=== PATIENT | female | born 1960 | race Caucasian/White ===

== ENCOUNTER 2017-01-24 19:07 | Emergency (ER) | payer OTHER ==
[~2017-01-24] VITALS: Ht 162.6 cm; Wt 95.2 kg
[~2017-01-24 19:07] MED LIST: AZIT250T74 PO; CYCL20CR PO; DIAZ5 PO; FLUO-1 PO; FLUT1SPR9 NASAL; FURO1TAB93 PO; GABA800T PO; LEVO75TA3 PO; LORA5SOL3 PO; PRED5TAB PO; PROP40TA3 PO; TOPA15CA PO; VENTAER INH; ZOLP5TAB3 PO
[2017-01-24 19:39] VITALS: BP 110/82; PULSE 96; RESP 18; TEMP 98.3; O2SAT 94
[2017-01-24 20:46] VITALS: BP 134/79; PULSE 82; RESP 22; O2SAT 95
--- NOTE | 2017-01-24 20:48 | PD ---
HPI Chief Complaint: Fall Time Seen by Provider: 20:41 Travel History International Travel<30 days: No Contact w/Intl Traveler<30days: No Traveled to known affect area: No History of Present Illness HPI 56-year-old female presents to the emergency department by private transportation for complaint of injury sustained after falling off of a 12 foot ladder that she was climbing down yesterday at 4 PM. Patient states that she was looking at a boat and was on a ladder that was up against the boat as she was climbing down she estimates that when she was approximately 8 feet from the ground her foot slipped and while she was hanging on the ladder she's ago and landed on her back hitting her head and back. Patient states she did not experience loss of consciousness. Patient states she landed on a driveway. Patient states there were bystanders. Patient states she chose not to be evaluated at an emergency department at that time. Patient states due to persistent headache and back pain she decided to come to the emergency department. Patient also reports that she has visual is disturbance causing blurring of both eyes since the fall. Patient states she has residual right- sided weakness due to recurrent CVA recurrent frequent TIAs and multiple sclerosis. Patient states she is not followed by a neurologist for her history of multiple sclerosis. Patient states she has not seen her primary care physician Dr. Shaffer recently. Patient denies any new upper or lower extremity numbness tingling or weakness. Patient denies any chest pain rib pain shortness of breath or abdominal pain. Patient states she's had normal urine output. Patient denies any bladder or bowel dysfunction or incontinence. Patient has noted however for some time she has daily diarrhea that is not new. Patient does not report any melena or hematochezia. Patient's had no recent febrile illness. Patient does not take antibiotic. Patient has not noticed any hematuria or noted flank pain. Patient does complain of low back pain. An patient does report chronic low back pain. Patient states she is supposed to use a walker at all times to assist with ambulation but has been utilizing assistance of her friend who drove her to the hospital or family members to help with her ambulation. Patient does not report change in her laboratory status. Patient has experienced some nausea and dizziness reportedly since her fall. Patient has extensive past medical history that includes multiple sclerosis TIA CVA with residual right-sided weakness rheumatoid arthritis asthma bipolar disorder dyslipidemia mitral valve prolapse diabetes fibromyalgia GERD headache/migraines degenerative disc disease hypothyroidism diverticulosis with episodes of diverticulitis and she has undergone previous eye surgery and urethral surgery. Patient denies tobacco use. No report of alcohol use. The patient rates her overall pain 10 over 10 in intensity. Patient states that she took some medication for her headache pain but cannot remember the name of it as it is the new medication. Patient denies noting any soft tissue swelling of the scalp and did not sustain any abrasions or lacerations. PFSH Past Medical History Narrative Medical multiple sclerosis TIA CVA with residual right-sided weakness rheumatoid arthritis asthma bipolar disorder dyslipidemia mitral valve prolapse diabetes fibromyalgia GERD headache/migraines degenerative disc disease hypothyroidism diverticulosis diverticulitis eye surgery urethral surgery;denies tobacco use; nursing notes reviewed Anemia: Yes Arthritis: Yes (RA) Asthma: Yes Bipolar Disorder: Yes Anxiety: Yes Depression: Yes Cardiovascular Problems: Yes High Cholesterol: Yes Cerebrovascular Accident: Yes Coronary Artery Disease: Yes (MITRAL VALVE PROLAPSE) Diabetes: Yes Diminished Hearing: Yes Diverticulitis: Yes Fibromyalgia: Yes GERD: Yes Headaches: Yes Hepatitis: Yes (migraines) Herniated Disk: Yes Respiratory: Yes Immunizations Current: Yes Migraines: Yes Thyroid Disease: Yes (HYPO) Menopausal: Yes Past Surgical History Eye Surgery: Yes (BILATERAL "LAZY EYE" CORRECTION, CHILD) Genitourinary Surgery: Yes (urethral surgery) Pacemaker: No Social History Alcohol Use: No Tobacco Use: No Substance Use: No Allergies-Medications (Allergen,Severity, Reaction): Coded Allergies: Stadol (Verified Allergy, Severe, "I GO CRAZY", 01/24/17) HALLUCINATIONS Reported Meds & Prescriptions Reported Meds & Active Scripts Active Reported Aspir-81 (Aspirin) 81 Mg Tabdr Meloxicam 15 Mg Tab 15 Mg PO DAILY Cymbalta DR (Duloxetine HCl) 20 Mg Capdr 20 Mg PO DAILY Zolpidem (Zolpidem Tartrate) 5 Mg Tab 5 Mg PO HS PRN Topamax (Topiramate) 50 Mg Tab 50 Mg PO BID Propranolol (Propranolol HCl) 40 Mg Tab 40 Mg PO Q12HR Levothyroxine (Levothyroxine Sodium) 75 Mcg Tab 75 Mcg PO DAILY Gabapentin 800 Mg Tab 800 Mg PO QID Lasix (Furosemide) 40 Mg Tab 40 Mg PO BID Prozac (Fluoxetine HCl) 10 Mg Cap 10 Mg PO DAILY Diazepam 10 Mg Tab 10 Mg PO BID PRN Ventolin Hfa 18 GM Inh (Albuterol Sulfate) 90 Mcg/Act Aer 2 Puff INH Q4-6H PRN Review of Systems Except as stated in HPI: all other systems reviewed are Neg General / Constitutional: No: Fever, Chills Eyes: Positive: Blurred Vision, No: Diploplia HENT: Positive: Headaches, Lightheadedness, No: Vertigo, Neck Stiffness, Neck Pain Cardiovascular: No: Chest Pain or Discomfort, Palpitations Respiratory: No: Shortness of Breath Gastrointestinal: Positive: Nausea, Abdominal Pain (chronic), No: Vomiting, Diarrhea, Hematemesis, Hematochezia Genitourinary: No: Urgency, Frequency, Dysuria, Incontinence Musculoskeletal: No: Myalgias, Arthralgias Neurologic: Positive: Weakness, Dizziness, Focal Abnormalities (chronic right sided weakness), Headache, No: Ataxia, Change in Mentation, Slurred Speech, Paresthesia, Seizures Psychiatric: Positive: Anxiety Endocrine: No: Heat Intolerance Hematologic/Lymphatic: No: Easy Bruising Physical Exam Narrative GENERAL: Well-developed well-nourished female in no acute distress no respiratory distress; gcs 15. SKIN: Warm and dry. HEAD: Atraumatic. Normocephalic. EYES: Pupils equal and round. No scleral icterus. No injection or drainage. ENT: No nasal bleeding or discharge. Mucous membranes pink and moist. NECK: Trachea midline. No JVD. CARDIOVASCULAR: Regular rate and rhythm. RESPIRATORY: No accessory muscle use. Clear to auscultation. Breath sounds equal bilaterally. GASTROINTESTINAL: Abdomen soft, non-tender, nondistended. Hepatic and splenic margins not palpable. MUSCULOSKELETAL: Extremities without clubbing, cyanosis, or edema. No obvious deformities. NEUROLOGICAL: Awake and alert. No obvious cranial nerve deficits. Motor grossly within normal limits. Five out of 5 muscle strength in the arms and legs. Normal speech. PSYCHIATRIC: Appropriate mood and affect; insight and judgment normal. Data Data Last Documented VS Vital Signs Date Time Temp Pulse Resp B/P Pulse Ox O2 Delivery O2 Flow Rate FiO2 01/24/17 23:31 71 18 108/73 98 Room Air 01/24/17 19:39 98.3 Orders Basic Metabolic Panel (Bmp) (01/24/17 20:48) Complete Blood Count With Diff (01/24/17 20:48) Prothrombin Time / Inr (Pt) (01/24/17 20:48) Act Partial Throm Time (Ptt) (01/24/17 20:48) Type And Screen (01/24/17 20:48) Urinalysis - C+S If Indicated (01/24/17 20:48) Pelvis, Ap Only (Routine) (01/24/17 20:48) Spine, Lumbar - Ltd (Ap & Lat) (01/24/17 20:48) Spine, Thoracic-Ap/Lat/Sw(3vw) (01/24/17 20:48) Ct Brain W/O Iv Contrast(Rout) (01/24/17 20:48) Ct Cerv Spine W/O Contrast (01/24/17 20:48) Iv Access Insert/Monitor (01/24/17 20:48) Oximetry (01/24/17 20:48) Sodium Chloride 0.9% Flush (Ns Flush) (01/24/17 21:00) Sodium Chlorid 0.9% 500 Ml Inj (Ns 500 M (01/24/17 23:00) Labs Laboratory Tests Test 01/24/17 01/24/17 21:05 22:00 White Blood Count 6.9 TH/MM3 Red Blood Count 4.39 MIL/MM3 Hemoglobin 13.4 GM/DL Hematocrit 39.8 % Mean Corpuscular Volume 90.8 FL Mean Corpuscular Hemoglobin 30.5 PG Mean Corpuscular Hemoglobin 33.6 % Concent Red Cell Distribution Width 14.1 % Platelet Count 257 TH/MM3 Mean Platelet Volume 7.8 FL Neutrophils (%) (Auto) 47.4 % Lymphocytes (%) (Auto) 42.3 % Monocytes (%) (Auto) 5.1 % Eosinophils (%) (Auto) 4.5 % Basophils (%) (Auto) 0.7 % Neutrophils # (Auto) 3.3 TH/MM3 Lymphocytes # (Auto) 2.9 TH/MM3 Monocytes # (Auto) 0.4 TH/MM3 Eosinophils # (Auto) 0.3 TH/MM3 Basophils # (Auto) 0.0 TH/MM3 CBC Comment DIFF FINAL Differential Comment Prothrombin Time 10.2 SEC Prothromb Time International 0.9 RATIO Ratio Activated Partial 24.7 SEC Thromboplast Time Sodium Level 143 MEQ/L Potassium Level 3.7 MEQ/L Chloride Level 108 MEQ/L Carbon Dioxide Level 25.9 MEQ/L Anion Gap 9 MEQ/L Blood Urea Nitrogen 14 MG/DL Creatinine 1.10 MG/DL Estimat Glomerular Filtration 52 ML/MIN Rate Random Glucose 110 MG/DL Calcium Level 8.7 MG/DL Blood Type O POSITIVE Antibody Screen NEGATIVE Urine Color YELLOW Urine Turbidity CLEAR Urine pH 6.0 Urine Specific [place] 1.023 Urine Protein NEG mg/dL Urine Glucose (UA) NEG mg/dL Urine Ketones NEG mg/dL Urine Occult Blood NEG Urine Nitrite NEG Urine Bilirubin NEG Urine Leukocyte Esterase TRACE Urine WBC 0-2 /hpf Urine Squamous Epithelial 0-5 /hpf Cells Urine Calcium Oxalate Crystals FEW /hpf Microscopic Urinalysis Comment CULT NOT INDICATED MDM Medical Decision Making Medical Screen Exam Complete: Yes Emergency Medical Condition: Yes Medical Record Reviewed: Yes Interpretation(s) CBC & BMP Diagram 01/24/17 21:05 Vital Signs Date Time Temp Pulse Resp B/P Pulse Ox O2 Delivery O2 Flow Rate FiO2 01/24/17 23:31 71 18 108/73 98 Room Air 01/24/17 23:30 18 98 Room Air 01/24/17 20:46 82 22 134/79 95 Room Air 01/24/17 20:38 18 97 Room Air 01/24/17 19:39 98.3 96 18 110/82 94 Last Impressions Thoracic Spine X-Ray 01/24/172047 Signed Impressions: Service Date/Time: Tuesday, January 24, 2017 21:14 - CONCLUSION: Negative trauma study. Schuyler Tao MD Pelvis X-Ray 01/24/172047 Signed Impressions: Service Date/Time: Tuesday, January 24, 2017 21:06 - CONCLUSION: Unremarkable examination of the pelvis. Schuyler Tao MD Lumbar Spine X-Ray 01/24/172047 Signed Impressions: Service Date/Time: Tuesday, January 24, 2017 21:13 - CONCLUSION: Negative trauma study. Schuyler Tao MD Head CT 01/24/172047 Signed Impressions: Service Date/Time: Tuesday, January 24, 2017 21:24 - CONCLUSION: Negative trauma study. Schuyler Tao MD Cervical Spine CT 01/24/172047 Signed Impressions: Service Date/Time: Tuesday, January 24, 2017 21:24 - CONCLUSION: Negative trauma CT. Schuyler Tao MD Differential Diagnosis ICH, CHI, cervical/thoracic/ spine sprain strain fracture HNP, uti Narrative Course IV access obtained specimens collected and sent for resulting imaging studies ordered Patient resting comfortably waiting for imaging study voicing no complaints CT brain and cervical spine reveal no acute abnormality or findings associated with trauma Plain films reveal no acute bony abnormality; left thigh's grossly within normal limits except for mild elevation of creatinine consistent with volume contracture/dehydration Patient given fluid bolus and stable for outpatient management Visual acuities: (R) 2030 (L) 20 (B) Diagnosis Primary Impression: Minor closed head injury Additional Impressions: Thoracolumbar back pain History of multiple sclerosis Referrals: Fernando Shaffer MD 2 days Patient Instructions: General Instructions Additional Instructions: Follow-up with your primary care provider Continue your prescription medications as chronically prescribed Use as tolerated acetaminophen/Tylenol every 4 hours or ibuprofen/Advil/Motrin every 6-8 hours for minor pain or pain associated with inflammation per package directions Increase fluid hydration Apply ice intermittently to areas affected by discomfort for the first 12-24 hours then moist heat Return to the emergency department for any concerns or change in condition Use your walker at all times to assist with your walking Med/Other Pt SpecificInfo: No Change to Meds Disposition: 01 DISCHARGE HOME Condition: Stable Soledad Tapia MD Jan 24, 2017 20:48
[2017-01-24] MEDS ORDERED: SODIUM CHLORIDE 0.9% FLUSH 5 ML FLUSH IVF PRN (21:00)
[2017-01-24] MEDS ORDERED: MELO-1 PO (21:07)
[2017-01-24] MEDS ORDERED: FURO1TAB60 PO (21:07)
[2017-01-24] MEDS ORDERED: VENTAER INH (21:07)
[2017-01-24] MEDS ORDERED: PROP40TA3 PO (21:07)
[2017-01-24] MEDS ORDERED: DIAZ10TA PO (21:07)
[2017-01-24] MEDS ORDERED: FLUO-1 PO (21:07)
[2017-01-24] MEDS ORDERED: DULO20 PO (21:07)
[2017-01-24] MEDS ORDERED: ASPI81TA81 (21:07)
[2017-01-24] MEDS ORDERED: TOPA50TA7 PO (21:07)
[2017-01-24] MEDS ORDERED: GABA800T PO (21:07)
[2017-01-24] MEDS ORDERED: LEVO75TA3 PO (21:07)
[2017-01-24] MEDS ORDERED: ZOLP5TAB3 PO (21:07)
[2017-01-24 21:22] LABS: AUTOMATED NEUTROPHIL # 3.3 TH/MM3 (1.8-7.7); BASOPHIL % 0.7 % (0.0-2.0); EOSINOPHIL # 0.3 TH/MM3 (0-0.4); EOSINOPHIL % 4.5 % (0.0-4.0); HEMATOCRIT 39.8 % (35.0-46.0); HEMO FLAGS DIFF FINAL; LYMPH % 42.3 % (9.0-44.0); LYMPHOCYTE # 2.9 TH/MM3 (1.0-4.8); MEAN CELL VOLUME 90.8 FL (80.0-100.0); MEAN CORPUSCULAR HEMOGLOBIN 30.5 PG (27.0-34.0); MEAN CORPUSCULAR HGB CONC 33.6 % (32.0-36.0); MONO % 5.1 % (0.0-8.0); NEUT % 47.4 % (16.0-70.0); PLATELET COUNT 257 TH/MM3 (150-450); RED BLOOD COUNT 4.39 MIL/MM3 (4.00-5.30); RED CELL DISTRIBUTION WIDTH 14.1 % (11.6-17.2); WHITE BLOOD COUNT 6.9 TH/MM3 (4.0-11.0)
[2017-01-24 21:29] LABS: POTASSIUM 3.7 MEQ/L (3.5-5.1)
--- NOTE | 2017-01-24 21:30 | RADHPO ---
EXAM DATE/TIME: 01/24/2017 21:06 [facility] COMPARISON: PELVIS AP ONLY, January 08, 2015, 17:22. INDICATIONS : Pelvic pain post fall from ladder. MEDICAL HISTORY : None. SURGICAL HISTORY : None. ENCOUNTER: Initial ACUITY: 2 days PAIN SCORE: 9/10 LOCATION: Bilateral pelvis FINDINGS: A single frontal view of the pelvis demonstrates no evidence of fracture. The bony pelvic ring is in tact. Bony mineralization is normal. The soft tissues are intact. CONCLUSION: Unremarkable examination of the pelvis. Schuyler Tao MD on January 24, 2017 at 21:28 Board Certified Radiologist. This report was verified electronically.
[2017-01-24 21:31] LABS: BICARBONATE 25.9 MEQ/L (21.0-32.0)
--- NOTE | 2017-01-24 21:31 | RADHPO ---
EXAM DATE/TIME: 01/24/2017 21:13 [facility] COMPARISON: SPINE LUMBAR LTD (AP & LAT), January 08, 2015, 17:25. INDICATIONS : Lumbar spine pain post fall from ladder. MEDICAL HISTORY : None. SURGICAL HISTORY : None. ENCOUNTER: Initial ACUITY: 2 days PAIN SCORE: 9/10 LOCATION: Bilateral lumbar spine FINDINGS: Two view examination was performed. There are five non-rib bearing vertebral bodies. The vertebral bodies are in normal alignment without evidence of laceration. There is a mild scoliosis. The disc sp aces are maintained. The pedicles are intact. Bony mineralization is normal. No fracture is identi fied. CONCLUSION: Negative trauma study. Schuyler Tao MD on January 24, 2017 at 21:29 Board Certified Radiologist. This report was verified electronically.
--- NOTE | 2017-01-24 21:32 | RADHPO ---
EXAM DATE/TIME: 01/24/2017 21:14 [facility] COMPARISON: No previous studies available for comparison. INDICATIONS : Thoracic spine pain post fall from ladder. MEDICAL HISTORY : None. SURGICAL HISTORY : None. ENCOUNTER: Initial ACUITY: 2 days PAIN SCORE: 9/10 LOCATION: Bilateral thoracic spine FINDINGS: There is normal alignment of the thoracic vertebral bodies. Vertebral body height is maintained. No evidence of fracture or subluxation. Pedicles are intact at all levels. The paravertebral reflecti ons are not thickened. CONCLUSION: Negative trauma study. Schuyler Tao MD on January 24, 2017 at 21:30 Board Certified Radiologist. This report was verified electronically.
[2017-01-24 21:35] LABS: APTT (PATIENT) 24.7 SEC (24.3-30.1); INTERNATIONAL NORMALIZED RATIO 0.9 RATIO; PROTHROMBIN TIME - PATIENT 10.2 SEC (9.8-11.6)
[2017-01-24 22:09] LABS: BLOOD, URINE NEG (NEG); GLUCOSE,URINE NEG (NEG); KETONE, URINE NEG (NEG); NITRITE,URINE NEG (NEG)
--- NOTE | 2017-01-24 22:17 | RADHPO ---
EXAM DATE/TIME: 01/24/2017 21:24 [facility] COMPARISON: CT BRAIN W/O CONTRAST, November 10, 2014, 20:03. INDICATIONS : Fall. Posterior head trauma. RADIATION DOSE: 58.53 CTDIvol (mGy) MEDICAL HISTORY : None SURGICAL HISTORY : None. ENCOUNTER: Initial ACUITY: 1 day PAIN SCALE: 8/10 LOCATION: occipital TECHNIQUE: Multiple contiguous axial images were obtained of the head. Using automated exposure control and adj ustment of the mA and/or kV according to patient size, radiation dose was kept as low as reasonably a chievable to obtain optimal diagnostic quality images. FINDINGS: CEREBRUM: The ventricles are normal for age. No evidence of midline shift, mass lesion, hemorrhage or acute in farction. No extra-axial fluid collections are seen. POSTERIOR FOSSA: The cerebellum and brainstem are intact. The 4th ventricle is midline. The cerebellopontine angle i s unremarkable. EXTRACRANIAL: The visualized portion of the orbits is intact. SKULL: The calvaria is intact. No evidence of skull fracture. CONCLUSION: Negative trauma study. Schuyler Tao MD on January 24, 2017 at 22:14 Board Certified Radiologist. This report was verified electronically.
[2017-01-24 22:25] LABS: URINE COLOR YELLOW (YELLW/STRAW)
--- NOTE | 2017-01-24 22:27 | RADHPO ---
EXAM DATE/TIME: 01/24/2017 21:24 [facility] COMPARISON: CT CERVICAL SPINE W/O CONTRAST, November 21, 2013, 22:41. INDICATIONS : Fall. Posterior neck trauma. RADIATION DOSE: 26.26 CTDIvol (mGy) MEDICAL HISTORY : None SURGICAL HISTORY : None. ENCOUNTER: Initial ACUITY: 1 day PAIN SCALE: 7/10 LOCATION: neck TECHNIQUE: Volumetric scanning of the cervical spine was performed. Multiplanar reconstructions i n the sagittal, coronal and oblique axial planes were performed. Using automated exposure control a nd adjustment of the mA and/or kV according to patient size, radiation dose was kept as low as reason ably achievable to obtain optimal diagnostic quality images. FINDINGS: The sagittal reconstructions demonstrate normal alignment and normal prevertebral soft tissues. The d ens is intact and there is a normal atlantoaxial relationship. The axial images demonstrate that the vertebral bodies and posterior elements are intact. The soft ti ssues are within normal limits. There is no evidence of acute fracture or malalignment. CONCLUSION: Negative trauma CT. Schuyler Tao MD on January 24, 2017 at 22:24 Board Certified Radiologist. This report was verified electronically.
[2017-01-24 22:28] LABS: SQUAMOUS EPITHELIAL CELL URINE 0-5 /hpf (0-5); WBC, URINE 0-2 /hpf (0-5)
[2017-01-24 22:30] LABS: CALCIUM OXALATE CRYSTALS,URINE FEW /hpf
[2017-01-24 22:32] LABS: COMMENT (UR) CULT NOT INDICATED; CULTURE IF INDICATED CULT NOT INDICATED
[2017-01-24] MEDS ORDERED: SODIUM CHLORID 0.9% 500 ML INJ 500 ML IV ONE (23:00)
[2017-01-24 23:30] VITALS: RESP 18; O2SAT 98
[2017-01-24 23:31] VITALS: BP 108/73; PULSE 71; RESP 18; O2SAT 98
== END 2017-01-25 00:26 | disposition home or self-care (01) ==
LOC: PHED 19:07
DX: S09.90XA Unspecified injury of head, initial encounter (principal); M54.6 Pain in thoracic spine; G35 Multiple sclerosis; E11.9 Type 2 diabetes mellitus without complications; I25.10 Atherosclerotic heart disease of native coronary artery without angina pectoris; Z86.73 Personal history of transient ischemic attack (TIA), and cerebral infarction without residual deficits; W11.XXXA Fall on and from ladder, initial encounter; Y93.89 Activity, other specified; Y92.89 Other specified places as the place of occurrence of the external cause
CPT/HCPCS: 70450; 72072; 72100; 72125; 72170; 80048; 81001; 85025; 85610; 85730; 86850; 86900; 86901; 99284; J7040

== ENCOUNTER 2017-03-04 21:51 | Observation (INO) | payer OTHER ==
[~2017-03-04] VITALS: Ht 162.6 cm; Wt 97.1 kg
[~2017-03-04 21:51] MED LIST changes: +ASPI81TA81; -AZIT250T74 PO; -CYCL20CR PO; +DIAZ10TA PO; -DIAZ5 PO; +DULO20 PO; -FLUT1SPR9 NASAL; +FURO1TAB60 PO; -FURO1TAB93 PO; -LORA5SOL3 PO; +MELO-1 PO; -PRED5TAB PO; -TOPA15CA PO; +TOPA50TA7 PO
[2017-03-04 21:57] VITALS: BP 112/82; PULSE 80; RESP 18; TEMP 98.4; O2SAT 95
[2017-03-04 22:15] VITALS: BP 112/82; PULSE 80; RESP 18; O2SAT 95
[2017-03-04] MEDS ORDERED: SODIUM CHLOR 0.9% 1000 ML INJ 1,000 ML IV SCH (22:41)
[2017-03-04] MEDS ORDERED: ONDANSETRON HCL 4 MG/2 ML VIAL IVP ONE (22:45)
[2017-03-04] MEDS ORDERED: SODIUM CHLORIDE 0.9% FLUSH 10 ML FLUSH IVF PRN (22:45)
--- NOTE | 2017-03-04 22:53 | PD ---
HPI Chief Complaint: Abdominal Pain Time Seen by Provider: 22:40 Travel History International Travel<30 days: No Contact w/Intl Traveler<30days: No Traveled to known affect area: No History of Present Illness HPI 56-year-old female presents to the emergency department by private transportation the care of friends for evaluation of one week of urinary symptoms with dysuria and decreased urine output along with 1 day of dark blood per rectum. The patient states just prior to coming to the emergency room had a bowel movement and noticed a large amount of blood in the toilet water. Patient states the blood appeared dark. Patient has history of previous diverticulitis and previous colonic polyps with polypectomy at time of colonoscopy approximately 5 years ago and did not follow-up. Patient was previously followed by rn liaison Dr. Paige in [place]. Patient has history of rheumatoid arthritis, fibromyalgia, diverticulosis, diverticulitis, multiple sclerosis, TIA, CVA, asthma, bipolar disorder, dyslipidemia, mitral valve prolapse, diabetes, GERD, anemia, headache, degenerative disc disease, hypothyroidism, eye surgery and urethral surgery. Patient has noted some dizziness since noting blood in her stool. Patient denies any chest pain or shortness of breath. Patient has history of recurrent anemia. Patient rates pain 8/10 in discomfort. Patient unable to identify exacerbating or alleviating factors. PFSH Past Medical History Narrative Medical rheumatoid arthritis, fibromyalgia, diverticulosis, diverticulitis, multiple sclerosis, TIA, CVA, asthma, bipolar disorder, dyslipidemia, mitral valve prolapse, diabetes, GERD, anemia, headache, degenerative disc disease, hypothyroidism, eye surgery urethral surgery; no tobacco use no alcohol use; nursing notes reviewed Anemia: Yes Arthritis: Yes (RA) Asthma: Yes Bipolar Disorder: Yes Anxiety: Yes Depression: Yes Cardiovascular Problems: Yes High Cholesterol: Yes Cerebrovascular Accident: Yes Coronary Artery Disease: Yes (MITRAL VALVE PROLAPSE) Diabetes: Yes (PRE PER PATIENT) Patient Takes Glucophage: No Diminished Hearing: Yes Diverticulitis: Yes Fibromyalgia: Yes GERD: Yes Headaches: Yes Hepatitis: Yes (MIGRAINES) Herniated Disk: Yes Musculoskeletal: Yes (BACK PAIN) Respiratory: Yes Immunizations Current: Yes Migraines: Yes Thyroid Disease: Yes (HYPO) ?: Not LMP: Menopause 5 years Menopausal: Yes Past Surgical History Eye Surgery: Yes (BILATERAL "LAZY EYE" CORRECTION, CHILD) Genitourinary Surgery: Yes (URETHRAL SURGERY) Pacemaker: No Social History Alcohol Use: No Tobacco Use: No Substance Use: No Allergies-Medications (Allergen,Severity, Reaction): Coded Allergies: Stadol (Verified Allergy, Severe, "I GO CRAZY", 03/04/17) HALLUCINATIONS Reported Meds & Prescriptions Reported Meds & Active Scripts Active Reported Aspir-81 (Aspirin) 81 Mg Tabdr Meloxicam 15 Mg Tab 15 Mg PO DAILY Cymbalta DR (Duloxetine HCl) 20 Mg Capdr 20 Mg PO DAILY Zolpidem (Zolpidem Tartrate) 5 Mg Tab 5 Mg PO HS PRN Topamax (Topiramate) 50 Mg Tab 50 Mg PO BID Propranolol (Propranolol HCl) 40 Mg Tab 40 Mg PO Q12HR Levothyroxine (Levothyroxine Sodium) 75 Mcg Tab 75 Mcg PO DAILY Gabapentin 800 Mg Tab 800 Mg PO QID Lasix (Furosemide) 40 Mg Tab 40 Mg PO BID Prozac (Fluoxetine HCl) 10 Mg Cap 10 Mg PO DAILY Diazepam 10 Mg Tab 10 Mg PO BID PRN Ventolin Hfa 18 GM Inh (Albuterol Sulfate) 90 Mcg/Act Aer 2 Puff INH Q4-6H PRN Review of Systems Except as stated in HPI: all other systems reviewed are Neg General / Constitutional: No: Fever, Chills HENT: No: Congestion Cardiovascular: No: Chest Pain or Discomfort Respiratory: No: Shortness of Breath Gastrointestinal: Positive: Nausea, Abdominal Pain, Hematochezia, No: Vomiting , Diarrhea, Hematemesis, Changes in Bowel Habits, Loss of Appetite Genitourinary: Positive: Urgency, Frequency, Dysuria, Decreased Urinary Output , Flank Pain Musculoskeletal: No: Myalgias, Arthralgias Skin: No Rash Neurologic: Positive: Weakness, Dizziness, No: Syncope, Focal Abnormalities, Coordination Problem Psychiatric: No: Anxiety Endocrine: No: Heat Intolerance Hematologic/Lymphatic: No: Easy Bruising Physical Exam Narrative GENERAL: Well-developed well-nourished female in no acute distress no respiratory distress SKIN: Warm and dry. HEAD: Atraumatic. Normocephalic. EYES: Pupils equal and round. No scleral icterus. No injection or drainage. ENT: No nasal bleeding or discharge. Mucous membranes pink and moist. NECK: Trachea midline. No JVD. CARDIOVASCULAR: Regular rate and rhythm. RESPIRATORY: No accessory muscle use. Clear to auscultation. Breath sounds equal bilaterally. GASTROINTESTINAL: Abdomen soft, diffusely tender without guarding or rebound, nondistended. Hepatic and splenic margins not palpable. Rectal exam: No fissure no thrombosed or prolapsed hemorrhoids; normal sphincter tone; maroon mucus in stool on exam glove. MUSCULOSKELETAL: Extremities without clubbing, cyanosis, or edema. No obvious deformities. NEUROLOGICAL: Awake and alert. No obvious cranial nerve deficits. Motor grossly within normal limits. Five out of 5 muscle strength in the arms and legs. Normal speech. PSYCHIATRIC: Appropriate mood and affect; insight and judgment normal. Data Data Last Documented VS Vital Signs Date Time Temp Pulse Resp B/P Pulse Ox O2 Delivery O2 Flow Rate FiO2 03/05/17 00:24 69 16 111/75 97 Room Air 03/04/17 21:57 98.4 Orders Complete Blood Count With Diff (03/04/17 22:41) Comprehensive Metabolic Panel (03/04/17 22:41) Lipase (03/04/17 22:41) Prothrombin Time / Inr (Pt) (03/04/17 22:41) Act Partial Throm Time (Ptt) (03/04/17 22:41) Urinalysis - C+S If Indicated (03/04/17 22:41) Type And Screen (03/04/17 22:41) Ecg Monitoring (03/04/17 22:41) Iv Access Insert/Monitor (03/04/17 22:41) Orthostatic Vital Signs (03/04/17 22:41) Oximetry (03/04/17 22:41) Ondansetron Inj (Zofran Inj) (03/04/17 22:45) Sodium Chlor 0.9% 1000 Ml Inj (Ns 1000 M (03/04/17 22:41) Sodium Chloride 0.9% Flush (Ns Flush) (03/04/17 22:45) Magnesium (Mg) (03/04/17 22:41) Ct Abd/Pel W Iv Contrast(Rout) (03/04/17 ) Iohexol 350 Inj (Omnipaque 350 Inj) (03/04/17 23:55) Place In Observation (03/05/17 ) Vital Signs (Adult) Q4H (03/05/17 00:44) Activity Oob With Assistance (03/05/17 00:44) Sports Medicine Coordinator / Telemetry .CONTINUOUS (03/05/17 00:44) Diet Npo (03/05/17 Breakfast) Sodium Chlor 0.9% 1000 Ml Inj (Ns 1000 M (03/05/17 00:44) Sodium Chloride 0.9% Flush (Ns Flush) (03/05/17 00:45) Sodium Chloride 0.9% Flush (Ns Flush) (03/05/17 09:00) Ondansetron Inj (Zofran Inj) (03/05/17 00:45) Basic Metabolic Panel (Bmp) (03/06/17 06:00) Complete Blood Count With Diff (03/06/17 06:00) Naloxone Inj (Narcan Inj) (03/05/17 00:45) Labs Laboratory Tests Test 03/04/17 23:00 White Blood Count 7.0 TH/MM3 Red Blood Count 4.54 MIL/MM3 Hemoglobin 13.4 GM/DL Hematocrit 41.1 % Mean Corpuscular Volume 90.5 FL Mean Corpuscular Hemoglobin 29.6 PG Mean Corpuscular Hemoglobin 32.7 % Concent Red Cell Distribution Width 13.5 % Platelet Count 246 TH/MM3 Mean Platelet Volume 8.1 FL Neutrophils (%) (Auto) 48.3 % Lymphocytes (%) (Auto) 40.8 % Monocytes (%) (Auto) 6.4 % Eosinophils (%) (Auto) 4.0 % Basophils (%) (Auto) 0.5 % Neutrophils # (Auto) 3.5 TH/MM3 Lymphocytes # (Auto) 2.8 TH/MM3 Monocytes # (Auto) 0.4 TH/MM3 Eosinophils # (Auto) 0.3 TH/MM3 Basophils # (Auto) 0.0 TH/MM3 CBC Comment DIFF FINAL Differential Comment Prothrombin Time 10.0 SEC Prothromb Time International 0.9 RATIO Ratio Activated Partial 25.0 SEC Thromboplast Time Urine Color YELLOW Urine Turbidity CLEAR Urine pH 5.5 Urine Specific [place] 1.017 Urine Protein NEG mg/dL Urine Glucose (UA) NEG mg/dL Urine Ketones NEG mg/dL Urine Occult Blood MOD Urine Nitrite NEG Urine Bilirubin NEG Urine Leukocyte Esterase NEG Urine RBC 0-3 /hpf Urine Squamous Epithelial 0-5 /hpf Cells Urine Amorphous Sediment SMALL Urine Bacteria RARE /hpf Urine Mucus OCC /lpf Microscopic Urinalysis Comment CULT NOT INDICATED Sodium Level 144 MEQ/L Potassium Level 3.9 MEQ/L Chloride Level 110 MEQ/L Carbon Dioxide Level 25.1 MEQ/L Anion Gap 9 MEQ/L Blood Urea Nitrogen 17 MG/DL Creatinine 1.20 MG/DL Estimat Glomerular Filtration 47 ML/MIN Rate Random Glucose 99 MG/DL Calcium Level 8.6 MG/DL Magnesium Level 2.0 MG/DL Total Bilirubin 0.3 MG/DL Aspartate Amino Transf 17 U/L (AST/SGOT) Alanine Aminotransferase 27 U/L (ALT/SGPT) Alkaline Phosphatase 122 U/L Total Protein 7.3 GM/DL Albumin 2.8 GM/DL Lipase 120 U/L [facility] Medical Decision Making Medical Screen Exam Complete: Yes Emergency Medical Condition: Yes Medical Record Reviewed: Yes Interpretation(s) ct abd/pel: CONCLUSION: 1. There is a tiny 2 mm stone along the base of urinary bladder on the right side. I suspect patient recently passed a right urinary stone. There is mild dilatation of the right ureter. However this is stable compared to the prior study from 2012. No definite hydronephrosis of the right or left kidney are seen. 2. 1 cm benign appearing left renal cyst with a few stable small left parapelvic cyst. No significant change compared to 2012. Rashid Hernández MD on March 05, 2017 at 0:31 Board Certified Radiologist. This report was verified electronically. 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 & Neg. Controls: Passed Fecal Specimen Occult Blood: Positive Diagnosis Primary Impression: Rectal bleeding Additional Impression: Nephrolithiasis Soledad Tapia MD Mar 04, 2017 22:53
[2017-03-04 23:05] VITALS: RESP 18; O2SAT 98
[2017-03-04 23:11] VITALS: BP_SYST 104; BP_SYST 105; BP_SYST 111; BP_DIAS 73; BP_DIAS 74; BP_DIAS 75; RESP 16; RESP 18
[2017-03-04 23:25] LABS: AUTOMATED NEUTROPHIL # 3.5 TH/MM3 (1.8-7.7); BASOPHIL % 0.5 % (0.0-2.0); EOSINOPHIL # 0.3 TH/MM3 (0-0.4); HEMATOCRIT 41.1 % (35.0-46.0); HEMO FLAGS DIFF FINAL; LYMPH % 40.8 % (9.0-44.0); LYMPHOCYTE # 2.8 TH/MM3 (1.0-4.8); MEAN CELL VOLUME 90.5 FL (80.0-100.0); MEAN CORPUSCULAR HEMOGLOBIN 29.6 PG (27.0-34.0); MEAN CORPUSCULAR HGB CONC 32.7 % (32.0-36.0); MONO % 6.4 % (0.0-8.0); NEUT % 48.3 % (16.0-70.0); PLATELET COUNT 246 TH/MM3 (150-450); RED BLOOD COUNT 4.54 MIL/MM3 (4.00-5.30); RED CELL DISTRIBUTION WIDTH 13.5 % (11.6-17.2)
[2017-03-04 23:27] LABS: GLUCOSE,URINE NEG (NEG); KETONE, URINE NEG (NEG); NITRITE,URINE NEG (NEG); PH, URINE 5.5 (5.0-8.5)
[2017-03-04 23:34] LABS: BLOOD, URINE MOD (NEG)
[2017-03-04 23:35] LABS: URINE COLOR YELLOW (YELLW/STRAW)
[2017-03-04 23:36] LABS: CHLORIDE 110 MEQ/L (98-107); POTASSIUM 3.9 MEQ/L (3.5-5.1); SODIUM (NA) 144 MEQ/L (136-145); SQUAMOUS EPITHELIAL CELL URINE 0-5 /hpf (0-5)
[2017-03-04 23:37] LABS: COMMENT (UR) CULT NOT INDICATED; CULTURE IF INDICATED CULT NOT INDICATED; MUCUS URINE OCC /lpf (OCC); RBC, URINE 0-3 /hpf (0-3)
[2017-03-04 23:39] LABS: BACTERIA, URINE RARE /hpf
[2017-03-04 23:41] LABS: ANION GAP 9 MEQ/L (5-15); BICARBONATE 25.1 MEQ/L (21.0-32.0)
[2017-03-04 23:42] LABS: BLOOD UREA NITROGEN 17 MG/DL (7-18)
[2017-03-04 23:44] LABS: ALT (GPT) 27 U/L (10-53); AST (GOT) 17 U/L (15-37); GLOMERULAR FILTRATION RATE 47 ML/MIN (>89)
[2017-03-04 23:46] LABS: TOTAL BILIRUBIN ADULT 0.3 MG/DL (0.2-1.0)
[2017-03-04 23:47] LABS: ALKALINE PHOSPHATASE 122 U/L (45-117)
[2017-03-04 23:52] LABS: INTERNATIONAL NORMALIZED RATIO 0.9 RATIO
[2017-03-04] MEDS ORDERED: IOHEXOL 350 MG/ML 10 ML VIAL (for RAD DIAG) IV ONE (23:55)
[2017-03-05] VITALS (13 sets, daily range): BP systolic 77–120; BP diastolic 71–80; PULSE 67–90; RESP 16–18; TEMP 95.9–98.2; O2SAT 96–99
--- NOTE | 2017-03-05 00:40 | RADHPO ---
EXAM DATE/TIME: 03/04/2017 23:52 [facility] COMPARISON: CT ABDOMEN & PELVIS W CONTRAST, November 08, 2012, 15:54. INDICATIONS : Anterior abdominal pain. Dysuria. Decreased urine output. Dark red blood from rectum. IV CONTRAST: 100 cc Omnipaque 350 (iohexol) IV ORAL CONTRAST: No oral contrast ingested. RADIATION DOSE: 22.10 CTDIvol (mGy) MEDICAL HISTORY : Gastroesophageal reflux disease. Cardiovascular disease SURGICAL HISTORY : Uretheral. ENCOUNTER: Initial ACUITY: 1 week PAIN SCALE: 8/10 LOCATION: Bilateral anterior abdomen. TECHNIQUE: Volumetric scanning of the abdomen and pelvis was performed. Using automated exposure control and ad justment of the mA and/or kV according to patient size, radiation dose was kept as low as reasonably achievable to obtain optimal diagnostic quality images. FINDINGS: LOWER LUNGS: The visualized lower lungs are clear. LIVER: Homogeneous density without lesion. There is no dilation of the biliary tree. No calcified gallston es. SPLEEN: Normal size without lesion. PANCREAS: Within normal limits. KIDNEYS: Normal in size and shape. There is no mass, stone or hydronephrosis. Small benign 1 cm left renal cy st. There are some stable left parapelvic cyst. There some mild prominence of the right ureter but th is is stable compared to 2012. However, there does appear to be a tiny 2 mm stone in the base of the urinary bladder on the right side. ADRENAL GLANDS: Within normal limits. VASCULAR: There is no aortic aneurysm. BOWEL/MESENTERY: The stomach, small bowel, and colon demonstrate no acute abnormality. There is no free intraperitone al air or fluid. No inflammatory changes. ABDOMINAL WALL: Within normal limits. RETROPERITONEUM: There is no lymphadenopathy. BLADDER: There is a tiny 2 mm stone along the base of urinary bladder on the right side. REPRODUCTIVE: Within normal limits. INGUINAL: There is no lymphadenopathy or hernia. MUSCULOSKELETAL: Within normal limits for patient age. CONCLUSION: 1. There is a tiny 2 mm stone along the base of urinary bladder on the right side. I suspect patient recently passed a right urinary stone. There is mild dilatation of the right ureter. However this is stable compared to the prior study from 2012. No definite hydronephrosis of the right or left kidney are seen. 2. 1 cm benign appearing left renal cyst with a few stable small left parapelvic cyst. No significant change compared to 2012. Rashid Hernández MD on March 05, 2017 at 0:31 Board Certified Radiologist. This report was verified electronically.
[2017-03-05] MEDS ORDERED: NALOXONE HCL 0.4 MG/ML AMP IV PRN (00:45)
[2017-03-05] MEDS ORDERED: SODIUM CHLORIDE 0.9% FLUSH 10 ML FLUSH IV FLUSH PRN (00:45)
[2017-03-05] MEDS ORDERED: SODIUM CHLORIDE 0.9% FLUSH 10 ML FLUSH IVF PRN (01:00)
[2017-03-05] MEDS: SODIUM CHLOR 0.9% 1000 ML INJ 1,000 ML IV SCH ×3 (01:19→22:06)
[2017-03-05] MEDS ORDERED: ZOLPIDEM TARTRATE 5 MG TAB PO ONE (02:45)
[2017-03-05 03:28] LABS: HEMATOCRIT 35.3 % (35.0-46.0); REVIEW FLAG FINAL
[2017-03-05] MEDS: MORPHINE SULFATE 4 MG/ML INJ IV PUSH PRN ×3 (08:47→22:03)
[2017-03-05] MEDS ORDERED: SODIUM CHLORIDE 0.9% FLUSH 10 ML FLUSH IV FLUSH SCH (09:00)
[2017-03-05] MEDS: ONDANSETRON HCL 4 MG/2 ML VIAL IVP PRN ×2 (09:13→16:58)
[2017-03-05] MEDS: SODIUM CHLORIDE 0.9% FLUSH 10 ML FLUSH IV FLUSH SCH ×2 (09:14→22:02)
--- NOTE | 2017-03-05 09:41 | HHI.HP ---
HPI Service [facility] Primary Care Physician Fernando Shaffer MD Admission Diagnosis rectal bleeding Diagnoses: Chief Complaint: Abdominal pain, rectal bleeding. Travel History International Travel<30 Days: No Contact w/Intl Traveler <30 Da: No Traveled to Known Affected Are: No History of Present Illness Ms. Rey is a pleasant 56 year old female with a history of diverticulitis, colonic polyps who presented to the ED on 03/04/2017 due to lower abdominal pain, rectal bleeding that occurred last night around 7pm. She reports pressure sensation when she urinates and noted dark blood in the toilet bowl twice after she had bowel movement. Her abdominal pain did not subside after bowel movements. She denies any dysuria, hematuria, fever or chills although she felt hot and cold. She reports nausea but no vomiting. Patient has history of rheumatoid arthritis, fibromyalgia, diverticulosis, diverticulitis, multiple sclerosis, TIA, CVA, asthma, bipolar disorder, dyslipidemia, mitral valve prolapse, diabetes, GERD, anemia, headache, degenerative disc disease, hypothyroidism, eye surgery and urethral surgery. Patient underwent Colonoscopy with polyp removal about 5 years ago by DANICA King in [place]. She was supposed to follow up with Dr. Paige two years after the procedure. Review of Systems Except as stated in HPI: all other systems reviewed are Neg Past Family Social History Past Medical History Diverticulitis Asthma Fibromyalgia Rheumatoid arthritis Vertigo Colon polyps MVP Hypothyroidism TIA Past Surgical History Eye surgery Urethral surgery to dilate when she was 10. Reported Medications Aspir-81 (Aspirin) 81 Mg Tabdr Meloxicam 15 Mg Tab 15 Mg PO DAILY Cymbalta DR (Duloxetine HCl) 20 Mg Capdr 20 Mg PO DAILY Zolpidem (Zolpidem Tartrate) 5 Mg Tab 5 Mg PO HS PRN Topamax (Topiramate) 50 Mg Tab 50 Mg PO BID Propranolol (Propranolol HCl) 40 Mg Tab 40 Mg PO Q12HR Levothyroxine (Levothyroxine Sodium) 75 Mcg Tab 75 Mcg PO DAILY Gabapentin 800 Mg Tab 800 Mg PO QID Lasix (Furosemide) 40 Mg Tab 40 Mg PO BID Prozac (Fluoxetine HCl) 10 Mg Cap 10 Mg PO DAILY Diazepam 10 Mg Tab 10 Mg PO BID PRN Ventolin Hfa 18 GM Inh (Albuterol Sulfate) 90 Mcg/Act Aer 2 Puff INH Q4-6H PRN Allergies: Coded Allergies: Stadol (Verified Allergy, Severe, "I GO CRAZY", 03/04/17) HALLUCINATIONS Family History Mother - Heart disease, DM, neuropathy Father - Heart disease, DM Social History Never smoked or drank alcohol. Physical Exam Vital Signs Vital Signs Date Time Temp Pulse Resp B/P Pulse Ox O2 Delivery O2 Flow Rate FiO2 03/05/17 08:13 97.2 68 18 110/80 98 03/05/17 06:18 96.9 69 18 107/76 98 03/05/17 03:00 100/72 03/05/17 02:45 98.2 69 18 100/71 97 03/05/17 01:59 69 03/05/17 01:21 70 18 110/74 99 Room Air 03/05/17 01:18 97 21 03/05/17 00:30 18 03/05/17 00:24 69 16 111/75 97 Room Air 03/04/17 23:11 71 18 111/75 72 18 104/74 85 16 105/73 03/04/17 23:05 18 98 Room Air 03/04/17 22:27 18 03/04/17 22:15 80 18 112/82 95 03/04/17 21:57 98.4 80 18 112/82 95 Physical Exam GENERAL: This is a well-nourished, well-developed patient, in no apparent distress. SKIN: No rashes, ecchymoses or lesions. Warm and dry. HEAD: Atraumatic. Normocephalic. No temporal or scalp tenderness. EYES: Pupils equal round and reactive. No injection or drainage. ENT: Nose without bleeding, purulent drainage or septal hematoma. Airway patent. NECK: Trachea midline. No lymphadenopathy. Supple, nontender, no meningeal signs. CARDIOVASCULAR: Regular rate and rhythm without murmurs, gallops, or rubs. No JVD. RESPIRATORY: Clear to auscultation. Breath sounds equal bilaterally. No wheezes , rales, or rhonchi. GASTROINTESTINAL: Abdomen soft, tender to palpation over lower abdomen, nondistended. No guarding. MUSCULOSKELETAL: Extremities without clubbing, cyanosis, or edema. NEUROLOGICAL: Awake and alert. Cranial nerves II through XII intact. No focal neurological deficits. Normal speech. Laboratory Laboratory Tests Test 03/04/17 03/05/17 23:00 03:00 White Blood Count 7.0 Red Blood Count 4.54 Hemoglobin 13.4 11.9 Hematocrit 41.1 35.3 Mean Corpuscular Volume 90.5 Mean Corpuscular Hemoglobin 29.6 Mean Corpuscular Hemoglobin 32.7 Concent Red Cell Distribution Width 13.5 Platelet Count 246 Mean Platelet Volume 8.1 Neutrophils (%) (Auto) 48.3 Lymphocytes (%) (Auto) 40.8 Monocytes (%) (Auto) 6.4 Eosinophils (%) (Auto) 4.0 Basophils (%) (Auto) 0.5 Neutrophils # (Auto) 3.5 Lymphocytes # (Auto) 2.8 Monocytes # (Auto) 0.4 Eosinophils # (Auto) 0.3 Basophils # (Auto) 0.0 CBC Comment DIFF FINAL Differential Comment Prothrombin Time 10.0 Prothromb Time International 0.9 Ratio Activated Partial 25.0 Thromboplast Time Urine Color YELLOW Urine Turbidity CLEAR Urine pH 5.5 Urine Specific [place] 1.017 Urine Protein NEG Urine Glucose (UA) NEG Urine Ketones NEG Urine Occult Blood MOD Urine Nitrite NEG Urine Bilirubin NEG Urine Leukocyte Esterase NEG Urine RBC 0-3 Urine Squamous Epithelial 0-5 Cells Urine Amorphous Sediment SMALL Urine Bacteria RARE Urine Mucus OCC Microscopic Urinalysis Comment CULT NOT INDICATED Sodium Level 144 Potassium Level 3.9 Chloride Level 110 Carbon Dioxide Level 25.1 Anion Gap 9 Blood Urea Nitrogen 17 Creatinine 1.20 Estimat Glomerular Filtration 47 Rate Random Glucose 99 Calcium Level 8.6 Magnesium Level 2.0 Total Bilirubin 0.3 Aspartate Amino Transf 17 (AST/SGOT) Alanine Aminotransferase 27 (ALT/SGPT) Alkaline Phosphatase 122 Total Protein 7.3 Albumin 2.8 Lipase 120 Blood Type O POSITIVE Antibody Screen NEGATIVE Result Diagram: 03/05/17 0300 03/04/17 2300 Imaging Last Impressions Abdomen/Pelvis CT 03/04/17 0000 Signed Impressions: Service Date/Time: Saturday, March 04, 2017 23:52 - CONCLUSION: 1. There is a tiny 2 mm stone along the base of urinary bladder on the right side. I suspect patient recently passed a right urinary stone. There is mild dilatation of the right ureter. However this is stable compared to the prior study from 2012. No definite hydronephrosis of the right or left kidney are seen. 2. 1 cm benign appearing left renal cyst with a few stable small left parapelvic cyst. No significant change compared to 2012. Rashid Hernández MD Assessment and Plan Problem List: (1) Rectal bleeding ICD Code: K62.5 Status: Acute (2) Nephrolithiasis ICD Code: N20.0 Status: Acute (3) Hypothyroidism ICD Code: E03.9 Status: Acute (4) Depression ICD Code: F32.9 Status: Acute Assessment and Plan Ms. Rey, 56, with a history of colonic polyps presented to the ED on 2016 due to dark blood after bowel movement X 2 as well as lower abdominal pressure sensation. - Rectal bleeding - Hgb 13.4 --> 11.9 - possibly due to IV Fluid. - Will consult GI for further input since patient has a history of Colonic polyps and diverticulitis. - May need an outpatient GI work up including Colonoscopy - Nephrolithiasis - 2 mm stone at the base of urinary bladder on the right side. - Continue IV fluid. - Continue pain meds - Urinary retention - we can use Tamsulosin 0.4mg Qday. - Bladder scan after voiding shows only 42mL of Urine. No need for Lopez cath. - Acute kidney injury - Creatinine 1.20. - Follow BMP in the AM. - Hypothyroidism - Continue Levothyroxine 75mcg Qday. - Anxiety/Depression - Continue Diazepam 10mg BID PRN, Cymbalta 20mg Qday, Prozac 10mg Qday. Full code. SCDs. Milo Jules DO Mar 05, 2017 09:41 Milo Jules DO Mar 05, 2017 9:41 am
[2017-03-05] MEDS ORDERED: TAMSULOSIN HCL 0.4 MG CAP PO ONE (10:00)
[2017-03-05] MEDS ORDERED: ALBUTEROL SULFATE 90 MCG/ACT HFA 8 GM INHALER INH PRN (10:15)
[2017-03-05] MEDS ORDERED: ZOLPIDEM TARTRATE 5 MG TAB PO PRN (10:15)
[2017-03-05] MEDS ORDERED: DIAZEPAM 10 MG TAB PO PRN (10:15)
[2017-03-05] MEDS: TOPIRAMATE 25 MG TAB PO SCH (22:02)
[2017-03-05] MEDS: PROPRANOLOL HCL 40 MG TAB PO SCH (22:02)
[2017-03-06] VITALS (8 sets, daily range): BP systolic 96–122; BP diastolic 68–92; PULSE 60–73; RESP 18–20; TEMP 96–97; O2SAT 95–97
[2017-03-06] MEDS: MORPHINE SULFATE 4 MG/ML INJ IV PUSH PRN ×3 (05:57→21:31)
[2017-03-06] MEDS: SODIUM CHLOR 0.9% 1000 ML INJ 1,000 ML IV SCH (06:00)
[2017-03-06 06:05] LABS: AUTOMATED NEUTROPHIL # 2.1 TH/MM3 (1.8-7.7); BASOPHIL % 0.6 % (0.0-2.0); EOSINOPHIL # 0.3 TH/MM3 (0-0.4); EOSINOPHIL % 5.6 % (0.0-4.0); HEMATOCRIT 34.3 % (35.0-46.0); HEMO FLAGS DIFF FINAL; LYMPHOCYTE # 2.2 TH/MM3 (1.0-4.8); MEAN CELL VOLUME 91.5 FL (80.0-100.0); MEAN CORPUSCULAR HEMOGLOBIN 30.1 PG (27.0-34.0); MEAN CORPUSCULAR HGB CONC 32.9 % (32.0-36.0); MONO % 5.7 % (0.0-8.0); NEUT % 42.1 % (16.0-70.0); PLATELET COUNT 182 TH/MM3 (150-450); RED BLOOD COUNT 3.75 MIL/MM3 (4.00-5.30); RED CELL DISTRIBUTION WIDTH 13.4 % (11.6-17.2); WHITE BLOOD COUNT 4.9 TH/MM3 (4.0-11.0)
[2017-03-06 06:09] LABS: POTASSIUM 3.6 MEQ/L (3.5-5.1)
[2017-03-06 06:23] LABS: BICARBONATE 26.3 MEQ/L (21.0-32.0)
[2017-03-06] MEDS: SODIUM CHLORIDE 0.9% FLUSH 10 ML FLUSH IV FLUSH SCH ×2 (09:00→21:31)
[2017-03-06] MEDS: FLUoxetine HCL 10 MG CAP PO SCH (09:32)
[2017-03-06] MEDS: TOPIRAMATE 25 MG TAB PO SCH ×2 (09:32→21:31)
[2017-03-06] MEDS: PROPRANOLOL HCL 40 MG TAB PO SCH ×2 (09:32→21:30)
[2017-03-06] MEDS: DULoxetine HCl DR 20 MG CAP PO SCH (09:32)
[2017-03-06] MEDS: TAMSULOSIN HCL 0.4 MG CAP PO SCH (09:33)
[2017-03-06] MEDS: LEVOTHYROXINE SODIUM 75 MCG TAB PO SCH (09:35)
[2017-03-06] MEDS ORDERED: INFLUENZA VIRUS VACCINE (QUADRIVALENT) 0.5 ML SYR IM ONE (10:00)
[2017-03-06] MEDS ORDERED: PNEUMOCOCCAL POLYVALENT INJ 25 MCG/0.5 ML SYR IM ONE (10:00)
--- NOTE | 2017-03-06 10:58 | HHI.PR ---
Subjective Remarks The patient feels like her stomach is still a little distended. She says she has not had a bowel movement yet because she has not been eating. She said she was going to try to have some lunch. No other acute complaints. Objective Vitals Vital Signs Date Time Temp Pulse Resp B/P Pulse Ox O2 Delivery O2 Flow Rate FiO2 03/06/17 09:29 73 122/92 03/06/17 08:00 97.0 64 20 96/69 97 03/06/17 00:00 96.3 68 18 103/72 96 03/05/17 20:00 96.6 67 18 99/74 96 03/05/17 19:45 97 21 03/05/17 17:05 18 03/05/17 16:30 95.9 90 18 112/78 97 03/05/17 12:57 96.8 67 18 120/77 96 I/O 03/05/17 03/05/17 03/05/17 03/06/17 03/06/17 03/06/17 07:00 15:00 23:00 07:00 15:00 23:00 Intake Total 568 ml 960 ml Output Total 400 ml 2000 ml Balance 568 ml -400 ml 960 ml -2000 ml Intake Oral 80 ml 60 ml IV Total 488 ml 900 ml Output Urine Total 400 ml 2000 ml Bladder Scan Volume Amount 42 ml # Voids 2 1 # Bowel Movements 0 Result Diagram: 03/06/17 0500 03/06/17 0500 Imaging Last Impressions Abdomen/Pelvis CT 03/04/17 0000 Signed Impressions: Service Date/Time: Saturday, March 04, 2017 23:52 - CONCLUSION: 1. There is a tiny 2 mm stone along the base of urinary bladder on the right side. I suspect patient recently passed a right urinary stone. There is mild dilatation of the right ureter. However this is stable compared to the prior study from 2011. No definite hydronephrosis of the right or left kidney are seen. 2. 1 cm benign appearing left renal cyst with a few stable small left parapelvic cyst. No significant change compared to 2012. Rashid Hernández MD Objective Remarks GENERAL: This is a well-nourished, well-developed patient, in no apparent distress. SKIN: No rashes, ecchymoses or lesions. Warm and dry. HEAD: Atraumatic. Normocephalic. No temporal or scalp tenderness. EYES: Pupils equal round and reactive. No injection or drainage. ENT: Nose without bleeding, purulent drainage or septal hematoma. Airway patent. NECK: Trachea midline. No lymphadenopathy. Supple, nontender, no meningeal signs. CARDIOVASCULAR: Regular rate and rhythm without murmurs, gallops, or rubs. No JVD. RESPIRATORY: Clear to auscultation. Breath sounds equal bilaterally. No wheezes , rales, or rhonchi. GASTROINTESTINAL: Abdomen soft, nontender, mildly distended. No guarding. MUSCULOSKELETAL: Extremities without clubbing, cyanosis, or edema. NEUROLOGICAL: Awake and alert. Cranial nerves II through XII intact. No focal neurological deficits. Normal speech. Medications and IVs Current Medications Medications (Trade) Dose Ordered Sig/Eleuterio Route Start Time Stop Time Status Last Admin (NS 1000 ml Inj) 1,000 ml @ 100 mls/hr Q10H IV 03/05/17 00:44 03/06/17 06:00 (NS Flush) 2 ml UNSCH PRN IV FLUSH 03/05/17 00:45 (NS Flush) 2 ml BID IV FLUSH 03/05/17 09:00 03/05/17 22:02 (Zofran Inj) 4 mg Q6H PRN IVP 03/05/17 00:45 03/05/17 16:58 (Narcan Inj) 0.4 mg UNSCH PRN IV 03/05/17 00:45 (Morphine Inj) 2 mg Q4HR PRN IV PUSH 03/05/17 02:45 03/06/17 05:57 (Flomax) 0.4 mg DAILY PO 03/06/17 09:00 03/06/17 09:33 (Proair Hfa Inh) 2 puff Q6HR PRN INH 03/05/17 10:15 (Valium) 10 mg BID PRN PO 03/05/17 10:15 (Cymbalta Dr) 20 mg DAILY PO 03/06/17 09:00 03/06/17 09:32 (PROzac) 10 mg DAILY PO 03/06/17 09:00 03/06/17 09:32 (Synthroid) 75 mcg DAILY@06 PO 03/06/17 09:00 03/06/17 09:35 (Inderal) 40 mg Q12HR PO 03/05/17 21:00 03/06/17 09:32 (Topamax) 50 mg BID PO 03/05/17 21:00 03/06/17 09:32 (Ambien) 5 mg HS PRN PO 03/05/17 10:15 03/05/17 22:42 A/P Problem List: (1) Rectal bleeding ICD Code: K62.5 Status: Acute (2) Nephrolithiasis ICD Code: N20.0 Status: Acute (3) Hypothyroidism ICD Code: E03.9 Status: Acute (4) Depression ICD Code: F32.9 Status: Acute Assessment and Plan GIB Presented to the ED due to dark blood after bowel movement X 2 as well as lower abdominal pressure sensation. Hgb has been stable. - Will consult GI for further input since patient has a history of Colonic polyps and diverticulitis. - follow CBC and transfuse as needed. - PPI. - ADAT. Nephrolithiasis 2 mm stone at the base of urinary bladder on the right side. - s/p IVFs. - ADAT. Encourage PO fluids. Urinary retention Resolved. - Continue tamsulosin 0.4mg Qday. Acute kidney injury Creatinine 1.20. Improved with fluids. - monitor as needed. PPx: SCDs. Discharge Planning Awaiting clinical improvement. Schuyler Lindsay DO Mar 06, 2017 10:58
--- NOTE | 2017-03-06 11:23 | MB ---
cc: PASHA JEWELL M.D. DATE OF CONSULTATION: 03/06/2017 DATE OF 1960 REASON FOR REFERRAL Possible GI bleed, abdominal pain. HISTORY OF PRESENT ILLNESS Thank you for the consultation. A 56-year-old lady who is known to have a history of colon polyps and diverticulosis. The patient came to the emergency room with abdominal pain in the lower abdomen with questionable rectal bleeding. The patient stated that it could be from the urine. Apparently the patient passed two kidney stones and that is what was causing her abdominal pain. She had history of colonoscopy 5 years ago which had colon polyps. She was told to come back but she never came back to her GI doctor. The patient stated that she has a pressure sensation when she urinates and dark blood in the toilet twice. She thinks it is from the urine but it could be from the bowel. She did not have any bowel movement since she came. She dropped her hemoglobin slightly. The patient denied any nausea or vomiting. She usually has loose bowels, every time she eats she goes to the bathroom, according to her. Currently she feels okay, she complains of discomfort but she has known history of diverticulosis and fibromyalgia. PAST MEDICAL HISTORY Significant for: 1. Asthma. 2. Fibromyalgia. 3. Rheumatoid arthritis. 4. Vertigo. 5. Colon polyp. 6. Mitral valve prolapse. 7. TIA. 8. Diverticulitis. 9. Hypothyroidism. PAST SURGICAL HISTORY 1. Urethral surgery. 2. Eye surgery. 3. She said she had history of cervical cancer with ablation. MEDICATIONS Reviewed in the chart. ALLERGIES STADOL. FAMILY HISTORY Significant for diabetes, neuropathy, heart disease. SOCIAL HISTORY Denied tobacco or alcohol. REVIEW OF SYSTEMS All 12-point negative except HPI. PHYSICAL EXAMINATION GENERAL: Alert, oriented, no acute distress. Morbidly obese. VITAL SIGNS: Stable. HEENT: Pupils round and reactive to light. NECK: Supple. CHEST: Clear. CARDIAC: Regular rate and rhythm. ABDOMEN: Soft, mild tenderness in the lower abdomen, mostly pubical. No hepatosplenomegaly or masses. EXTREMITIES: No edema, clubbing or cyanosis. NEUROLOGIC: Neurologically intact. PSYCHE: Psychologically appropriate. LABORATORY DATA White count 7.1 on admission, hemoglobin was 13.4, went down to 11.9, most likely dilutional. Platelet 246. INR 0.9. Liver function tests are normal. IMAGING STUDIES CT scan did not show any diverticulitis just diverticulosis. ASSESSMENT/PLAN 1. 56-year-old lady who had questionable rectal bleeding, does not seem that it is active now. The patient is going to have a colonoscopy as an outpatient. We will feed her, see if she passes stool without blood and we will give her clinic appointment in 1 week to followup for colonoscopy. If she started having rectal bleeding, then we will do it on an urgent basis. 2. Kidney stones. The patient is being managed by primary team. 3. Further plan to follow. MD BLAS Tompkins/TIFFANY /8:28 AM /11:04 AM
[2017-03-07] VITALS: BP 136/85; PULSE 68; RESP 18; TEMP 98.2; O2SAT 96
[2017-03-07] MEDS: LEVOTHYROXINE SODIUM 75 MCG TAB PO SCH (05:22)
[2017-03-07 06:46] LABS: HEMATOCRIT 36.8 % (35.0-46.0); MEAN CELL VOLUME 91.4 FL (80.0-100.0); MEAN CORPUSCULAR HEMOGLOBIN 30.1 PG (27.0-34.0); MEAN CORPUSCULAR HGB CONC 32.9 % (32.0-36.0); PLATELET COUNT 188 TH/MM3 (150-450); RED BLOOD COUNT 4.03 MIL/MM3 (4.00-5.30); RED CELL DISTRIBUTION WIDTH 13.1 % (11.6-17.2); REVIEW FLAG FINAL; WHITE BLOOD COUNT 4.9 TH/MM3 (4.0-11.0)
[2017-03-07 06:48] LABS: POTASSIUM 3.7 MEQ/L (3.5-5.1)
[2017-03-07 07:13] LABS: BICARBONATE 27.3 MEQ/L (21.0-32.0)
[2017-03-07 08:00] VITALS: BP 94/63; PULSE 60; RESP 19; TEMP 97.5; O2SAT 94
[2017-03-07] MEDS: PROPRANOLOL HCL 40 MG TAB PO SCH (09:00)
[2017-03-07] MEDS: DULoxetine HCl DR 20 MG CAP PO SCH (09:43)
[2017-03-07] MEDS: TAMSULOSIN HCL 0.4 MG CAP PO SCH (09:43)
[2017-03-07] MEDS: FLUoxetine HCL 10 MG CAP PO SCH (09:43)
[2017-03-07] MEDS: TOPIRAMATE 25 MG TAB PO SCH (09:43)
[2017-03-07] MEDS: SODIUM CHLORIDE 0.9% FLUSH 10 ML FLUSH IV FLUSH SCH (09:43)
[2017-03-07] MEDS: MORPHINE SULFATE 4 MG/ML INJ IV PUSH PRN (09:44)
[2017-03-07] MEDS ORDERED: ACETAMIN 325 MG/BUTALBITAL 50 MG/CAFFEINE 40 MG TAB PO ONE (10:30)
[2017-03-07] MEDS ORDERED: PANT40TA3 PO (10:37)
[2017-03-07] MEDS ORDERED: OXYC1CAP PO (10:38)
--- NOTE | 2017-03-07 10:45 | HHI.DCPOC ---
Discharge Care Plan Diagnosis: (1) Rectal bleeding (2) Nephrolithiasis Goals to Promote Your Health * To prevent worsening of your condition and complications * To maintain your health at the optimal level Directions to Meet Your Goals Follow up with gastroenterology in one week to have a colonoscopy performed. Avoid taking meloxicam as it can contribute to further bleeding. Take your medications as prescribed Follow your dietary instruction Follow activity as directed Keep your appointments as scheduled Take your immunizations and boosters as scheduled If your symptoms worsen call your PCP, if no PCP go to Urgent Care Center or Emergency Room Smoking is Dangerous to Your Health. Avoid second hand smoke Call the 24-hour hour crisis hotline for domestic abuse at Schuyler Lindsay DO Mar 07, 2017 10:45
[2017-03-07] MEDS ORDERED: FURO1TAB60 PO (10:46)
--- NOTE | 2017-03-07 11:12 | HHI.DS ---
Discharge Summary Admission Date Mar 05, 2017 at 00:47 Discharge Date: Mar 07, 2017 Admitting Diagnosis rectal bleeding (1) Rectal bleeding ICD Code: K62.5 Diagnosis: Principal (2) Nephrolithiasis ICD Code: N20.0 Diagnosis: Principal (3) Hypothyroidism ICD Code: E03.9 (4) Depression ICD Code: F32.9 Procedures None. Brief History - From Admission Ms. Rey is a pleasant 56 year old female with a history of diverticulitis, colonic polyps who presented to the ED on 03/04/2017 due to lower abdominal pain, rectal bleeding that occurred last night around 7pm. She reports pressure sensation when she urinates and noted dark blood in the toilet bowl twice after she had bowel movement. Her abdominal pain did not subside after bowel movements. She denies any dysuria, hematuria, fever or chills although she felt hot and cold. She reports nausea but no vomiting. Patient has history of rheumatoid arthritis, fibromyalgia, diverticulosis, diverticulitis, multiple sclerosis, TIA, CVA, asthma, bipolar disorder, dyslipidemia, mitral valve prolapse, diabetes, GERD, anemia, headache, degenerative disc disease, hypothyroidism, eye surgery and urethral surgery. Patient underwent Colonoscopy with polyp removal about [address] Paige, in [place]. She was supposed to follow up with Dr. Paige two years after the procedure. CBC/BMP: 03/07/17 0535 03/07/17 0535 Significant Findings Laboratory Tests Test 03/04/17 03/06/17 03/07/17 23:00 05:00 05:35 Urine Occult Blood MOD (NEG) Urine Bacteria RARE /hpf (NONE) Chloride Level 110 MEQ/L 112 MEQ/L 111 MEQ/L (98-107) (98-107) (98-107) Creatinine 1.20 MG/DL (0.50-1.00) Estimat Glomerular Filtration 47 ML/MIN (>89) 59 ML/MIN (>89) 62 ML/MIN (>89) Rate Alkaline Phosphatase 122 U/L (45-117) Albumin 2.8 GM/DL (3.4-5.0) Red Blood Count 3.75 MIL/MM3 (4.00-5.30) Hemoglobin 11.3 GM/DL (11.6-15.3) Hematocrit 34.3 % (35.0-46.0) Lymphocytes (%) (Auto) 46.0 % (9.0-44.0) Eosinophils (%) (Auto) 5.6 % (0.0-4.0) Sodium Level 146 MEQ/L 146 MEQ/L (136-145) (136-145) Calcium Level 7.5 MG/DL (8.5-10.1) Imaging Last Impressions Abdomen/Pelvis CT 03/04/17 0000 Signed Impressions: Service Date/Time: Saturday, March 04, 2017 23:52 - CONCLUSION: 1. There is a tiny 2 mm stone along the base of urinary bladder on the right side. I suspect patient recently passed a right urinary stone. There is mild dilatation of the right ureter. However this is stable compared to the prior study from 2012. No definite hydronephrosis of the right or left kidney are seen. 2. 1 cm benign appearing left renal cyst with a few stable small left parapelvic cyst. No significant change compared to 2012. Rashid Hernández MD PE at Discharge GENERAL: This is a well-nourished, well-developed patient, in no apparent distress. SKIN: No rashes, ecchymoses or lesions. Warm and dry. HEAD: Atraumatic. Normocephalic. No temporal or scalp tenderness. EYES: Pupils equal round and reactive. No injection or drainage. ENT: Nose without bleeding, purulent drainage or septal hematoma. Airway patent. NECK: Trachea midline. No lymphadenopathy. Supple, nontender, no meningeal signs. CARDIOVASCULAR: Regular rate and rhythm without murmurs, gallops, or rubs. No JVD. RESPIRATORY: Clear to auscultation. Breath sounds equal bilaterally. No wheezes , rales, or rhonchi. GASTROINTESTINAL: Abdomen soft, nontender, mildly distended. No guarding. MUSCULOSKELETAL: Extremities without clubbing, cyanosis, or edema. NEUROLOGICAL: Awake and alert. Cranial nerves II through XII intact. No focal neurological deficits. Normal speech. PSYCH: Mood and affect appropriate. Pt update on day of discharge The patient was complaining of migraine pain. She says she is prone to migraines. She says her abdominal pain has resolved. She has not had any further bowel movements. She has not noticed any further bleeding. Hospital Course GIB Presented to the ED due to dark blood after bowel movement X 2 as well as a lower abdominal pressure sensation. Hgb has been stable. GI was consulted and recommended outpt follow-up in one week for further evaluation with colonoscopy. She will continue a PPI. Meloxicam was recommended to be discontinued. Her diet was advanced. She will have a repeat CBC in 3-5 days and will follow up with GI. Nephrolithiasis 2 mm stone noted at the base of urinary bladder on the right side. S/p IVFs. She feels well at this time. She follows with urology and will follow-up as scheduled. Acute kidney injury Creatinine 1.2 on admission, improved with fluids. Will change Lasix from twice daily to once daily dosing. Pt Condition on Discharge: Stable Discharge Disposition: Discharge Home Discharge Time: > 30 minutes Discharge Instructions DIET: Follow Instructions for: Heart Healthy Diet Activities you can perform: Weight Bearing as Benny Follow up Referrals: Gastroenterology - 1 Week with Camron Rand MD PCP Follow-up - 1 Week New Orders: CBC NO DIFF - 3-5 Days New Medications: Furosemide (Lasix) 40 Mg Tab 40 MG PO DAILY Fluid retention #30 Ref 0 TAB Oxycodone (Oxycodone) 5 Mg Cap 5 MG PO Q6H PRN PAIN #14 Ref 0 CAP Pantoprazole (Pantoprazole) 40 Mg Tab 40 MG PO DAILY Reflux #30 Ref 0 TAB Continued Medications: Albuterol 18 GM Inh (Ventolin Hfa 18 GM Inh) 90 Mcg/Act Aer 2 PUFF INH Q4-6H PRN SHORTNESS OF BREATH #1 Ref 0 INHALER Aspirin (Aspir-81) 81 Mg Tabdr Diazepam (Diazepam) 10 Mg Tab 10 MG PO BID PRN ANXIETY Ref 0 TAB Duloxetine (Cymbalta ) 20 Mg Capdr 20 MG PO DAILY #30 Ref 0 CAP Fluoxetine (Prozac) 10 Mg Cap 10 MG PO DAILY #30 Ref 0 CAP Gabapentin (Gabapentin) 800 Mg Tab 800 MG PO QID #90 Ref 0 TAB Levothyroxine (Levothyroxine) 75 Mcg Tab 75 MCG PO DAILY Thyroid #30 Ref 0 TAB Propranolol (Propranolol) 40 Mg Tab 40 MG PO Q12HR #60 Ref 0 TAB Topiramate (Topamax) 50 Mg Tab 50 MG PO BID MIGRAINES #60 Ref 0 TAB Zolpidem (Zolpidem) 5 Mg Tab 5 MG PO HS PRN INSOMNIA Ref 0 TAB Discontinued Medications: Furosemide (Lasix) 40 Mg Tab 40 MG PO BID #60 Ref 0 TAB Meloxicam (Meloxicam) 15 Mg Tab 15 MG PO DAILY Arthritis Pain #30 Ref 0 TAB Additional Information Discharge time greater than 30 minutes. Schuyler Lindsay DO Mar 07, 2017 11:12
== END 2017-03-07 13:50 | disposition home or self-care (01) ==
LOC: PHED 21:51 → PHEDA 03-05 00:47 → PH3A 03-05 01:44
PROVIDERS: ADMIT Hospitalist; ATTEND Hospitalist
DX: K62.5 Hemorrhage of anus and rectum (principal); N21.0 Calculus in bladder; R33.9 Retention of urine, unspecified; N17.9 Acute kidney failure, unspecified; E03.9 Hypothyroidism, unspecified; G43.909 Migraine, unspecified, not intractable, without status migrainosus; M06.9 Rheumatoid arthritis, unspecified; G35 Multiple sclerosis; J45.909 Unspecified asthma, uncomplicated; F31.9 Bipolar disorder, unspecified; E78.5 Hyperlipidemia, unspecified; E11.9 Type 2 diabetes mellitus without complications; K21.9 Gastro-esophageal reflux disease without esophagitis; I34.1 Nonrheumatic mitral (valve) prolapse; F41.9 Anxiety disorder, unspecified; I25.10 Atherosclerotic heart disease of native coronary artery without angina pectoris; H91.90 Unspecified hearing loss, unspecified ear; K75.9 Inflammatory liver disease, unspecified; Z86.73 Personal history of transient ischemic attack (TIA), and cerebral infarction without residual deficits; Z79.82 Long term (current) use of aspirin; Z88.8 Allergy status to other drugs, medicaments and biological substances; Z85.41 Personal history of malignant neoplasm of cervix uteri; Z86.010 Personal history of colon polyps
CPT/HCPCS: 74177; 80048; 80053; 81001; 83690; 83735; 85014; 85018; 85025; 85027; 85610; 85730; 86850; 86900; 86901; 90471; 90686; 90732; 96361; 96374; 99284; G0378; J2270; J2405; J7030; Q9967; G0008; G0009; Q2038

== ENCOUNTER 2017-05-27 15:23 | Emergency (ER) | payer OTHER ==
[~2017-05-27] VITALS: Ht 162.6 cm; Wt 96.0 kg
[~2017-05-27 15:23] MED LIST changes: -MELO-1 PO; +OXYC1CAP PO; +PANT40TA3 PO
[2017-05-27 15:51] VITALS: BP 118/81; PULSE 80; RESP 16; TEMP 97.6; O2SAT 98
[2017-05-27] MEDS ORDERED: SODIUM CHLOR 0.9% 1000 ML INJ 1,000 ML IV ONE (16:24)
[2017-05-27] MEDS ORDERED: SODIUM CHLORIDE 0.9% FLUSH 10 ML FLUSH IVF PRN (16:30)
[2017-05-27] MEDS ORDERED: ACETAMINOPHEN 325 MG TAB PO ONE (16:30)
[2017-05-27] MEDS ORDERED: diphenhydrAMINE HCL 50 MG/ML VIAL IVP ONE (16:30)
[2017-05-27] MEDS ORDERED: PROCHLORPERAZINE INJ 10 MG/2 ML VIAL IVP ONE (16:30)
[2017-05-27 16:40] VITALS: RESP 18; O2SAT 98
[2017-05-27 16:45] LABS: AUTOMATED NEUTROPHIL # 2.4 TH/MM3 (1.8-7.7); BASOPHIL % 0.2 % (0.0-2.0); EOSINOPHIL # 0.6 TH/MM3 (0-0.4); HEMATOCRIT 38.5 % (35.0-46.0); HEMO FLAGS DIFF FINAL; LYMPH % 41.8 % (9.0-44.0); LYMPHOCYTE # 2.4 TH/MM3 (1.0-4.8); MEAN CELL VOLUME 87.7 FL (80.0-100.0); MEAN CORPUSCULAR HEMOGLOBIN 28.7 PG (27.0-34.0); MEAN CORPUSCULAR HGB CONC 32.7 % (32.0-36.0); MONO % 5.5 % (0.0-8.0); NEUT % 42.5 % (16.0-70.0); PLATELET COUNT 263 TH/MM3 (150-450); RED CELL DISTRIBUTION WIDTH 13.4 % (11.6-17.2); WHITE BLOOD COUNT 5.7 TH/MM3 (4.0-11.0)
--- NOTE | 2017-05-27 16:52 | RADRPT ---
EXAM DATE/TIME: 05/27/2017 16:34 [facility] COMPARISON: CT BRAIN W/O CONTRAST, January 24, 2017, 21:24. INDICATIONS : Headache and frequent falls. RADIATION DOSE: 61.30 CTDIvol (mGy) MEDICAL HISTORY : Cerebrovascular disease. Cervical cancer. SURGICAL HISTORY : None. ENCOUNTER: Initial ACUITY: 1 week PAIN SCALE: 5/10 LOCATION: cranial TECHNIQUE: Multiple contiguous axial images were obtained of the head. Using automated exposure control and adj ustment of the mA and/or kV according to patient size, radiation dose was kept as low as reasonably a chievable to obtain optimal diagnostic quality images. DICOM format image data is available electro nically for review and comparison. FINDINGS: CEREBRUM: The ventricles are normal for age. No evidence of midline shift, mass lesion, hemorrhage or acute in farction. No extra-axial fluid collections are seen. POSTERIOR FOSSA: The cerebellum and brainstem are intact. The 4th ventricle is midline. The cerebellopontine angle i s unremarkable. EXTRACRANIAL: The visualized portion of the orbits is intact. SKULL: The calvaria is intact. No evidence of skull fracture. CONCLUSION: Normal examination. Ghassan Peña MD on May 27, 2017 at 16:50 Board Certified Radiologist. This report was verified electronically.
[2017-05-27 16:59] LABS: POTASSIUM 3.5 MEQ/L (3.5-5.1)
[2017-05-27 17:01] LABS: BICARBONATE 25.5 MEQ/L (21.0-32.0)
[2017-05-27] MEDS ORDERED: PROM25TA10 PO (17:14)
--- NOTE | 2017-05-27 17:18 | PD ---
HPI Chief Complaint: Headache Time Seen by Provider: 16:08 Travel History International Travel<30 days: No Contact w/Intl Traveler<30days: No Traveled to known affect area: No History of Present Illness HPI The patient's 57 years old. She suffers with headaches "all the time." She states the last week or so she's had a constant headache. She notes last night she went to urinate and while sitting on the toilet last consciousness and fell to the ground. She struck her right parietal occipital scalp against the tile floor. She believes she may have laid there for an hour or so. She also notes possibly having had a baby in her bed which she understands to be a very unusual concern at her age of 57 and with no children in the house. She reports moderate to severe confusion and forgetfulness over the past few days. Reportedly she watches the same movie 3 nights in a row each night having forgot that she washed the same movie day prior. The patient has discussed her forgetfulness with her primary doctor who raises concern for polypharmacy as an etiology. Patient currently takes Ambien, 10 mg of Valium twice daily and oxycodone 4 times a day. The patient is worried she might suffer from dementia and notes her mother had dementia starting at a young age. PFSH Past Medical History Anemia: Yes Arthritis: Yes (RA, FIBROMYALGIA) Asthma: Yes Bipolar Disorder: Yes Anxiety: Yes Depression: Yes Heart Rhythm Problems: Yes (MITRAL VALVE PROLAPSE) Cancer: Yes (CERVICAL, RESOLVED WITH ) Cardiovascular Problems: Yes High Cholesterol: Yes Cerebrovascular Accident: Yes (TIA'S) Coronary Artery Disease: Yes (MITRAL VALVE PROLAPSE) Diabetes: Yes (PRE PER PATIENT) Diminished Hearing: Yes Diverticulitis: Yes Fibromyalgia: Yes Gastrointestinal Disorders: Yes (DIVERTICULITIS, POLYPS) GERD: Yes Genitourinary: Yes Headaches: Yes Hepatitis: Yes (MIGRAINES) Herniated Disk: Yes Kidney Stones: Yes Musculoskeletal: Yes (BACK PAIN) Neurologic: Yes Psychiatric: Yes Reproductive: Yes (CERVICAL CA) Respiratory: Yes Immunizations Current: Yes Migraines: Yes Thyroid Disease: Yes (HYPO) Tetanus Vaccination: < 5 Years Influenza Vaccination: Yes Menopausal: Yes Past Surgical History Eye Surgery: Yes (BILATERAL "LAZY EYE" CORRECTION, CHILD) Genitourinary Surgery: Yes (URETHRAL SURGERY) Pacemaker: No Other Surgery: Yes Social History Alcohol Use: No Tobacco Use: No Substance Use: No Allergies-Medications (Allergen,Severity, Reaction): Coded Allergies: Stadol (Verified Allergy, Severe, "I GO CRAZY", 05/27/17) HALLUCINATIONS Reported Meds & Prescriptions Reported Meds & Active Scripts Active Phenergan (Promethazine HCl) 25 Mg Tablet 25 Mg PO Q6H PRN Lasix (Furosemide) 40 Mg Tab 40 Mg PO DAILY Oxycodone (Oxycodone HCl) 5 Mg Cap 5 Mg PO Q6H PRN Pantoprazole (Pantoprazole Sodium) 40 Mg Tab 40 Mg PO DAILY Reported Aspir-81 (Aspirin) [address] (Duloxetine HCl) 20 Mg Capdr 20 Mg PO DAILY Zolpidem (Zolpidem Tartrate) 5 Mg Tab 5 Mg PO HS PRN Topamax (Topiramate) 50 Mg Tab 50 Mg PO BID Propranolol (Propranolol HCl) 40 Mg Tab 40 Mg PO Q12HR Levothyroxine (Levothyroxine Sodium) 75 Mcg Tab 75 Mcg PO DAILY Gabapentin 800 Mg Tab 800 Mg PO QID Prozac (Fluoxetine HCl) 10 Mg Cap 10 Mg PO DAILY Diazepam 10 Mg Tab 10 Mg PO BID PRN Ventolin Hfa 18 GM Inh (Albuterol Sulfate) 90 Mcg/Act Aer 2 Puff INH Q4-6H PRN Review of Systems Except as stated in HPI: all other systems reviewed are Neg General / Constitutional: No: Fever Physical Exam Narrative GENERAL: 57-year-old female pleasant well-nourished well-developed SKIN: Focused skin assessment warm/dry. HEAD: Atraumatic. Normocephalic. EYES: Pupils equal and round. No scleral icterus. No injection or drainage. ENT: No nasal bleeding or discharge. Mucous membranes pink and moist. NECK: Trachea midline. No JVD. CARDIOVASCULAR: Regular rate and rhythm. No murmur appreciated. RESPIRATORY: No accessory muscle use. Clear to auscultation. Breath sounds equal bilaterally. GASTROINTESTINAL: Abdomen soft, non-tender, nondistended. Hepatic and splenic margins not palpable. MUSCULOSKELETAL: No obvious deformities. No clubbing. No cyanosis. No edema. NEUROLOGICAL: Patient is not sure what day of the week it is. She believes it is April instead of May. There is no focal cranial nerve deficit. Speech memory articulation are sufficiently intact enough to give a fairly detailed history of the past week. PSYCHIATRIC: Appropriate mood and affect; insight and judgment normal. Data Data Last Documented VS Vital Signs Date Time Temp Pulse Resp B/P Pulse Ox O2 Delivery O2 Flow Rate FiO2 05/27/17 15:51 97.6 80 16 118/81 98 VS reviewed Orders Complete Blood Count With Diff (05/27/17 16:24) Basic Metabolic Panel (Bmp) (05/27/17 16:24) Ecg Monitoring (05/27/17 16:24) Iv Access Insert/Monitor (05/27/17 16:24) Oximetry (05/27/17 16:24) Sodium Chloride 0.9% Flush (Ns Flush) (05/27/17 16:30) Acetaminophen (Tylenol) (05/27/17 16:30) Prochlorperazine Inj (Compazine Inj) (05/27/17 16:30) Diphenhydramine Inj (Benadryl Inj) (05/27/17 16:30) Sodium Chlor 0.9% 1000 Ml Inj (Ns 1000 M (05/27/17 16:24) Ct Brain W/O Iv Contrast(Rout) (05/27/17 16:24) Labs Laboratory Tests Test 05/27/17 16:40 White Blood Count 5.7 TH/MM3 Red Blood Count 4.40 MIL/MM3 Hemoglobin 12.6 GM/DL Hematocrit 38.5 % Mean Corpuscular Volume 87.7 FL Mean Corpuscular Hemoglobin 28.7 PG Mean Corpuscular Hemoglobin 32.7 % Concent Red Cell Distribution Width 13.4 % Platelet Count 263 TH/MM3 Mean Platelet Volume 6.8 FL Neutrophils (%) (Auto) 42.5 % Lymphocytes (%) (Auto) 41.8 % Monocytes (%) (Auto) 5.5 % Eosinophils (%) (Auto) 10.0 % Basophils (%) (Auto) 0.2 % Neutrophils # (Auto) 2.4 TH/MM3 Lymphocytes # (Auto) 2.4 TH/MM3 Monocytes # (Auto) 0.3 TH/MM3 Eosinophils # (Auto) 0.6 TH/MM3 Basophils # (Auto) 0.0 TH/MM3 CBC Comment DIFF FINAL Differential Comment Sodium Level 142 MEQ/L Potassium Level 3.5 MEQ/L Chloride Level 110 MEQ/L Carbon Dioxide Level 25.5 MEQ/L Anion Gap 7 MEQ/L Blood Urea Nitrogen 13 MG/DL Creatinine 1.00 MG/DL Estimat Glomerular Filtration 57 ML/MIN Rate Random Glucose 120 MG/DL Calcium Level 8.5 MG/DL MDM Medical Decision Making Medical Screen Exam Complete: Yes Emergency Medical Condition: Yes Medical Record Reviewed: Yes Differential Diagnosis Migraine, intracranial mass, polypharmacy, electrolyte imbalance, intracranial hemorrhage Narrative Course CBC & BMP Diagram 05/27/17 16:40 Last [address] 05/27/17 1624 Signed Impressions: Service Date/Time: Saturday, May 27, 2017 16:34 - CONCLUSION: Normal examination. Ghassan Peña MD The patient's headache pain has resolved at time of reassessment at around 5:16 PM. Her forgetfulness is somewhat concerning as is the reported complaint of her having a baby in the bed. Neoplastic and infectious disease is considered reasonably safely excluded. Certainly dementia is of concern especially with standing regimen of Percocet and Valium, the latter unknown causative agent of dementia. This was discussed with the patient who was receptive and affirmed intention to adjust her medications in the future. Diagnosis Primary Impression: Minor closed head injury Additional Impressions: Cephalgia Qualified Code: R51 - Nonintractable headache, unspecified chronicity pattern , unspecified headache type Forgetfulness Referrals: Dr Shaffer call for appointment Additional Instructions: You have a choice when it comes to health care, and we are glad that you chose [facility]. Hopefully, we have met your expectations on today's visit. You are welcome to return to [facility] at any time, as we are committed to meeting the health care needs of our community. Med/Other Pt SpecificInfo: Prescription(s) given Scripts Promethazine (Phenergan)25 Mg Twfwps05 Mg PO Q6H PRN (HEADACHE) #10 TAB Ref 0 Prov:Torsten Bell MD 05/27/17 Disposition: 01 DISCHARGE HOME Condition: Stable Torsten Bell MD May 27, 2017 17:18
[2017-05-27 18:19] VITALS: RESP 16
[2017-05-27 18:29] VITALS: BP 101/60
--- NOTE | 2017-05-28 09:45 | EKG ---
Date Performed: 05/27/2017 Time Performed: 15:50:03 PTAGE: 57 years EKG: Sinus rhythm LOW QRS VOLTAGE IN PRECORDIAL LEADS NONSPECIFIC T-WAVE ABNORMALITY BORDERLINE ECG INTERPRETATION [facility] ED ON A DEFAULT AGE OF 41 YEARS NO PREVIOUS TRACING DOCTOR: Ghassan Velez Interpretating Date/Time 05/28/2017 09:44:15
== END 2017-05-27 18:41 | disposition home or self-care (01) ==
LOC: PHED 15:23
DX: S09.8XXA Other specified injuries of head, initial encounter (principal); R51 Headache; R41.3 Other amnesia; R41.0 Disorientation, unspecified; R94.31 Abnormal electrocardiogram [ECG] [EKG]; E07.9 Disorder of thyroid, unspecified; R73.03 Prediabetes; E78.00 Pure hypercholesterolemia, unspecified; W18.11XA Fall from or off toilet without subsequent striking against object, initial encounter; Z86.2 Personal history of diseases of the blood and blood-forming organs and certain disorders involving the immune mechanism; Z87.39 Personal history of other diseases of the musculoskeletal system and connective tissue; Z87.09 Personal history of other diseases of the respiratory system; Z86.59 Personal history of other mental and behavioral disorders; Z86.79 Personal history of other diseases of the circulatory system; Z87.19 Personal history of other diseases of the digestive system; Z87.448 Personal history of other diseases of urinary system; Z86.69 Personal history of other diseases of the nervous system and sense organs
CPT/HCPCS: 70450; 80048; 85025; 93005; 96361; 96374; 96375; 99285; J0780; J1200; J7030

== ENCOUNTER 2017-09-20 11:57 | Inpatient (IN) | payer OTHER ==
[2017-09-20] VITALS (16 sets, daily range): BP systolic 91–162; BP diastolic 55–94; PULSE 40–87; RESP 14–34; TEMP 98–99.1; O2SAT 96–99
[~2017-09-20] VITALS: Ht 165.1 cm; Wt 101.0 kg
[~2017-09-20 11:57] MED LIST changes: +PROM25TA10 PO
[2017-09-20] MEDS ORDERED: SODIUM CHLOR 0.9% 1000 ML INJ 1,000 ML IV ONE ×2 (12:15→13:00)
--- NOTE | 2017-09-20 12:49 | RADRPT ---
EXAM DATE/TIME: 09/20/2017 12:20 [facility] COMPARISON: CT BRAIN W/O CONTRAST, May 27, 2017, 16:34. INDICATIONS : Altered mental status. RADIATION DOSE: 56.35 CTDIvol (mGy) MEDICAL HISTORY : Stroke. Hepatitis. SURGICAL HISTORY : None. ENCOUNTER: Initial ACUITY: 1 day PAIN SCALE: 0/10 LOCATION: cranial TECHNIQUE: Multiple contiguous axial images were obtained of the head. Using automated exposure control and adj ustment of the mA and/or kV according to patient size, radiation dose was kept as low as reasonably a chievable to obtain optimal diagnostic quality images. DICOM format image data is available electro nically for review and comparison. FINDINGS: CEREBRUM: The ventricles are normal for age. No evidence of midline shift, mass lesion, hemorrhage or acute in farction. No extra-axial fluid collections are seen. POSTERIOR FOSSA: The cerebellum and brainstem are intact. The 4th ventricle is midline. The cerebellopontine angle i s unremarkable. EXTRACRANIAL: The visualized portion of the orbits is intact. SKULL: The calvaria is intact. No evidence of skull fracture. CONCLUSION: No acute disease. Stable exam without evidence of acute infarct, hemorrhage, mass or edema. Mango Aguila MD on September 20, 2017 at 12:46 Board Certified Radiologist. This report was verified electronically.
[2017-09-20 12:51] LABS: AUTOMATED NEUTROPHIL # 3.5 TH/MM3 (1.8-7.7); BASOPHIL # 0.1 TH/MM3 (0-0.2); BASOPHIL % 0.8 % (0.0-2.0); EOSINOPHIL # 0.3 TH/MM3 (0-0.4); EOSINOPHIL % 4.7 % (0.0-4.0); HEMATOCRIT 38.9 % (35.0-46.0); HEMO FLAGS DIFF FINAL; LYMPH % 39.8 % (9.0-44.0); LYMPHOCYTE # 2.9 TH/MM3 (1.0-4.8); MEAN CELL VOLUME 89.9 FL (80.0-100.0); MEAN CORPUSCULAR HEMOGLOBIN 29.3 PG (27.0-34.0); MEAN CORPUSCULAR HGB CONC 32.6 % (32.0-36.0); MONO % 6.4 % (0.0-8.0); NEUT % 48.3 % (16.0-70.0); PLATELET COUNT 245 TH/MM3 (150-450); RED BLOOD COUNT 4.32 MIL/MM3 (4.00-5.30); RED CELL DISTRIBUTION WIDTH 14.8 % (11.6-17.2); WHITE BLOOD COUNT 7.3 TH/MM3 (4.0-11.0)
[2017-09-20 12:59] LABS: APTT (PATIENT) 24.1 SEC (24.3-30.1); INTERNATIONAL NORMALIZED RATIO 0.9 RATIO; PROTHROMBIN TIME - PATIENT 10.3 SEC (9.8-11.6)
[2017-09-20] MEDS ORDERED: NALOXONE HCL 0.4 MG/ML AMP IV PUSH ONE (13:00)
[2017-09-20] MEDS ORDERED: GLUCAGON 1 MG/ML VIAL ONE (13:08)
[2017-09-20 13:13] LABS: ALKALINE PHOSPHATASE 109 U/L (45-117); ALT (GPT) 26 U/L (10-53); ANION GAP 9 MEQ/L (5-15); AST (GOT) 15 U/L (15-37); BICARBONATE 24.2 MEQ/L (21.0-32.0); BLOOD UREA NITROGEN 12 MG/DL (7-18); CALCIUM-PROTEIN CORRECTED 7.5 MG/DL (8.5-10.1); CHLORIDE 111 MEQ/L (98-107); GLOMERULAR FILTRATION RATE 52 ML/MIN (>89); POTASSIUM 3.9 MEQ/L (3.5-5.1); SODIUM (NA) 144 MEQ/L (136-145); TOTAL BILIRUBIN ADULT 0.3 MG/DL (0.2-1.0)
[2017-09-20 13:14] LABS: ACETAMINOPHEN LESS THAN 2.0 MCG/ML (10.0-30.0); ALCOHOL LESS THAN 3 MG/DL (0-5)
[2017-09-20] MEDS ORDERED: GLUCAGON 1 MG/ML VIAL IV PUSH ONE ×3 (13:15→14:00)
[2017-09-20] MEDS ORDERED: ATROPINE SULFATE 1 MG/ML VIAL IV PUSH ONE (13:15)
[2017-09-20] MEDS ORDERED: ONDANSETRON HCL 4 MG/2 ML VIAL ONE (13:27)
[2017-09-20] MEDS ORDERED: CALCIUM GLUCONATE INJ 1 GM in DEXTROSE 5% IN WATER 100ML INJ 100 ML IV ONE ×2 (13:30)
--- NOTE | 2017-09-20 13:54 | PD ---
HPI Chief Complaint: OD/ Ingestion Time Seen by Provider: 12:07 Travel History International Travel<30 days: No Contact w/Intl Traveler<30days: No Traveled to known affect area: No History of Present Illness HPI 57yo F with PMH of depression, bipolar disorder brought in as [place] for intentional overdose. Pt took 29 40mg of propranolol about 45min to an hour prior to arrival. Pt was sleepy but arousable and answers questions. She has a slurred speech and EVAC said that is new. Also said she cant see but she has cataracts. Denies any other complaints. Pt said she wants to kill herself because she cant take care of her son anymore. PFSH Past Medical History Medical History: Unable to Obtain Anemia: Yes Arthritis: Yes (RA, FIBROMYALGIA) Asthma: Yes Bipolar Disorder: Yes Anxiety: Yes Depression: Yes Heart Rhythm Problems: Yes (MITRAL VALVE PROLAPSE) Cancer: Yes (CERVICAL, RESOLVED WITH ) Cardiovascular Problems: Yes High Cholesterol: Yes Cerebrovascular Accident: Yes (TIA'S) Coronary Artery Disease: Yes (MITRAL VALVE PROLAPSE) Diabetes: Yes Patient Takes Glucophage: Yes Diminished Hearing: Yes Diverticulitis: Yes Fibromyalgia: Yes Gastrointestinal Disorders: Yes (DIVERTICULITIS, POLYPS) GERD: Yes Genitourinary: Yes Headaches: Yes Hepatitis: Yes (MIGRAINES) Herniated Disk: Yes Hypertension: No Kidney Stones: Yes Musculoskeletal: Yes (BACK PAIN) Neurologic: Yes Psychiatric: Yes Reproductive: Yes (CERVICAL CA) Respiratory: Yes Immunizations Current: Yes Migraines: Yes Thyroid Disease: Yes (HYPO) Tetanus Vaccination: Unknown Menopausal: Yes Past Surgical History Surgical History: Unable to Obtain Eye Surgery: Yes (BILATERAL "LAZY EYE" CORRECTION, CHILD) Genitourinary Surgery: Yes (URETHRAL SURGERY) Pacemaker: No Other Surgery: Yes Social History Alcohol Use: No Tobacco Use: No Substance Use: No Allergies-Medications (Allergen,Severity, Reaction): Coded Allergies: butorphanol (Unverified Allergy, Severe, "I GO CRAZY", 06/24/17) HALLUCINATIONS Reported Meds & Prescriptions Reported Meds & Active Scripts Active Phenergan (Promethazine HCl) 25 Mg Tablet 25 Mg PO Q6H PRN Lasix (Furosemide) 40 Mg Tab 40 Mg PO DAILY Pantoprazole (Pantoprazole Sodium) 40 Mg Tab 40 Mg PO DAILY Reported Aspir-81 (Aspirin) [address] (Duloxetine HCl) 20 Mg Capdr 20 Mg PO DAILY Zolpidem (Zolpidem Tartrate) 5 Mg Tab 5 Mg PO HS PRN Topamax (Topiramate) 50 Mg Tab 50 Mg PO BID Propranolol (Propranolol HCl) 40 Mg Tab 40 Mg PO Q12HR Levothyroxine (Levothyroxine Sodium) 75 Mcg Tab 75 Mcg PO DAILY Gabapentin 800 Mg Tab 800 Mg PO QID Diazepam 10 Mg Tab 10 Mg PO BID PRN Ventolin Hfa 18 GM Inh (Albuterol Sulfate) 90 Mcg/Act Aer 2 Puff INH Q4-6H PRN Review of Systems ROS Limitations: Altered Mental Status Physical Exam Narrative GENERAL: 57yo F in moderated distress. SKIN: Focused skin assessment warm/dry. HEAD: Atraumatic. Normocephalic. EYES: Pupils equal and round. No scleral icterus. No injection or drainage. ENT: No nasal bleeding or discharge. Mucous membranes pink and moist. NECK: Trachea midline. No JVD. CARDIOVASCULAR: Regular rate and rhythm. No murmur appreciated. RESPIRATORY: No accessory muscle use. Clear to auscultation. Breath sounds equal bilaterally. GASTROINTESTINAL: Abdomen soft, non-tender, nondistended. MUSCULOSKELETAL: No obvious deformities. No clubbing. No cyanosis. No edema. NEUROLOGICAL: Sleepy but arousable. No obvious cranial nerve deficits. Motor grossly within normal limits. Slurred speech. PSYCHIATRIC: Inappropriate mood and affect; poor insight and judgment. Data Data Last Documented VS Vital Signs Date Time Temp Pulse Resp B/P (MAP) Pulse Ox O2 Delivery O2 Flow Rate FiO2 09/20/17 14:00 74 21 117/72 (87) 98 Nasal Cannula 3.00 09/20/17 12:[address] Brain W/O Iv Contrast(Rout) (09/20/17 ) Complete Blood Count With Diff (09/20/17 12:15) Comprehensive Metabolic Panel (09/20/17 12:15) Prothrombin Time / Inr (Pt) (09/20/17 12:15) Act Partial Throm Time (Ptt) (09/20/17 12:15) Osmolality,Serum (09/20/17 12:15) Urinalysis - C+S If Indicated (09/20/17 12:15) Drug Screen, Random Urine (09/20/17 12:15) Alcohol (Ethanol) (09/20/17 12:15) Salicylates (Aspirin) (09/20/17 12:15) Tylenol (Acetaminophen) (09/20/17 12:15) Sodium Chlor 0.9% 1000 Ml Inj (Ns 1000 M (09/20/17 12:15) Naloxone Inj (Narcan Inj) (09/20/17 13:00) Sodium Chlor 0.9% 1000 Ml Inj (Ns 1000 M (09/20/17 13:00) Glucagon Inj (Glucagon Inj) (09/20/17 13:08) Glucagon Inj (Glucagon Inj) (09/20/17 13:15) Glucagon Inj (Glucagon Inj) (09/20/17 13:15) Atropine Inj (Atropine Inj) (09/20/17 13:15) Calcium Gluconate Inj (Calcium Gluconate (09/20/17 13:30) Ondansetron Inj (Zofran Inj) (09/20/17 13:27) Lactic Acid (09/20/17 14:00) Magnesium (Mg) (09/20/17 14:00) Phosphorus (Po4) (09/20/17 14:00) Troponin I (09/20/17 14:00) Creatine Kinase (Cpk) (09/20/17 14:00) Calcium Chloride Inj (Calcium Chloride I (09/20/17 16:00) Glucagon Inj (Glucagon Inj) (09/20/17 14:00) Glucagon Inj (Glucagon Inj) (09/20/17 16:00) Ondansetron Inj (Zofran Inj) (09/20/17 14:00) Prochlorperazine Inj (Compazine Inj) (09/20/17 14:15) Duloxetine (Sharonalta ) (09/21/17 09:00) Fluoxetine (Prozac) (09/21/17 09:00) Gabapentin (Neurontin) (09/20/17 18:00) Levothyroxine (Synthroid) (09/21/17 06:00) Pantoprazole (Protonix) (09/21/17 09:00) Promethazine (Phenergan) (09/20/17 14:15) Topiramate (Topamax) (09/20/17 21:00) Melatonin (Melatonin) (09/20/17 14:15) Electrocardiogram (09/20/17 12:06) Thyroid Stimulating Hormone (09/21/17 06:00) Admit To Inpatient (09/20/17 ) Code Status (09/20/17 14:07) Vital Signs (Adult) MYLA.Q1H (09/20/17 14:07) Activity Bed Rest (09/20/17 14:07) Elevate Head Of Bed (09/20/17 14:07) Neuro Checks . ORDERED (09/20/17 14:07) Intake + Output Q1H (09/20/17 14:07) Sodium Chlor 0.9% 1000 Ml Inj (Ns 1000 M (09/20/17 14:00) Sodium Chloride 0.9% Flush (Ns Flush) (09/20/17 14:15) Sodium Chloride 0.9% Flush (Ns Flush) (09/20/17 21:00) Acetaminophen (Tylenol) (09/20/17 14:15) Albuterol-Ipratropium Neb (Duoneb Neb) (09/20/17 16:00) Albuterol Neb (Albuterol Neb) (09/20/17 14:15) Complete Blood Count With Diff (09/21/17 04:00) Comprehensive Metabolic Panel (09/21/17 04:00) Act Partial Throm Time (Ptt) (09/21/17 04:00) Prothrombin Time / Inr (Pt) (09/21/17 04:00) Magnesium (Mg) (09/21/17 04:00) Phosphorus (Po4) (09/21/17 04:00) Lactic Acid (09/21/17 04:00) Chest, Single Ap (09/20/17 ) Electrocardiogram (09/21/17 06:00) Resp Incentive Spirometry (09/20/17 ) Resp Oxygen Nikunj C Titrat 1-4 L (09/20/17 ) Pt Request For Service (09/20/17 14:07) Front End Ui Developer / Telemetry MYLA.Q8H (09/20/17 14:07) Enoxaparin Inj (Lovenox Inj) (09/20/17 15:00) Scd Bilateral/Knee High MYLA.BID (09/20/17 14:07) ^ Initiate Protocol (09/20/17 14:07) Instruction (09/20/17 14:07) [facility] Nursing Information (09/20/17 14:15) Chlorhexidine 2% Cloth (Chlorhexidine 2% (09/21/17 04:00) Chlorhexidine 2% Cloth (Chlorhexidine 2% (09/20/17 14:15) Mrsa Pcr Surveillance (09/20/17 14:07) Docusate Sodium-Senna (Anne Marie-Colace) (09/20/17 21:00) Magnesium Hydroxide Liq (Milk Of Magnesi (09/20/17 14:15) Sennosides (Senokot) (09/20/17 14:15) Bisacodyl Supp (Dulcolax Supp) (09/20/17 14:15) Lactulose Liq (Lactulose Liq) (09/20/17 14:15) Inpatient Certification (09/20/17 ) Admit Order (Ed Use Only) (09/20/17 14:10) Labs Laboratory Tests Test 09/20/17 12:00 09/20/17 14:00 White Blood Count 7.3 TH/MM3 Red Blood Count 4.32 MIL/MM3 Hemoglobin 12.7 GM/DL Hematocrit 38.9 % Mean Corpuscular Volume 89.9 FL Mean Corpuscular Hemoglobin 29.3 PG Mean Corpuscular Hemoglobin Concent 32.6 % Red Cell Distribution Width 14.8 % Platelet Count 245 TH/MM3 Mean Platelet Volume 8.2 FL Neutrophils (%) (Auto) 48.3 % Lymphocytes (%) (Auto) 39.8 % Monocytes (%) (Auto) 6.4 % Eosinophils (%) (Auto) 4.7 % Basophils (%) (Auto) 0.8 % Neutrophils # (Auto) 3.5 TH/MM3 Lymphocytes # (Auto) 2.9 TH/MM3 Monocytes # (Auto) 0.5 TH/MM3 Eosinophils # (Auto) 0.3 TH/MM3 Basophils # (Auto) 0.1 TH/MM3 CBC Comment DIFF FINAL Differential Comment Prothrombin Time 10.3 SEC Prothromb Time International Ratio 0.9 RATIO Activated Partial Thromboplast Time 24.1 SEC Blood Urea Nitrogen 12 MG/DL Creatinine 1.08 MG/DL Random Glucose 104 MG/DL Total Protein 6.5 GM/DL Albumin 2.6 GM/DL Calcium Level 7.2 MG/DL Alkaline Phosphatase 109 U/L Aspartate Amino Transf (AST/SGOT) 15 U/L Alanine Aminotransferase (ALT/SGPT) 26 U/L Total Bilirubin 0.3 MG/DL Sodium Level 144 MEQ/L Potassium Level 3.9 MEQ/L Chloride Level 111 MEQ/L Carbon Dioxide Level 24.2 MEQ/L Anion Gap 9 MEQ/L Estimat Glomerular Filtration Rate 52 ML/MIN Serum Osmolality 301 MOSM/KG Protein Corrected Calcium 7.5 MG/DL Phosphorus Level 2.1 MG/DL Magnesium Level 1.8 MG/DL Total Creatine Kinase 57 U/L Troponin I LESS THAN 0.02 NG/ML Salicylates Level LESS THAN 1.7 MG/DL Acetaminophen Level LESS THAN 2.0 MCG/ML Ethyl Alcohol Level LESS THAN 3 MG/DL Urine Color LIGHT-YELLOW Urine Turbidity CLEAR Urine pH 6.0 Urine Specific Mckenney 1.007 Urine Protein NEG mg/dL Urine Glucose (UA) NEG mg/dL Urine Ketones NEG mg/dL Urine Occult Blood NEG Urine Nitrite NEG Urine Bilirubin NEG Urine Urobilinogen LESS THAN 2.0 MG/DL Urine Leukocyte Esterase MOD Urine RBC 1 /hpf Urine WBC 6 /hpf Urine WBC Clumps RARE Urine Squamous Epithelial Cells 1 /hpf Urine Transitional Epithelial Cells 1 /hpf Urine Bacteria RARE /hpf Urine Hyaline Casts 1 /lpf Microscopic Urinalysis Comment CULTURE INDICATED Urine Opiates Screen NEG Urine Barbiturates Screen NEG Urine Amphetamines Screen NEG Urine Benzodiazepines Screen NEG Urine Cocaine Screen NEG Urine Cannabinoids Screen NEG MDM Medical Decision Making Medical Screen Exam Complete: Yes Emergency Medical Condition: Yes Interpretation(s) EKG: NSR 74bpm. +PAC. Differential Diagnosis Propranolol overdose vs. mixed substance overdose vs. CVA Narrative Course 57yo F with intentional overdose of propranolol. Pt is protecting her airway and answering questions but too lethargic to take activated charcoal safely. CT brain showed no acute disease. Discussed with Dr. Lucero human resources admin from poison control and he recommends glucagon 5mg IV bolus if HR and BP drops up to 10mg. Then start glucagon drip at 2mg to 5mg/hr. Can give atropine if glucagon not immediately available. Also can try narcan. Pt given narcan 0.4mg IV. She is more awake now and said her vision is normal. Speech is also more normal. Said she did take her gabapentin. Neuro symptoms likely secondary to medication use. Discussed with Dr. Douglas and accepted to his service. Critical Care Narrative Aggregate critical care time was 50 minutes. Time to perform other separately billable procedures was not included in the critical care time. My time did not include minutes spent treating any other patients simultaneously or on activities that did not directly contribute to the patient's treatment. The services I provided to this patient were to treat and/or prevent clinically significant deterioration that could result in: cardiovascular collapse or . I provided critical care services requiring my management, as noted below: Chart data review, documentation time, medication orders and management, vital sign assessments/reviewing monitor data, ordering and reviewing lab tests, ordering and interpreting/reviewing x-rays and diagnostic studies, care of the patient and discussion of the patient with the admitting physicians. Diagnosis Primary Impression: Suicide attempt by beta oneil overdose Qualified Codes: T44.7X2A - Poisoning by beta-adrenoreceptor antagonists, intentional self-harm, initial encounter Admitting Information Admitting Physician Requests: Cheryl Hernadez DO Sep 20, 2017 13:54
[2017-09-20] MEDS ORDERED: ONDANSETRON HCL 4 MG/2 ML VIAL IV PUSH PRN (14:00)
--- NOTE | 2017-09-20 14:10 | HHI.HP ---
[facility] Service Critical Care Medicine Primary Care Physician Unknown Admission Diagnosis Propranolol overdose/intentional Diagnosis: (1) Arthritis Diagnosis: Secondary (2) Diabetes mellitus Diagnosis: Secondary (3) Bipolar 1 disorder Diagnosis: Principal (4) Gastroesophageal reflux disease Diagnosis: Principal (5) Migraine headache Diagnosis: Secondary (6) Dyslipidemia Diagnosis: Secondary (7) Mitral valve prolapse Diagnosis: Secondary (8) Fibromyalgia Diagnosis: Secondary (9) Hypoalbuminemia Diagnosis: Secondary (10) Hypocalcemia Diagnosis: Principal (11) Acute kidney injury Diagnosis: Principal (12) Suicide attempt by beta oneil overdose Diagnosis: Principal (13) Thoracolumbar back pain Diagnosis: Secondary (14) History of multiple sclerosis Diagnosis: Secondary (15) Depression Diagnosis: Principal (16) Hypothyroidism Diagnosis: Principal (17) Nephrolithiasis Diagnosis: Secondary (18) Forgetfulness Diagnosis: Secondary Chief Complaint: I took 29 tablets of 40 mg propranolol in attempt to hurt myself Travel History International Travel<30 Days: No Contact w/Intl Traveler <30 Da: No Traveled to Known Affected Are: No History of Present Illness This is a 57-year-old female. Date of admission 09/20/2017. Past medical history includes TIA, migraine headache, depression/anxiety, bipolar disorder, fibromyalgia, MS?, Hypertension, dyslipidemia, anemia, nephrolithiasis, hypothyroidism, gastroesophageal reflux disease, diverticulosis , colonic polyps and cervical cancer. Patient presents to [facility] after taking #29 of 40 mg propranolol at approximately 1045 today. She is currently extracted. She stated she did this because she could not take care of herself anymore. On presentation, his head CT revealed no acute intracranial findings. EKG revealed normal sinus in the 74 QTc interval of 390 initially, heart rate within normal limits however patient became acutely bradycardic heart rates in the 40s and systolic blood pressures in 90s and received 0.5 mg atropine 1 along with 10 mg total of glucagon IV. He starts currently in the 80s and she is hemodynamically stable. She is currently in a glucagon drip and received calcium chloride at the present time. She became somewhat nauseous after receiving the glucagon and has had 1 emesis. She is currently incontinent of urine. Review of Systems Constitutional: COMPLAINS OF: Weight gain, Dizziness, DENIES: Weight loss, Chills Endocrine: DENIES: Polydipsia, Polyuria Eyes: COMPLAINS OF: Blurred vision, Double Vision, DENIES: Eye pain, Vision loss Ears, nose, mouth, throat: DENIES: Tinnitus, Sinus Pain Respiratory: COMPLAINS OF: Wheezing, DENIES: Apneas, Sputum production, Shortness of breath Cardiovascular: DENIES: Chest pain, Palpitations, Lower Extremity Edema Gastrointestinal: COMPLAINS OF: Nausea, Vomiting, DENIES: Abdominal pain, Diarrhea Genitourinary: DENIES: Urinary incontinence, Urgency Musculoskeletal: DENIES: Joint pain Integumentary: DENIES: Abnormal pigmentation Hematologic/lymphatic: DENIES: Bruising Immunologic/allergic: DENIES: Eczema Neurologic: DENIES: Abnormal gait, Headache Psychiatric: COMPLAINS OF: Anxiety, Confusion, Depression Past Family Social History Allergies: Coded Allergies: butorphanol (Unverified Allergy, Severe, "I GO CRAZY", 06/24/17) HALLUCINATIONS Past Medical History TIA Migraine headache Bipolar disorder Diabetes mellitus Depression NOS Fibromyalgia Hypertension Dyslipidemia Anemia Nephrolithiasis Chronic low back pain Hypothyroidism Gastroesophageal reflux disease History diverticulosis History of cervical cancer Mitral valve prolapse Rheumatoid arthritis? Past Surgical History Urethral surgery unknown type Bilateral eye surgery as unknown type Reported Medications Active Phenergan (Promethazine HCl) 25 Mg Tablet 25 Mg PO Q6H PRN Lasix (Furosemide) 40 Mg Tab 40 Mg PO DAILY Oxycodone (Oxycodone HCl) 5 Mg Cap 5 Mg PO Q6H PRN Reported Aspir-81 (Aspirin) [address] (Duloxetine HCl) 20 Mg Capdr 20 Mg PO DAILY Zolpidem (Zolpidem Tartrate) 5 Mg Tab 5 Mg PO HS PRN Topamax (Topiramate) 50 Mg Tab 50 Mg PO BID Propranolol (Propranolol HCl) 40 Mg Tab 40 Mg PO Q12HR Levothyroxine (Levothyroxine Sodium) 75 Mcg Tab 75 Mcg PO DAILY Gabapentin 800 Mg Tab 800 Mg PO QID Prozac (Fluoxetine HCl) 10 Mg Cap 10 Mg PO DAILY Diazepam 10 Mg Tab 10 Mg PO BID PRN Ventolin Hfa 18 GM Inh (Albuterol Sulfate) 90 Mcg/Act Aer 2 Puff INH Q4-6H PRN Active Ordered Medications Reviewed in EMR Family History Mother diagnosed age 50 cervical cancer. Has diabetes. Father 75 from myocardial infarction/diabetes patient Social History Denies any tobacco, alcohol or illicit drug use Physical Exam Vital Signs Vital Signs Date Time Temp Pulse Resp B/P (MAP) Pulse Ox O2 Delivery O2 Flow Rate FiO2 09/20/17 13:30 75 22 125/71 (89) 98 Nasal Cannula 3.00 09/20/17 13:00 60 21 91/55 (67) 98 Nasal Cannula 3.00 09/20/17 12:36 98.0 64 29 136/71 (92) 96 09/20/17 12:35 24 99 Nasal Cannula 2.00 09/20/17 12:34 67 24 119/76 (90) 98 Nasal Cannula 3.00 09/20/17 12:20 87 20 131/76 (94) 98 Nasal Cannula 3.00 Physical Exam GENERAL: 57 year female, resting in bed in no acute distress SKIN: Warm and dry. Well perfused. Wearing lots of makeup HEAD: Atraumatic. Normocephalic. EYES: Pupils equal and round about 2 mm bilaterally nonreactive. No scleral icterus. No injection or drainage. ENT: No nasal bleeding or discharge. Mucous membranes pink and moist. NECK: Trachea midline. No JVD. CARDIOVASCULAR: Regular rate and rhythm. S1, S2 no S4. 2/6 murmur apex RESPIRATORY: Few end expiratory wheezes appreciated. No rhonchi. No rales. Breath sounds equal bilaterally. GASTROINTESTINAL: Abdomen soft, non-tender, nondistended. Hypoactive bowel sounds appreciated MUSCULOSKELETAL: Extremities with trace lower extremity edema. No obvious deformities. NEUROLOGICAL: Awake and alert. No obvious cranial nerve deficits. Motor grossly within normal limits. Five out of 5 muscle strength in the arms and legs. Slurred speech. PSYCHIATRIC: Depressed. Anxious. Laboratory Laboratory Tests Test 09/20/17 12:00 White Blood Count 7.3 Red Blood Count 4.32 Hemoglobin 12.7 Hematocrit 38.9 Mean Corpuscular Volume 89.9 Mean Corpuscular Hemoglobin 29.3 Mean Corpuscular Hemoglobin Concent 32.6 Red Cell Distribution Width 14.8 Platelet Count 245 Mean Platelet Volume 8.2 Neutrophils (%) (Auto) 48.3 Lymphocytes (%) (Auto) 39.8 Monocytes (%) (Auto) 6.4 Eosinophils (%) (Auto) 4.7 Basophils (%) (Auto) 0.8 Neutrophils # (Auto) 3.5 Lymphocytes # (Auto) 2.9 Monocytes # (Auto) 0.5 Eosinophils # (Auto) 0.3 Basophils # (Auto) 0.1 CBC Comment DIFF FINAL Differential Comment Prothrombin Time 10.3 Prothromb Time International Ratio 0.9 Activated Partial Thromboplast Time 24.1 Blood Urea Nitrogen 12 Creatinine 1.08 Random Glucose 104 Total Protein 6.5 Albumin 2.6 Calcium Level 7.2 Alkaline Phosphatase 109 Aspartate Amino Transf (AST/SGOT) 15 Alanine Aminotransferase (ALT/SGPT) 26 Total Bilirubin 0.3 Sodium Level 144 Potassium Level 3.9 Chloride Level 111 Carbon Dioxide Level 24.2 Anion Gap 9 Estimat Glomerular Filtration Rate 52 Serum Osmolality 301 Protein Corrected Calcium 7.5 Salicylates Level LESS THAN 1.7 Acetaminophen Level LESS THAN 2.0 Ethyl Alcohol Level LESS THAN 3 Result Diagram: 09/20/17 1200 09/20/17 1200 Imaging Last Impressions Head CT 09/20/17 0000 Signed Impressions: Service Date/Time: Friday, September 20, 2017 12:20 - CONCLUSION: No acute disease. Stable exam without evidence of acute infarct, hemorrhage, mass or edema. MD Kimberli Gregory VTE Risk Assessment Caprini VTE Risk Assessment: Mod/High Risk (score >= 2) Caprini Risk Assessment Model Point Value = 1 Point Value = 2 Point Value = 3 Point Value = 5 Age 41-60 Minor surgery BMI > 25 kg/m2 Swollen legs Varicose veins or History of unexplained or recurrent spontaneous Oral contraceptives or hormone replacement Sepsis (< 1 month) Serious lung disease, including pneumonia (< 1 month) Abnormal pulmonary function Acute myocardial infarction Congestive heart failure (< 1 month) History of inflammatory bowel disease Medical patient at bed rest Age 61-74 Arthroscopic surgery Major open surgery (> 45 min) Laparoscopic surgery (> 45 min) Malignancy Confined to bed (> 72 hours) Immobilizing plaster cast Central venous access Age >= 75 History of VTE Family history of VTE Factor V Leiden Prothrombin [id number] Lupus anticoagulant Anticardiolipin antibodies Elevated serum homocysteine Heparin-induced thrombocytopenia Other congenital or acquired thrombophilia Stroke (< 1 month) Elective arthroplasty Hip, pelvis, or leg fracture Acute spinal cord injury (< 1 month) Prophylaxis Regimen Total Risk Factor Score Risk Level Prophylaxis Regimen 0-1 Low Early ambulation 2 Moderate Order ONE of the following: *Sequential Compression Device (SCD) *Heparin 5000 units SQ BID 3-4 Higher Order ONE of the following medications: *Heparin 5000 units SQ TID *Enoxaparin/Lovenox 40 mg SQ daily (WT < 150 kg, CrCl > 30 mL/min) *Enoxaparin/Lovenox 30 mg SQ daily (WT < 150 kg, CrCl > 10-29 mL/min) *Enoxaparin/Lovenox 30 mg SQ BID (WT < 150 kg, CrCl > 30 mL/min) AND/OR *Sequential Compression Device (SCD) 5 or more Highest Order ONE of the following medications: *Heparin 5000 units SQ TID (Preferred with Epidurals) *Enoxaparin/Lovenox 40 mg SQ daily (WT < 150 kg, CrCl > 30 mL/min) *Enoxaparin/Lovenox 30 mg SQ daily (WT < 150 kg, CrCl > 10-29 mL/min) *Enoxaparin/Lovenox 30 mg SQ BID (WT < 150 kg, CrCl > 30 mL/min) AND *Sequential Compression Device (SCD) Assessment and Plan Assessment and Plan Neuro/Psych: Intentional propranolol overdose History of TIA Migraine headache Depression/anxiety Bipolar disorder Fibromyalgia History of MS Chronic low back pain Continue topiramate 50 mg by mouth twice a day, gabapentin 800 mg by mouth 4 times a day, duloxetine 20 mg daily for depression/bipolar disorder Holding diazepam 10 mg twice a day when necessary Holding zolpidem 10 g by mouth when necessary and insomnia Acetaminophen for fever/pain 1-10 Patient is Hooks acted. Consult psychiatry when appropriate CV: Hypertension Dyslipidemia Mitral valve prolapse Holding home medications propranolol 40 mg by mouth twice a day Patient is currently on a glucagon drip at 0.1 mcg/kg/h titrated to effect Received 1 g calcium chloride times one Serial EKGs. Troponin pending Holding furosemide 40 mg and aspirin 81 mg daily. Resume when clinically indicated Resp: Asthma Nasal cannula to maintain saturations greater than equal to 90% Incentive spirometry while awake Albuterol/ipratropium aerosols every 6 hours with albuterol aerosols every 2 hours. Dyspnea Patient is an albuterol every 4 hours when necessary home Follow-up on chest x-ray GI: Gastroesophageal reflux disease Hypoalbuminemia Diverticulosis History of colonic polyps Patient is currently nothing by mouth Pantoprazole for GI prophylaxis Docusate sodium/senna 1 tablet twice a day for bowel regimen Liver function tests within normal limits essentially : History of nephrolithiasis Endo: Diabetes mellitus Hypothyroidism Sliding-scale insulin if indicated with Novulin R to maintain euglycemia/every 6 hours low regimen Resume levothyroxine 75 mg by mouth daily. Check TSH Renal: Acute kidney injury Currently at 84 cc an hour normal saline Monitor urine output Accurate I's and O's Heme: History of anemia History of cervical cancer CBC and coags currently within normal limits. Recheck CBC and coags in AM. ID: Monitor for infection FEN: Hypocalcemia Received 1 g calcium right now. Recheck electrolytes in a.m. Replace as clinically indicated MSK: Osteoarthritis/rheumatoid? PT evaluate and treat Access - Utilize peripheral IV. Central line if indicated Prophylaxis -GI - pantoprazole - DVT - SCD/enoxaparin Critical Care: The total critical care time was 35 minutes. Time to perform other separately billable procedures was not included in the critical care time. Code Status Full code Discussed Condition With Patient. No family available. Dr. Jane/ED physician. Care plan discussed and all questions answered. Problem Qualifiers (1) Diabetes mellitus: Qualified Codes: E11.8 - Type 2 diabetes mellitus with unspecified complications (2) Gastroesophageal reflux disease: Qualified Codes: K21.9 - Gastro-esophageal reflux disease without esophagitis (3) Migraine headache: Qualified Codes: G43.909 - Migraine, unspecified, not intractable, without status migrainosus (4) Suicide attempt by beta oneil overdose: Qualified Codes: T44.7X2A - Poisoning by beta-adrenoreceptor antagonists, intentional self-harm, initial encounter (5) Depression: Qualified Codes: F33.2 - Major depressive disorder, recurrent severe without psychotic features (6) Hypothyroidism: Qualified Codes: E03.9 - Hypothyroidism, unspecified Rao Douglas MD Sep 20, 2017 14:10
[2017-09-20] MEDS ORDERED: MAGNESIUM HYDROXIDE SUSP 30 ML CUP PO PRN (14:15)
[2017-09-20] MEDS ORDERED: MISCELLANEOUS NURSING INFORMATION XX SCH (14:15)
[2017-09-20] MEDS ORDERED: BISACODYL 10 MG SUPP RECTAL PRN (14:15)
[2017-09-20] MEDS ORDERED: RESP: ALBUTEROL 2.5 MG/3 ML NEB (PRN) INH (14:15)
[2017-09-20] MEDS ORDERED: PROMETHAZINE HCL 25 MG TAB PO PRN (14:15)
[2017-09-20] MEDS ORDERED: SODIUM CHLORIDE 0.9% FLUSH 10 ML FLUSH IV FLUSH PRN (14:15)
[2017-09-20] MEDS ORDERED: LACTULOSE SYRUP 20 GM/30 ML CUP PO PRN (14:15)
[2017-09-20] MEDS ORDERED: CHLORHEXIDINE GLUCONATE 2 % 1 PACK (2 CLOTHS) TOP PRN (14:15)
[2017-09-20] MEDS ORDERED: PROCHLORPERAZINE INJ 10 MG/2 ML VIAL IV PUSH PRN (14:15)
[2017-09-20] MEDS ORDERED: MELATONIN 5 MG TAB PO PRN (14:15)
[2017-09-20] MEDS ORDERED: SENNOSIDES 8.6 MG TAB PO PRN (14:15)
[2017-09-20] MEDS: SODIUM CHLOR 0.9% 1000 ML INJ 1,000 ML IV SCH (14:19)
[2017-09-20 14:26] LABS: BACTERIA, URINE RARE /hpf; BLOOD, URINE NEG (NEG); GLUCOSE,URINE NEG (NEG); HYALINE CAST, URINE 1 /lpf (RARE); KETONE, URINE NEG (NEG); NITRITE,URINE NEG (NEG); SQUAMOUS EPITHELIAL CELL URINE 1 /hpf (0-5); TRANSITIONAL EPI CELLS, URINE 1 /hpf; URINE COLOR LIGHT-YELLOW (YELLW/STRAW)
[2017-09-20 14:27] LABS: COMMENT (UR) CULTURE INDICATED; CULTURE IF INDICATED CULTURE INDICATED
--- NOTE | 2017-09-20 14:43 | RADRPT ---
EXAM DATE/TIME: 09/20/2017 14:11 [facility] COMPARISON: CHEST SINGLE AP, February 11, 2016, 17:53. INDICATIONS : Syncopal episode today MEDICAL HISTORY : Stroke. Hepatitis SURGICAL HISTORY : None. ENCOUNTER: Initial ACUITY: 1 day PAIN SCORE: Non-responsive. LOCATION: Bilateral chest FINDINGS: A single view of the chest demonstrates the lungs to be symmetrically aerated without evidence of mas s, infiltrate or effusion. The cardiomediastinal contours are unremarkable. Osseous structures are intact. CONCLUSION: No acute cardiopulmonary process. Michoacano Murray MD on September 20, 2017 at 14:41 Board Certified Radiologist. This report was verified electronically.
[2017-09-20] MEDS ORDERED: FLUMAZENIL 0.5 MG/5 ML VIAL IV ONE (15:00)
[2017-09-20] MEDS ORDERED: DEXTROSE 50% IN WATER 50 ML VIAL(D50) IV PUSH PRN (15:00)
[2017-09-20] MEDS ORDERED: GLUCAGON 1 MG/ML VIAL IV PUSH PRN (15:00)
[2017-09-20] MEDS ORDERED: GLUCAGON 1 MG/ML VIAL OTHER PRN (15:00)
[2017-09-20] MEDS: RESP: ALBUTEROL 2.5 MG/IPRATROPIUM 0.5 MG NEB (SCH) INH ×2 (16:00→21:17)
[2017-09-20] MEDS ORDERED: GLUCAGON INJ 20 MG in DEXTROSE 5% IN WATER 100ML INJ 80 ML IV PRN ×2 (16:00)
[2017-09-20] MEDS ORDERED: CALCIUM CHLORIDE INJ 1 GM in SODIUM CHLORIDE 0.9% INJ 100 ML IV ONE (16:00)
[2017-09-20] MEDS: ENOXAPARIN SODIUM 40 MG/0.4 ML SYRINGE SQ SCH (16:16)
[2017-09-20] MEDS ORDERED: hydrALAZINE HCL 20 MG/ML VIAL IV PUSH PRN (17:00)
[2017-09-20] MEDS ORDERED: NITROGLYCERIN 2% OINT 1 GM PACKET TOPICAL PRN (17:00)
[2017-09-20] MEDS: INSULIN NovoLIN REGULAR SUPPLEMENTAL SCALE SQ SCH ×2 (17:00→20:40)
[2017-09-20] MEDS: GABAPENTIN 400 MG CAP PO SCH ×2 (17:17→20:40)
[2017-09-20] MEDS: GLUCAGON INJ 20 MG in DEXTROSE 5% IN WATER 100ML INJ 80 ML IV PRN ×2 (17:24)
[2017-09-20] MEDS ORDERED: CHLORHEXIDINE GLUCONATE 2 % 1 PACK (2 CLOTHS)(extra cloths) TOPICAL PRN (18:00)
[2017-09-20] MEDS: SODIUM CHLORIDE 0.9% FLUSH 10 ML FLUSH IV FLUSH SCH (20:39)
[2017-09-20] MEDS: DOCUSATE SODIUM 50 MG/SENNA 8.6 MG TAB PO SCH (20:40)
[2017-09-20] MEDS: TOPIRAMATE 25 MG TAB PO SCH (20:40)
[2017-09-20 23:34] LABS: MAGNESIUM 1.8 MG/DL (1.5-2.5)
[2017-09-20 23:49] LABS: CREATINE KINASE 57 U/L (26-192)
[2017-09-21] VITALS (18 sets, daily range): BP systolic 91–111; BP diastolic 55–68; PULSE 51–72; RESP 13–30; TEMP 97.8–99.1; O2SAT 94–98
[2017-09-21] MEDS: SODIUM CHLOR 0.9% 1000 ML INJ 1,000 ML IV SCH (01:55)
[2017-09-21] MEDS ORDERED: GLUCAGON IV PRN ×2 (02:30)
[2017-09-21] MEDS ORDERED: WATER IV PRN ×2 (02:30)
[2017-09-21] MEDS ORDERED: DEXTROSE 5% IV PRN ×2 (02:30)
[2017-09-21] MEDS: CHLORHEXIDINE GLUCONATE 2 % 1 PACK (2 CLOTHS)(taper/protocol) TOPICAL SCH (04:00)
[2017-09-21] MEDS: CHLORHEXIDINE GLUCONATE 2 % 1 PACK (2 CLOTHS) TOP SCH (04:00)
[2017-09-21] MEDS: RESP: ALBUTEROL 2.5 MG/IPRATROPIUM 0.5 MG NEB (SCH) INH ×4 (04:22→21:42)
[2017-09-21 04:24] LABS: AUTOMATED NEUTROPHIL # 5.8 TH/MM3 (1.8-7.7); BASOPHIL % 0.4 % (0.0-2.0); EOSINOPHIL # 0.3 TH/MM3 (0-0.4); EOSINOPHIL % 2.9 % (0.0-4.0); HEMATOCRIT 33.7 % (35.0-46.0); HEMO FLAGS DIFF FINAL; LYMPH % 27.2 % (9.0-44.0); LYMPHOCYTE # 2.5 TH/MM3 (1.0-4.8); MEAN CELL VOLUME 91.2 FL (80.0-100.0); MEAN CORPUSCULAR HEMOGLOBIN 30.1 PG (27.0-34.0); MONO % 5.7 % (0.0-8.0); NEUT % 63.8 % (16.0-70.0); PLATELET COUNT 170 TH/MM3 (150-450); RED BLOOD COUNT 3.69 MIL/MM3 (4.00-5.30); RED CELL DISTRIBUTION WIDTH 14.9 % (11.6-17.2); WHITE BLOOD COUNT 9.1 TH/MM3 (4.0-11.0)
[2017-09-21] MEDS: GLUCAGON INJ 20 MG in DEXTROSE 5% IN WATER 100ML INJ 80 ML IV PRN ×6 (05:02→15:24)
[2017-09-21 05:06] LABS: ALKALINE PHOSPHATASE 105 U/L (45-117); ALT (GPT) 33 U/L (10-53); ANION GAP 6 MEQ/L (5-15); AST (GOT) 31 U/L (15-37); BICARBONATE 21.1 MEQ/L (21.0-32.0); BLOOD UREA NITROGEN 14 MG/DL (7-18); CHLORIDE 115 MEQ/L (98-107); GLOMERULAR FILTRATION RATE 71 ML/MIN (>89); MAGNESIUM 1.8 MG/DL (1.5-2.5); POTASSIUM 3.8 MEQ/L (3.5-5.1); SODIUM (NA) 142 MEQ/L (136-145); TOTAL BILIRUBIN ADULT 0.4 MG/DL (0.2-1.0)
[2017-09-21] MEDS: LEVOTHYROXINE SODIUM 75 MCG TAB PO SCH (05:16)
[2017-09-21] MEDS ORDERED: GLUCAGON INJ 20 MG in DEXTROSE 5% IN WATER 100ML INJ 80 ML IV PRN ×4 (06:01→17:00)
[2017-09-21] MEDS: INSULIN NovoLIN REGULAR SUPPLEMENTAL SCALE SQ SCH ×4 (07:54→20:55)
[2017-09-21] MEDS: SODIUM CHLORIDE 0.9% FLUSH 10 ML FLUSH IV FLUSH SCH ×2 (07:54→20:55)
[2017-09-21] MEDS: PANTOPRAZOLE SOD 40 MG DELAYED RELEASE TAB PO SCH (07:55)
[2017-09-21] MEDS: GABAPENTIN 400 MG CAP PO SCH ×4 (07:55→20:55)
[2017-09-21] MEDS: DULoxetine HCl DR 20 MG CAP PO SCH (07:55)
[2017-09-21] MEDS: TOPIRAMATE 25 MG TAB PO SCH ×2 (07:55→20:55)
[2017-09-21] MEDS: DOCUSATE SODIUM 50 MG/SENNA 8.6 MG TAB PO SCH ×2 (07:56→20:55)
[2017-09-21 07:58] LABS: APTT (PATIENT) 24.5 SEC (24.3-30.1); PROTHROMBIN TIME - PATIENT 10.7 SEC (9.8-11.6)
[2017-09-21] MEDS ORDERED: FLUoxetine HCL 10 MG CAP PO SCH (09:00)
--- NOTE | 2017-09-21 09:55 | HHI.CCPN ---
Subjective Remarks/Hospital Course This is a 57-year-old female. Date of admission 09/20/2017. Past medical history includes TIA, migraine headache, depression/anxiety, bipolar disorder, fibromyalgia, MS?, Hypertension, dyslipidemia, anemia, nephrolithiasis, hypothyroidism, gastroesophageal reflux disease, diverticulosis , colonic polyps and cervical cancer. Patient presents to [facility] after taking #29 of 40 mg propranolol at approximately 1045 today. She is currently extracted. She stated she did this because she could not take care of herself anymore. On presentation, his head CT revealed no acute intracranial findings. EKG revealed normal sinus in the 74 QTc interval of 390 initially, heart rate within normal limits however patient became acutely bradycardic heart rates in the 40s and systolic blood pressures in 90s and received 0.5 mg atropine 1 along with 10 mg total of glucagon IV. He starts currently in the 80s and she is hemodynamically stable. She is currently in a glucagon drip and received calcium chloride at the present time. She became somewhat nauseous after receiving the glucagon and has had 1 emesis. She is currently incontinent of urine. Subjective 09/21: Afebrile. Currently resting in bed in no acute distress. Remains on glucagon drip at 4 mg an hour. Tolerating 55 and 70. Complaining of headache and abdominal pain which he says is her "diverticulitis". Requesting hydrocodone. Objective Vital Signs Date Time Temp Pulse Resp B/P (MAP) Pulse Ox O2 Delivery O2 Flow Rate FiO2 09/21/17 06:00 56 09/21/17 04:00 98.4 27 108/58 (75) 97 09/20/17 16:00 Nasal Cannula 3.00 Intake and Output 09/21/17 09/21/17 09/22/17 08:00 16:00 00:00 Intake Total 1580 ml 90 ml Output Total 600 ml Balance 980 ml 90 ml Result Diagram: 09/21/17 0356 09/21/17 0356 Other Results Microbiology Date/Time Source Procedure Growth Status 09/20/17 14:00 Urine Clean Catch Urine Culture Pending Received Imaging Last Impressions Head CT 09/20/17 0000 Signed Impressions: Service Date/Time: Wednesday, September 20, 2017 12:20 - CONCLUSION: No acute disease. Stable exam without evidence of acute infarct, hemorrhage, mass or edema. Mango Aguila MD Chest X-Ray 09/20/17 0000 Signed Impressions: Service Date/Time: Wednesday, September 20, 2017 14:11 - CONCLUSION: No acute cardiopulmonary process. Michoacano Murray MD Objective Remarks GENERAL: 57 year female, resting in bed in no acute distress SKIN: Warm and dry. Well perfused. Wearing lots of makeup HEAD: Atraumatic. Normocephalic. EYES: Pupils equal and round about 2 mm bilaterally nonreactive. No scleral icterus. No injection or drainage. ENT: No nasal bleeding or discharge. Mucous membranes pink and moist. NECK: Trachea midline. No JVD. CARDIOVASCULAR: Bradycardic, RR. S1, S2 no S4. 2/6 murmur apex RESPIRATORY: Few end expiratory wheezes appreciated. No rhonchi. No rales. Breath sounds equal bilaterally. GASTROINTESTINAL: Abdomen soft, non-tender, nondistended. Hypoactive bowel sounds appreciated. Specifically did not elicit tenderness on deep palpation. MUSCULOSKELETAL: Extremities with trace lower extremity edema. No obvious deformities. NEUROLOGICAL: Awake and alert. No obvious cranial nerve deficits. Motor grossly within normal limits. Five out of 5 muscle strength in the arms and legs. Slurred speech. PSYCHIATRIC: Depressed. Anxious. A/P Assessment and Plan Neuro/Psych: Intentional propranolol overdose History of TIA Migraine headache Depression/anxiety Bipolar disorder Fibromyalgia History of MS Chronic low back pain Continue topiramate 50 mg by mouth twice a day, gabapentin 800 mg by mouth 4 times a day, duloxetine 20 mg daily for depression/bipolar disorder Holding diazepam 10 mg twice a day when necessary Holding zolpidem 10 g by mouth when necessary and insomnia Acetaminophen for fever Rule out hydrocodone/acetaminophen 5/325 one tablet every 6 hours as needed. Pain 1-10 Patient is Hooks acted. Consult psychiatry when appropriate CV: Hypertension Dyslipidemia Mitral valve prolapse Holding home medications propranolol 40 mg by mouth twice a day in light of bradycardia Patient is currently on a glucagon drip at 4 mg/h titrated to effect keep heart rate greater than 55 Received 1 g calcium chloride times one yesterday Serial EKGs. Troponin negative Holding furosemide 40 mg and aspirin 81 mg daily. Resume when clinically indicated Resp: Asthma Nasal cannula to maintain saturations greater than equal to 90% Incentive spirometry while awake Albuterol/ipratropium aerosols every 6 hours with albuterol aerosols every 2 hours. Dyspnea Patient is an albuterol every 4 hours when necessary home GI: Gastroesophageal reflux disease Hypoalbuminemia Diverticulosis History of colonic polyps Patient is currently nothing by mouth. Will advance to ADA diet. Pantoprazole for GI prophylaxis. Patient is on Lansoprazole as needed at home. Docusate sodium/senna 1 tablet twice a day for bowel regimen Liver function tests within normal limits essentially : History of nephrolithiasis No indication for Lopez catheter Endo: Diabetes mellitus Hypothyroidism Sliding-scale insulin if indicated with Novulin R to maintain euglycemia/every 6 hours low regimen Resume levothyroxine 75 mg by mouth daily. TSH - within normal limits Renal: Acute kidney injury Currently at 84 cc an hour normal saline can discontinue Monitor urine output Accurate I's and O's Heme: History of anemia History of cervical cancer CBC and coags currently within normal limits. Recheck CBC and coags in AM. ID: Monitor for infection. UA pending FEN: Hypo-magnesium Hypophosphatemia 30 mmol K-Phos, 2 g mag sulfate IV fluids. Recheck electrolytes in a.m. Replace as clinically indicated MSK: Osteoarthritis/rheumatoid? PT evaluate and treat Access - Utilize peripheral IV. Central line if indicated Prophylaxis -GI - pantoprazole - DVT - SCD/enoxaparin Level II follow-up Rao Douglas MD Sep 21, 2017 09:55
[2017-09-21] MEDS: MAGNESIUM SULFATE 1 GM PREMIX 100 ML IV SCH ×2 (10:13→11:25)
[2017-09-21] MEDS: ACETAMINOPHEN/HYDROcodone 325 MG/5 MG TAB PO PRN ×2 (10:14→20:55)
[2017-09-21] MEDS ORDERED: POTASSIUM PHOSPHATE INJ 30 MMOL in SODIUM CHLOR 0.9% 250 ML INJ 250 ML IV ONE (11:00)
--- NOTE | 2017-09-21 13:12 | EKG ---
Date Performed: 09/20/2017 Time Performed: 12:06:42 PTAGE: 57 years EKG: Sinus rhythm WITH FREQUENT SUPRAVENTRICULAR PREMATURE COMPLEXES ABNORMAL RHYTHM ECG PREVIOUS TRACING 05/27/2017 15.50 Compared to previous tracing, the PACs are new. T-wave sanders es have improved. There is no longer voltage criteria for LVH. DOCTOR: Rodo Bosch Interpretating Date/Time 09/21/2017 13:11:36
--- NOTE | 2017-09-21 13:12 | EKG ---
Date Performed: 09/21/2017 Time Performed: 06:42:06 PTAGE: 57 years EKG: Sinus rhythm . Low QRS voltages in precordial leads Borderline ECG Compared to PREVIOUS TRACING , PACs no longer present. QRS voltage is slightly low in the precordial leads. PREVIOUS TRACIN09/20/2017 12.06 DOCTOR: Rodo Bosch Interpretating Date/Time 09/21/2017 13:12:36
[2017-09-21] MEDS: ENOXAPARIN SODIUM 40 MG/0.4 ML SYRINGE SQ SCH (16:24)
[2017-09-22] VITALS (14 sets, daily range): BP systolic 98–115; BP diastolic 58–65; PULSE 58–75; RESP 12–24; TEMP 97.6–101.4; O2SAT 94–98
[2017-09-22] MEDS: CHLORHEXIDINE GLUCONATE 2 % 1 PACK (2 CLOTHS) TOP SCH (03:11)
[2017-09-22] MEDS: CHLORHEXIDINE GLUCONATE 2 % 1 PACK (2 CLOTHS)(taper/protocol) TOPICAL SCH ×2 (03:11→23:55)
[2017-09-22] MEDS: RESP: ALBUTEROL 2.5 MG/IPRATROPIUM 0.5 MG NEB (SCH) INH ×4 (04:00→19:47)
[2017-09-22] MEDS: LEVOTHYROXINE SODIUM 75 MCG TAB PO SCH (05:57)
[2017-09-22 07:23] LABS: AUTOMATED NEUTROPHIL # 2.2 TH/MM3 (1.8-7.7); BASOPHIL % 0.8 % (0.0-2.0); EOSINOPHIL # 0.3 TH/MM3 (0-0.4); EOSINOPHIL % 6.3 % (0.0-4.0); HEMATOCRIT 34.8 % (35.0-46.0); HEMO FLAGS DIFF FINAL; LYMPH % 41.5 % (9.0-44.0); MEAN CELL VOLUME 91.1 FL (80.0-100.0); MEAN CORPUSCULAR HEMOGLOBIN 29.7 PG (27.0-34.0); MEAN CORPUSCULAR HGB CONC 32.6 % (32.0-36.0); MONO % 4.5 % (0.0-8.0); NEUT % 46.9 % (16.0-70.0); PLATELET COUNT 172 TH/MM3 (150-450); RED BLOOD COUNT 3.82 MIL/MM3 (4.00-5.30); RED CELL DISTRIBUTION WIDTH 15.4 % (11.6-17.2); WHITE BLOOD COUNT 4.8 TH/MM3 (4.0-11.0)
--- NOTE | 2017-09-22 07:31 | HHI.CCPN ---
Subjective Remarks/Hospital Course This is a 57-year-old female. Date of admission 09/20/2017. Past medical history includes TIA, migraine headache, depression/anxiety, bipolar disorder, fibromyalgia, MS?, Hypertension, dyslipidemia, anemia, nephrolithiasis, hypothyroidism, gastroesophageal reflux disease, diverticulosis , colonic polyps and cervical cancer. Patient presents to [facility] after taking #29 of 40 mg propranolol at approximately 1045 today. She is currently extracted. She stated she did this because she could not take care of herself anymore. On presentation, his head CT revealed no acute intracranial findings. EKG revealed normal sinus in the 74 QTc interval of 390 initially, heart rate within normal limits however patient became acutely bradycardic heart rates in the 40s and systolic blood pressures in 90s and received 0.5 mg atropine 1 along with 10 mg total of glucagon IV. He starts currently in the 80s and she is hemodynamically stable. She is currently in a glucagon drip and received calcium chloride at the present time. She became somewhat nauseous after receiving the glucagon and has had 1 emesis. She is currently incontinent of urine. Subjective 09/21: Afebrile. Currently resting in bed in no acute distress. Remains on glucagon drip at 4 mg an hour. Tolerating 55 and 70. Complaining of headache and abdominal pain which he says is her "diverticulitis". Requesting hydrocodone. 09/22 No events overnight. Off Glucagon, on room air oxygen. c/o chronic abd pain. Objective Vital Signs Date Time Temp Pulse Resp B/P (MAP) Pulse Ox O2 Delivery O2 Flow Rate FiO2 09/22/17 06:00 62 09/22/17 04:00 97.7 12 102/65 (77) 95 09/21/17 21:40 21 09/20/17 16:00 Nasal Cannula 3.00 Intake and Output 09/22/17 09/22/17 09/23/17 08:00 16:00 00:00 Intake Total 240 ml Output Total 600 ml Balance -360 ml Result Diagram: 09/21/17 0356 09/21/17 0356 Other Results Laboratory Tests Test 09/22/17 06:58 Imaging Last Impressions Head CT 09/20/17 0000 Signed Impressions: Service Date/Time: Friday, September 20, 2017 12:20 - CONCLUSION: No acute disease. Stable exam without evidence of acute infarct, hemorrhage, mass or edema. Mango Aguila MD Chest X-Ray 09/20/17 0000 Signed Impressions: Service Date/Time: Friday, September 20, 2017 14:11 - CONCLUSION: No acute cardiopulmonary process. Michoacano Murray MD Objective Remarks GENERAL: 57 year female, resting in bed in no acute distress SKIN: Warm and dry. Well perfused. Wearing lots of makeup HEAD: Atraumatic. Normocephalic. EYES: Pupils equal and round about 2 mm bilaterally nonreactive. No scleral icterus. No injection or drainage. ENT: No nasal bleeding or discharge. Mucous membranes pink and moist. NECK: Trachea midline. No JVD. CARDIOVASCULAR: Bradycardic, RR. S1, S2 no S4. 2/6 murmur apex RESPIRATORY: Few end expiratory wheezes appreciated. No rhonchi. No rales. Breath sounds equal bilaterally. GASTROINTESTINAL: Abdomen soft, non-tender, nondistended. Hypoactive bowel sounds appreciated. Specifically did not elicit tenderness on deep palpation. MUSCULOSKELETAL: Extremities with trace lower extremity edema. No obvious deformities. NEUROLOGICAL: Awake and alert. No obvious cranial nerve deficits. Motor grossly within normal limits. Five out of 5 muscle strength in the arms and legs. Slurred speech. PSYCHIATRIC: Depressed. Anxious. A/P Assessment and Plan Neuro/Psych: Intentional propranolol overdose History of TIA Migraine headache Depression/anxiety Bipolar disorder Fibromyalgia History of MS Chronic low back pain Awake and alert Psych eval Continue topiramate 50 mg by mouth twice a day, gabapentin 800 mg by mouth 4 times a day, duloxetine 20 mg daily for depression/bipolar disorder Holding diazepam 10 mg twice a day when necessary Holding zolpidem 10 g by mouth when necessary and insomnia Acetaminophen for fever Rule out hydrocodone/acetaminophen 5/325 one tablet every 6 hours as needed. Pain 1-10 Patient is Hooks acted. Consult psychiatry when appropriate CV: Hypertension Dyslipidemia Mitral valve prolapse Monitor HR and BP keep MAP>65mmHg Off Glucagon drip Received 1 g calcium chloride times one yesterday Serial EKGs. Troponin negative Resp: Asthma Oxygen PRN keep sat > 92% Incentive spirometry while awake Albuterol/ipratropium aerosols every 6 hours with albuterol aerosols every 2 hours. Patient is an albuterol every 4 hours when necessary home GI: Gastroesophageal reflux disease Hypoalbuminemia Diverticulosis History of colonic polyps On PO diet Pantoprazole for GI prophylaxis. Patient is on Lansoprazole as needed at home. Docusate sodium/senna 1 tablet twice a day for bowel regimen Liver function tests within normal limits essentially : History of nephrolithiasis No indication for Lopez catheter Endo: Diabetes mellitus Hypothyroidism Sliding-scale insulin if indicated with Novulin R to maintain euglycemia/every 6 hours low regimen On levothyroxine 75 mg by mouth daily. TSH - within normal limits Renal: Acute kidney injury- resolved Monitor renal function, I/O's, electrolytes replacement per protocol. Heme: History of anemia History of cervical cancer Monitor CBC ID: Monitor for infection. Panculture if spikes fever MSK: Osteoarthritis/rheumatoid? PT evaluate and treat Access - Utilize peripheral IV. Prophylaxis -GI - pantoprazole - DVT - SCD/enoxaparin Will sign off and transfer care to [facility] Level II follow-up Rob Burnett MD Sep 22, 2017 07:31
[2017-09-22 07:47] LABS: ALT (GPT) 40 U/L (10-53); ANION GAP 9 MEQ/L (5-15); AST (GOT) 31 U/L (15-37); BICARBONATE 19.6 MEQ/L (21.0-32.0); BLOOD UREA NITROGEN 15 MG/DL (7-18); CHLORIDE 110 MEQ/L (98-107); GLOMERULAR FILTRATION RATE 69 ML/MIN (>89); MAGNESIUM 2.1 MG/DL (1.5-2.5); POTASSIUM 3.7 MEQ/L (3.5-5.1); SODIUM (NA) 139 MEQ/L (136-145)
[2017-09-22 07:49] LABS: ALKALINE PHOSPHATASE 115 U/L (45-117); TOTAL BILIRUBIN ADULT 0.4 MG/DL (0.2-1.0)
[2017-09-22] MEDS: INSULIN NovoLIN REGULAR SUPPLEMENTAL SCALE SQ SCH ×4 (08:00→20:28)
[2017-09-22] MEDS: DULoxetine HCl DR 20 MG CAP PO SCH (08:36)
[2017-09-22] MEDS: GABAPENTIN 400 MG CAP PO SCH ×4 (08:36→20:24)
[2017-09-22] MEDS: PANTOPRAZOLE SOD 40 MG DELAYED RELEASE TAB PO SCH (08:36)
[2017-09-22] MEDS: TOPIRAMATE 25 MG TAB PO SCH ×2 (08:36→20:22)
[2017-09-22] MEDS: DOCUSATE SODIUM 50 MG/SENNA 8.6 MG TAB PO SCH ×2 (08:37→20:24)
[2017-09-22] MEDS: ACETAMINOPHEN/HYDROcodone 325 MG/5 MG TAB PO PRN ×3 (08:37→20:24)
[2017-09-22] MEDS ORDERED: diphenhydrAMINE HCL 25 MG CAP PO ONE (12:00)
[2017-09-22] MEDS: ENOXAPARIN SODIUM 40 MG/0.4 ML SYRINGE SQ SCH (14:16)
[2017-09-22] MEDS: SODIUM CHLORIDE 0.9% FLUSH 10 ML FLUSH IV FLUSH SCH ×2 (14:16→20:24)
[2017-09-22] MEDS: ACETAMINOPHEN 325 MG TAB PO PRN (22:53)
[2017-09-23] VITALS (14 sets, daily range): BP systolic 87–116; BP diastolic 50–65; PULSE 63–78; RESP 14–23; TEMP 99–101.2; O2SAT 92–98
[2017-09-23] MEDS: CHLORHEXIDINE GLUCONATE 2 % 1 PACK (2 CLOTHS) TOP SCH (03:07)
[2017-09-23] MEDS: RESP: ALBUTEROL 2.5 MG/IPRATROPIUM 0.5 MG NEB (SCH) INH ×4 (04:00→21:25)
[2017-09-23] MEDS: LEVOTHYROXINE SODIUM 75 MCG TAB PO SCH (06:42)
[2017-09-23 06:56] LABS: AUTOMATED NEUTROPHIL # 1.9 TH/MM3 (1.8-7.7); BASOPHIL % 0.6 % (0.0-2.0); EOSINOPHIL # 0.3 TH/MM3 (0-0.4); EOSINOPHIL % 5.5 % (0.0-4.0); HEMATOCRIT 35.1 % (35.0-46.0); HEMO FLAGS DIFF FINAL; LYMPH % 47.7 % (9.0-44.0); LYMPHOCYTE # 2.3 TH/MM3 (1.0-4.8); MEAN CELL VOLUME 90.1 FL (80.0-100.0); MEAN CORPUSCULAR HEMOGLOBIN 30.1 PG (27.0-34.0); MEAN CORPUSCULAR HGB CONC 33.4 % (32.0-36.0); MONO % 7.6 % (0.0-8.0); NEUT % 38.6 % (16.0-70.0); PLATELET COUNT 190 TH/MM3 (150-450); RED BLOOD COUNT 3.89 MIL/MM3 (4.00-5.30); RED CELL DISTRIBUTION WIDTH 15.3 % (11.6-17.2); WHITE BLOOD COUNT 4.8 TH/MM3 (4.0-11.0)
[2017-09-23 07:26] LABS: BICARBONATE 21.8 MEQ/L (21.0-32.0); POTASSIUM 3.8 MEQ/L (3.5-5.1)
[2017-09-23] MEDS: INSULIN NovoLIN REGULAR SUPPLEMENTAL SCALE SQ SCH ×4 (08:00→21:00)
[2017-09-23] MEDS: SODIUM CHLORIDE 0.9% FLUSH 10 ML FLUSH IV FLUSH SCH ×2 (09:04→20:50)
[2017-09-23] MEDS: PANTOPRAZOLE SOD 40 MG DELAYED RELEASE TAB PO SCH (09:05)
[2017-09-23] MEDS: GABAPENTIN 400 MG CAP PO SCH ×4 (09:05→20:51)
[2017-09-23] MEDS: DULoxetine HCl DR 20 MG CAP PO SCH (09:05)
[2017-09-23] MEDS: DOCUSATE SODIUM 50 MG/SENNA 8.6 MG TAB PO SCH ×2 (09:05→21:00)
[2017-09-23] MEDS: TOPIRAMATE 25 MG TAB PO SCH ×2 (09:05→20:51)
--- NOTE | 2017-09-23 09:30 | PD.PSY.CON ---
Provisional Diagnosis Admission Date Sep 20, 2017 at 14:11 History of Present Illness Service Psychiatry Consult Requested By Critical care doctor Reason for Consult Suicidal attempt Primary Care Physician Fernando Shaffer MD HPI The patient is a 57-year-old man, domiciled with her son in [place], unemployed, supported by [facility], History of depression, bipolar disorder, no previous psychiatric hospitalizations, no previous suicidal attempts, she has an established outpatient care with Dr. Peraza, she is on Cymbalta 20 mg, Prozac 20 mg, gabapentin 800 mg 3 times a day, past medical history includes TIA, migraine headache, fibromyalgia, MS, Hypertension, dyslipidemia, anemia, nephrolithiasis, hypothyroidism, gastroesophageal reflux disease, diverticulosis , colonic polyps and cervical cancer, Patient presents to [facility] after taking #29 of 40 mg propranolol at approximately 10:45 yesterday with the intention to , She stated she did this because she could not take care of herself anymore. On presentation, his head CT revealed no acute intracranial findings. EKG revealed normal sinus in the 74 QTc interval of 390 initially, heart rate within normal limits however patient became acutely bradycardic heart rates in the 40s and systolic blood pressures in 90s and received 0.5 mg atropine 1 along with 10 mg total of glucagon IV. He starts currently in the 80s and she is hemodynamically stable. She is currently in a glucagon drip and received calcium chloride at the present time. She became somewhat nauseous after receiving the glucagon and has had 1 emesis. She is currently incontinent of urine. On psychiatric evaluation today the patient is calm, cooperative and pleasant. Patient is alert, oriented 3, logical, and relevant. The patient states that in the last months she has been extremely overwhelmed. She says that her son had a surgery couple weeks ago, he had a compartment syndrome he had surgery performed by Dr. Hsu here at [place]. She described her experience is very difficult especially "Dr. Hsu was very mean with me and my son". Patient says that Dr. Hsu visited her last night and was talking with the nurses against her, and he was taken to the nurse to take her out of the hospital. As per nursing report, Dr. Hsu has not been in the ICU. Patient reports symptoms of depression, consisting in hopelessness, no enjoying her usually enjoyable activities, generalized pessimism, sense of loneliness, poor appetite, decreased sleep at night, and frequent suicidal thoughts. Yesterday she says that she lost the control, she "had a nervous breakdown", denies any specific acute stressor, and decided to overdose with the intention to . During the evaluation the patient is tearful, she seems to be very fragile and vulnerable and also emotionally incontinent. She denies the use of illicit drugs and alcohol. The patient reports that her multiple chronic and acute conditions had led to decreased functionality in her life and a lot of stress. Patient has been in Prozac 20 mg and Cymbalta [address] Peraza, with poor response and significant side effects. Review of Systems Constitutional: DENIES: Diaphoretic episodes, Fatigue, Fever, Weight gain, Weight loss, Chills, Dizziness, Change in appetite, Night Sweats Endocrine: DENIES: Abnorml menstrual pattern, Heat/cold intolerance, Polydipsia , Polyuria, Polyphagia Eyes: DENIES: Blurred vision, Diplopia, Eye inflammation, Eye pain, Vision loss , Photosensitivity, Double Vision Ears, nose, mouth, throat: DENIES: Tinnitus, Hearing loss, Vertigo, Nasal discharge, Oral lesions, Throat pain, Hoarseness, Ear Pain, Running Nose, Epistaxis, Sinus Pain, Toothache, Odynophagia Respiratory: DENIES: Apneas, Cough, Snoring, Wheezing, Hemoptysis, Sputum production, Shortness of breath Cardiovascular: DENIES: Chest pain, Palpitations, Syncope, Dyspnea on Exertion , PND, Lower Extremity Edema, Orthopnea, Claudication Gastrointestinal: DENIES: Abdominal pain, Black stools, Bloody stools, Constipation, Diarrhea, Nausea, Vomiting, Difficulty Swallowing, Anorexia Genitourinary: DENIES: Abnormal vaginal bleeding, Dysmenorrhea, Dyspareunia, Sexual dysfunction, Urinary frequency, Urinary incontinence, Urgency, Hematuria , Dysuria, Nocturia, Vaginal discharge Musculoskeletal: DENIES: Joint pain, Muscle aches, Stiffness, Joint Swelling, Back pain, Neck pain Integumentary: DENIES: Abnormal pigmentation, Pruritus, Rash, Nail changes, Breast masses, Breast skin changes, Nipple discharge Hematologic/lymphatic: DENIES: Bruising, Lymphadenopathy Neurologic: DENIES: Abnormal gait, Headache, Localized weakness, Paresthesias, Seizures, Speech Problems, Tremor, Poor Balance Psychiatric: DENIES: Anxiety, Confusion, Mood changes, Depression, Hallucinations, Agitation, Suicidal Ideation, Homicidal Ideation, Delusions Past Family Social History Coded Allergies: butorphanol (Unverified Allergy, Severe, "I GO CRAZY", 06/24/17) HALLUCINATIONS Active Scripts Promethazine (Phenergan) 25 Mg Tablet, 25 MG PO Q6H Y for HEADACHE, #10 TAB 0 Refills Prov:Torsten Bell MD 05/27/17 Furosemide (Lasix) 40 Mg Tab, 40 MG PO DAILY for Fluid retention, #30 TAB 0 Refills Prov:Schuyler Lindsay DO 03/07/17 Pantoprazole (Pantoprazole) 40 Mg Tab, 40 MG PO DAILY for Reflux, #30 TAB 0 Refills Prov:Schuyler Lindsay DO 03/07/17 Reported Medications Aspirin (Aspir-81) 81 Mg Tabdr 01/24/17 Duloxetine (Cymbalta ) 20 Mg Capdr, 20 MG PO DAILY, #30 CAP 0 Refills 01/24/17 Zolpidem (Zolpidem) 5 Mg Tab, 5 MG PO HS Y for INSOMNIA, TAB 0 Refills 01/24/17 Topiramate (Topamax) 50 Mg Tab, 50 MG PO BID for MIGRAINES, #60 TAB 0 Refills 01/24/17 Propranolol (Propranolol) 40 Mg Tab, 40 MG PO Q12HR, #60 TAB 0 Refills 01/24/17 Levothyroxine (Levothyroxine) 75 Mcg Tab, 75 MCG PO DAILY for Thyroid, #30 TAB 0 Refills 01/24/17 Gabapentin (Gabapentin) 800 Mg Tab, 800 MG PO QID, #90 TAB 0 Refills 01/24/17 Diazepam (Diazepam) 10 Mg Tab, 10 MG PO BID Y for ANXIETY, TAB 0 Refills 01/24/17 Albuterol 18 GM Inh (Ventolin Hfa 18 GM Inh) 90 Mcg/Act Aer, 2 PUFF INH Q4-6H Y for SHORTNESS OF BREATH, #1 INHALER 0 Refills 01/24/17 Discontinued Scripts Oxycodone (Oxycodone) 5 Mg Cap, 5 MG PO Q6H Y for PAIN, #14 CAP 0 Refills Prov:Schuyler Lindsay DO 03/07/17 Current Medications Medications (Trade) Dose Ordered Sig/Eleuterio Route Start Time Stop Time Status Last Admin (Zofran Inj) 4 mg Q4H PRN IV PUSH 09/20/17 14:00 09/21/17 07:57 (Compazine Inj) 5 mg Q4H PRN IV PUSH 09/20/17 14:15 (Cymbalta Dr) 20 mg DAILY PO 09/21/17 09:00 09/22/17 08:36 (Neurontin) 800 mg QID PO 09/20/17 18:00 09/22/17 20:24 (Synthroid) 75 mcg DAILY@0600 PO 09/21/17 06:00 09/23/17 06:42 (Protonix) 40 mg DAILY PO 09/21/17 09:00 09/22/17 08:36 (Phenergan) 25 mg Q6H PRN PO 09/20/17 14:15 (Topamax) 50 mg BID PO 09/20/17 21:00 09/22/17 20:22 (Melatonin) 5 mg HS PRN PO 09/20/17 14:15 (NS Flush) 2 ml UNSCH PRN IV FLUSH 09/20/17 14:15 (NS Flush) 2 ml BID IV FLUSH 09/20/17 21:00 09/22/17 20:24 (Tylenol) 650 mg Q6H PRN PO 09/20/17 14:15 09/22/17 22:53 (Duoneb Neb) 1 ampule Q6HR NEB INH 09/20/17 16:00 09/23/17 07:47 (Albuterol Neb) 2.5 mg Q2HR NEB PRN INH 09/20/17 14:15 (Lovenox Inj) 40 mg Q24H SQ 09/20/17 15:00 09/22/17 14:16 Miscellaneous Information 1 Q361D XX 09/20/17 14:15 (Chlorhexidine 2% Cloth) 3 pack Taper DAILY@04 TOP 09/21/17 04:00 09/17/18 03:59 09/23/17 03:07 (Chlorhexidine 2% Cloth) 3 pack UNSCH PRN TOP 09/20/17 14:15 (Anne Marie-Colace) 1 tab BID PO 09/20/17 21:00 09/21/17 20:55 (Milk Of Magnesia Liq) 30 ml Q12H PRN PO 09/20/17 14:15 (Senokot) 17.2 mg Q12H PRN PO 09/20/17 14:15 (Dulcolax Supp) 10 mg DAILY PRN RECTAL 09/20/17 14:15 (Lactulose Liq) 30 ml DAILY PRN PO 09/20/17 14:15 (D50w (Vial) Inj) 50 ml UNSCH PRN IV PUSH 09/20/17 15:00 (NovoLIN R SUPPLEMENTAL SCALE) 1 ACHS SLIDING SCALE SQ 09/20/17 17:00 09/21/17 20:55 (Glucagon Inj) 5 mg Q5M PRN IV PUSH 09/20/17 15:00 (Apresoline Inj) 10 mg Q1HR PRN IV PUSH 09/20/17 17:00 (Nitroglycerin 2% Oint) 2 inch Q6HR PRN TOPICAL 09/20/17 17:00 Miscellaneous Information Patient in critical care unit? Ass... Q361D .XX 09/20/17 18:00 (Chlorhexidine 2% Cloth) 3 pack DAILY@04 TOPICAL 09/21/17 04:00 09/25/17 04:01 (Chlorhexidine 2% Cloth) 3 pack UNSCH PRN TOPICAL 09/20/17 18:00 09/25/17 17:51 (Auburn 5-325 Mg) 1 tab Q6H PRN PO 09/21/17 10:00 09/22/17 20:24 Glucagon 20 mg/ Dextrose 100 ml @ 15 mls/hr TITRATE PRN IV 09/21/17 17:00 09/21/17 16:17 Family Psych History Her mother has dementia, diagnosed at the age of 60 Social History Patient was born and raised in [place], she lives in [place] with her boyfriend and one of her kids, she has 4 kids, she is unemployed, she is on SSI , her highest level of education is high school Physical Exam No tremors, no EPS, no withdrawal Vital Signs Vital Signs Date Time Temp Pulse Resp B/P (MAP) Pulse Ox O2 Delivery O2 Flow Rate FiO2 09/23/17 07:48 95 09/23/17 06:00 70 09/23/17 04:00 99.5 14 87/50 (62) 09/22/17 09:26 21 09/20/17 16:00 Nasal Cannula 3.00 I/O 09/23/17 09/23/17 09/24/17 08:00 16:00 00:00 Intake Total 240 ml Balance 240 ml Lab Results Test 09/23/17 06:06 White Blood Count 4.8 TH/MM3 Red Blood Count 3.89 MIL/MM3 Hemoglobin 11.7 GM/DL Hematocrit 35.1 % Mean Corpuscular Volume 90.1 FL Mean Corpuscular Hemoglobin 30.1 PG Mean Corpuscular Hemoglobin Concent 33.4 % Red Cell Distribution Width 15.3 % Platelet Count 190 TH/MM3 Mean Platelet Volume 8.5 FL Neutrophils (%) (Auto) 38.6 % Lymphocytes (%) (Auto) 47.7 % Monocytes (%) (Auto) 7.6 % Eosinophils (%) (Auto) 5.5 % Basophils (%) (Auto) 0.6 % Neutrophils # (Auto) 1.9 TH/MM3 Lymphocytes # (Auto) 2.3 TH/MM3 Monocytes # (Auto) 0.4 TH/MM3 Eosinophils # (Auto) 0.3 TH/MM3 Basophils # (Auto) 0.0 TH/MM3 CBC Comment DIFF FINAL Differential Comment Blood Urea Nitrogen 14 MG/DL Creatinine 1.14 MG/DL Random Glucose 99 MG/DL Calcium Level 8.4 MG/DL Sodium Level 139 MEQ/L Potassium Level 3.8 MEQ/L Chloride Level 109 MEQ/L Carbon Dioxide Level 21.8 MEQ/L Anion Gap 8 MEQ/L Estimat Glomerular Filtration Rate 49 ML/MIN Date/Time Source Procedure Growth Status 09/20/17 14:00 Urine Clean Catch Urine Culture - Final 10-50,000 CFU/ML MIXED HARRIET... Complete Mental Status Examination Appearance: Appropriate, Well dressed/well groomed, Other (obese, in [facility], age appearing) Consciousness: Alert Orientation: x4 Motor Activity: Normal gait Speech: Unremarkable Language: Adequate Fund of Knowledge: Adequate Attention and Concentration: Adequate Memory: Unremarkable, Recent (intact) Mood: Angry Affect: Sad Thought Process & Associations: Intact Thought Content: Appropriate Hallucination Type: Visual Delusion Type: Paranoid Suicidal Ideation: Yes Suicidal Plan: Yes Suicidal Intention: No Homicidal Ideation: No Homicidal Plan: No Homicidal Intention: No Insight: Poor Judgment: Poor Assessment & Plan Problem List: (1) Bipolar depression ICD Codes: F31.30 - Bipolar disorder, current episode depressed, mild or moderate severity, unspecified Assessment & Plan: On psychiatric evaluation today the patient reports symptomatology of severe depression and also paranoia. The patient reports that in the last weeks she has been feeling overwhelmed, with generalized pessimism, frequent suicidal thoughts, feeling useless, very lonely, with decreased sensitivity of frustration and rejection. Patient has tried to overdose with propanolol with the intention to that yesterday. Patient reports multiple chronic and acute stressors, such as multiple medical conditions, decreased functionality, having a son medically ill and having a mother with dementia. During this evaluation the patient also shows symptoms consistent with paranoia, she things that the nurses and doctors are talking about her at night. Patient represents and acute threats to herself at this point, she needs to be admitted in psychiatry for stabilization and safety. Continue current psychotropic regimen. I will add Abilify 2 mg at bedtime to help with psychotic misperception. Supportive psychotherapy provided. Transfer to [facility] psych once medically stable. Assessment & Plan Estimated LOS: Regulo Ortiz MD Sep 23, 2017 09:30
[2017-09-23] MEDS: ACETAMINOPHEN/HYDROcodone 325 MG/5 MG TAB PO PRN ×2 (10:13→21:00)
--- NOTE | 2017-09-23 13:41 | HHI.PR ---
Subjective Remarks Patient seen in follow up for intentional propranolol OD. Fever 101.2 today with complaints of bowel and bladder pain discussed with senior internal auditor Objective Vitals Vital Signs Date Time Temp Pulse Resp B/P (MAP) Pulse Ox O2 Delivery O2 Flow Rate FiO2 09/23/17 08:00 101.2 71 22 116/65 (82) 98 09/23/17 07:48 95 09/23/17 06:00 70 09/23/17 04:00 63 09/23/17 04:00 99.5 63 14 87/50 (62) 94 09/23/17 02:00 68 09/23/17 00:00 100.6 78 23 96/54 (68) 92 09/23/17 00:00 78 09/22/17 22:00 74 09/22/17 20:00 70 09/22/17 20:00 101.4 70 22 115/63 (80) 97 09/22/17 19:49 96 09/22/17 18:00 75 09/22/17 17:01 25 09/22/17 16:00 65 09/22/17 16:00 99.8 65 19 102/58 (73) 98 09/22/17 14:00 70 I/O 09/22/17 09/22/17 09/22/17 09/23/17 09/23/17 09/23/17 07:00 15:00 23:00 07:00 15:00 23:00 Intake Total 240 ml 240 ml Output Total 600 ml Balance -360 ml 240 ml Intake Oral 240 ml 240 ml Output Urine Total 600 ml # Voids 3 # Bowel Movements 0 Result Diagram: 09/23/17 0606 09/23/17 0606 Imaging Last Impressions Head CT 09/20/17 0000 Signed Impressions: Service Date/Time: Wednesday, September 20, 2017 12:20 - CONCLUSION: No acute disease. Stable exam without evidence of acute infarct, hemorrhage, mass or edema. Mango Aguila MD Chest X-Ray 09/20/17 0000 Signed Impressions: Service Date/Time: Wednesday, September 20, 2017 14:11 - CONCLUSION: No acute cardiopulmonary process. Michoacano Murray MD Objective Remarks GENERAL: This is a well-nourished, well-developed patient, in no apparent distress. CARDIOVASCULAR: Regular rate and rhythm without murmurs, gallops, or rubs. RESPIRATORY: Clear to auscultation. Breath sounds equal bilaterally. No wheezes , rales, or rhonchi. GASTROINTESTINAL: Abdomen soft, minimally tender, nondistended.hypoactive bowel sounds MUSCULOSKELETAL: Extremities without clubbing, cyanosis, or edema. NEURO: Alert & Oriented x4 to person, place, time, situation. Moves all ext x4 A/P Problem List: (1) Diabetes mellitus ICD Code: E11.9 - Type 2 diabetes mellitus without complications Plan: SSI with ADA diet (2) Bipolar 1 disorder ICD Code: F31.9 - Bipolar disorder, unspecified Plan: with current suicidal intent by propranolol OD Hooks acted, for psych facility [place] continue topamax, gabapentin and duloxetine (3) Migraine headache ICD Code: G43.909 - Migraine, unspecified, not intractable, without status migrainosus Plan: continue topamax and gabapentin hydrocodone prn toradol iv x1 (4) Mitral valve prolapse ICD Code: I34.1 - Nonrheumatic mitral (valve) prolapse Plan: on propranolol, but held due to Overdose (5) Suicide attempt by beta oneil overdose ICD Code: T44.7X2A - Poisoning by beta-adrenoreceptor antagonists, intentional self-harm, initial encounter Status: Acute Plan: for psych transfer when medically clear (6) Hypothyroidism ICD Code: E03.9 - Hypothyroidism, unspecified Status: Acute Plan: continue synthroid (7) Fever ICD Code: R50.9 - Fever, unspecified Plan: with new abd pain and hx of diverticulitis CT abd/pelvis Check UA Discharge Planning med surg bed Problem Qualifiers (1) Diabetes mellitus: Qualified Codes: E11.8 - Type 2 diabetes mellitus with unspecified complications (2) Migraine headache: Qualified Codes: G43.909 - Migraine, unspecified, not intractable, without status migrainosus (3) Suicide attempt by beta oneil overdose: Qualified Codes: T44.7X2A - Poisoning by beta-adrenoreceptor antagonists, intentional self-harm, initial encounter (4) Hypothyroidism: Qualified Codes: E03.9 - Hypothyroidism, unspecified Hannah Jha MD Sep 23, 2017 13:41
[2017-09-23] MEDS ORDERED: KETOROLAC TROMETHAMINE 30 MG/ML (IVP) VIAL IV PUSH PRN (14:00)
[2017-09-23] MEDS: ENOXAPARIN SODIUM 40 MG/0.4 ML SYRINGE SQ SCH (16:32)
[2017-09-23 17:46] LABS: BLOOD, URINE SMALL (NEG); COMMENT (UR) CULT NOT INDICATED; CULTURE IF INDICATED CULT NOT INDICATED; GLUCOSE,URINE NEG (NEG); KETONE, URINE NEG (NEG); NITRITE,URINE NEG (NEG); PH, URINE 6.5 (5.0-8.5); URINE COLOR YELLOW (YELLW/STRAW)
[2017-09-23] MEDS ORDERED: ARIPiprazole 2 MG TAB PO SCH (21:00)
[2017-09-23] MEDS: diphenhydrAMINE HCL 25 MG CAP PO PRN (23:06)
[2017-09-23] MEDS: diphenhydrAMINE HCL 2%/ZINC ACETATE 0.1% CREAM 30 APPLIC/30 GM TUBE TOPICAL PRN (23:06)
[2017-09-24] VITALS (9 sets, daily range): BP systolic 105–131; BP diastolic 64–91; PULSE 63–75; RESP 16–21; TEMP 97.8–98.8; O2SAT 92–97
[2017-09-24] MEDS ORDERED: DIATRIZOATE MEGLUM/DIATRIZOATE SOD 9 ML CUP PO ONE (01:45)
[2017-09-24] MEDS: RESP: ALBUTEROL 2.5 MG/IPRATROPIUM 0.5 MG NEB (SCH) INH ×2 (03:36→10:20)
[2017-09-24] MEDS: CHLORHEXIDINE GLUCONATE 2 % 1 PACK (2 CLOTHS)(taper/protocol) TOPICAL SCH (04:00)
[2017-09-24] MEDS ORDERED: IOHEXOL 350 MG/ML 10 ML VIAL (for RAD DIAG) IVCONTRAST ONE (04:19)
[2017-09-24] MEDS: ACETAMINOPHEN 325 MG TAB PO PRN (04:47)
--- NOTE | 2017-09-24 05:32 | RADRPT ---
EXAM DATE/TIME: 09/24/2017 04:15 [place] COMPARISON: CT ABDOMEN & PELVIS W CONTRAST, March 04, 2017, 23:52. INDICATIONS : Abdominal pain with fever. IV CONTRAST: 90 cc Omnipaque 350 (iohexol) IV ORAL CONTRAST: Prescribed oral contrast ingested. RADIATION DOSE: 29.19 CTDIvol (mGy) ; Patient body habitus MEDICAL HISTORY : Cardiovascular disease. Gastroesophageal reflux disease. Rheumatoid arthritis.TIA. Diverticulitis. Fi bromyalgia. CAD. Renal calculi. Cervical cancer. SURGICAL HISTORY : Urethral surgery. ENCOUNTER: Initial ACUITY: 1 day PAIN SCALE: 8/10 LOCATION: Bilateral abdomen TECHNIQUE: Volumetric scanning of the abdomen and pelvis was performed. Using automated exposure control and ad justment of the mA and/or kV according to patient size, radiation dose was kept as low as reasonably achievable to obtain optimal diagnostic quality images. DICOM format image data is available electro nically for review and comparison. FINDINGS: LOWER LUNGS: Minimal atelectasis both lung bases. LIVER: Homogeneous density without lesion. There is no dilation of the biliary tree. No calcified gallston es. SPLEEN: Normal size without lesion. PANCREAS: Within normal limits. KIDNEYS: Normal in size and shape. There is no mass, stone or hydronephrosis except for small cortical cyst l eft kidney. ADRENAL GLANDS: Within normal limits. VASCULAR: There is no aortic aneurysm. BOWEL/MESENTERY: The stomach, small bowel, and colon demonstrate no acute abnormality. There is no free intraperitone al air or fluid. ABDOMINAL WALL: Within normal limits. RETROPERITONEUM: There is no lymphadenopathy. BLADDER: No wall thickening or mass. REPRODUCTIVE: Within normal limits. INGUINAL: There is no lymphadenopathy or hernia. MUSCULOSKELETAL: Within normal limits for patient age. CONCLUSION: Unremarkable CT scan abdomen and pelvis. Solid organs are unremarkable. No solid mass or adenopathy i s noted. No bowel wall thickening or evidence of obstruction. Ghassan Peña MD on September 24, 2017 at 5:28 Board Certified Radiologist. This report was verified electronically.
[2017-09-24] MEDS: LEVOTHYROXINE SODIUM 75 MCG TAB PO SCH (06:02)
[2017-09-24 07:24] LABS: AUTOMATED NEUTROPHIL # 1.3 TH/MM3 (1.8-7.7); BASOPHIL # 0.1 TH/MM3 (0-0.2); BASOPHIL % 1.5 % (0.0-2.0); EOSINOPHIL # 0.2 TH/MM3 (0-0.4); EOSINOPHIL % 5.5 % (0.0-4.0); HEMATOCRIT 34.4 % (35.0-46.0); HEMO FLAGS DIFF FINAL; LYMPH % 48.9 % (9.0-44.0); LYMPHOCYTE # 1.8 TH/MM3 (1.0-4.8); MEAN CELL VOLUME 90.6 FL (80.0-100.0); MEAN CORPUSCULAR HEMOGLOBIN 29.6 PG (27.0-34.0); MEAN CORPUSCULAR HGB CONC 32.7 % (32.0-36.0); MONO % 6.5 % (0.0-8.0); NEUT % 37.6 % (16.0-70.0); PLATELET COUNT 183 TH/MM3 (150-450); RED CELL DISTRIBUTION WIDTH 15.5 % (11.6-17.2); WHITE BLOOD COUNT 3.6 TH/MM3 (4.0-11.0)
[2017-09-24 07:27] LABS: BICARBONATE 24.7 MEQ/L (21.0-32.0); POTASSIUM 3.5 MEQ/L (3.5-5.1)
[2017-09-24] MEDS: INSULIN NovoLIN REGULAR SUPPLEMENTAL SCALE SQ SCH ×2 (08:00→11:29)
[2017-09-24] MEDS: diphenhydrAMINE HCL 25 MG CAP PO PRN (08:44)
[2017-09-24] MEDS: SODIUM CHLORIDE 0.9% FLUSH 10 ML FLUSH IV FLUSH SCH (08:44)
[2017-09-24] MEDS: DULoxetine HCl DR 20 MG CAP PO SCH (08:45)
[2017-09-24] MEDS: PANTOPRAZOLE SOD 40 MG DELAYED RELEASE TAB PO SCH (08:45)
[2017-09-24] MEDS: TOPIRAMATE 25 MG TAB PO SCH (08:45)
[2017-09-24] MEDS: ACETAMINOPHEN/HYDROcodone 325 MG/5 MG TAB PO PRN (08:45)
[2017-09-24] MEDS: GABAPENTIN 400 MG CAP PO SCH ×2 (08:45→12:44)
[2017-09-24] MEDS: diphenhydrAMINE HCL 2%/ZINC ACETATE 0.1% CREAM 30 APPLIC/30 GM TUBE TOPICAL PRN (08:46)
[2017-09-24] MEDS: DOCUSATE SODIUM 50 MG/SENNA 8.6 MG TAB PO SCH (08:46)
--- NOTE | 2017-09-24 10:22 | HHI.DCPOC ---
Discharge Care Plan Diagnosis: (1) Suicide attempt by beta oneil overdose Goals to Promote Your Health * To prevent worsening of your condition and complications * To maintain your health at the optimal level Directions to Meet Your Goals Take your medications as prescribed Follow your dietary instruction Follow activity as directed Keep your appointments as scheduled Take your immunizations and boosters as scheduled If your symptoms worsen call your PCP, if no PCP go to Urgent Care Center or Emergency Room Smoking is Dangerous to Your Health. Avoid second hand smoke Call the 24-hour hour crisis hotline for domestic abuse at Hannah Jha MD Sep 24, 2017 10:22
--- NOTE | 2017-09-24 10:26 | HHI.DS ---
Discharge Summary Admission Date Sep 20, 2017 at 14:11 Discharge Date: Sep 24, 2017 Admitting Diagnosis Propranolol overdose/intentional (1) Diabetes mellitus ICD Code: E11.9 - Type 2 diabetes mellitus without complications (2) Bipolar 1 disorder ICD Code: F31.9 - Bipolar disorder, unspecified (3) Migraine headache ICD Code: G43.909 - Migraine, unspecified, not intractable, without status migrainosus (4) Mitral valve prolapse ICD Code: I34.1 - Nonrheumatic mitral (valve) prolapse (5) Suicide attempt by beta oneil overdose ICD Code: T44.7X2A - Poisoning by beta-adrenoreceptor antagonists, intentional self-harm, initial encounter Status: Acute (6) Hypothyroidism ICD Code: E03.9 - Hypothyroidism, unspecified Status: Acute (7) Fever ICD Code: R50.9 - Fever, unspecified Procedures none Brief History - From Admission This is a 57-year-old female. Date of admission 09/20/2017. Past medical history includes TIA, migraine headache, depression/anxiety, bipolar disorder, fibromyalgia, MS?, Hypertension, dyslipidemia, anemia, nephrolithiasis, hypothyroidism, gastroesophageal reflux disease, diverticulosis , colonic polyps and cervical cancer. Patient presents to [facility] after taking #29 of 40 mg propranolol at approximately 1045 today. She is currently extracted. She stated she did this because she could not take care of herself anymore. On presentation, his head CT revealed no acute intracranial findings. EKG revealed normal sinus in the 74 QTc interval of 390 initially, heart rate within normal limits however patient became acutely bradycardic heart rates in the 40s and systolic blood pressures in 90s and received 0.5 mg atropine 1 along with 10 mg total of glucagon IV. He starts currently in the 80s and she is hemodynamically stable. She is currently in a glucagon drip and received calcium chloride at the present time. She became somewhat nauseous after receiving the glucagon and has had 1 emesis. She is currently incontinent of urine. CBC/BMP: 09/24/17 0447 09/24/17 0447 Significant Findings Laboratory Tests Test 09/22/17 06:58 09/23/17 06:06 09/23/17 16:55 09/24/17 04:47 Red Blood Count 3.82 MIL/MM3 (4.00-5.30) 3.89 MIL/MM3 (4.00-5.30) 3.80 MIL/MM3 (4.00-5.30) Hemoglobin 11.3 GM/DL (11.6-15.3) 11.3 GM/DL (11.6-15.3) Hematocrit 34.8 % (35.0-46.0) 34.4 % (35.0-46.0) Eosinophils (%) (Auto) 6.3 % (0.0-4.0) 5.5 % (0.0-4.0) 5.5 % (0.0-4.0) Albumin 2.6 GM/DL (3.4-5.0) Calcium Level 8.3 MG/DL (8.5-10.1) 8.4 MG/DL (8.5-10.1) 8.3 MG/DL (8.5-10.1) Phosphorus Level 2.2 MG/DL (2.5-4.9) Chloride Level 110 MEQ/L (98-107) 109 MEQ/L (98-107) Carbon Dioxide Level 19.6 MEQ/L (21.0-32.0) Estimat Glomerular Filtration Rate 69 ML/MIN (>89) 49 ML/MIN (>89) 57 ML/MIN (>89) Lymphocytes (%) (Auto) 47.7 % (9.0-44.0) 48.9 % (9.0-44.0) Creatinine 1.14 MG/DL (0.50-1.00) 1.01 MG/DL (0.50-1.00) Urine Occult Blood SMALL (NEG) White Blood Count 3.6 TH/MM3 (4.0-11.0) Neutrophils # (Auto) 1.3 TH/MM3 (1.8-7.7) Imaging Last Impressions Abdomen/Pelvis CT 09/23/17 0000 Signed Impressions: Service Date/Time: Sunday, September 24, 2017 04:15 - CONCLUSION: Unremarkable CT scan abdomen and pelvis. Solid organs are unremarkable. No solid mass or adenopathy is noted. No bowel wall thickening or evidence of obstruction. Ghassan Peña MD Head CT 09/20/17 0000 Signed Impressions: Service Date/Time: Wednesday, September 20, 2017 12:20 - CONCLUSION: No acute disease. Stable exam without evidence of acute infarct, hemorrhage, mass or edema. Mango Aguila MD Chest X-Ray 09/20/17 0000 Signed Impressions: Service Date/Time: Wednesday, September 20, 2017 14:11 - CONCLUSION: No acute cardiopulmonary process. Michoacano Murray MD PE at Discharge GENERAL: This is a well-nourished, well-developed patient, in no apparent distress. CARDIOVASCULAR: Regular rate and rhythm without murmurs, gallops, or rubs. RESPIRATORY: Clear to auscultation. Breath sounds equal bilaterally. No wheezes , rales, or rhonchi. GASTROINTESTINAL: Abdomen soft, minimally tender, nondistended.hypoactive bowel sounds MUSCULOSKELETAL: Extremities without clubbing, cyanosis, or edema. NEURO: Alert & Oriented x4 to person, place, time, situation. Moves all ext x4 Pt update on day of discharge patient seen and evaluated in follow up for suicidal OD on Propanol. Patient also seen for fever which is resolved No new complaints, Abd discomfort better, no further fever d/w LUGGAGE REPA[employer]ER Hospital Course Patient did well with close observation in the ICU she did develop a fever and there was no source patient was seen by Psychiatry and recommended for psych facility at d/c Pt Condition on Discharge: Good Discharge Disposition: Disc to Psych Care Fac Discharge Time: > 30 minutes Discharge Instructions DIET: Follow Instructions for: As Tolerated, No Restrictions Speech Therapy-Diet Recommends: Regular Activities you can perform: Regular-No Restrictions Continued Medications: Albuterol 18 GM Inh (Ventolin Hfa 18 GM Inh) 90 Mcg/Act Aer 2 PUFF INH Q4-6H PRN for SHORTNESS OF BREATH, #1 INHALER [address] (Aspir-81) 81 Mg Tabdr Diazepam (Diazepam) 10 Mg Tab 10 MG PO BID PRN for ANXIETY, TAB [address] (Cymbalta DR) 20 Mg Capdr 20 MG PO DAILY, #30 CAP 0 Refills Furosemide (Lasix) 40 Mg Tab 40 MG PO DAILY for Fluid retention, #30 TAB 0 Refills Gabapentin (Gabapentin) 800 Mg Tab 800 MG PO QID, #90 TAB 0 Refills Levothyroxine (Levothyroxine) 75 Mcg Tab 75 MCG PO DAILY for Thyroid, #30 TAB 0 Refills Pantoprazole (Pantoprazole) 40 Mg Tab 40 MG PO DAILY for Reflux, #30 TAB 0 Refills Promethazine (Phenergan) 25 Mg Tablet 25 MG PO Q6H PRN for HEADACHE, #10 TAB 0 Refills Topiramate (Topamax) 50 Mg Tab 50 MG PO BID for MIGRAINES, #60 TAB 0 Refills Zolpidem (Zolpidem) 5 Mg Tab 5 MG PO HS PRN for INSOMNIA, TAB 0 Refills Discontinued Medications: Propranolol (Propranolol) 40 Mg Tab 40 MG PO Q12HR, #60 TAB 0 Refills Hannah Jha MD Sep 24, 2017 10:26
== END 2017-09-24 14:17 | DRG 918 ==
LOC: NEPC 11:57 → NEDA 14:11 → HIMW 16:30
PROVIDERS: ADMIT Hospitalist; ATTEND Hospitalist
DX: T44.7X2A Poisoning by beta-adrenoreceptor antagonists, intentional self-harm, initial encounter (principal); N17.9 Acute kidney failure, unspecified; E83.42 Hypomagnesemia; E83.39 Other disorders of phosphorus metabolism; E83.51 Hypocalcemia; E11.9 Type 2 diabetes mellitus without complications; I10 Essential (primary) hypertension; D64.9 Anemia, unspecified; F31.30 Bipolar disorder, current episode depressed, mild or moderate severity, unspecified; G35 Multiple sclerosis; K21.9 Gastro-esophageal reflux disease without esophagitis; E78.5 Hyperlipidemia, unspecified; G43.909 Migraine, unspecified, not intractable, without status migrainosus; M19.90 Unspecified osteoarthritis, unspecified site; I34.1 Nonrheumatic mitral (valve) prolapse; M79.7 Fibromyalgia; M54.6 Pain in thoracic spine; E03.9 Hypothyroidism, unspecified; F41.9 Anxiety disorder, unspecified; N20.0 Calculus of kidney; R32 Unspecified urinary incontinence; G89.29 Other chronic pain; G47.00 Insomnia, unspecified; J45.909 Unspecified asthma, uncomplicated; H26.9 Unspecified cataract; K57.90 Diverticulosis of intestine, part unspecified, without perforation or abscess without bleeding; H91.90 Unspecified hearing loss, unspecified ear; R50.9 Fever, unspecified; Z79.899 Other long term (current) drug therapy; Z85.41 Personal history of malignant neoplasm of cervix uteri; Z86.010 Personal history of colon polyps; Z86.73 Personal history of transient ischemic attack (TIA), and cerebral infarction without residual deficits; Z87.442 Personal history of urinary calculi
CPT/HCPCS: 70450; 71010; 74177; 76937; 80048; 80053; 80307; 81001; 82550; 82948; 83605; 83735; 83930; 84100; 84443; 84484; 85025; 85610; 85730; 87086; 93005; 94150; 94640; 94664; 96361; 96374; 96375; J0461; J0610; J1610; J1650; J2310; J2405; J3475; J7030; J7050; Q9963; Q9967

== ENCOUNTER 2017-09-24 13:12 | Inpatient (IN) | payer OTHER ==
[~2017-09-24] VITALS: Ht 162.6 cm; Wt 100.6 kg
[2017-09-24 14:41] VITALS: BP 119/67; PULSE 68; RESP 17; TEMP 97.7; O2SAT 96
[2017-09-24] MEDS: PANTOPRAZOLE SOD 40 MG DELAYED RELEASE TAB PO SCH (15:15)
[2017-09-24] MEDS: LEVOTHYROXINE SODIUM 75 MCG TAB PO SCH (15:15)
[2017-09-24] MEDS: FUROSEMIDE 40 MG TAB PO SCH (15:15)
[2017-09-24] MEDS: DULoxetine HCl DR 20 MG CAP PO SCH (15:15)
[2017-09-24] MEDS: NICOTINE 21 MG/24 HR PATCH T-DERMAL SCH (15:26)
[2017-09-24] MEDS ORDERED: LORazepam 0.5 MG TAB PO PRN (15:30)
[2017-09-24] MEDS ORDERED: MAGNESIUM HYDROXIDE SUSP 30 ML CUP PO PRN (15:30)
[2017-09-24] MEDS ORDERED: LORazepam 1 MG TAB PO PRN (15:30)
[2017-09-24] MEDS ORDERED: ALUMINUM/MAGNESIUM/SIMETH 30 ML CUP PO PRN (15:30)
[2017-09-24] MEDS ORDERED: LORazepam 2 MG/ML VIAL IM PRN ×2 (15:30)
[2017-09-24] MEDS ORDERED: REMOVE OLD NICODERM (NICOTINE) PATCH T-DERMAL SCH (21:00)
[2017-09-24] MEDS: TOPIRAMATE 25 MG TAB PO SCH (22:01)
[2017-09-24] MEDS: ACETAMINOPHEN 325 MG TAB PO PRN (22:45)
[2017-09-25] MEDS: LEVOTHYROXINE SODIUM 75 MCG TAB PO SCH (06:02)
[2017-09-25 06:18] VITALS: BP 92/62; PULSE 69; RESP 16; TEMP 97.8; O2SAT 96
[2017-09-25] MEDS: DULoxetine HCl DR 20 MG CAP PO SCH (10:09)
[2017-09-25] MEDS: FUROSEMIDE 40 MG TAB PO SCH (10:10)
[2017-09-25] MEDS: PANTOPRAZOLE SOD 40 MG DELAYED RELEASE TAB PO SCH (10:11)
[2017-09-25] MEDS: NICOTINE 21 MG/24 HR PATCH T-DERMAL SCH (10:11)
[2017-09-25] MEDS: TOPIRAMATE 25 MG TAB PO SCH (10:11)
[2017-09-25] MEDS: ACETAMINOPHEN 325 MG TAB PO PRN (10:12)
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
== END 2017-09-25 19:10 | disposition home or self-care (01) | DRG 885 ==
LOC: H260 14:26
PROVIDERS: ADMIT Psychiatry & Neurology Psychiatry; ATTEND Psychiatry & Neurology Psychiatry
DX: F33.2 Major depressive disorder, recurrent severe without psychotic features (principal); E66.9 Obesity, unspecified

== ENCOUNTER 2017-09-30 18:37 | Observation (INO) | payer OTHER ==
[~2017-09-30] VITALS: Ht 162.6 cm; Wt 99.7 kg
[~2017-09-30 18:37] MED LIST changes: -FLUO-1 PO; -OXYC1CAP PO; -PROP40TA3 PO
[2017-09-30] MEDS ORDERED: SODIUM CHLORIDE 0.9% FLUSH 10 ML FLUSH IVF PRN (19:00)
[2017-09-30] MEDS ORDERED: ASPIRIN 81 MG CHEW TAB PO ONE (19:00)
[2017-09-30 19:01] VITALS: BP 148/94; PULSE 89; RESP 16; TEMP 97.8; O2SAT 97
--- NOTE | 2017-09-30 19:02 | PD ---
HPI Chief Complaint: Chest Pain Time Seen by Provider: 18:50 Travel History International Travel<30 days: No Contact w/Intl Traveler<30days: No Traveled to known affect area: No History of Present Illness HPI 57-year-old female here for evaluation of chest pain. The patient reports that she has had left-sided chest pain that radiates to her back for the last 3 days. Pain is currently a 6 out of 10 and described as a pressure. There are no modifying factors. She reports history of heart disease, however she does not have any history of coronary stents or bypass. She reports family history of heart disease as well. She was admitted to the hospital a month ago after an intentional beta oneil overdose. She states that her son is an IV drug user and was recently diagnosed with compartment syndrome in his arm requiring surgery last month. She states that this upsets her becomes very tearful when talking about this. She denies fevers or chills. No cough. No paresthesias or motor deficits. She denies illicit drug use. She states that she is no longer suicidal and regrets the beta oneil overdose last month. PFSH Past Medical History Anemia: Yes Arthritis: Yes (RA, FIBROMYALGIA) Asthma: Yes Bipolar Disorder: Yes Anxiety: Yes Depression: Yes Heart Rhythm Problems: Yes (MITRAL VALVE PROLAPSE) Cancer: Yes (cervical cancer per pt) Cardiovascular Problems: Yes (hypertension per pt) High Cholesterol: Yes Cerebrovascular Accident: Yes (TIA'S) Coronary Artery Disease: Yes (MITRAL VALVE PROLAPSE) Diabetes: Yes (per pt) Diminished Hearing: Yes Diverticulitis: Yes Fibromyalgia: Yes Gastrointestinal Disorders: Yes (DIVERTICULITIS, POLYPS) GERD: Yes Genitourinary: Yes Headaches: Yes (Per pt has she has had a migraine for the past 5 days) Hepatitis: Yes (MIGRAINES) Herniated Disk: Yes Hypertension: No Kidney Stones: Yes Musculoskeletal: Yes (BACK PAIN) Neurologic: Yes Psychiatric: Yes (per pt hx of Bipolar and depression) Reproductive: Yes (CERVICAL CA) Respiratory: Yes Immunizations Current: Yes Migraines: Yes Thyroid Disease: Yes (HYPO) Menopausal: Yes Past Surgical History Eye Surgery: Yes (BILATERAL "LAZY EYE" CORRECTION, CHILD) Genitourinary Surgery: Yes (URETHRAL SURGERY) Pacemaker: No Other Surgery: Yes Social History Alcohol Use: No Tobacco Use: No Substance Use: No Allergies-Medications (Allergen,Severity, Reaction): Coded Allergies: butorphanol (Unverified Allergy, Severe, "I GO CRAZY", 09/30/17) HALLUCINATIONS Reported Meds & Prescriptions Reported Meds & Active Scripts Active Phenergan (Promethazine HCl) 25 Mg Tablet 25 Mg PO Q6H PRN Lasix (Furosemide) 40 Mg Tab 40 Mg PO DAILY Pantoprazole (Pantoprazole Sodium) 40 Mg Tab 40 Mg PO DAILY Reported Benadryl Itch Stopping Topical (Diphenhydramine Topical) 2 % Gel 1 Applic TOPICAL Q4-6H PRN Cetirizine (Cetirizine HCl) 10 Mg Chew 10 Mg CHEW DAILY Aspir-81 (Aspirin) [address] (Duloxetine HCl) 20 Mg Capdr 20 Mg PO DAILY Zolpidem (Zolpidem Tartrate) 5 Mg Tab 5 Mg PO HS PRN Topamax (Topiramate) 50 Mg Tab 50 Mg PO BID Levothyroxine (Levothyroxine Sodium) 75 Mcg Tab 75 Mcg PO DAILY Gabapentin 800 Mg Tab 800 Mg PO QID Diazepam 10 Mg Tab 10 Mg PO BID PRN Ventolin Hfa 18 GM Inh (Albuterol Sulfate) 90 Mcg/Act Aer 2 Puff INH Q4-6H PRN Review of Systems Except as stated in HPI: all other systems reviewed are Neg Physical Exam Narrative GENERAL: Well-developed, well-nourished, overweight, tearful, no apparent distress. SKIN: Focused skin assessment warm/dry. HEAD: Atraumatic. Normocephalic. EYES: Pupils equal and round. No scleral icterus. No injection or drainage. ENT: Mucous membranes pink and moist. NECK: Trachea midline. No JVD. CARDIOVASCULAR: Regular rate and rhythm. No murmur appreciated. Distal pulses brisk and equal bilaterally. RESPIRATORY: No accessory muscle use. Clear to auscultation. Breath sounds equal bilaterally. GASTROINTESTINAL: Abdomen soft, non-tender, nondistended. MUSCULOSKELETAL: No obvious deformities. No clubbing. No cyanosis. No edema. NEUROLOGICAL: Awake and alert. No obvious cranial nerve deficits. Motor grossly within normal limits. Normal speech. PSYCHIATRIC: Appropriate mood and affect; insight and judgment normal. Data Data Last Documented VS Vital Signs Date Time Temp Pulse Resp B/P (MAP) Pulse Ox O2 Delivery O2 Flow Rate FiO2 09/30/17 19:32 82 20 96 Nasal Cannula 2.00 09/30/17 19:27 129/77 (94) 130/78 (95) 09/30/17 19:01 97.8 Orders Orders Basic Metabolic Panel (Bmp) (09/30/17 18:59) Ckmb (Isoenzyme) Profile (09/30/17 18:59) Complete Blood Count With Diff (09/30/17 18:59) Magnesium (Mg) (09/30/17 18:59) Prothrombin Time / Inr (Pt) (09/30/17 18:59) Act Partial Throm Time (Ptt) (09/30/17 18:59) Troponin I (09/30/17 18:59) Chest, Single Ap (09/30/17 18:59) Ecg Monitoring (09/30/17 18:59) Bilateral Bp Monitoring (09/30/17 18:59) Iv Access Insert/Monitor (09/30/17 18:59) Oximetry (09/30/17 18:59) Oxygen Administration (09/30/17 18:59) Aspirin Chew (Aspirin Chew) (09/30/17 19:00) Sodium Chloride 0.9% Flush (Ns Flush) (09/30/17 19:00) Nitroglycerin Sl (Nitrostat Sl) (09/30/17 19:00) Electrocardiogram (09/30/17 18:52) Place In Observation (09/30/17 20:54) Activity Bed Rest With Brp (09/30/17 20:54) Vital Signs (Adult) Q4H (09/30/17 20:54) Cardiac Rhythm .As Directed (09/30/17 20:54) Notify Dr: Other .PRN (09/30/17 20:54) Notify Dr. Parameters (09/30/17 20:54) Resp Oxygen Nasal Cannula (09/30/17 ) Diet Npo (10/01/17 Breakfast) Ckmb (Isoenzyme) Profile (09/30/17 22:00) Ckmb (Isoenzyme) Profile (10/01/17 01:00) Troponin I (09/30/17 22:00) Troponin I (10/01/17 01:00) Electrocardiogram (09/30/17 22:00) Electrocardiogram (10/01/17 01:00) ^ Obtain (09/30/17 20:54) Sodium Chlor 0.9% 1000 Ml Inj (Ns 1000 M (09/30/17 20:54) Sodium Chloride 0.9% Flush (Ns Flush) (09/30/17 21:00) Sodium Chloride 0.9% Flush (Ns Flush) (09/30/17 21:00) Acetaminophen (Tylenol) (09/30/17 21:00) Ondansetron Inj (Zofran Inj) (09/30/17 21:00) Nitroglycerin 2% Oint (Nitroglycerin 2% (10/01/17 00:00) Web Applications Architect / Telemetry MYLA.Q8H (09/30/17 20:54) Heparin Inj (Heparin Inj) (09/30/17 22:00) Labs Laboratory Tests Test 09/30/17 19:15 White Blood Count 6.3 TH/MM3 Red Blood Count 4.24 MIL/MM3 Hemoglobin 12.0 GM/DL Hematocrit 37.5 % Mean Corpuscular Volume 88.5 FL Mean Corpuscular Hemoglobin 28.3 PG Mean Corpuscular Hemoglobin Concent 31.9 % Red Cell Distribution Width 14.4 % Platelet Count 248 TH/MM3 Mean Platelet Volume 7.7 FL Neutrophils (%) (Auto) 51.8 % Lymphocytes (%) (Auto) 37.5 % Monocytes (%) (Auto) 5.2 % Eosinophils (%) (Auto) 5.2 % Basophils (%) (Auto) 0.3 % Neutrophils # (Auto) 3.3 TH/MM3 Lymphocytes # (Auto) 2.4 TH/MM3 Monocytes # (Auto) 0.3 TH/MM3 Eosinophils # (Auto) 0.3 TH/MM3 Basophils # (Auto) 0.0 TH/MM3 CBC Comment DIFF FINAL Differential Comment Prothrombin Time 10.2 SEC Prothromb Time International Ratio 0.9 RATIO Activated Partial Thromboplast Time 23.9 SEC Blood Urea Nitrogen 12 MG/DL Creatinine 1.10 MG/DL Random Glucose 112 MG/DL Calcium Level 8.4 MG/DL Magnesium Level 2.0 MG/DL Sodium Level 142 MEQ/L Potassium Level 3.5 MEQ/L Chloride Level 110 MEQ/L Carbon Dioxide Level 24.1 MEQ/L Anion Gap 8 MEQ/L Estimat Glomerular Filtration Rate 51 ML/MIN Total Creatine Kinase 64 U/L Troponin I LESS THAN 0.02 NG/ML MDM Medical Decision Making Medical Screen Exam Complete: Yes Emergency Medical Condition: Yes Medical Record Reviewed: Yes Interpretation(s) EKG: Sinus, rate 89, normal axis, normal intervals, T-wave inversions in V1 through V6 which are new Differential Diagnosis ACS, pneumothorax, pericarditis, PE, pneumonia Narrative Course Vital signs show heart rate 89, blood pressure 148/94, pulse ox 97% on room air , oral temp of 97.8F. CBC is unremarkable. BMP is essentially unremarkable. Cardiac enzymes are negative. Chest x-ray: No acute disease. Patient has new T-wave inversions in her precordial leads. She was given aspirin. Her pain subsided after 3 sublingual nitroglycerin. She will be admitted to the chest pain center for further cardiac evaluation. She is amenable to this plan. Case discussed with hospitalist Dr. Cannon who will admit the patient to her service. Diagnosis Primary Impression: Chest pain Qualified Codes: R07.9 - Chest pain, unspecified Champ Du MD Sep 30, 2017 19:02
[2017-09-30] MEDS: NITROGLYCERIN 0.4 MG SL 25 TABS/BTL SL SCH ×3 (19:07→19:47)
[2017-09-30 19:12] VITALS: RESP 16; O2SAT 98
[2017-09-30 19:27] VITALS: BP_SYST 129; BP_SYST 130; BP_DIAS 77; BP_DIAS 78; PULSE 94; RESP 20; O2SAT 95
[2017-09-30 19:31] LABS: AUTOMATED NEUTROPHIL # 3.3 TH/MM3 (1.8-7.7); BASOPHIL % 0.3 % (0.0-2.0); EOSINOPHIL # 0.3 TH/MM3 (0-0.4); EOSINOPHIL % 5.2 % (0.0-4.0); HEMATOCRIT 37.5 % (35.0-46.0); HEMO FLAGS DIFF FINAL; LYMPH % 37.5 % (9.0-44.0); LYMPHOCYTE # 2.4 TH/MM3 (1.0-4.8); MEAN CELL VOLUME 88.5 FL (80.0-100.0); MEAN CORPUSCULAR HEMOGLOBIN 28.3 PG (27.0-34.0); MEAN CORPUSCULAR HGB CONC 31.9 % (32.0-36.0); MONO % 5.2 % (0.0-8.0); NEUT % 51.8 % (16.0-70.0); PLATELET COUNT 248 TH/MM3 (150-450); RED BLOOD COUNT 4.24 MIL/MM3 (4.00-5.30); RED CELL DISTRIBUTION WIDTH 14.4 % (11.6-17.2); WHITE BLOOD COUNT 6.3 TH/MM3 (4.0-11.0)
[2017-09-30 19:39] LABS: CHLORIDE 110 MEQ/L (98-107); POTASSIUM 3.5 MEQ/L (3.5-5.1); SODIUM (NA) 142 MEQ/L (136-145)
[2017-09-30 19:42] LABS: ANION GAP 8 MEQ/L (5-15); BICARBONATE 24.1 MEQ/L (21.0-32.0); BLOOD UREA NITROGEN 12 MG/DL (7-18)
[2017-09-30 19:43] LABS: APTT (PATIENT) 23.9 SEC (24.3-30.1); INTERNATIONAL NORMALIZED RATIO 0.9 RATIO; PROTHROMBIN TIME - PATIENT 10.2 SEC (9.8-11.6)
[2017-09-30] MEDS ORDERED: DIPH1GEL TOPICAL (19:44)
[2017-09-30] MEDS ORDERED: CETI10CH CHEW (19:44)
[2017-09-30 19:45] LABS: GLOMERULAR FILTRATION RATE 51 ML/MIN (>89)
--- NOTE | 2017-09-30 19:54 | RADRPT ---
EXAM DATE/TIME: 09/30/2017 19:44 [facility] COMPARISON: CHEST SINGLE AP, September 20, 2017, 14:11. INDICATIONS : Chest pain for several days. MEDICAL HISTORY : Cardiovascular disease. Gastroesophageal reflux disease. Rheumatoid arthritis.TIA. Diverticulitis. Fi bromyalgia. CAD. Renal calculi. Cervical cancer. SURGICAL HISTORY : None. ENCOUNTER: Initial ACUITY: 4 - 6 days PAIN SCORE: 7/10 LOCATION: Bilateral chest FINDINGS: A single view of the chest demonstrates the lungs to be symmetrically aerated without evidence of mas s, infiltrate or effusion. The cardiomediastinal contours are unremarkable. Osseous structures are intact. CONCLUSION: No acute disease. Campbell Warren Jr., MD on September 30, 2017 at 19:51 Board Certified Radiologist. This report was verified electronically.
[2017-09-30 20:00] LABS: CREATINE KINASE 64 U/L (26-192)
[2017-09-30] MEDS ORDERED: SODIUM CHLORIDE 0.9% FLUSH 10 ML FLUSH IV FLUSH PRN (21:00)
[2017-09-30] MEDS ORDERED: ONDANSETRON HCL 4 MG/2 ML VIAL IV PUSH PRN (21:00)
[2017-09-30 21:14] VITALS: BP 155/86; PULSE 74; RESP 20; O2SAT 98
[2017-09-30 22:00] VITALS: BP 138/72; PULSE 74; RESP 20; O2SAT 98
[2017-09-30 22:52] LABS: CREATINE KINASE 56 U/L (26-192)
[2017-09-30] MEDS: HEPARIN SODIUM - SQ 10,000 UNITS/ML VIAL SQ SCH (23:00)
[2017-09-30] MEDS: SODIUM CHLORIDE 0.9% FLUSH 10 ML FLUSH IV FLUSH SCH (23:01)
[2017-09-30] MEDS: ACETAMINOPHEN 500 MG CPLT PO PRN (23:01)
[2017-09-30] MEDS: SODIUM CHLOR 0.9% 1000 ML INJ 1,000 ML IV SCH (23:01)
[2017-10-01] VITALS: BP 117/70; PULSE 66; RESP 20; TEMP 96.8; O2SAT 99
[2017-10-01] MEDS: NITROGLYCERIN 2% OINT 1 GM PACKET TOP SCH ×2 (00:01→06:25)
[2017-10-01 00:07] VITALS: BP 132/71
[2017-10-01 01:00] VITALS: O2SAT 94
[2017-10-01 01:47] LABS: CREATINE KINASE 55 U/L (26-192)
[2017-10-01 04:00] VITALS: BP 108/61; PULSE 61; RESP 20; TEMP 97.8; O2SAT 97
[2017-10-01] MEDS: HEPARIN SODIUM - SQ 10,000 UNITS/ML VIAL SQ SCH (06:26)
[2017-10-01] MEDS: ACETAMINOPHEN 500 MG CPLT PO PRN (06:31)
[2017-10-01] MEDS: SODIUM CHLORIDE 0.9% FLUSH 10 ML FLUSH IV FLUSH SCH (07:52)
[2017-10-01 08:00] VITALS: BP 126/80; PULSE 62; RESP 16; TEMP 96.5; O2SAT 96
--- NOTE | 2017-10-01 08:28 | HHI.HP ---
HPI Service [facility] Primary Care Physician Unknown Admission Diagnosis Chest Pain Diagnoses: (1) Chest pain Diagnosis: Principal Chief Complaint: Chest pain Travel History International Travel<30 Days: No Contact w/Intl Traveler <30 Da: No Traveled to Known Affected Are: No History of Present Illness Written by Marvin Hernandez, acting as scribe for Dr. Hilton on 10/01/17 at 08 :28. 57-year-old female with rather complex medical history of hypertension , hyperlipidemia, recent admission for intentional suicidal attempt with beta oneil overdose, bipolar, anxiety, depression, fibromyalgia, chronic back pain , chronic neck pain, gastroesophageal reflux who presented to hospital because of chest discomfort. Patient just recently discharged from the hospital approximately 1 week ago for intentional overdose and admission to ICU as well as psychiatry. Patient states that over the last 3 days she has had a constant pain located in the left sternal border radiating into her back and down her left arm. She states it is 7/10 on a pain scale. She had associated nausea, vomiting, shortness of breath, dyspnea, diaphoresis, lightheadedness, dizziness. Patient came to the emergency department for evaluation. Patient was given nitroglycerin without any relief of her symptoms. Because the patient 's increased risk factors, persistent pain it was recommended by ER physician that patient be observed in the chest pain center. Review of Systems Constitutional: COMPLAINS OF: Diaphoretic episodes Respiratory: COMPLAINS OF: Shortness of breath Cardiovascular: COMPLAINS OF: Chest pain, Dyspnea on Exertion Gastrointestinal: COMPLAINS OF: Nausea, Vomiting Psychiatric: COMPLAINS OF: Anxiety, Depression Except as stated in HPI: all other systems reviewed are Neg Past Family Social History Past Medical History Diabetes, recent diagnosis Hyperlipidemia untreated Fibromyalgia History diverticulitis Hypothyroidism Migraine cephalgia Bipolar disorder History of suicidal attempt Anemia Nephrolithiasis Chronic low back pain Chronic neck pain Gastroesophageal reflux History of cervical cancer History TIA Asthma Past Surgical History Urethral surgery Bilateral eye surgery Reported Medications Reported Meds & Active Scripts Active Phenergan (Promethazine HCl) 25 Mg Tablet 25 Mg PO Q6H PRN Lasix (Furosemide) 40 Mg Tab 40 Mg PO DAILY Pantoprazole (Pantoprazole Sodium) 40 Mg Tab 40 Mg PO DAILY Reported Benadryl Itch Stopping Topical (Diphenhydramine Topical) 2 % Gel 1 Applic TOPICAL Q4-6H PRN Cetirizine (Cetirizine HCl) 10 Mg Chew 10 Mg CHEW DAILY Aspir-81 (Aspirin) [address] (Duloxetine HCl) 20 Mg Capdr 20 Mg PO DAILY Zolpidem (Zolpidem Tartrate) 5 Mg Tab 5 Mg PO HS PRN Topamax (Topiramate) 50 Mg Tab 50 Mg PO BID Levothyroxine (Levothyroxine Sodium) 75 Mcg Tab 75 Mcg PO DAILY Gabapentin 800 Mg Tab 800 Mg PO QID Diazepam 10 Mg Tab 10 Mg PO BID PRN Ventolin Hfa 18 GM Inh (Albuterol Sulfate) 90 Mcg/Act Aer 2 Puff INH Q4-6H PRN Allergies: Coded Allergies: butorphanol (Unverified Allergy, Severe, "I GO CRAZY", 09/30/17) HALLUCINATIONS Family History Reviewed is significant for father in his 60s from myocardial infarction. Mother with myocardial infarction with stenting. Social History Patient denies any tobacco, alcohol or illicit drugs Physical Exam Vital Signs Vital Signs Date Time Temp Pulse Resp B/P (MAP) Pulse Ox O2 Delivery O2 Flow Rate FiO2 10/01/17 04:00 97.8 61 20 108/61 (77) 97 10/01/17 01:00 94 21 10/01/17 00:07 76 20 132/71 (91) 96 10/01/17 00:00 96.8 66 20 117/70 (86) 99 10/01/17 00:00 66 09/30/17 22:00 74 20 138/72 (94) 98 09/30/17 21:14 74 20 155/86 (109) 98 09/30/17 19:32 82 20 96 Nasal Cannula 2.00 09/30/17 19:31 20 09/30/17 19:27 94 20 129/77 (94) 95 Nasal Cannula 2.00 130/78 (95) 09/30/17 19:12 16 98 Nasal Cannula 2.00 09/30/17 19:12 98 Nasal Cannula 2.00 09/30/17 19:01 97.8 89 16 148/94 (112) 97 Physical Exam GENERAL: Well-developed, well-nourished, in no acute distress. alert and orientated HEENT: Head is normocephalic without any lesions or masses noted. Facial features are symmetric. Eyes: Pupils equal round reactive to light. Extraocular muscles are intact. Conjunctivae were clear. Oropharyngeal: Pharynx without any erythema edema. Tongue is midline without deviation. Buccal mucosa is moist without any masses or lesions NECK: Supple without any masses. Trachea midline no deviation. No JVD, no bruits are appreciated CARDIAC: Regular rhythm, regular rate. S1/S2 are heard. No murmurs gallops or rubs. Patient with reproducible left sternal border chest wall tenderness LUNGS: Clear to auscultation bilaterally. No wheeze, rhonchi or rales. No use of accessory muscles on inspiration or expiration. ABDOMEN: Soft, nontender. Nondistended. Bowel sounds heard in all 4 quadrants. No organomegaly or masses. Negative rebound, negative guarding EXTREMITIES: No edema, pulses are equal bilaterally. No cyanosis or clubbing NEUROLOGY: Mood and affect appear appropriate. Cranial nerves II through XII grossly intact. Muscle strength 5/5 in upper and lower extremities bilaterally. Deep tendon reflexes are 2+ in upper and lower extremities bilaterally. Laboratory Laboratory Tests Test 09/30/17 19:15 09/30/17 22:20 10/01/17 00:55 White Blood Count 6.3 Red Blood Count 4.24 Hemoglobin 12.0 Hematocrit 37.5 Mean Corpuscular Volume 88.5 Mean Corpuscular Hemoglobin 28.3 Mean Corpuscular Hemoglobin Concent 31.9 Red Cell Distribution Width 14.4 Platelet Count 248 Mean Platelet Volume 7.7 Neutrophils (%) (Auto) 51.8 Lymphocytes (%) (Auto) 37.5 Monocytes (%) (Auto) 5.2 Eosinophils (%) (Auto) 5.2 Basophils (%) (Auto) 0.3 Neutrophils # (Auto) 3.3 Lymphocytes # (Auto) 2.4 Monocytes # (Auto) 0.3 Eosinophils # (Auto) 0.3 Basophils # (Auto) 0.0 CBC Comment DIFF FINAL Differential Comment Prothrombin Time 10.2 Prothromb Time International Ratio 0.9 Activated Partial Thromboplast Time 23.9 Blood Urea Nitrogen 12 Creatinine 1.10 Random Glucose 112 Calcium Level 8.4 Magnesium Level 2.0 Sodium Level 142 Potassium Level 3.5 Chloride Level 110 Carbon Dioxide Level 24.1 Anion Gap 8 Estimat Glomerular Filtration Rate 51 Total Creatine Kinase 64 56 55 Troponin I LESS THAN 0.02 LESS THAN 0.02 LESS THAN 0.02 Result Diagram: 09/30/17191409/30/171914 Imaging Last Impressions Chest X-Ray 09/30/171858 Signed Impressions: Service Date/Time: Saturday, September 30, 2017 19:44 - CONCLUSION: No acute disease. Campbell Warren Jr., MD [place]ato VTE Risk Assessment Caprini VTE Risk Assessment: No/Low Risk (score <= 1) Caprini Risk Assessment Model Point Value = 1 Point Value = 2 Point Value = 3 Point Value = 5 Age 41-60 Minor surgery BMI > 25 kg/m2 Swollen legs Varicose veins or History of unexplained or recurrent spontaneous Oral contraceptives or hormone replacement Sepsis (< 1 month) Serious lung disease, including pneumonia (< 1 month) Abnormal pulmonary function Acute myocardial infarction Congestive heart failure (< 1 month) History of inflammatory bowel disease Medical patient at bed rest Age 61-74 Arthroscopic surgery Major open surgery (> 45 min) Laparoscopic surgery (> 45 min) Malignancy Confined to bed (> 72 hours) Immobilizing plaster cast Central venous access Age >= 75 History of VTE Family history of VTE Factor V Leiden Prothrombin [id number] Lupus anticoagulant Anticardiolipin antibodies Elevated serum homocysteine Heparin-induced thrombocytopenia Other congenital or acquired thrombophilia Stroke (< 1 month) Elective arthroplasty Hip, pelvis, or leg fracture Acute spinal cord injury (< 1 month) Prophylaxis Regimen Total Risk Factor Score Risk Level Prophylaxis Regimen 0-1 Low Early ambulation 2 Moderate Order ONE of the following: *Sequential Compression Device (SCD) *Heparin 5000 units SQ BID 3-4 Higher Order ONE of the following medications: *Heparin 5000 units SQ TID *Enoxaparin/Lovenox 40 mg SQ daily (WT < 150 kg, CrCl > 30 mL/min) *Enoxaparin/Lovenox 30 mg SQ daily (WT < 150 kg, CrCl > 10-29 mL/min) *Enoxaparin/Lovenox 30 mg SQ BID (WT < 150 kg, CrCl > 30 mL/min) AND/OR *Sequential Compression Device (SCD) 5 or more Highest Order ONE of the following medications: *Heparin 5000 units SQ TID (Preferred with Epidurals) *Enoxaparin/Lovenox 40 mg SQ daily (WT < 150 kg, CrCl > 30 mL/min) *Enoxaparin/Lovenox 30 mg SQ daily (WT < 150 kg, CrCl > 10-29 mL/min) *Enoxaparin/Lovenox 30 mg SQ BID (WT < 150 kg, CrCl > 30 mL/min) AND *Sequential Compression Device (SCD) Assessment and Plan Problem List: (1) Chest pain ICD Code: R07.9 - Chest pain, unspecified Status: Acute Assessment and Plan Chest pain Patient with increased risk factors include age, hypertension, hyperlipidemia , family history heart disease, diabetes patient been ruled out for acute coronary event with serial cardiac enzymes that are negative, serial EKG shows sinus rhythm without any changes Nuclear stress test was performed rule out any underlying ischemia. Continue aspirin, Nitropaste, History of hypertension, hyperlipidemia Patient blood pressure stable, patient is not on any outpatient medications Hypothyroidism Resume replacement therapy Bipolar, anxiety, depression Resume home medications DVT prevention subcutaneous heparin Discharge disposition Discharge home in stable condition Activity: Ad desean. Diet: Healthy heart/diabetic diet Medications per medication reconciliation Follow-up primary medical doctor in one week This note was transcribed by clive Hernandez. I, Dr. Bryan Hilton personally performed the history, physical exam, and medical decision making; and confirmed the accuracy of the information in the transcribed note. Authenticated by Dr. Bryan Hilton on 10/01/17 at 08:28. Code Status Full code Discussed Condition With Patient Problem Qualifiers (1) Chest pain: Qualified Codes: R07.9 - Chest pain, unspecified Marvin Hernandez Oct 01, 2017 08:28 Bryan Hilton MD Oct 01, 2017 08:29
[2017-10-01] MEDS: SODIUM CHLOR 0.9% 1000 ML INJ 1,000 ML IV SCH (08:40)
[2017-10-01 08:51] VITALS: O2SAT 97
--- NOTE | 2017-10-01 09:04 | EKG ---
Date Performed: 10/01/2017 Time Performed: 01:04:00 PTAGE: 57 years EKG: Sinus rhythm NONSPECIFIC T-WAVE ABNORMALITY BORDERLINE ECG PREVIOUS TRACING : 09/30/2017 22.09 DOCTOR: Ghassan Velez Interpretating Date/Time 10/01/2017 09:03:05
--- NOTE | 2017-10-01 09:07 | EKG ---
Date Performed: 09/30/2017 Time Performed: 22:09:12 PTAGE: 57 years EKG: Sinus rhythm LOW QRS VOLTAGE IN PRECORDIAL LEADS BORDERLINE ECG PREVIOUS TRACING : 09/30/2017 18.52 DOCTOR: Ghassan Velez Interpretating Date/Time 10/01/2017 09:05:23
--- NOTE | 2017-10-01 09:44 | EKG ---
Date Performed: 09/30/2017 Time Performed: 18:52:44 PTAGE: 57 years EKG: Sinus rhythm NORMAL ECG INTERPRETATION BASED ON A DEFAULT AGE OF 40 YEARS NO PREVIOUS TRACING DOCTOR: Ghassan Velez Interpretating Date/Time 10/01/2017 09:42:52
[2017-10-01] MEDS ORDERED: REGADENOSON INJ 0.4 MG/5 ML SYR IV ONE (10:50)
--- NOTE | 2017-10-01 11:55 | RADRPT ---
EXAM DATE/TIME: 10/01/2017 10:37 [facility] COMPARISON: No previous studies available for comparison. INDICATIONS : Left sided chest pain for three days. Angina. DOSE: 25.5 mCi Tc99m Myoview at stress. 8.8 mCi Tc99m Myoview at rest. 0.4 mg Lexiscan STRESS SYMPTOMS: Shortness of breath and a headache. EJECTION FRACTION: 68% MEDICAL HISTORY : Hypertension. Stroke Cervical cancer. Mitral valve prolapse. SURGICAL HISTORY : Urethral. ENCOUNTER: Initial ACUITY: 3 days PAIN SCALE: 6/10 LOCATION: Left chest TECHNIQUE: The patient underwent pharmacologic stress with infusion of prescribed dose. Continuous ECG tracing was monitored during stress. Gated SPECT imaging was performed after stress and conventional SPECT i maging was performed at rest. The examination was performed on a SPECT/CT scanner, both attenuation and non-corrected datasets were reviewed. FINDINGS: DISTRIBUTION: The maximum perfused segment at stress is in the anterior lateral wall. PERFUSION STUDY: The pattern of perfusion at stress is within normal limits except for some decreased perfusion to the anterior wall. GATED STUDY: There is intact wall motion and thickening without hypokinetic or dyskinetic segments. CONCLUSION: Some decreased perfusion to the anterior wall , fixed at stress and rest. No wall motion abnormalitie s. No evidence of ischemia. RISK CATEGORY: Low (<1% Annual Mortality Rate) Ghassan Peña MD on October 01, 2017 at 11:51 Board Certified Radiologist. This report was verified electronically.
--- NOTE | 2017-10-01 11:58 | HHI.DCPOC ---
Discharge Care Plan Diagnosis: (1) Chest pain Your Health Problems Are: Chest Pain Goals to Promote Your Health * To prevent worsening of your condition and complications * To maintain your health at the optimal level Directions to Meet Your Goals Take your medications as prescribed Follow your dietary instruction Follow activity as directed Keep your appointments as scheduled Take your immunizations and boosters as scheduled If your symptoms worsen call your PCP, if no PCP go to Urgent Care Center or Emergency Room Smoking is Dangerous to Your Health. Avoid second hand smoke Call the 24-hour hour crisis hotline for domestic abuse at Marvin Hernandez Oct 01, 2017 11:57
--- NOTE | 2017-10-01 13:05 | TR ---
Date Performed: 10/01/2017 Time Performed: 11:05:31 DOCTOR: Bobby Rodgers DRUG LIST: CLINICAL HISTORY: ANGINA REASON FOR TEST: Angina REASON FOR ENDING: OBSERVATION: CONCLUSION: Lexiscan stress test was performed under standard four minute protocol. Radionuclid e was injected one minute prior to ending the test. No electrocardiographic abormalities were present to suggest ischemia. Nuclear imaging and interpretation are pending. COMMENTS:
== END 2017-10-01 13:41 | disposition home or self-care (01) ==
LOC: PHED 18:37 → PHEDA 21:13 → PH3A 23:37
PROVIDERS: ADMIT Hospitalist; ATTEND Hospitalist
DX: R07.89 Other chest pain (principal); R11.2 Nausea with vomiting, unspecified; R06.02 Shortness of breath; R61 Generalized hyperhidrosis; R42 Dizziness and giddiness; I25.119 Atherosclerotic heart disease of native coronary artery with unspecified angina pectoris; I34.1 Nonrheumatic mitral (valve) prolapse; E11.9 Type 2 diabetes mellitus without complications; E78.00 Pure hypercholesterolemia, unspecified; I10 Essential (primary) hypertension; E03.9 Hypothyroidism, unspecified; M79.7 Fibromyalgia; J45.909 Unspecified asthma, uncomplicated; K21.9 Gastro-esophageal reflux disease without esophagitis; M54.5 Low back pain; M54.2 Cervicalgia; G89.29 Other chronic pain; F31.9 Bipolar disorder, unspecified; F41.9 Anxiety disorder, unspecified; H91.90 Unspecified hearing loss, unspecified ear; Z86.73 Personal history of transient ischemic attack (TIA), and cerebral infarction without residual deficits; Z85.41 Personal history of malignant neoplasm of cervix uteri; Z79.899 Other long term (current) drug therapy; Z79.82 Long term (current) use of aspirin; Z82.49 Family history of ischemic heart disease and other diseases of the circulatory system
CPT/HCPCS: 71010; 78452; 80048; 82550; 83735; 84484; 85025; 85610; 85730; 93005; 93017; 96360; 96361; 96372; 99285; A9502; G0378; J1644; J2785; J7030

== ENCOUNTER 2017-12-15 20:53 | Inpatient (IN) | payer OTHER ==
[~2017-12-15] VITALS: Ht 167.6 cm; Wt 107.3 kg
[~2017-12-15 20:53] MED LIST changes: +CETI10CH CHEW; +DIPH1GEL TOPICAL
[2017-12-15 21:13] VITALS: BP 133/92; PULSE 78; RESP 20; TEMP 98.6; O2SAT 96
[2017-12-15] MEDS ORDERED: SODIUM CHLOR 0.9% 1000 ML INJ 1,000 ML IV SCH (23:03)
--- NOTE | 2017-12-15 23:08 | PD ---
HPI Chief Complaint: GI Complaint Time Seen by Provider: 22:57 Travel History International Travel<30 days: No Contact w/Intl Traveler<30days: No Traveled to known affect area: No History of Present Illness HPI 57 years old female complains of abdominal pain with nausea vomiting. Patient states that the symptoms started around 12 noon today. Patient states the pain severe pain sharp pain cramping pain started epigastric area with radiation to the lower abdomen and back. Patient states that she has intermittent nausea vomiting since then. Patient denies any diarrhea. Patient denies any dysuria or frequency. Patient denies any vaginal discharge or bleeding. Patient has history of diverticulitis in the past. Patient denies any fever chills. On a scale of 1-10 the pain is a 10. Patient has history hypertension, diabetes, hypothyroidism. Patient states that she drinks alcohol about once a year. Patient had some alcohol yesterday. PFSH Past Medical History Anemia: Yes Arthritis: Yes (RA, FIBROMYALGIA) Asthma: Yes Bipolar Disorder: Yes Anxiety: Yes Depression: Yes Heart Rhythm Problems: Yes (MITRAL VALVE PROLAPSE) Cancer: Yes (cervical cancer per pt) Cardiac Catheterization: No Cardiovascular Problems: Yes (htn on meds, MVP/CHEST PAIN.) High Cholesterol: Yes Congestive Heart Failure: No Cerebrovascular Accident: Yes (hx of tia) Coronary Artery Disease: Yes (MITRAL VALVE PROLAPSE) Diabetes: Yes Diminished Hearing: Yes Diverticulitis: Yes Fibromyalgia: Yes Gastrointestinal Disorders: Yes (DIVERTICULITIS, POLYPS) GERD: Yes Genitourinary: Yes Headaches: Yes Hepatitis: Yes (MIGRAINES) Herniated Disk: Yes Hypertension: No (states hx of) Kidney Stones: Yes Musculoskeletal: Yes (BACK PAIN) Neurologic: Yes Psychiatric: Yes (per pt hx of Bipolar and depression) Reproductive: Yes (CERVICAL CA) Respiratory: Yes Immunizations Current: Yes Migraines: Yes Thyroid Disease: Yes (HYPO) Menopausal: Yes Past Surgical History Coronary Artery Bypass Graft: No Eye Surgery: Yes (BILATERAL "LAZY EYE" CORRECTION, CHILD) Genitourinary Surgery: Yes (URETHRAL SURGERY) Pacemaker: No Other Surgery: Yes Social History Alcohol Use: No (denies) Tobacco Use: No (denies) Substance Use: No Allergies-Medications (Allergen,Severity, Reaction): Coded Allergies: butorphanol (Unverified Allergy, Severe, "I GO CRAZY", 09/30/17) HALLUCINATIONS Reported Meds & Prescriptions Reported Meds & Active Scripts Active Gabapentin 800 Mg Tab 800 Mg PO QID Phenergan (Promethazine HCl) 25 Mg Tablet 25 Mg PO Q6H PRN Lasix (Furosemide) 40 Mg Tab 40 Mg PO DAILY Pantoprazole (Pantoprazole Sodium) 40 Mg Tab 40 Mg PO DAILY Reported Benadryl Itch Stopping Topical (Diphenhydramine Topical) 2 % Gel 1 Applic TOPICAL Q4-6H PRN Cetirizine (Cetirizine HCl) 10 Mg Chew 10 Mg CHEW DAILY Aspir-81 (Aspirin) [address] (Duloxetine HCl) 20 Mg Capdr 20 Mg PO DAILY Managed by Psychiatry Zolpidem (Zolpidem Tartrate) 5 Mg Tab 5 Mg PO HS PRN Managed by Psychiatry Topamax (Topiramate) 50 Mg Tab 50 Mg PO BID Managed by Psychiatry Levothyroxine (Levothyroxine Sodium) 75 Mcg Tab 75 Mcg PO DAILY Diazepam 10 Mg Tab 10 Mg PO BID PRN Managed by Psychiatry Ventolin Hfa 18 GM Inh (Albuterol Sulfate) 90 Mcg/Act Aer 2 Puff INH Q4-6H PRN Review of Systems General / Constitutional: No: Fever Eyes: No: Visual changes HENT: No: Headaches Cardiovascular: No: Chest Pain or Discomfort Respiratory: No: Shortness of Breath Gastrointestinal: Positive: Nausea, Vomiting, Abdominal Pain Genitourinary: No: Dysuria Musculoskeletal: No: Pain Skin: No Rash Neurologic: No: Weakness Psychiatric: No: Depression Endocrine: No: Polydipsia Hematologic/Lymphatic: No: Easy Bruising Physical Exam Narrative GENERAL: Well-nourished, well-developed patient. SKIN: Focused skin assessment warm/dry. HEAD: Normocephalic. EYES: No scleral icterus. No injection or drainage. NECK: Supple, trachea midline. No JVD or lymphadenopathy. CARDIOVASCULAR: Regular rate and rhythm without murmurs, gallops, or rubs. RESPIRATORY: Breath sounds equal bilaterally. No accessory muscle use. GASTROINTESTINAL: Abdomen soft, nondistended. Patient has moderate tenderness on palpation epigastric area. Mild tenderness diffuse over the abdomen. No rebound tenderness. No mass. MUSCULOSKELETAL: No cyanosis, or edema. BACK: Nontender without obvious deformity. No CVA tenderness. Neurologic exam normal. Data Data Last Documented VS Vital Signs Date Time Temp Pulse Resp B/P (MAP) Pulse Ox O2 Delivery O2 Flow Rate FiO2 12/16/17 00:06 14 12/15/17 21:13 98.6 78 133/92 (106) 96 Orders Orders Complete Blood Count With Diff (12/15/17 23:03) Comprehensive Metabolic Panel (12/15/17 23:03) Lipase (12/15/17 23:03) Prothrombin Time / Inr (Pt) (12/15/17 23:03) Act Partial Throm Time (Ptt) (12/15/17 23:03) Urinalysis - C+S If Indicated (12/15/17 23:03) Ct Abd/Pel W Iv Contrast(Rout) (12/15/17 23:03) Iv Access Insert/Monitor (12/15/17 23:03) Ecg Monitoring (12/15/17 23:03) Oximetry (12/15/17 23:03) Ondansetron Inj (Zofran Inj) (12/15/17 23:15) Sodium Chlor 0.9% 1000 Ml Inj (Ns 1000 M (12/15/17 23:03) Sodium Chloride 0.9% Flush (Ns Flush) (12/15/17 23:15) Famotidine Inj (Pepcid Inj) (12/15/17 23:15) Morphine Inj (Morphine Inj) (12/15/17 23:15) Al-Mag Hy-Si 40-40-4 Mg/Ml Liq (Mag-Al P (12/15/17 23:15) Iwwxy-Jsyrzh-Vktajb-Pb Liq ( Liq (12/15/17 23:15) Iohexol 350 Inj (Omnipaque 350 Inj) (12/15/17 23:58) Labs Laboratory Tests Test 12/15/17 23:15 White Blood Count 8.3 TH/MM3 Red Blood Count 4.74 MIL/MM3 Hemoglobin 14.4 GM/DL Hematocrit 41.5 % Mean Corpuscular Volume 87.5 FL Mean Corpuscular Hemoglobin 30.2 PG Mean Corpuscular Hemoglobin Concent 34.6 % Red Cell Distribution Width 14.4 % Platelet Count 285 TH/MM3 Mean Platelet Volume 7.4 FL Neutrophils (%) (Auto) 89.1 % Lymphocytes (%) (Auto) 8.6 % Monocytes (%) (Auto) 2.1 % Eosinophils (%) (Auto) 0.1 % Basophils (%) (Auto) 0.1 % Neutrophils # (Auto) 7.4 TH/MM3 Lymphocytes # (Auto) 0.7 TH/MM3 Monocytes # (Auto) 0.2 TH/MM3 Eosinophils # (Auto) 0.0 TH/MM3 Basophils # (Auto) 0.0 TH/MM3 CBC Comment DIFF FINAL Differential Comment Prothrombin Time 10.3 SEC Prothromb Time International Ratio 1.0 RATIO Activated Partial Thromboplast Time 22.9 SEC Blood Urea Nitrogen 15 MG/DL Creatinine 1.10 MG/DL Random Glucose 171 MG/DL Total Protein 8.3 GM/DL Albumin 3.2 GM/DL Calcium Level 8.7 MG/DL Alkaline Phosphatase 173 U/L Aspartate Amino Transf (AST/SGOT) 321 U/L Alanine Aminotransferase (ALT/SGPT) 299 U/L Total Bilirubin 0.6 MG/DL Sodium Level 137 MEQ/L Potassium Level 3.8 MEQ/L Chloride Level 106 MEQ/L Carbon Dioxide Level 23.7 MEQ/L Anion Gap 7 MEQ/L Estimat Glomerular Filtration Rate 51 ML/MIN Lipase 25332 U/L [facility] Medical Decision Making Medical Screen Exam Complete: Yes Emergency Medical Condition: Yes Interpretation(s) 12:44 AM. Last Impressions Abdomen/Pelvis CT 12/15/17 6329 Signed Impressions: Service Date/Time: Friday, December 15, 2017 23:58 - CONCLUSION: Fluid and inflammatory change in the upper abdomen that is most closely associated with the pancreas and there are features suggesting pancreatic edema. Findings are highly suspicious for acute pancreatitis. Suggest correlating with amylase and lipase bodies. There are no findings to indicate pancreatic necrosis. Fernando Stephen MD 12:44 AM. CBC within normal limit. Creatinine 1.10. GFR 51. Glucose 171. AST 321. ALT 299. Alkaline phosphatase 173. Lipase 11,789. Differential Diagnosis Differential diagnosis including gastritis, PUD, pancreatitis, cholecystitis, colitis, UTI, pyelonephritis, nephrolithiasis. Narrative Course 57 years old female with abdominal pain and nausea vomiting. Normal saline solution 1 25 cc an hour. Morphine 2 mg IV. Zofran 4 mg IV. Pepcid 20 mg IV. Maalox 30 cc by mouth. 10 cc by mouth. Diagnosis Primary Impression: Acute pancreatitis Qualified Codes: K85.90 - Acute pancreatitis without necrosis or infection, unspecified Admitting Information Admitting Physician Requests: Admit Peter Rand MD Dec 15, 2017 23:08
[2017-12-15] MEDS ORDERED: FAMOTIDINE 20 MG/2 ML VIAL IV PUSH ONE (23:15)
[2017-12-15] MEDS ORDERED: SODIUM CHLORIDE 0.9% FLUSH 10 ML FLUSH IV FLUSH PRN (23:15)
[2017-12-15] MEDS ORDERED: MORPHINE SULFATE 2 MG/ML INJ IV PUSH ONE (23:15)
[2017-12-15] MEDS ORDERED: ALUMINUM/MAGNESIUM/SIMETH 30 ML CUP PO ONE (23:15)
[2017-12-15] MEDS ORDERED: ATROPINE/SCOPOLAM/HYOSCYAM/PB ELIXIR 10 ML CUP PO ONE (23:15)
[2017-12-15] MEDS ORDERED: ONDANSETRON HCL 4 MG/2 ML VIAL IVP ONE (23:15)
[2017-12-15 23:26] LABS: AUTOMATED NEUTROPHIL # 7.4 TH/MM3 (1.8-7.7); BASOPHIL % 0.1 % (0.0-2.0); EOSINOPHIL % 0.1 % (0.0-4.0); HEMATOCRIT 41.5 % (35.0-46.0); HEMOGLOBIN 14.4 GM/DL (11.6-15.3); LYMPH % 8.6 % (9.0-44.0); LYMPHOCYTE # 0.7 TH/MM3 (1.0-4.8); MEAN CELL VOLUME 87.5 FL (80.0-100.0); MEAN CORPUSCULAR HEMOGLOBIN 30.2 PG (27.0-34.0); MEAN CORPUSCULAR HGB CONC 34.6 % (32.0-36.0); MEAN PLATELET VOLUME 7.4 FL (7.0-11.0); MONO % 2.1 % (0.0-8.0); MONOCYTE # 0.2 TH/MM3 (0-0.9); NEUT % 89.1 % (16.0-70.0); PLATELET COUNT 285 TH/MM3 (150-450); RED BLOOD COUNT 4.74 MIL/MM3 (4.00-5.30); RED CELL DISTRIBUTION WIDTH 14.4 % (11.6-17.2); WHITE BLOOD COUNT 8.3 TH/MM3 (4.0-11.0)
[2017-12-15 23:35] LABS: CHLORIDE 106 MEQ/L (98-107); SODIUM (NA) 137 MEQ/L (136-145)
[2017-12-15 23:38] LABS: ALBUMIN 3.2 GM/DL (3.4-5.0); CALCIUM 8.7 MG/DL (8.5-10.1)
[2017-12-15 23:39] LABS: BICARBONATE 23.7 MEQ/L (21.0-32.0); BLOOD UREA NITROGEN 15 MG/DL (7-18); GLUCOSE,RANDOM 171 MG/DL (74-106); PROTHROMBIN TIME - PATIENT 10.3 SEC (9.8-11.6)
[2017-12-15 23:41] LABS: ALT (GPT) 299 U/L (10-53); AST (GOT) 321 U/L (15-37); GLOMERULAR FILTRATION RATE 51 ML/MIN (>89)
[2017-12-15 23:43] LABS: TOTAL BILIRUBIN ADULT 0.6 MG/DL (0.2-1.0); TOTAL PROTEIN 8.3 GM/DL (6.4-8.2)
[2017-12-15 23:44] LABS: ALKALINE PHOSPHATASE 173 U/L (45-117)
[2017-12-15] MEDS ORDERED: IOHEXOL 350 MG/ML 10 ML VIAL (for RAD DIAG) IVCONTRAST ONE (23:58)
--- NOTE | 2017-12-16 00:28 | RADRPT ---
EXAM DATE/TIME: 12/15/2017 23:58 [facility] COMPARISON: CT ABDOMEN & PELVIS W CONTRAST, September 24, 2017, 4:15. INDICATIONS : Abdominal pain. IV CONTRAST: 100 cc Omnipaque 350 (iohexol) IV ORAL CONTRAST: No oral contrast ingested. RADIATION DOSE: 22.23 CTDIvol (mGy) MEDICAL HISTORY : Diverticulitis. Gastroesophageal reflux disease. Cardiovascular disease Diabetes. Cervical cancer. SURGICAL HISTORY : None. ENCOUNTER: Initial ACUITY: 1 day PAIN SCALE: 7/10 LOCATION: Bilateral lower quadrant upper quadrant TECHNIQUE: Volumetric scanning of the abdomen and pelvis was performed. Using automated exposure control and ad justment of the mA and/or kV according to patient size, radiation dose was kept as low as reasonably achievable to obtain optimal diagnostic quality images. DICOM format image data is available electro nically for review and comparison. FINDINGS: LOWER LUNGS: The visualized lower lungs are clear. LIVER: Homogeneous density without lesion. There is no dilation of the biliary tree. No calcified gallston es. SPLEEN: Normal size without lesion. PANCREAS: There is fluid and inflammatory change surrounding the pancreatic body and tail. No pancreatic duct d ilatation is present and there is no calcification. There is no pancreatic necrosis. KIDNEYS: Normal in size and shape. There is no mass, stone or hydronephrosis. There is a 12 mm simple cyst in the left mid kidney. An incidental 7 mm low density lesion at the lower pole left kidney is too smal l to characterize. ADRENAL GLANDS: Within normal limits. VASCULAR: There is no aortic aneurysm. There is mild atherosclerotic disease. BOWEL/MESENTERY: The stomach, small bowel, and colon demonstrate no acute abnormality. There is no free intraperitone al air. There is a small volume of free fluid in the upper abdomen in the small bowel mesentery adjac ent to the fourth portion of the duodenum. ABDOMINAL WALL: Within normal limits. RETROPERITONEUM: There is no lymphadenopathy. BLADDER: No wall thickening or mass. REPRODUCTIVE: Within normal limits. INGUINAL: There is no lymphadenopathy or hernia. MUSCULOSKELETAL: There are bilateral pars defects of L5. CONCLUSION: Fluid and inflammatory change in the upper abdomen that is most closely associated with the pancreas and there are features suggesting pancreatic edema. Findings are highly suspicious for acute pancreat itis. Suggest correlating with amylase and lipase bodies. There are no findings to indicate pancreati c necrosis. Fernando Stephen MD on December 16, 2017 at 0:21 Board Certified Radiologist. This report was verified electronically.
[2017-12-16] MEDS ORDERED: LACTULOSE SYRUP 20 GM/30 ML CUP PO PRN (01:00)
[2017-12-16] MEDS ORDERED: MAGNESIUM HYDROXIDE SUSP 30 ML CUP PO PRN (01:00)
[2017-12-16] MEDS ORDERED: NALOXONE HCL 0.4 MG/ML AMP IV PUSH PRN (01:00)
[2017-12-16] MEDS ORDERED: MORPHINE SULFATE 2 MG/ML INJ IV PUSH ONE (01:00)
[2017-12-16] MEDS ORDERED: BISACODYL 10 MG SUPP RECTAL PRN (01:00)
[2017-12-16] MEDS ORDERED: SENNOSIDES 8.6 MG TAB PO PRN (01:00)
[2017-12-16 01:08] VITALS: BP 124/82; PULSE 74; RESP 15; O2SAT 99
[2017-12-16 01:34] LABS: BILIRUBIN, URINE NEG (NEG); BLOOD, URINE NEG (NEG); GLUCOSE,URINE NEG (NEG); KETONE, URINE NEG (NEG); NITRITE,URINE NEG (NEG); PH, URINE 6.5 (5.0-8.5); URINE LEUKOCYTE ESTERASE NEG (NEG)
[2017-12-16 01:52] LABS: URINE COLOR YELLOW (YELLW/STRAW)
[2017-12-16 01:54] LABS: BACTERIA, URINE OCC /hpf; MUCUS URINE OCC /lpf (OCC); SQUAMOUS EPITHELIAL CELL URINE 0-5 /hpf (0-5)
[2017-12-16] MEDS: SODIUM CHLOR 0.9% 1000 ML INJ 1,000 ML IV SCH ×5 (03:10→22:54)
[2017-12-16] MEDS: MORPHINE SULFATE 2 MG/ML INJ IV PUSH PRN ×2 (04:40→08:14)
[2017-12-16] MEDS: ONDANSETRON HCL 4 MG/2 ML VIAL IVP PRN (04:40)
[2017-12-16 06:47] VITALS: BP 117/67; PULSE 68; RESP 18; TEMP 98.1; O2SAT 94
[2017-12-16 08:00] VITALS: BP 124/72; PULSE 74; RESP 20; TEMP 97.5; O2SAT 94
[2017-12-16] MEDS: DOCUSATE SODIUM 50 MG/SENNA 8.6 MG TAB PO SCH ×2 (08:13→22:54)
[2017-12-16] MEDS: SODIUM CHLORIDE 0.9% FLUSH 10 ML FLUSH IV FLUSH SCH ×2 (08:18→22:54)
[2017-12-16 12:00] VITALS: BP 110/71; PULSE 78; RESP 20; TEMP 98.3; O2SAT 95
--- NOTE | 2017-12-16 13:42 | HHI.HP ---
[facility] Unknown Admission Diagnosis acute pancreatitis. Transaminitis. Diagnoses: Travel History International Travel<30 Days: No Contact w/Intl Traveler <30 Da: No Traveled to Known Affected Are: No History of Present Illness Mrs. Rey is a 57-year-old female. She came in secondary to severe abdominal pain which is epigastric and pierces to her back. Testing shows a severe pancreatitis with lipase of 11,789. CT imaging also shows evidence of pancreatitis. The patient has no previous episode of pancreatitis. She says she drinks alcohol about once a year. She had some alcohol on the night preceding this episode, she consumed 2 drinks. She also reported an episode of nausea and vomiting last night. She does have a past history of biliary sludge and was recommended to have a cholecystectomy in the past. This may also be contributory and a HIDA scan has been ordered and is pending. No other complaints. No fevers. Review of Systems Constitutional: COMPLAINS OF: Fatigue, Change in appetite, DENIES: Fever, Night Sweats Eyes: DENIES: Blurred vision, Diplopia, Eye inflammation, Eye pain Ears, nose, mouth, throat: DENIES: Tinnitus, Hearing loss, Vertigo, Nasal discharge Respiratory: DENIES: Cough, Wheezing, Shortness of breath Cardiovascular: DENIES: Chest pain, Palpitations, Syncope Gastrointestinal: COMPLAINS OF: Abdominal pain, Nausea, Vomiting, DENIES: Black stools, Bloody stools, Constipation Musculoskeletal: DENIES: Joint pain, Muscle aches, Stiffness, Joint Swelling Integumentary: DENIES: Abnormal pigmentation, Pruritus, Rash, Nail changes Hematologic/lymphatic: DENIES: Bruising, Lymphadenopathy Immunologic/allergic: DENIES: Eczema, Urticaria Neurologic: DENIES: Abnormal gait, Headache, Paresthesias Psychiatric: DENIES: Anxiety, Confusion, Hallucinations Past Family Social History Past Medical History Asthma Anemia Rheumatoid arthritis Fibromyalgia Bipolar disorder Gen. anxiety disorder Depression Mitral valve prolapse Cervical cancer history Angina Hypertension TIA Hyperlipidemia Presbycusis History of diverticulitis History of gastroesophageal reflux disease Migraine headaches Chronic back pain Hypothyroidism History of nephrolithiasis Past Surgical History Urethral surgery Bilateral eye surgery Reported Medications Reported Meds & Active Scripts Active Gabapentin 800 Mg Tab 800 Mg PO QID Lasix (Furosemide) 40 Mg Tab 40 Mg PO DAILY Reported Cetirizine (Cetirizine HCl) 10 Mg Chew 10 Mg CHEW DAILY Aspir-81 (Aspirin) [address] (Duloxetine HCl) 20 Mg Capdr 20 Mg PO DAILY Managed by Psychiatry Zolpidem (Zolpidem Tartrate) 5 Mg Tab 5 Mg PO HS PRN Managed by Psychiatry Topamax (Topiramate) 50 Mg Tab 50 Mg PO TID Managed by Psychiatry Levothyroxine (Levothyroxine Sodium) 75 Mcg Tab 75 Mcg PO DAILY Diazepam 10 Mg Tab 10 Mg PO BID PRN Managed by Psychiatry Ventolin Hfa 18 GM Inh (Albuterol Sulfate) 90 Mcg/Act Aer 2 Puff INH Q4-6H PRN Allergies: Coded Allergies: butorphanol (Verified Allergy, Severe, "I GO CRAZY", 12/16/17) HALLUCINATIONS acetaminophen (Verified Allergy, Intermediate, Rash, 12/16/17) oxycodone (Verified Allergy, Intermediate, Rash, 12/16/17) Active Ordered Medications Administered Medications Medications (Trade) Dose Ordered Sig/Eleuterio Route PRN Reason Start Time Stop Time Status Last Admin Dose Admin Sodium Chloride 1,000 ml @ 200 mls/hr Q5H IV 12/16/17 00:56 12/16/17 10:42 Ondansetron HCl (Zofran Inj) 4 mg Q6H PRN IVP NAUSEA OR VOMITING 12/16/17 01:00 12/16/17 04:40 Senna/Docusate Sodium (Anne Marie-Colace) 1 tab BID PO 12/16/17 09:00 12/16/17 08:13 Morphine Sulfate (Morphine Inj) 4 mg Q3H PRN IV PUSH Breakthrough Pain 12/16/17 01:00 12/16/17 08:14 Family History Diabetes mellitus type 2, peripheral vascular disease, and Parkinson's dementia in mother Diabetes mellitus type 2 in father Diabetes mellitus type 2 in sister Social History Patient denies any smoking, illicit drug abuse, or alcohol abuse. Alcohol use and low-volume approximately once per year Physical Exam Vital Signs Vital Signs Date Time Temp Pulse Resp B/P (MAP) Pulse Ox O2 Delivery O2 Flow Rate FiO2 12/16/17 12:00 98.3 78 20 110/71 (84) 95 12/16/17 08:00 97.5 74 20 124/72 (89) 94 12/16/17 06:47 98.1 68 18 117/67 (84) 94 12/16/17 02:16 12/16/17 02:09 14 12/16/17 01:08 74 15 124/82 (96) 99 12/16/17 00:06 14 12/15/17 21:13 98.6 78 20 133/92 (106) 96 Physical Exam GENERAL: This is a well-nourished, well-developed patient, in no apparent distress. SKIN: No rashes, ecchymoses or lesions. Cool and dry. HEAD: Atraumatic. Normocephalic. No temporal or scalp tenderness. EYES: Pupils equal round and reactive. Extraocular motions intact. No scleral icterus. No injection or drainage. ENT: Nose without bleeding, purulent drainage or septal hematoma. Throat without erythema, tonsillar hypertrophy or exudate. Uvula midline. Airway patent. NECK: Trachea midline. No JVD or lymphadenopathy. Supple, nontender, no meningeal signs. CARDIOVASCULAR: Regular rate and rhythm without murmurs, gallops, or rubs. RESPIRATORY: Clear to auscultation. Breath sounds equal bilaterally. No wheezes , rales, or rhonchi. GASTROINTESTINAL: Abdomen soft, non-tender, nondistended. No hepato-splenomegaly , or palpable masses. No guarding. MUSCULOSKELETAL: Extremities without clubbing, cyanosis, or edema. No joint tenderness, effusion, or edema noted. No calf tenderness. Negative Homans sign bilaterally. NEUROLOGICAL: Awake and alert. Cranial nerves II through XII intact. Motor and sensory grossly within normal limits. Five out of 5 muscle strength in all muscle groups. Normal speech. Laboratory Laboratory Tests Test 12/15/17 23:15 12/16/17 01:20 White Blood Count 8.3 Red Blood Count 4.74 Hemoglobin 14.4 Hematocrit 41.5 Mean Corpuscular Volume 87.5 Mean Corpuscular Hemoglobin 30.2 Mean Corpuscular Hemoglobin Concent 34.6 Red Cell Distribution Width 14.4 Platelet Count 285 Mean Platelet Volume 7.4 Neutrophils (%) (Auto) 89.1 Lymphocytes (%) (Auto) 8.6 Monocytes (%) (Auto) 2.1 Eosinophils (%) (Auto) 0.1 Basophils (%) (Auto) 0.1 Neutrophils # (Auto) 7.4 Lymphocytes # (Auto) 0.7 Monocytes # (Auto) 0.2 Eosinophils # (Auto) 0.0 Basophils # (Auto) 0.0 CBC Comment DIFF FINAL Differential Comment Prothrombin Time 10.3 Prothromb Time International Ratio 1.0 Activated Partial Thromboplast Time 22.9 Blood Urea Nitrogen 15 Creatinine 1.10 Random Glucose 171 Total Protein 8.3 Albumin 3.2 Calcium Level 8.7 Alkaline Phosphatase 173 Aspartate Amino Transf (AST/SGOT) 321 Alanine Aminotransferase (ALT/SGPT) 299 Total Bilirubin 0.6 Sodium Level 137 Potassium Level 3.8 Chloride Level 106 Carbon Dioxide Level 23.7 Anion Gap 7 Estimat Glomerular Filtration Rate 51 Lipase 37185 Urine Color YELLOW Urine Turbidity CLEAR Urine pH 6.5 Urine Specific [place] GREATER THAN 1.035 Urine Protein NEG Urine Glucose (UA) NEG Urine Ketones NEG Urine Occult Blood NEG Urine Nitrite NEG Urine Bilirubin NEG Urine Leukocyte Esterase NEG Urine Squamous Epithelial Cells 0-5 Urine Bacteria OCC Urine Mucus OCC Microscopic Urinalysis Comment CULT NOT INDICATED Result Diagram: 12/15/17231412/15/172314 Imaging Last Impressions Abdomen/Pelvis CT 12/15/172302 Signed Impressions: Service Date/Time: Friday, December 15, 2017 23:58 - CONCLUSION: Fluid and inflammatory change in the upper abdomen that is most closely associated with the pancreas and there are features suggesting pancreatic edema. Findings are highly suspicious for acute pancreatitis. Suggest correlating with amylase and lipase bodies. There are no findings to indicate pancreatic necrosis. Fernando Stephen MD Caprini VTE Risk Assessment Caprini VTE Risk Assessment: No/Low Risk (score <= 1) Caprini Risk Assessment Model Point Value = 1 Point Value = 2 Point Value = 3 Point Value = 5 Age 41-60 Minor surgery BMI > 25 kg/m2 Swollen legs Varicose veins or History of unexplained or recurrent spontaneous Oral contraceptives or hormone replacement Sepsis (< 1 month) Serious lung disease, including pneumonia (< 1 month) Abnormal pulmonary function Acute myocardial infarction Congestive heart failure (< 1 month) History of inflammatory bowel disease Medical patient at bed rest Age 61-74 Arthroscopic surgery Major open surgery (> 45 min) Laparoscopic surgery (> 45 min) Malignancy Confined to bed (> 72 hours) Immobilizing plaster cast Central venous access Age >= 75 History of VTE Family history of VTE Factor V Leiden Prothrombin [id number] Lupus anticoagulant Anticardiolipin antibodies Elevated serum homocysteine Heparin-induced thrombocytopenia Other congenital or acquired thrombophilia Stroke (< 1 month) Elective arthroplasty Hip, pelvis, or leg fracture Acute spinal cord injury (< 1 month) Prophylaxis Regimen Total Risk Factor Score Risk Level Prophylaxis Regimen 0-1 Low Early ambulation 2 Moderate Order ONE of the following: *Sequential Compression Device (SCD) *Heparin 5000 units SQ BID 3-4 Higher Order ONE of the following medications: *Heparin 5000 units SQ TID *Enoxaparin/Lovenox 40 mg SQ daily (WT < 150 kg, CrCl > 30 mL/min) *Enoxaparin/Lovenox 30 mg SQ daily (WT < 150 kg, CrCl > 10-29 mL/min) *Enoxaparin/Lovenox 30 mg SQ BID (WT < 150 kg, CrCl > 30 mL/min) AND/OR *Sequential Compression Device (SCD) 5 or more Highest Order ONE of the following medications: *Heparin 5000 units SQ TID (Preferred with Epidurals) *Enoxaparin/Lovenox 40 mg SQ daily (WT < 150 kg, CrCl > 30 mL/min) *Enoxaparin/Lovenox 30 mg SQ daily (WT < 150 kg, CrCl > 10-29 mL/min) *Enoxaparin/Lovenox 30 mg SQ BID (WT < 150 kg, CrCl > 30 mL/min) AND *Sequential Compression Device (SCD) Assessment and Plan Problem List: (1) Acute pancreatitis ICD Code: K85.90 - Acute pancreatitis without necrosis or infection, unspecified Status: Acute Assessment and Plan 57 year old female admitted for acute pancreatitis Acute pancreatitis Etiology may be alcohol versus viral versus biliary obstruction HIDA scan ordered Consider feeding patient if HIDA scan is negative Nothing by mouth for now Continue pain treatments as needed IV hydration Hyperglycemia Etiology may be related to diabetes mellitus type 2 or could be a transient phenomenon related to pancreatitis Check hemoglobin A1c Follow blood sugars Insulin sliding scale Diabetic diet once by mouth intake resumed Hypertension Continue baseline treatment Follow blood pressures Adjust treatments as needed Hyperlipidemia Continue present treatment Follow as an outpatient Asthma Anemia Rheumatoid arthritis Fibromyalgia Bipolar disorder Gen. anxiety disorder Depression Mitral valve prolapse Cervical cancer history Angina TIA history Presbycusis History of diverticulitis History of gastroesophageal reflux disease Migraine headaches Chronic back pain Hypothyroidism History of nephrolithiasis No changes to baseline treatments No exacerbations of these conditions Follow clinically DVT prophylaxis Lovenox Physician Certification 2 Midnight Certification Type: Admission for Inpatient Services Order for Inpatient Services The services are ordered in accordance with Medicare regulations or non- Medicare payer requirements, as applicable. In the case of services not specified as inpatient-only, they are appropriately provided as inpatient services in accordance with the 2-midnight benchmark. Estimated LOS (days): 3 days is the estimated time the patient will need to remain in the hospital, assuming treatment plan goals are met and no additional complications. Post-Hospital Plan: Home Problem Qualifiers (1) Acute pancreatitis: Qualified Codes: K85.90 - Acute pancreatitis without necrosis or infection, unspecified Torsten Chun MD Dec 16, 2017 13:42
[2017-12-16] MEDS ORDERED: SINCALIDE 5 MCG/5 ML VIAL IV ONE (13:58)
[2017-12-16] MEDS ORDERED: ENOXAPARIN SODIUM 40 MG/0.4 ML SYRINGE SQ SCH (14:00)
[2017-12-16] MEDS: ENOXAPARIN SODIUM 40 MG/0.4 ML SYRINGE SQ SCH (14:44)
[2017-12-16] MEDS: HYDROmorphone HCL PF 1 MG/ML VIAL IV PUSH PRN ×3 (14:45→22:55)
--- NOTE | 2017-12-16 15:07 | RADRPT ---
EXAM DATE/TIME: 12/16/2017 12:45 [facility] COMPARISON: No previous studies available for comparison. INDICATIONS : Abdominal pain. DOSE: 4.1 mCi Tc99m Mebrofenin IV MEDICATION: 1.9 mcg Cholecystokinin IV; No symptomatic response. Cholecystokinin was administered by slow infusion over 8 minutes beginning at 60 minutes. MEDICAL HISTORY : Gastroesophageal reflux disease. Diverticulitis. Diabetes mellitus type 2. Hypertension. TIA. SURGICAL HISTORY : None. ENCOUNTER: Initial ACUITY: 1 day PAIN SCALE: 7/10 LOCATION: Right upper quadrant TECHNIQUE: Following the intravenous administration of radiotracer, dynamic sequential image were performed with continuous acquisition. Time-activity curves were generated. FINDINGS: HEPATIIC KINETICS: There is prompt uptake of radiotracer in the liver. No focal defects are seen. There is normal rate of washout from the hepatic parenchyma. BILIARY CLEARANCE: Activity is first seen in the extrahepatic biliary system at 20 minutes. There is normal excretion i nto the small bowel. GALLBLADDER: Activity is first seen in the gallbladder at 15 minutes. POST CHOLECYSTOKININ: After Cholecystokinin administration, there is prompt emptying of the gallbladder with a 10 % ejectio n fraction. Common bile duct kinetics are normal and there is no evidence of biliary obstruction. BILIARY ENTERIC REFLUX: Mild biliary gastric reflux is present. CLINICAL: The patient was asymptomatic after Cholecystokinin administration. CONCLUSION: 1. No evidence of acute cholecystitis. Decreased ejection fraction from the gallbadder that can be se en with chronic cholecystitis. 2. Mild biliary gastric reflux Bobby Humphreys MD on December 16, 2017 at 14:55 Board Certified Radiologist. This report was verified electronically.
[2017-12-16 16:00] VITALS: BP 114/69; PULSE 90; RESP 20; TEMP 99.5; O2SAT 94
[2017-12-16 20:00] VITALS: BP 112/67; PULSE 94; RESP 18; TEMP 98.9; O2SAT 97
[2017-12-17 00:12] VITALS: BP_SYST 122; BP_DIAS 19; BP_DIAS 79; PULSE 105; RESP 18; TEMP 100.9; O2SAT 92
[2017-12-17] MEDS: SODIUM CHLORIDE 0.9% FLUSH 10 ML FLUSH IV FLUSH PRN (02:57)
[2017-12-17] MEDS: HYDROmorphone HCL PF 1 MG/ML VIAL IV PUSH PRN ×3 (02:57→12:15)
[2017-12-17] MEDS: SODIUM CHLOR 0.9% 1000 ML INJ 1,000 ML IV SCH ×5 (03:45→22:40)
[2017-12-17] MEDS ORDERED: IBUPROFEN 400 MG TAB PO ONE (03:45)
[2017-12-17 06:44] LABS: AUTOMATED NEUTROPHIL # 5.8 TH/MM3 (1.8-7.7); BASOPHIL % 0.4 % (0.0-2.0); EOSINOPHIL # 0.1 TH/MM3 (0-0.4); EOSINOPHIL % 1.4 % (0.0-4.0); HEMOGLOBIN 10.7 GM/DL (11.6-15.3); LYMPH % 18.3 % (9.0-44.0); LYMPHOCYTE # 1.4 TH/MM3 (1.0-4.8); MEAN CORPUSCULAR HEMOGLOBIN 28.6 PG (27.0-34.0); MEAN CORPUSCULAR HGB CONC 32.5 % (32.0-36.0); MEAN PLATELET VOLUME 8.1 FL (7.0-11.0); MONO % 5.8 % (0.0-8.0); MONOCYTE # 0.5 TH/MM3 (0-0.9); NEUT % 74.1 % (16.0-70.0); PLATELET COUNT 198 TH/MM3 (150-450); RED BLOOD COUNT 3.75 MIL/MM3 (4.00-5.30); RED CELL DISTRIBUTION WIDTH 14.2 % (11.6-17.2); WHITE BLOOD COUNT 7.8 TH/MM3 (4.0-11.0)
[2017-12-17 07:11] LABS: CHLORIDE 109 MEQ/L (98-107); SODIUM (NA) 139 MEQ/L (136-145)
[2017-12-17 07:29] LABS: ALBUMIN 2.1 GM/DL (3.4-5.0); ALKALINE PHOSPHATASE 110 U/L (45-117); ALT (GPT) 101 U/L (10-53); AST (GOT) 38 U/L (15-37); BLOOD UREA NITROGEN 7 MG/DL (7-18); CALCIUM 7.4 MG/DL (8.5-10.1); CALCIUM-PROTEIN CORRECTED 8.1 MG/DL (8.5-10.1); CREATININE 0.75 MG/DL (0.50-1.00); GLOMERULAR FILTRATION RATE 80 ML/MIN (>89); GLUCOSE,RANDOM 86 MG/DL (74-106); TOTAL BILIRUBIN ADULT 0.7 MG/DL (0.2-1.0); TOTAL PROTEIN 5.9 GM/DL (6.4-8.2)
[2017-12-17] MEDS: SODIUM CHLORIDE 0.9% FLUSH 10 ML FLUSH IV FLUSH SCH ×2 (08:11→20:40)
[2017-12-17] MEDS: ENOXAPARIN SODIUM 40 MG/0.4 ML SYRINGE SQ SCH (08:14)
[2017-12-17] MEDS: DOCUSATE SODIUM 50 MG/SENNA 8.6 MG TAB PO SCH ×2 (08:14→20:40)
[2017-12-17] MEDS ORDERED: GLUCAGON 1 MG/ML VIAL OTHER PRN (08:30)
[2017-12-17] MEDS ORDERED: DEXTROSE 50% IN WATER 50 ML VIAL(D50) IV PUSH PRN (08:30)
[2017-12-17 08:56] VITALS: BP 105/61; PULSE 85; RESP 18; TEMP 98.8; O2SAT 94
[2017-12-17] MEDS ORDERED: POTASSIUM CHLORIDE 10 MEQ CONTROLLED RELEASE TAB PO ONE (09:45)
[2017-12-17] MEDS: MORPHINE SULFATE 2 MG/ML INJ IV PUSH PRN ×3 (09:55→20:41)
--- NOTE | 2017-12-17 11:54 | HHI.PR ---
Subjective Remarks patient seen in follow up for abd pain due to pancreatitis HIDA consistent with Chronic Cholecystitis Pain increased with food trial improved with IV Morphine Objective Vitals Vital Signs Date Time Temp Pulse Resp B/P (MAP) Pulse Ox O2 Delivery O2 Flow Rate FiO2 12/17/17 08:56 98.8 85 18 105/61 (76) 94 12/17/17 03:57 18 12/17/17 00:12 100.9 105 18 122/79 (93) 92 12/16/17 20:00 98.9 94 18 112/67 (82) 97 12/16/17 16:00 99.5 90 20 114/69 (84) 94 12/16/17 12:00 98.3 78 20 110/71 (84) 95 I/O 12/16/17 12/16/17 12/16/17 12/17/17 12/17/17 12/17/17 07:00 15:00 23:00 07:00 15:00 23:00 Intake Total 1000 ml 1000 ml 2000 ml 1737 ml Output Total 0 ml Balance 1000 ml 1000 ml 2000 ml 1737 ml Intake Oral 0 ml 240 ml IV Total 1000 ml 1000 ml 2000 ml 1497 ml Output Urine Total 0 ml # Voids 1 4 1 # Bowel Movements 0 0 Result Diagram: 12/17/17 0510 12/17/17 0510 Imaging Last Impressions Hepatobiliary Scan Nuclear Medicine 12/16/17 0000 Signed Impressions: Service Date/Time: Saturday, December 16, 2017 12:45 - CONCLUSION: 1. No evidence of acute cholecystitis. Decreased ejection fraction from the gallbadder that can be seen with chronic cholecystitis. 2. Mild biliary gastric reflux Bobby Humphreys MD Abdomen/Pelvis CT 12/15/17 5722 Signed Impressions: Service Date/Time: Friday, December 15, 2017 23:58 - CONCLUSION: Fluid and inflammatory change in the upper abdomen that is most closely associated with the pancreas and there are features suggesting pancreatic edema. Findings are highly suspicious for acute pancreatitis. Suggest correlating with amylase and lipase bodies. There are no findings to indicate pancreatic necrosis. Fernando Stephen MD Objective Remarks GENERAL: This is a well-nourished, well-developed patient, in no apparent distress. CARDIOVASCULAR: Regular rate and rhythm without murmurs, gallops, or rubs. RESPIRATORY: Clear to auscultation. Breath sounds equal bilaterally. No wheezes , rales, or rhonchi. GASTROINTESTINAL: Abdomen soft, non-tender, nondistended. Normal active bowel sounds MUSCULOSKELETAL: Extremities without clubbing, cyanosis, or edema. NEURO: Alert & Oriented x4 to person, place, time, situation. Moves all ext x4 A/P Problem List: (1) Acute pancreatitis ICD Code: K85.90 - Acute pancreatitis without necrosis or infection, unspecified Status: Acute Plan: NPO, IVF IV Narcotics gen Surg eval Problem Qualifiers (1) Acute pancreatitis: Qualified Codes: K85.90 - Acute pancreatitis without necrosis or infection, unspecified Hannah Jha MD Dec 17, 2017 11:54
[2017-12-17] MEDS: INSULIN ASPART SUPPLEMENTAL SCALE SQ SCH ×3 (12:00→20:42)
[2017-12-17 13:21] VITALS: BP 101/65; PULSE 80; RESP 16; TEMP 97.1; O2SAT 93
[2017-12-17] MEDS ORDERED: HYDROmorphone HCL PF 2 MG/ML VIAL IV PUSH PRN (14:45)
[2017-12-17] MEDS ORDERED: ALPRAZolam 0.5 MG TAB PO PRN (15:00)
[2017-12-17 16:44] LABS: HEMOGLOBIN A1C 5.6 % (4.3-6.0)
[2017-12-17] MEDS: HYDROmorphone HCL PF 2 MG/ML VIAL IV PUSH PRN ×2 (17:32→23:21)
[2017-12-17] MEDS ORDERED: DIAZEPAM 10 MG TAB PO PRN (17:45)
[2017-12-17] MEDS: TOPIRAMATE 25 MG TAB PO SCH (17:58)
[2017-12-17] MEDS: GABAPENTIN 400 MG CAP PO SCH ×2 (17:58→20:40)
[2017-12-17] MEDS: ALBUTEROL SULFATE 90 MCG/ACT HFA 8 GM INHALER INH PRN ×2 (18:04→23:21)
[2017-12-17 19:05] VITALS: BP 136/89; PULSE 100; RESP 18; TEMP 99; O2SAT 98
[2017-12-17 20:00] VITALS: BP 122/85; PULSE 98; RESP 20; TEMP 100.4; O2SAT 93
[2017-12-17] MEDS ORDERED: ZOLPIDEM TARTRATE 5 MG TAB PO PRN (21:00)
[2017-12-18] VITALS: BP 131/78; PULSE 101; RESP 20; TEMP 100.9; O2SAT 95
[2017-12-18] MEDS: SODIUM CHLOR 0.9% 1000 ML INJ 1,000 ML IV SCH ×5 (03:20→22:01)
[2017-12-18 04:00] VITALS: TEMP 103
[2017-12-18] MEDS ORDERED: PIPERACIL-TAZO 4.5 GM PREMIX 100 ML IV ONE (04:45)
[2017-12-18] MEDS ORDERED: IBUPROFEN 600 MG TAB PO ONE (04:45)
[2017-12-18] MEDS: ALBUTEROL SULFATE 90 MCG/ACT HFA 8 GM INHALER INH PRN (05:18)
[2017-12-18] MEDS: LEVOTHYROXINE SODIUM 75 MCG TAB PO SCH (05:19)
[2017-12-18] MEDS: HYDROmorphone HCL PF 2 MG/ML VIAL IV PUSH PRN ×4 (05:20→22:21)
--- NOTE | 2017-12-18 05:21 | RADRPT ---
EXAM DATE/TIME: 12/18/2017 04:44 [facility] COMPARISON: CT ABDOMEN & PELVIS W CONTRAST, December 15, 2017, 23:58. CHEST SINGLE AP, September 30, 2017, 19:44. INDICATIONS : Fever starting today MEDICAL HISTORY : None. Cardiovascular disease. Gastroesophageal reflux disease. Rheumatoid arthritis.TIA. Divert iculitis. Fibromyalgia. CAD. Renal calculi. Cervical cancer. SURGICAL HISTORY : None. ENCOUNTER: Initial ACUITY: 1 day PAIN SCORE: 0/10 LOCATION: Bilateral chest FINDINGS: Portable AP view of the chest demonstrates a normal-sized cardiac silhouette. Lungs are underinflated . There is mild bibasilar opacity. No pneumothorax or pleural effusion is identified. Bones and soft tissues demonstrate no acute finding. CONCLUSION: Underinflation with mild bibasilar opacity most likely representing atelectasis given the underinflat ion. Fernando Stephen MD on December 18, 2017 at 5:18 Board Certified Radiologist. This report was verified electronically.
--- NOTE | 2017-12-18 07:00 | MB ---
cc: PERRI ZUNIGA M.D. DATE OF CONSULTATION 12/17/2017 REASON FOR CONSULTATION Gallstone pancreatitis. HISTORY OF PRESENT ILLNESS The patient is a 57-year-old female who came in to the hospital due to severe epigastric pain that radiates to the back. CT demonstrates evidence of pancreatitis with laboratory tests demonstrating a lipase of 11,789. The patient states she drinks alcohol about once a year. She had alcohol on the night preceding the episode with two drinks. She had an episode of nausea and vomiting and has a history of biliary sludge and was recommended to have a cholecystectomy in the past. HIDA scan has been ordered. REVIEW OF SYSTEMS Significant for fatigue and GI history significant for abdominal pain, nausea and vomiting. The remainder of a 10-point review of systems is negative. PAST MEDICAL HISTORY Past history is significant with multiple medical problems includin. Asthma 2. Anemia 3. Rheumatoid arthritis 4. Fibromyalgia 5. Bipolar disorder 6. Mitral valve prolapse 7. Angina 8. Hypertension 9. TIA 10. Hyperlipidemia 11. History of diverticulitis. 12. History of GE reflux disease. 13. Migraine headaches 14. Chronic back pain 15. Hypothyroidism 16. Nephrolithiasis PAST SURGICAL HISTORY The patient has had bilateral eye surgery and urethral surgery. No abdominal surgery. SOCIAL HISTORY She is disabled and does not work. MEDICATIONS She reports having taken: 1. Gabapentin 800 mg p.o. q.i.d. for her fibromyalgia 2. She also takes Lasix 40 mg p.o. q. day. 3. She uses Topamax 50 mg p.o. t.i.d. 4. Cymbalta 20 mg p.o. q. day 5. Zolpidem 5 mg p.o. q.h.s. 6. Diazepam 10 mg p.o. b.i.d. 7. Ventolin/Albuterol inhaler 2 puffs q. 4-6 hours as needed. ALLERGIES SHE HAS AN ALLERGY TO BUTORPHANOL WHICH CAUSES HALLUCINATIONS, OXYCODONE WHICH CAUSES A RASH, ACETAMINOPHEN WHICH CAUSES A RASH. PHYSICAL EXAM This is an obese female who is uncomfortable. VITALS: BP 136/89, pulse 100, temperature 99, respirations 18, 98% saturation on room air. HEAD, EYES, EARS, NOSE, AND THROAT: Sclerae anicteric. Pupils reactive. NECK: Supple. Throat is clear. CHEST: Clear to auscultation. CARDIAC: Exam reveals regular rate and rhythm. ABDOMEN: Soft with tenderness and guarding in the epigastrium as well as the right upper quadrant and somewhat in the left upper quadrant, but less so. There are no scars or hernias noted. There is much less pain, but mild discomfort in both lower quadrants. Pulses are present. NEUROLOGIC: Exam is nonfocal. LABORATORY VALUES WBCs 7.8 with platelets of 198,000. Chemistries demonstrate BUN and creatinine of 7 and 0.75, potassium was 3.1 this morning and is 3.4 on recheck. Liver function tests demonstrate total bilirubin of 0.7, AST is 38 down from 321 yesterday, ALT is 101 down from 299, lipase is 419 down from 11,789. CT scan is as indicated above. HIDA demonstrates no evidence of acute cholecystitis with decreased EF from the gallbladder and mild biliary gastric reflux. ASSESSMENT Pancreatitis possibly due to gallstones. PLAN We will obtain ultrasound of the gallbladder and if the patient does not have any stones, I am reluctant to have her undergo any surgical procedure. We will follow up with the testing as soon as it is been completed. I would tentatively place her on for surgery on Friday morning early if she does have gallstones. With the HIDA scan being negative, I am somewhat reluctant to proceed as her symptoms are more consistent with acute pancreatitis. We will follow her with you. MD AREN Rob/SHELDON /8:14 PM /6:44 AM
[2017-12-18 08:00] VITALS: BP 147/87; PULSE 63; RESP 18; TEMP 97.2; O2SAT 96
[2017-12-18] MEDS: INSULIN ASPART SUPPLEMENTAL SCALE SQ SCH ×4 (08:00→22:00)
[2017-12-18] MEDS: SODIUM CHLORIDE 0.9% FLUSH 10 ML FLUSH IV FLUSH SCH ×2 (08:42→21:59)
[2017-12-18] MEDS: DOCUSATE SODIUM 50 MG/SENNA 8.6 MG TAB PO SCH ×2 (08:43→22:00)
[2017-12-18] MEDS: TOPIRAMATE 25 MG TAB PO SCH ×3 (08:43→17:12)
[2017-12-18] MEDS: GABAPENTIN 400 MG CAP PO SCH ×4 (08:43→21:59)
[2017-12-18] MEDS: CETIRIZINE HCL 10 MG TAB PO SCH (08:43)
[2017-12-18] MEDS: DULoxetine HCl DR 20 MG CAP PO SCH (08:43)
[2017-12-18] MEDS: ENOXAPARIN SODIUM 40 MG/0.4 ML SYRINGE SQ SCH (08:44)
--- NOTE | 2017-12-18 09:13 | RADRPT ---
EXAM DATE/TIME: 12/18/2017 08:01 [facility] COMPARISON: CT ABDOMEN & PELVIS W CONTRAST, December 15, 2017, 23:58. INDICATIONS : Right upper quadrant pain. MEDICAL HISTORY : Hypertension. Hypercholesterolemia. Gastroesophageal reflux disease. Hypothyroidism. TIA. Migraine. M itral valve prolapse. Diverticulitis. Cervical cancer. Kidney stones. Anemia. SURGICAL HISTORY : Urethral surgery. ENCOUNTER: Initial ACUITY: 1 day PAIN SCORE: 0/10 LOCATION: Right upper quadrant MEASUREMENTS: LIVER: 17.5 cm length COMMON DUCT: 4 mm RIGHT KIDNEY: 9.7 x 4.9 x 4.4 cm FINDINGS: LIVER: Normal echotexture without focal lesion or ductal dilatation. The liver is at the upper limits of nor mal in size. COMMON DUCT: No intraluminal mass or stone visualized. GALLBLADDER: No stones are identified. There is a 3-4 mm cluster all polyp adherent to the gallbladder wall. There is no para cholecystic fluid or gallbladder wall thickening. PANCREAS: The visualized portions are within normal limits. RIGHT KIDNEY: No evidence of hydronephrosis, stone, or mass. CONCLUSION: 1. Small cholesterol polyp in the gallbladder wall. No gallstones or pericholecystic fluid identified . Torsten Clark MD on December 18, 2017 at 9:09 Board Certified Radiologist. This report was verified electronically.
[2017-12-18 09:30] LABS: AUTOMATED NEUTROPHIL # 9.8 TH/MM3 (1.8-7.7); BASOPHIL # 0.1 TH/MM3 (0-0.2); BASOPHIL % 0.7 % (0.0-2.0); EOSINOPHIL # 0.1 TH/MM3 (0-0.4); HEMATOCRIT 35.5 % (35.0-46.0); HEMOGLOBIN 11.7 GM/DL (11.6-15.3); LYMPH % 10.7 % (9.0-44.0); LYMPHOCYTE # 1.2 TH/MM3 (1.0-4.8); MEAN CELL VOLUME 88.9 FL (80.0-100.0); MEAN CORPUSCULAR HEMOGLOBIN 29.3 PG (27.0-34.0); MEAN PLATELET VOLUME 8.6 FL (7.0-11.0); MONO % 2.9 % (0.0-8.0); MONOCYTE # 0.3 TH/MM3 (0-0.9); NEUT % 84.7 % (16.0-70.0); PLATELET COUNT 243 TH/MM3 (150-450); RED BLOOD COUNT 3.99 MIL/MM3 (4.00-5.30); RED CELL DISTRIBUTION WIDTH 13.7 % (11.6-17.2); WHITE BLOOD COUNT 11.5 TH/MM3 (4.0-11.0)
[2017-12-18 09:40] LABS: BLOOD, URINE TRACE (NEG); GLUCOSE,URINE NEG (NEG); KETONE, URINE 40 mg/dL (NEG); NITRITE,URINE NEG (NEG); PH, URINE 5.5 (5.0-8.5); URINE LEUKOCYTE ESTERASE NEG (NEG)
[2017-12-18 09:42] LABS: BILIRUBIN, URINE NEG (NEG)
[2017-12-18 09:49] LABS: URINE COLOR YELLOW (YELLW/STRAW); WBC, URINE 0-2 /hpf (0-5)
[2017-12-18 09:50] LABS: SQUAMOUS EPITHELIAL CELL URINE 0-2 /hpf (0-5)
[2017-12-18 09:59] LABS: ALBUMIN 2.2 GM/DL (3.4-5.0); BICARBONATE 20.1 MEQ/L (21.0-32.0); CALCIUM 7.8 MG/DL (8.5-10.1)
[2017-12-18 10:00] LABS: GLUCOSE,RANDOM 110 MG/DL (74-106)
[2017-12-18 10:01] LABS: CHLORIDE 108 MEQ/L (98-107); SODIUM (NA) 138 MEQ/L (136-145)
[2017-12-18 10:02] LABS: ALT (GPT) 69 U/L (10-53); AST (GOT) 21 U/L (15-37); GLOMERULAR FILTRATION RATE 65 ML/MIN (>89)
[2017-12-18 10:06] LABS: BLOOD UREA NITROGEN 5 MG/DL (7-18); TOTAL PROTEIN 6.7 GM/DL (6.4-8.2)
[2017-12-18 10:07] LABS: ALKALINE PHOSPHATASE 117 U/L (45-117)
--- NOTE | 2017-12-18 10:10 | HHI.PR ---
Subjective Remarks D/w surgery PA, anticipate surgery soon. Patient herself does report having a bad night last night. He actually did have temperatures climbing a little to 103. Blood cultures were obtaine and Zosyn was started. UA was unremarkable. I independently reviewed the chest x-ray and see what appears to be very faint possible bibasilar infiltrates at best. Patient reports she wheezes on a daily basis and has chronic dyspnea on exertion which is unchanged currently from baseline. Objective Vital Signs Date Time Temp Pulse Resp B/P (MAP) Pulse Ox O2 Delivery O2 Flow Rate FiO2 12/18/17 08:00 97.2 63 18 147/87 (107) 96 12/18/17 06:20 18 12/18/17 06:20 18 12/18/17 04:00 103.0 12/18/17 00:00 100.9 101 20 131/78 (95) 95 12/17/17 21:41 20 12/17/17 20:00 100.4 98 20 122/85 (97) 93 12/17/17 19:05 99.0 100 18 136/89 (105) 98 12/17/17 13:21 97.1 80 16 101/65 (77) 93 I/O 12/17/17 12/17/17 12/17/17 12/18/17 12/18/17 12/18/17 07:00 15:00 23:00 07:00 15:00 23:00 Intake Total 1737 ml 1500 ml 3000 ml 1000 ml Balance 1737 ml 1500 ml 3000 ml 1000 ml Intake Oral 240 ml 1000 ml IV Total 1497 ml 1500 ml 2000 ml 1000 ml # Voids 1 5 3 # Bowel Movements 0 Result Diagram: 12/18/17 0630 12/17/17 1300 Imaging Last Impressions fluid identified. Torsten Clark MD Chest X-Ray 12/18/17 0000 Signed Impressions: Service Date/Time: December 04:44 - CONCLUSION: Underinflation with mild bibasilar opacity most likely representing atelectasis given the underinflation. Fernando Stephen MD Objective Remarks Mild expiratory wheezing Has substantial abdominal pain when she sits up from a lying position, abdomen is soft, nondistended, has moderate tenderness to palpation over epigastrium A/P Assessment and Plan (1) Acute pancreatitis suspected possible gallstone pancreatitis, IVFs, IV pain medicines as needed, monitor respiratory status (2) fever - new onset, continue w/ zosyn, f/u blood cultures. cxr equivocal for possible infiltrate. UA neg. (3) mild asthma - will give a 1 dose of decadron, continue alb and controller inhaler CALIs Jono Tillman MD Dec 18, 2017 10:10
[2017-12-18 10:14] LABS: TOTAL BILIRUBIN ADULT 1.1 MG/DL (0.2-1.0)
[2017-12-18] MEDS ORDERED: DEXAMETHASONE SOD PHOS 4 MG/ML VIAL IV PUSH ONE (11:00)
[2017-12-18 12:00] VITALS: BP 113/78; PULSE 89; RESP 18; TEMP 97.1; O2SAT 96
[2017-12-18] MEDS: PIPERACIL-TAZO 3.375 GM PREMIX 50 ML IV SCH ×3 (12:03→22:01)
[2017-12-18 16:00] VITALS: BP 123/81; PULSE 83; RESP 18; TEMP 97.6; O2SAT 96
--- NOTE | 2017-12-18 19:32 | HHI.PR ---
cc: Schuyler Weinstein MD Subjective Subjective Notes Seen about 0800 [address]ing in bed Reports fever overnight Objective Vitals/I&O Vital Signs Date Time Temp Pulse Resp B/P (MAP) Pulse Ox O2 Delivery O2 Flow Rate FiO2 12/18/17 16:00 97.6 83 18 123/81 (95) 96 Labs Laboratory Tests Test 12/18/17 06:30 12/18/17 09:20 White Blood Count 11.5 Red Blood Count 3.99 Hemoglobin 11.7 Hematocrit 35.5 Mean Corpuscular Volume 88.9 Mean Corpuscular Hemoglobin 29.3 Mean Corpuscular Hemoglobin Concent 33.0 Red Cell Distribution Width 13.7 Platelet Count 243 Mean Platelet Volume 8.6 Neutrophils (%) (Auto) 84.7 Lymphocytes (%) (Auto) 10.7 Monocytes (%) (Auto) 2.9 Eosinophils (%) (Auto) 1.0 Basophils (%) (Auto) 0.7 Neutrophils # (Auto) 9.8 Lymphocytes # (Auto) 1.2 Monocytes # (Auto) 0.3 Eosinophils # (Auto) 0.1 Basophils # (Auto) 0.1 CBC Comment DIFF FINAL Differential Comment Blood Urea Nitrogen 5 Creatinine 0.90 Random Glucose 110 Total Protein 6.7 Albumin 2.2 Calcium Level 7.8 Alkaline Phosphatase 117 Aspartate Amino Transf (AST/SGOT) 21 Alanine Aminotransferase (ALT/SGPT) 69 Total Bilirubin 1.1 Sodium Level 138 Potassium Level 3.4 Chloride Level 108 Carbon Dioxide Level 20.1 Anion Gap 10 Estimat Glomerular Filtration Rate 65 Lipase 121 Urine Collection Type CLEAN CATCH Urine Color YELLOW Urine Turbidity CLEAR Urine pH 5.5 Urine Specific [place] 1.018 Urine Protein NEG Urine Glucose (UA) NEG Urine Ketones 40 Urine Occult Blood TRACE Urine Nitrite NEG Urine Bilirubin NEG Urine Leukocyte Esterase NEG Urine WBC 0-2 Urine Squamous Epithelial Cells 0-2 Microscopic Urinalysis Comment CULT NOT INDICATED Date/Time Source Procedure Growth Status 12/18/17 06:45 Blood Peripheral Aerobic Blood Culture Pending Received 12/18/17 06:45 Blood Peripheral Anaerobic Blood Culture Pending Received Cardiovascular: Regular Lungs: Clear Abdomen: Other (RUQ and midepigastric tenderness to palpation; mild LUQ tenderness to palpation ) Extremities: No edema A/P Assessment and Plan 57 year old female with RUQ tenderness; pancreatitis -Fevers overnight; currently afebrile -Started on Zosyn -US gallbladder reviewed -Clear liquids -Will plan for lap contreras in am -NPO after MN Attending Note - Dr. Weinstein Pain improved; discussed risks with patient; will perform IOC at time of surgery The exam, history, and the medical decision-making described in the above note were completed with the assistance of the mid-level provider. I reviewed and agree with the findings presented. I attest that I had a [id number] encounter with the patient on the same day, and personally performed and documented my assessment and findings in the medical record. Lucinda Myrick Dec 18, 2017 19:32 Schuyler Weinstein MD Dec 19, 2017 10:05
[2017-12-18 20:00] VITALS: BP 105/67; PULSE 70; RESP 20; TEMP 96.3; O2SAT 94
[2017-12-18] MEDS: ONDANSETRON HCL 4 MG/2 ML VIAL IVP PRN (22:06)
[2017-12-19] VITALS: BP 99/63; PULSE 60; RESP 16; TEMP 96; O2SAT 96
[2017-12-19] MEDS: SODIUM CHLOR 0.9% 1000 ML INJ 1,000 ML IV SCH ×2 (02:51→15:52)
[2017-12-19 04:00] VITALS: BP 110/62; PULSE 62; RESP 16; TEMP 96.2; O2SAT 97
[2017-12-19] MEDS: PIPERACIL-TAZO 3.375 GM PREMIX 50 ML IV SCH ×4 (04:50→20:19)
[2017-12-19] MEDS: LEVOTHYROXINE SODIUM 75 MCG TAB PO SCH (04:51)
[2017-12-19] MEDS ORDERED: CHLORHEXIDINE GLUCONATE 2 % 1 PACK (2 CLOTHS) TOPICAL PRN (07:00)
[2017-12-19] MEDS ORDERED: POVIDONE IODINE 5% (ANTISEPSIS KIT) 4 APPLICATIONS EACH NARE PRN (07:00)
[2017-12-19] MEDS ORDERED: LACTATED RINGER'S 1000 ML IV PRN (07:00)
[2017-12-19] MEDS ORDERED: METOPROLOL TARTRATE 25 MG TAB PO PRN (07:00)
[2017-12-19] MEDS ORDERED: BUPIVACAINE/EPINEPHRINE 0.25% 50 ML VIAL ONE (07:21)
--- NOTE | 2017-12-19 09:12 | HHI.PR ---
cc: Schuyler Weinstein MD Immediate Post Op Note Procedure Date: Dec 19, 2017 Pre Op Diagnosis: Gallstone pancreatitis Post Op Diagnosis: Same, with CBD stones Surgeon: Schuyler Weinstein [employer] Advisor(s): Deedee Gibbs CST Procedure: Laparoscopic Cholecystectomy with intraoperative cholangiogram with intraoperative use of fluoroscopy Findings: Distal CBD stone filling defects Complications: None Specimen(s) removed: Gallbladder and contents to pathology Anesthesia: General Drains: None IVF Patient to: PACU Patient Condition: Good Date/Time of Procedure: SEE SURGICAL CARE RECORD Schuyler Weinstein MD Dec 19, 2017 09:12
[2017-12-19 09:18] VITALS: PULSE 89
[2017-12-19] MEDS ORDERED: RESP: ALBUTEROL 2.5 MG/3 ML NEB (PRN) ONE (09:21)
[2017-12-19] MEDS ORDERED: HYDR-3288 PO (09:23)
[2017-12-19] MEDS ORDERED: SUGAMMADEX SODIUM 200 MG/2 ML VIAL IV PUSH ONE (09:27)
[2017-12-19] MEDS ORDERED: *HYDROmorphone PF 1 MG VIAL PERIprocedural Use ONLY ONE (09:39)
--- NOTE | 2017-12-19 09:56 | RADRPT ---
EXAM DATE/TIME: 12/19/2017 08:13 [facility] Corrected on: December 22, 2017; Added Image count [facility] COMPARISON: No previous studies available for comparison. INDICATIONS : Obstruction. FLUORO TIME: 0.75 minutes IMAGE COUNT: 4 MEDICAL HISTORY : Hypertension. Hypercholesterolemia. Gastroesophageal reflux disease. Hypothyroidism. TIA. Migraine. M itral valve prolapse. Diverticulitis. Cervical cancer. Kidney stones. Anemia. SURGICAL HISTORY : Urethral surgery. ENCOUNTER: Subsequent ACUITY: 2 days PAIN SCORE: Non-responsive. LOCATION: abdomen PROCEDURE: CHOLANGIOGRAM, OPERATIVE 1. Intraoperative cholangiogram. In the operating room, the cystic duct stump was injected and radiographs obtained. Free flow of contrast into the duodenum without residual stone. CONCLUSION: No evidence of common duct stone. Pio Clark MD FACR on December 19, 2017 at 9:53 Board Certified Radiologist. This report was verified electronically.
[2017-12-19] MEDS ORDERED: *MEPERIDINE 25 MG INJ VIAL PERIprocedural Use ONLY ONE (10:14)
[2017-12-19 10:15] VITALS: PULSE 79
--- NOTE | 2017-12-19 10:34 | HHI.PR ---
Subjective Remarks Patient did not have any further recurrence of her fevers. He currently is postop. Discussed case with Dr. Weinstein, warrants an ERCP for a common bile duct stone. Patient himself is very drowsy at this time as she is postop. Objective Vital Signs Date Time Temp Pulse Resp B/P (MAP) Pulse Ox O2 Delivery O2 Flow Rate FiO2 12/19/17 10:15 79 12/19/17 10:00 69 16 125/67 (86) 96 Nasal Cannula 2 12/19/17 09:45 70 16 133/65 (87) 100 Simple Mask 5 12/19/17 09:30 64 16 131/72 (91) 100 Simple Mask 5 12/19/17 09:18 97.5 89 18 136/69 (91) 99 Simple Mask 8 12/19/17 09:18 89 12/19/17 06:46 97.2 65 20 129/87 (101) 95 12/19/17 04:00 96.2 62 16 110/62 (78) 97 12/19/17 00:00 96.0 60 16 99/63 (75) 96 12/18/17 20:00 96.3 70 20 105/67 (80) 94 12/18/17 16:00 97.6 83 18 123/81 (95) 96 12/18/17 12:00 97.1 89 18 113/78 (90) 96 I/O 12/18/17 12/18/17 12/18/17 12/19/17 12/19/17 12/19/17 07:00 15:00 23:00 07:00 15:00 23:00 Intake Total 1000 ml 1630 ml 530 ml 1606 ml 1200 ml Output Total 1000 ml 1000 ml 700 ml Balance 1000 ml 630 ml -470 ml 906 ml 1200 ml Intake Oral 480 ml 480 ml IV Total 1000 ml 1150 ml 50 ml 1606 ml 1200 ml Output Urine Total 1000 ml 1000 ml 700 ml # Voids 3 # Bowel Movements 1 0 Result Diagram: 12/18/17 0630 12/18/17 0630 Objective Remarks No wheezing heard today, unlabored breathing Patient appears drowsy, but does respond says, she is in pain A/P Assessment and Plan (1) Acute pancreatitis s/p cholecystectomy, consulting GI, transferring to [facility]. anticipate ERCP. IVFs , IV pain medicines as needed, monitor respiratory status (2) fever - no recurrence, continue w/ zosyn, f/u blood cultures. cxr equivocal for possible infiltrate. UA neg. (3) clinically improved asthma, s/p decadron dose, continue inhalers SCDs Jono Tillman MD Dec 19, 2017 10:33
[2017-12-19] MEDS: INSULIN ASPART SUPPLEMENTAL SCALE SQ SCH ×4 (11:24→20:30)
[2017-12-19] MEDS: DOCUSATE SODIUM 50 MG/SENNA 8.6 MG TAB PO SCH ×2 (11:39→19:54)
[2017-12-19] MEDS: GABAPENTIN 400 MG CAP PO SCH ×4 (11:40→19:54)
[2017-12-19] MEDS: DULoxetine HCl DR 20 MG CAP PO SCH (11:40)
[2017-12-19] MEDS: ONDANSETRON HCL 4 MG/2 ML VIAL IVP PRN (11:41)
[2017-12-19] MEDS: FUROSEMIDE 40 MG TAB PO SCH (11:41)
[2017-12-19] MEDS: SODIUM CHLORIDE 0.9% FLUSH 10 ML FLUSH IV FLUSH SCH ×2 (11:41→19:54)
[2017-12-19] MEDS: CETIRIZINE HCL 10 MG TAB PO SCH (11:41)
[2017-12-19] MEDS: MORPHINE SULFATE 2 MG/ML INJ IV PUSH PRN ×3 (11:42→23:41)
--- NOTE | 2017-12-19 11:54 | PD.CONS ---
History of Present Illness Service Infectious disease Consult Requested By Dr Weinstein Reason for Consult Pancreatitis CBD stone Primary Care Physician Unknown Diagnoses: (1) Acute pancreatitis (2) Gallstone pancreatitis History of Present Illness 57/F with h/o asthma - was admitted with cute onset severe abdominal pain- from epigastric to back with nausea and h/o fever at home as well as in hospital. Lipase > 22332 and patient had work up and went for Cholecystectomy today - c/o RUQ pain going to shoulders and nausea. Review of Systems Constitutional: COMPLAINS OF: Fever Endocrine: DENIES: Heat/cold intolerance, Polydipsia Eyes: DENIES: Blurred vision, Diplopia Ears, nose, mouth, throat: DENIES: Hearing loss, Oral lesions, Odynophagia Respiratory: COMPLAINS OF: Cough, Wheezing, Sputum production, DENIES: Hemoptysis Cardiovascular: DENIES: Chest pain, Palpitations Gastrointestinal: COMPLAINS OF: Abdominal pain, Nausea, DENIES: Vomiting Genitourinary: DENIES: Urinary frequency, Dysuria Musculoskeletal: DENIES: Muscle aches Integumentary: DENIES: Abnormal pigmentation, Pruritus Hematologic/lymphatic: DENIES: Bruising Neurologic: DENIES: Headache, Localized weakness, Paresthesias Psychiatric: DENIES: Confusion Past Family Social History Allergies: Coded Allergies: butorphanol (Verified Allergy, Severe, "I GO CRAZY", 12/16/17) HALLUCINATIONS acetaminophen (Verified Allergy, Intermediate, Rash, 12/16/17) oxycodone (Verified Allergy, Intermediate, Rash, 12/16/17) Past Medical History Asthma Anemia Rheumatoid arthritis Fibromyalgia Bipolar disorder Gen. anxiety disorder Depression Mitral valve prolapse Cervical cancer history Angina Hypertension TIA Hyperlipidemia Presbycusis History of diverticulitis History of gastroesophageal reflux disease Migraine headaches Chronic back pain Hypothyroidism History of nephrolithiasis Past Surgical History Urethral surgery Bilateral eye surgery Active Ordered Medications Zosyn Family History Non contributory Social History Lives at home with son and boyfriend Occasional alcohol use Physical Exam Vital Signs Vital Signs Date Time Temp Pulse Resp B/P (MAP) Pulse Ox O2 Delivery O2 Flow Rate FiO2 12/19/17 10:25 67 16 122/70 (87) 95 Nasal Cannula 2 12/19/17 10:15 79 12/19/17 10:15 97.5 79 16 138/80 (99) 96 Nasal Cannula 2 2/9/18 10:00 69 16 125/67 (86) 96 Nasal Cannula 2 12/19/17 09:45 70 16 133/65 (87) 100 Simple Mask 5 12/19/17 09:30 64 16 131/72 (91) 100 Simple Mask 5 12/19/17 09:18 97.5 89 18 136/69 (91) 99 Simple Mask 8 12/19/17 09:18 89 12/19/17 06:46 97.2 65 20 129/87 (101) 95 12/19/17 04:00 96.2 62 16 110/62 (78) 97 12/19/17 00:00 96.0 60 16 99/63 (75) 96 12/18/17 20:00 96.3 70 20 105/67 (80) 94 12/18/17 16:00 97.6 83 18 123/81 (95) 96 12/18/17 12:00 97.1 89 18 113/78 (90) 96 Physical Exam GENERAL: This is a obese patient c/o some abdominal pain. SKIN: No rashes, ecchymoses or lesions. Cool and dry. HEAD: Atraumatic. Normocephalic. No temporal or scalp tenderness. EYES: Pupils equal round and reactive. Extraocular motions intact. No scleral icterus. No injection or drainage. ENT: Nose without bleeding, purulent drainage or septal hematoma. Throat without erythema, tonsillar hypertrophy or exudate. Uvula midline. Airway patent. NECK: Trachea midline. No JVD or lymphadenopathy. Supple, nontender, no meningeal signs. CARDIOVASCULAR: Regular rate and rhythm without murmurs, gallops, or rubs. RESPIRATORY:Some wheezes,NO rales, or rhonchi. GASTROINTESTINAL: Abdomen some distension and tender, d. No hepato-splenomegaly , or palpable masses. No guarding. MUSCULOSKELETAL: Extremities without clubbing, cyanosis, or edema. No joint tenderness, effusion, or edema noted. No calf tenderness. Negative Homans sign bilaterally. NEUROLOGICAL: Awake and alert. Cranial nerves II through XII intact. Motor and sensory grossly within normal limits. Five out of 5 muscle strength in all muscle groups. Normal speech. Laboratory Date/Time Source Procedure Growth Status 12/18/17 06:45 Blood Peripheral Aerobic Blood Culture - Preliminary NO GROWTH IN 1 DAY Resulted 12/18/17 06:45 Blood Peripheral Anaerobic Blood Culture - Preliminary NO GROWTH IN 1 DAY Resulted Result Diagram: 12/18/1762912/18/17629 Assessment and Plan Problem List: (1) Acute pancreatitis ICD Codes: K85.90 - Acute pancreatitis without necrosis or infection, unspecified Status: Acute (2) Gallstone pancreatitis ICD Codes: K85.10 - Biliary acute pancreatitis without necrosis or infection Plan: Follow Blood cultures Continue IV Zosyn Patient s/p cholecystectomy Incentive spirometry Check Sputum culture Problem Qualifiers (1) Acute pancreatitis: Qualified Codes: K85.90 - Acute pancreatitis without necrosis or infection, unspecified [place] Cloud MD Dec 19, 2017 11:54
[2017-12-19] MEDS: TOPIRAMATE 25 MG TAB PO SCH ×3 (11:59→18:33)
[2017-12-19 15:56] VITALS: BP 120/76; PULSE 74; RESP 18; TEMP 95.6; O2SAT 94
[2017-12-19 20:10] VITALS: BP 109/68; PULSE 72; RESP 18; TEMP 96.8; O2SAT 95
[2017-12-20] VITALS (7 sets, daily range): BP systolic 100–121; BP diastolic 66–71; PULSE 58–97; RESP 17–18; TEMP 95.3–97.4; O2SAT 94–98
[2017-12-20] MEDS: SODIUM CHLOR 0.9% 1000 ML INJ 1,000 ML IV SCH ×2 (00:48→09:21)
[2017-12-20] MEDS: PIPERACIL-TAZO 3.375 GM PREMIX 50 ML IV SCH ×4 (03:57→20:00)
[2017-12-20] MEDS: MORPHINE SULFATE 2 MG/ML INJ IV PUSH PRN ×2 (06:12→09:12)
[2017-12-20] MEDS: LEVOTHYROXINE SODIUM 75 MCG TAB PO SCH (06:12)
[2017-12-20] MEDS: INSULIN ASPART SUPPLEMENTAL SCALE SQ SCH ×4 (08:00→20:07)
--- NOTE | 2017-12-20 08:03 | RADRPT ---
EXAM DATE/TIME: 12/20/2017 07:25 [place] COMPARISON: No previous studies available for comparison. INDICATIONS : Pancreatitis. MEDICAL HISTORY : Hypertension. Diabetes mellitus type 2. SURGICAL HISTORY : Cholecystectomy. Eye surgery. Urethral surgery. ENCOUNTER: Subsequent ACUITY: 4-6 days PAIN SCORE: 2/10 LOCATION: Right upper quadrant TECHNIQUE: Multiplanar, multisequence magnetic resonance imaging of the abdomen was performed. High-resolution 3D dataset was utilized to reconstruct maximum-intensity projection (MIP) images. FINDINGS: INTRAHEPATIC BILE DUCTS: Within normal limits. No significant anatomical variant is present. EXTRAHEPATIC BILE DUCTS: The common bile duct measures 5 mm No stone or filling defect is identified. GALLBLADDER: Surgically absent. LIVER: Normal size and signal intensity. No concerning liver lesion is identified on this non-contrast exam. PANCREAS: The pancreas demonstrates heterogeneous diffuse increased T2 signal most significant adjacent to the body and tail. There is peripancreatic fluid present. The main pancreatic duct is normal in caliber. OTHER: There are bilateral small pleural effusions present. There is fluid identified within the left paraco lic and extensive fluid seen throughout the posterior soft tissues of the abdomen. Small amount of as cites. Benign left renal cyst. Mild dilation of the left renal collecting system without obstructing stone visualized. CONCLUSION: 1. No evidence of choledocholithiasis. 2. Edematous appearance of the pancreas with adjacent fluid consistent with the clinical history of a cute pancreatitis. There are bilateral pleural effusions associated with a small amount of ascites an d extensive subcutaneous edema identified in the dependent portions of the abdomen. 3. Mild dilation of the left renal collecting system. No obstructing stone is visualized. This may be reactive to the acute inflammation from the pancreas.. Maris Delgado MD on December 20, 2017 at 7:54 Board Certified Radiologist. This report was verified electronically.
[2017-12-20] MEDS: DULoxetine HCl DR 20 MG CAP PO SCH (09:00)
[2017-12-20] MEDS: DOCUSATE SODIUM 50 MG/SENNA 8.6 MG TAB PO SCH ×2 (09:11→19:59)
[2017-12-20] MEDS: GABAPENTIN 400 MG CAP PO SCH ×4 (09:11→19:59)
[2017-12-20] MEDS: TOPIRAMATE 25 MG TAB PO SCH ×3 (09:11→18:11)
[2017-12-20] MEDS: CETIRIZINE HCL 10 MG TAB PO SCH (09:11)
[2017-12-20] MEDS: FUROSEMIDE 40 MG TAB PO SCH (09:19)
[2017-12-20] MEDS: SODIUM CHLORIDE 0.9% FLUSH 10 ML FLUSH IV FLUSH SCH ×2 (09:19→20:00)
[2017-12-20] MEDS: NS + KCL 20 MEQ INJ 1,000 ML IV SCH (10:38)
[2017-12-20] MEDS: HYDROmorphone HCL PF 2 MG/ML VIAL IV PUSH PRN ×2 (11:44→16:27)
[2017-12-20] MEDS: SODIUM CHLORIDE 0.9% FLUSH 10 ML FLUSH IV FLUSH PRN (11:47)
--- NOTE | 2017-12-20 13:08 | HHI.PR ---
Subjective Remarks Follow-up gallstone pancreatitis. Improving abdominal pain. Passing gas. Discussed with nursing awaiting GI evaluation Objective Vitals Vital Signs Date Time Temp Pulse Resp B/P (MAP) Pulse Ox O2 Delivery O2 Flow Rate FiO2 12/20/17 12:00 96.8 68 17 118/67 (84) 94 12/20/17 08:00 96.3 67 17 118/69 (85) 95 12/20/17 04:05 96.9 58 17 120/71 (87) 96 12/20/17 00:05 97.4 74 17 121/71 (88) 96 12/19/17 20:10 96.8 72 18 109/68 (82) 95 12/19/17 15:56 95.6 74 18 120/76 (91) 94 I/O 12/19/17 12/19/17 12/19/17 12/20/17 12/20/17 12/20/17 07:00 15:00 23:00 07:00 15:00 23:00 Intake Total 1606 ml 1500 ml 410 ml 360 ml Output Total 700 ml Balance 906 ml 1500 ml 410 ml 360 ml Intake Oral 0 ml 360 ml 360 ml IV Total 1606 ml 1500 ml 50 ml Output Urine Total 700 ml # Voids 0 4 2 # Bowel Movements 0 0 0 Result Diagram: 12/18/1730 12/18/1730 Imaging Last Impressions Cholangiopancreatography MRI 12/20/17 0000 Signed Impressions: Service Date/Time: Wednesday, December 20, 2017 07:25 - CONCLUSION: 1. No evidence of choledocholithiasis. 2. Edematous appearance of the pancreas with adjacent fluid consistent with the clinical history of acute pancreatitis. There are bilateral pleural effusions associated with a small amount of ascites and extensive subcutaneous edema identified in the dependent portions of the abdomen. 3. Mild dilation of the left renal collecting system. No obstructing stone is visualized. This may be reactive to the acute inflammation from the pancreas.. Maris Delgado MD Cholangiogram 12/19/17 0000 Signed Impressions: Service Date/Time: Tuesday, December 19, 2017 08:13 - CONCLUSION: No evidence of common duct stone. Pio Clark MD FACR Gall Bladder Ultrasound 12/18/17 0000 Signed Impressions: Service Date/Time: December 08:01 - CONCLUSION: 1. Small cholesterol polyp in the gallbladder wall. No gallstones or pericholecystic fluid identified. Torsten Clark MD Chest X-Ray 12/18/17 0000 Signed Impressions: Service Date/Time: December 04:44 - CONCLUSION: Underinflation with mild bibasilar opacity most likely representing atelectasis given the underinflation. Fernando Stephen MD Hepatobiliary Scan Nuclear Medicine 12/16/17 0000 Signed Impressions: Service Date/Time: Saturday, December 16, 2017 12:45 - CONCLUSION: 1. No evidence of acute cholecystitis. Decreased ejection fraction from the gallbadder that can be seen with chronic cholecystitis. 2. Mild biliary gastric reflux Bobby Humphreys MD Abdomen/Pelvis CT 12/15/172302 Signed Impressions: Service Date/Time: Friday, December 15, 2017 23:58 - CONCLUSION: Fluid and inflammatory change in the upper abdomen that is most closely associated with the pancreas and there are features suggesting pancreatic edema. Findings are highly suspicious for acute pancreatitis. Suggest correlating with amylase and lipase bodies. There are no findings to indicate pancreatic necrosis. Fernando Stephen MD Objective Remarks GENERAL: Well-developed and well-nourished in no distress SKIN: Warm and dry. CARDIOVASCULAR: Regular rate and rhythm. RESPIRATORY: No accessory muscle use. Clear to auscultation. Decreased breath sounds equal bilaterally. GASTROINTESTINAL: Abdomen soft, tender over operative sites, nondistended. MUSCULOSKELETAL: Extremities without clubbing, cyanosis but with bilateral lower extremity pitting edema. No obvious deformities. NEUROLOGICAL: Awake and alert. No obvious cranial nerve deficits. Motor grossly within normal limits. Five out of 5 muscle strength in the arms and legs. Normal speech. PSYCHIATRIC: Appropriate mood and affect; insight and judgment normal. Procedures Laparoscopic Cholecystectomy with intraoperative cholangiogram with intraoperative use of fluoroscopy A/P Problem List: (1) Acute pancreatitis ICD Code: K85.90 - Acute pancreatitis without necrosis or infection, unspecified Status: Acute Assessment and Plan Gallstone pancreatitis status post cholecystectomy with intraoperative cholangiogram with intraoperative use of fluoroscopy. Clinically stable continue supportive treatment with IV hydration and pain management consult regarding narcotics start p.o. Dilaudid. Patient has distal CBD, GI has been consulted for ERCP Fevers secondary to above. Continue IV Zosyn. Blood cultures negative to date. Sputum culture has been ordered Multiple medical conditions asthma, Anemia, Rheumatoid arthritis, Fibromyalgia, Bipolar disorder, Gen. anxiety disorder, Depression, Mitral valve prolapse, Angina, Hypertension, TIA, Hyperlipidemia, Migraine headaches, Chronic back pain and Hypothyroidism. Continue outpatient medications as appropriate DVT prophylaxis with SCD and Lovenox if okay with neurosurgery Discharge Planning Dc per GI and GS Problem Qualifiers (1) Acute pancreatitis: Qualified Codes: K85.90 - Acute pancreatitis without necrosis or infection, unspecified Gael Hatch MD Dec 20, 2017 13:08
--- NOTE | 2017-12-20 13:10 | HHI.DCPOC ---
Discharge Care Plan Diagnosis: (1) Gallstone pancreatitis Your Health Problems Are: Difficulty with ADL Exercise Tolerance Goals to Promote Your Health * To prevent worsening of your condition and complications * To maintain your health at the optimal level Directions to Meet Your Goals Take your medications as prescribed Follow your dietary instruction Follow activity as directed Keep your appointments as scheduled Take your immunizations and boosters as scheduled If your symptoms worsen call your PCP, if no PCP go to Urgent Care Center or Emergency Room Smoking is Dangerous to Your Health. Avoid second hand smoke Call the 24-hour hour crisis hotline for domestic abuse at Gael Hatch MD Dec 20, 2017 13:10
[2017-12-20] MEDS ORDERED: DILA2TAB4 PO (13:12)
[2017-12-20] MEDS ORDERED: NALOXONE HCL 0.4 MG/ML AMP IV PUSH PRN (13:15)
[2017-12-20] MEDS ORDERED: HYDROmorphone HCL 2 MG TAB PO PRN ×2 (13:15)
--- NOTE | 2017-12-20 15:06 | HHI.PR ---
Subjective Subjective Notes RUQ pain, no NV, no fever chills Objective Vitals/I&O Vital Signs Date Time Temp Pulse Resp B/P (MAP) Pulse Ox O2 Delivery O2 Flow Rate FiO2 12/20/17 12:00 96.8 68 17 118/67 (84) 94 12/19/17 10:25 Nasal Cannula 2 Labs Date/Time Source Procedure Growth Status 12/18/17 06:45 Blood Peripheral Aerobic Blood Culture - Preliminary NO GROWTH IN 2 DAYS Resulted 12/18/17 06:45 Blood Peripheral Anaerobic Blood Culture - Preliminary NO GROWTH IN 2 DAYS Resulted Abdomen: Non-distended, Post-op tenderness A/P Assessment and Plan 57yo female with CBD stones after lap contreras, stable. will likely need ERCP. will follow Rock Fink MD Dec 20, 2017 15:06
--- NOTE | 2017-12-20 15:24 | PD.CONS ---
HPI History of Present Illness This is a 57 year old F with significant medical history, she presented to emergency department on Friday for evaluation of epigastric abdominal pain. Pt reports vomiting started on Friday, around 20 episodes, then she began having diffuse abdominal pain that she thought was related. Denies any BRB in the vomit, she is unsure if it appeared to be coffee ground emesis. CT abdomen and pelvis (12/16) --> Fluid and inflammatory change in the upper abdomen that is most closely associated with the pancreas and there are features suggesting pancreatic edema. Findings are highly suspicious for acute pancreatitis. No findings to indicate pancreatic necrosis. Lipase was 11.789. Pt denies history of pancreatitis. States only drinks ETOH once a year, did have two wine coolers the day the symptoms began. Pt was evaluated by GS, who ordered a HIDA scan to evaluate pts reports of nausea, vomiting, and history of biliary sludge. Pt is now S/P laparoscopic cholecystectomy, pt reports some improvement in her RUQ pain since then, however still having continued epigastric pain. Currently on clear liquid diet, reports of nausea, denies emesis. Pt reports last BM was yesterday, normal, denies BRB or melena. Complaining of acid reflux, not relieved with medication. Lipase now WNL. MRCP ( 12/20) --> No evidence of choledocholithiasis. Edematous appearance of the pancreas with adjacent fluid consistent with clinical history of acute pancreatitis. there are bilateral pleural effusions associated with small amount of ascites and extensive subcutaneous edema identified in the dependent portions of the abdomen. Last EGD was a few years ago and she states exam revealed acid reflux. Last colonoscopy was six years ago and she states she had multiple polyps, was told to repeat exam in two years. (Margaret Hernandez) PFSH Past Medical History Asthma Anemia Rheumatoid arthritis Fibromyalgia Bipolar disorder Gen. anxiety disorder Depression Mitral valve prolapse Cervical cancer history Angina Hypertension TIA Hyperlipidemia Presbycusis History of diverticulitis History of gastroesophageal reflux disease Migraine headaches Chronic back pain Hypothyroidism History of nephrolithiasis Past Surgical History Urethral surgery Bilateral eye surgery Cholecystectomy EGD Colonoscopy (Margaret Hernandez) Coded Allergies: butorphanol (Verified Allergy, Severe, "I GO CRAZY", 12/16/17) HALLUCINATIONS acetaminophen (Verified Allergy, Intermediate, Rash, 12/16/17) oxycodone (Verified Allergy, Intermediate, Rash, 12/16/17) Family History Diabetes mellitus type 2, peripheral vascular disease, and Parkinson's dementia in mother Diabetes mellitus type 2 in father Diabetes mellitus type 2 in sister Social History Patient denies any smoking, illicit drug abuse, or alcohol abuse. Alcohol use and low-volume approximately once per year (Margaret Hernandez) Review of Systems Gastrointestinal: COMPLAINS OF: Abdominal pain, Nausea, Vomiting, Heartburn, DENIES: Black stools, Bloody stools, Constipation, Diarrhea, Difficulty Swallowing, Swelling of Abdomen (Margaret Hernandez) GI Exam Vitals I&O Vital Signs Date Time Temp Pulse Resp B/P (MAP) Pulse Ox O2 Delivery O2 Flow Rate FiO2 12/20/17 12:00 96.8 68 17 118/67 (84) 94 12/20/17 08:00 96.3 67 17 118/69 (85) 95 12/20/17 04:05 96.9 58 17 120/71 (87) 96 12/20/17 00:05 97.4 74 17 121/71 (88) 96 12/19/17 20:10 96.8 72 18 109/68 (82) 95 12/19/17 15:56 95.6 74 18 120/76 (91) 94 I/O 12/19/17 12/19/17 12/19/17 12/20/17 12/20/17 12/20/17 07:00 15:00 23:00 07:00 15:00 23:00 Intake Total 1606 ml 1500 ml 410 ml 360 ml Output Total 700 ml Balance 906 ml 1500 ml 410 ml 360 ml Intake Oral 0 ml 360 ml 360 ml IV Total 1606 ml 1500 ml 50 ml Output Urine Total 700 ml # Voids 0 4 2 # Bowel Movements 0 0 0 Imaging Last Impressions Cholangiopancreatography MRI 12/20/17 0000 Signed Impressions: Service Date/Time: Wednesday, December 20, 2017 07:25 - CONCLUSION: 1. No evidence of choledocholithiasis. 2. Edematous appearance of the pancreas with adjacent fluid consistent with the clinical history of acute pancreatitis. There are bilateral pleural effusions associated with a small amount of ascites and extensive subcutaneous edema identified in the dependent portions of the abdomen. 3. Mild dilation of the left renal collecting system. No obstructing stone is visualized. This may be reactive to the acute inflammation from the pancreas.. Maris Delgado MD Cholangiogram 12/19/17 0000 Signed Impressions: Service Date/Time: Tuesday, December 19, 2017 08:13 - CONCLUSION: No evidence of common duct stone. Pio Clark MD FACR Gall Bladder Ultrasound 12/18/17 0000 Signed Impressions: Service Date/Time: December 08:01 - CONCLUSION: 1. Small cholesterol polyp in the gallbladder wall. No gallstones or pericholecystic fluid identified. Torsten Clark MD Chest X-Ray 12/18/17 0000 Signed Impressions: Service Date/Time: December 04:44 - CONCLUSION: Underinflation with mild bibasilar opacity most likely representing atelectasis given the underinflation. Fernando Stephen MD Hepatobiliary Scan Nuclear Medicine 12/16/17 0000 Signed Impressions: Service Date/Time: Saturday, December 16, 2017 12:45 - CONCLUSION: 1. No evidence of acute cholecystitis. Decreased ejection fraction from the gallbadder that can be seen with chronic cholecystitis. 2. Mild biliary gastric reflux Bobby Humphreys MD Abdomen/Pelvis CT 12/15/17 2303 Signed Impressions: Service Date/Time: Friday, December 15, 2017 23:58 - CONCLUSION: Fluid and inflammatory change in the upper abdomen that is most closely associated with the pancreas and there are features suggesting pancreatic edema. Findings are highly suspicious for acute pancreatitis. Suggest correlating with amylase and lipase bodies. There are no findings to indicate pancreatic necrosis. Fernando Stephen MD Laboratory Date/Time Source Procedure Growth Status 12/18/17 06:45 Blood Peripheral Aerobic Blood Culture - Preliminary NO GROWTH IN 2 DAYS Resulted 12/18/17 06:45 Blood Peripheral Anaerobic Blood Culture - Preliminary NO GROWTH IN 2 DAYS Resulted Physical Examination HEENT: Normocephalic; atraumatic CHEST: Even/unlabored CARDIAC: RRR ABDOMEN: Distended, diffuse TTP worse in epigastric area, bowel sounds active. EXTREMITIES: No clubbing, cyanosis, or edema. SKIN: Normal; no rash; no jaundice. ROBOTICS ENGINEER: No focal deficits; alert and oriented times three. (Margaret Hernandez) Assessment and Plan Plan Assessment; - Biliary pancreatitis- S/P laparoscopic cholecystectomy yesterday by Dr. Weinstein. CT abdomen and pelvis (12/16) on admission --> Fluid and inflammatory change in the upper abdomen that is most closely associated with the pancreas and there are features suggesting pancreatic edema. Findings are highly suspicious for acute pancreatitis. No findings to indicate pancreatic necrosis. Lipase was 11.789. Pt denies history of pancreatitis. States only drinks ETOH once a year, did have two wine coolers the day the symptoms began. - Transaminitis- likely secondary to CBD stone- resolving - Epigastric pain/N/vomiting- Some improvement in RUQ pain after cholecystectomy however pt reports continue epigastric pain. Lipase now WNL. MRCP (12/20) -- > No evidence of choledocholithiasis. Edematous appearance of the pancreas with adjacent fluid consistent with clinical history of acute pancreatitis. there are bilateral pleural effusions associated with small amount of ascites and extensive subcutaneous edema identified in the dependent portions of the abdomen. Pt remains on clear liquids - Acid reflux- Not on prescription medication at home. Not on anything during hospitalization. Last EGD was a few years ago and she states exam revealed acid reflux. - Last colonoscopy was six years ago and she states she had multiple polyps, was told to repeat exam in two years. - Leukocytosis- ID following. Afebrile. Zosyn. Plan: EGD with possible ERCP Friday Obtain consent NPO after MN Friday Protonix IVF Clear liquids as tolerated Monitor labs Supportive care Further recommendations to follow based on results of above Pt has been seen and examined by myself and Dr. Tucker and this note is written on his behalf (Margaret Hernandez) Physician Comments Patient seen and examined Agree with above Continue with current supportive care Monitor labs With liver function tests declining and MRCP negative for any choledocholithiasis and a cholangiogram negative for choledocholithiasis I doubt any need for ERCP unless we see a sudden rise in LFTs Consider colonoscopy for history of colon polyps this can be done on an outpatient basis (Wolfgang Tucker MD) Margaret Hernandez Dec 20, 2017 15:24 Wolfgang Tucker MD Dec 20, 2017 23:19
[2017-12-20] MEDS: PANTOPRAZOLE SODIUM 40 MG VIAL IV PUSH SCH (16:25)
[2017-12-20] MEDS ORDERED: CHLORHEXIDINE GLUCONATE 2 % 1 PACK (2 CLOTHS) TOPICAL PRN (21:15)
[2017-12-20] MEDS ORDERED: POVIDONE IODINE 5% (ANTISEPSIS KIT) 4 APPLICATIONS EACH NARE PRN (21:15)
[2017-12-20] MEDS ORDERED: METOPROLOL TARTRATE 25 MG TAB PO PRN (21:15)
[2017-12-20] MEDS ORDERED: SODIUM CHLORID 0.9% 500 ML IV PRN (21:15)
[2017-12-20] MEDS ORDERED: LACTATED RINGER'S 1000 ML IV PRN (21:15)
[2017-12-21] MEDS: NS + KCL 20 MEQ INJ 1,000 ML IV SCH ×2 (00:07→18:20)
[2017-12-21] MEDS: HYDROmorphone HCL PF 2 MG/ML VIAL IV PUSH PRN ×6 (00:09→19:29)
[2017-12-21] MEDS: PIPERACIL-TAZO 3.375 GM PREMIX 50 ML IV SCH ×4 (03:48→19:28)
[2017-12-21] MEDS: PANTOPRAZOLE SODIUM 40 MG VIAL IV PUSH SCH ×2 (03:48→16:31)
[2017-12-21] MEDS: LEVOTHYROXINE SODIUM 75 MCG TAB PO SCH (03:59)
[2017-12-21 04:12] VITALS: BP 111/65; PULSE 86; RESP 18; TEMP 97.6; O2SAT 92
[2017-12-21 07:47] LABS: AUTOMATED NEUTROPHIL # 4.2 TH/MM3 (1.8-7.7); BASOPHIL % 0.2 % (0.0-2.0); EOSINOPHIL # 0.2 TH/MM3 (0-0.4); HEMATOCRIT 29.6 % (35.0-46.0); HEMOGLOBIN 9.9 GM/DL (11.6-15.3); LYMPH % 26.4 % (9.0-44.0); LYMPHOCYTE # 1.7 TH/MM3 (1.0-4.8); MEAN CELL VOLUME 90.4 FL (80.0-100.0); MEAN CORPUSCULAR HEMOGLOBIN 30.2 PG (27.0-34.0); MEAN CORPUSCULAR HGB CONC 33.4 % (32.0-36.0); MEAN PLATELET VOLUME 7.2 FL (7.0-11.0); MONO % 6.6 % (0.0-8.0); MONOCYTE # 0.4 TH/MM3 (0-0.9); NEUT % 63.8 % (16.0-70.0); PLATELET COUNT 220 TH/MM3 (150-450); RED BLOOD COUNT 3.28 MIL/MM3 (4.00-5.30); RED CELL DISTRIBUTION WIDTH 14.8 % (11.6-17.2); WHITE BLOOD COUNT 6.6 TH/MM3 (4.0-11.0)
[2017-12-21 07:56] VITALS: BP 108/61; PULSE 82; RESP 18; TEMP 97.2; O2SAT 92
[2017-12-21] MEDS: INSULIN ASPART SUPPLEMENTAL SCALE SQ SCH ×3 (08:00→20:16)
[2017-12-21 08:07] LABS: ALT (GPT) 51 U/L (10-53); AST (GOT) 23 U/L (15-37); BICARBONATE 29.3 MEQ/L (21.0-32.0); BLOOD UREA NITROGEN 10 MG/DL (7-18); CALCIUM 7.8 MG/DL (8.5-10.1); CHLORIDE 106 MEQ/L (98-107); CREATININE 1.08 MG/DL (0.50-1.00); GLOMERULAR FILTRATION RATE 52 ML/MIN (>89); GLUCOSE,RANDOM 78 MG/DL (74-106); SODIUM (NA) 141 MEQ/L (136-145)
[2017-12-21 08:09] LABS: ALKALINE PHOSPHATASE 85 U/L (45-117); TOTAL BILIRUBIN ADULT 0.4 MG/DL (0.2-1.0); TOTAL PROTEIN 5.7 GM/DL (6.4-8.2)
[2017-12-21] MEDS: DULoxetine HCl DR 20 MG CAP PO SCH (08:18)
[2017-12-21] MEDS: FUROSEMIDE 40 MG TAB PO SCH (08:18)
[2017-12-21] MEDS: CETIRIZINE HCL 10 MG TAB PO SCH (08:18)
[2017-12-21] MEDS: GABAPENTIN 400 MG CAP PO SCH ×4 (08:18→19:28)
[2017-12-21] MEDS: DOCUSATE SODIUM 50 MG/SENNA 8.6 MG TAB PO SCH ×2 (08:18→19:28)
[2017-12-21] MEDS: SODIUM CHLORIDE 0.9% FLUSH 10 ML FLUSH IV FLUSH SCH ×2 (08:24→20:16)
[2017-12-21] MEDS: TOPIRAMATE 25 MG TAB PO SCH ×3 (08:30→18:20)
--- NOTE | 2017-12-21 10:07 | MP ---
cc: PERRI WEINSTEIN M.D. DATE OF SURGERY: 12/19/2017 PROCEDURE: Laparoscopic cholecystectomy with intraoperative cholangiogram with intraoperative use of fluoroscopy. PREOPERATIVE DIAGNOSIS Gallstone pancreatitis. POSTOPERATIVE DIAGNOSIS Gallstone pancreatitis with distal common bile duct stones. ANESTHESIA General endotracheal SURGEON Sandie Weinstein MD. ENVIRONMENTAL DESIGNER: Deedee Gibbs CST. ESTIMATED BLOOD LOSS: 50 mL FLUIDS: 1200 mL Crystalloid. COMPLICATIONS: None. DRAINS: None. SPECIMEN: Gallbladder and contents to pathology. PROCEDURE IN DETAIL: The patient was taken to the operating room and placed on the operating room table in supine position. After an adequate level of general endotracheal anesthesia was achieved, the abdomen was prepped and draped in the usual fashion. Time out was taken, confirming the correct patient, site and procedure to be performed. Supraumbilical skin was infiltrated with local anesthetic and a longitudinal incision was made, carried down to and through the fascia. The peritoneal cavity was directly visualized. A 12 mm balloon trocar was inserted and the abdomen insufflated. The patient was placed in reverse Trendelenburg position. Three 5 mm trocars were placed with the first to the right of falciform ligament and second and third in the subcostal region. All entered the abdominal cavity under direct vision uneventfully. The gallbladder was then retracted up and over the dome of the liver. The cystic duct infundibular junction and cystic artery were both circumferentially dissected. The cystic artery was doubly clipped proximally, singly clipped on the gallbladder side and divided. A smaller branch was also doubly clipped proximally, singly clipped on the gallbladder side and divided. This smaller branch emptied directly into the gallbladder. When this was completed the gallbladder was clipped and a small cystic ductotomy was made. An Monreal cholangiocatheter was brought in via separate stab incision and placed into the cystic duct. Cholangiogram was obtained with full strength contrast. Multiple runs were made and filling defects were suspected to be present at the end of the distal common bile duct. There was some backfilling of the pancreatic duct as well. Multiple runs could not flush the defects and there remained a least two to three filling defects near the ampulla. Contrast did flow into the duodenum easily however. It should be noted that the pancreatic duct appeared slightly dilated as well. At this point the cholangiocatheter was removed and the cystic duct doubly clipped distally and then divided. The gallbladder was dissected off of the liver bed with electro dissection. The gallbladder was placed into an EndoCatch device and removed via the umbilical port while observing via the upper 5 mm trocar site. The specimen was passed off the table. The upper abdomen was revisualized and bleeding points in the liver bed were controlled with electrocautery. When this was completed one small bleeding point on the omentum was also cauterized and all bleeding was controlled. The cystic artery stumps, cystic duct stump and liver bed were then all seen to be clean and dry. All irrigation was aspirated from the abdominal cavity. Insufflation was discontinued and the upper abdominal trocars removed under direct vision. No bleeding was noted from the trocar sites. The laparoscope and supraumbilical port were removed. The fascia was closed at this site with both simple interrupted and [id number] Vicryl suture. The remaining local anesthetic was injected into each of the trocar sites. The skin was closed at each of the trocar sites with 4-0 Vicryl in an interrupted buried fashion. The trocar sites were dressed with Steri-Strips. The patient was extubated and taken back to the recovery room in stable condition. She tolerated the procedure well. MD AREN Rob/BEVERLEY /9:14 AM /9:57 AM VALENTIN
[2017-12-21] MEDS ORDERED: POTASSIUM CHLORIDE 10 MEQ CONTROLLED RELEASE TAB PO ONE (10:15)
[2017-12-21] MEDS ORDERED: POTASSIUM CHLOR 20 MEQ PREMIX 100 ML IV ONE (10:15)
--- NOTE | 2017-12-21 11:54 | HHI.PR ---
Subjective Remarks Patient seen and examined this morning. Afebrile vital signs stable. Status post laparoscopic cholecystectomy with intraoperative cholangiogram with intraoperative use of fluoroscopy. Postoperative diagnosis was gallstone pancreatitis with distal common bile duct stones. She reports that she is having some pain but overall it is tolerable. She is in good spirits and is looking forward to slowly restarting her diet. Understands that the game plan is for an EGD and possible ERCP to be performed tomorrow 12/22/17. She is tolerating a liquid diet. Admits to abdominal pain though improved from admission. Objective Vitals Vital Signs Date Time Temp Pulse Resp B/P (MAP) Pulse Ox O2 Delivery O2 Flow Rate FiO2 12/21/17 07:56 97.2 82 18 108/61 (77) 92 12/21/17 04:12 97.6 86 18 111/65 (80) 92 12/20/17 23:16 96.9 92 18 100/66 (77) 97 12/20/17 19:03 96.7 97 18 119/66 (83) 98 12/20/17 16:00 95.3 69 17 100/67 (78) 95 12/20/17 12:00 96.8 68 17 118/67 (84) 94 I/O 12/20/17 12/20/17 12/20/17 12/21/17 12/21/17 12/21/17 07:00 15:00 23:00 07:00 15:00 23:00 Intake Total 360 ml 480 ml 480 ml 480 ml Balance 360 ml 480 ml 480 ml 480 ml Intake Oral 360 ml 480 ml 480 ml 480 ml # Voids 2 10 4 3 # Bowel Movements 0 0 0 0 Result Diagram: 12/21/17 0645 12/21/17 0645 Imaging Last Impressions Cholangiopancreatography MRI 12/20/17 0000 Signed Impressions: Service Date/Time: Wednesday, December 20, 2017 07:25 - CONCLUSION: 1. No evidence of choledocholithiasis. 2. Edematous appearance of the pancreas with adjacent fluid consistent with the clinical history of acute pancreatitis. There are bilateral pleural effusions associated with a small amount of ascites and extensive subcutaneous edema identified in the dependent portions of the abdomen. 3. Mild dilation of the left renal collecting system. No obstructing stone is visualized. This may be reactive to the acute inflammation from the pancreas.. Maris Delgado MD Cholangiogram 12/19/17 0000 Signed Impressions: Service Date/Time: Tuesday, December 19, 2017 08:13 - CONCLUSION: No evidence of common duct stone. Pio Clark MD FACR Gall Bladder Ultrasound 12/18/17 0000 Signed Impressions: Service Date/Time: December 08:01 - CONCLUSION: 1. Small cholesterol polyp in the gallbladder wall. No gallstones or pericholecystic fluid identified. Torsten Clark MD Chest X-Ray 12/18/17 0000 Signed Impressions: Service Date/Time: December 04:44 - CONCLUSION: Underinflation with mild bibasilar opacity most likely representing atelectasis given the underinflation. Fernando Stephen MD Hepatobiliary Scan Nuclear Medicine 12/16/17 0000 Signed Impressions: Service Date/Time: Saturday, December 16, 2017 12:45 - CONCLUSION: 1. No evidence of acute cholecystitis. Decreased ejection fraction from the gallbadder that can be seen with chronic cholecystitis. 2. Mild biliary gastric reflux Bobby Humphreys MD Abdomen/Pelvis CT 12/15/17 2303 Signed Impressions: Service Date/Time: Friday, December 15, 2017 23:58 - CONCLUSION: Fluid and inflammatory change in the upper abdomen that is most closely associated with the pancreas and there are features suggesting pancreatic edema. Findings are highly suspicious for acute pancreatitis. Suggest correlating with amylase and lipase bodies. There are no findings to indicate pancreatic necrosis. Fernando Stephen MD Objective Remarks GEN: Well-developed, well-nourished patient. No acute distress. Skin: Incision sites are clean dry and intact CV: Regular rate and rhythm without obvious murmurs LUNGS: Clear to auscultation bilaterally. Normal respiratory effort. No wheezes , rales, rhonchi. GI: Soft, nontender, nondistended. No palpable masses. Bowel sounds WNL. EXT: No edema. NEURO/PSYCH: Afocal. Awake, alert, and oriented x3. Appropriate insight and judgment. Procedures Laparoscopic Cholecystectomy with intraoperative cholangiogram with intraoperative use of fluoroscopy Medications and IVs Current Medications Medications (Trade) Dose Ordered Sig/Eleuterio Route Start Time Stop Time Status Last Admin (NS Flush) 2 ml UNSCH PRN IV FLUSH 12/16/17 01:00 12/20/17 11:47 (NS Flush) 2 ml BID IV FLUSH 12/16/17 09:00 12/20/17 09:19 (Zofran Inj) 4 mg Q6H PRN IVP 12/16/17 01:00 12/19/17 11:41 (Anne Marie-Colace) 1 tab BID PO 12/16/17 09:00 12/21/17 08:18 (Milk Of Magnesia Liq) 30 ml Q12H PRN PO 12/16/17 01:00 (Senokot) 17.2 mg Q12H PRN PO 12/16/17 01:00 (Dulcolax Supp) 10 mg DAILY PRN RECTAL 12/16/17 01:00 (Lactulose Liq) 30 ml DAILY PRN PO 12/16/17 01:00 (Lovenox Inj) 40 mg DAILY SQ 12/16/17 14:23 Future Hold 12/18/17 08:44 (D50w (Vial) Inj) 50 ml UNSCH PRN IV PUSH 12/17/17 08:30 (Glucagon Inj) 1 mg UNSCH PRN OTHER 12/17/17 08:30 (NovoLOG SUPPLEMENTAL SCALE) 1 ACHS SLIDING SCALE SQ 12/17/17 12:00 12/19/17 12:00 (Dilaudid Pf Inj) 1 mg Q4H PRN IV PUSH 12/17/17 16:00 12/21/17 08:19 (Proair Hfa Inh) 2 puff Q6H PRN INH 12/17/17 17:45 12/18/17 05:18 (ZyrTEC) 10 mg DAILY PO 12/18/17 09:00 12/21/17 08:18 (Valium) 10 mg BID PRN PO 12/17/17 17:45 (Cymbalta Dr) 20 mg DAILY PO 12/18/17 09:00 12/21/17 08:18 (Neurontin) 800 mg QID PO 12/17/17 18:00 12/21/17 08:18 (Synthroid) 75 mcg DAILY@0600 PO 12/18/17 06:00 12/21/17 03:59 (Topamax) 50 mg TID PO 12/17/17 18:00 12/21/17 08:30 (Ambien) 5 mg HS PRN PO 12/17/17 21:00 12/19/17 00:53 (Lasix) 40 mg DAILY PO 12/19/17 09:00 Future hold 12/21/17 08:18 Lactated Ringer's 1,000 ml @ 30 mls/hr Q24H PRN IV 12/19/17 07:00 12/22/17 06:59 (Lopressor) 25 mg GENERAL UTILITY MAINTENANCE REPAIRER PRN PO 12/19/17 07:00 12/22/17 06:59 (Betadine 5% Antisepsis Kit) 1 applic GENERAL UTILITY MAINTENANCE REPAIRER PRN EACH NARE 12/19/17 07:00 12/22/17 06:59 (Chlorhexidine 2% Cloth) 3 pack GENERAL UTILITY MAINTENANCE REPAIRER PRN TOPICAL 12/19/17 07:00 12/22/17 06:59 Piperacillin Sod/ Tazobactam Sod 50 ml @ 100 mls/hr Q6H IV 12/19/17 15:00 12/21/17 08:21 Potassium Chloride/Sodium Chloride 1,000 ml @ 60 mls/hr [id number] IV 12/20/17 10:00 12/20/17 10:38 (Dilaudid) 1 mg Q4H PRN PO 12/20/17 13:15 (Dilaudid) 2 mg Q4H PRN PO 12/20/17 13:15 (Narcan Inj) 0.4 mg UNSCH PRN IV PUSH 12/20/17 13:15 (Protonix Inj) 40 mg Q12H IV PUSH 12/20/17 16:00 12/21/17 03:48 Lactated Ringer's 1,000 ml @ 30 mls/hr Q24H PRN IV 12/20/17 21:15 12/23/17 21:14 Sodium Chloride 500 ml @ 30 mls/hr [id number] PRN IV 12/20/17 21:15 12/23/17 21:14 (Lopressor) 25 mg GENERAL UTILITY MAINTENANCE REPAIRER PRN PO 12/20/17 21:15 12/23/17 21:14 (Betadine 5% Antisepsis Kit) 1 applic GENERAL UTILITY MAINTENANCE REPAIRER PRN EACH NARE 12/20/17 21:15 12/23/17 21:14 (Chlorhexidine 2% Cloth) 3 pack GENERAL UTILITY MAINTENANCE REPAIRER PRN TOPICAL 12/20/17 21:15 12/23/17 21:14 Potassium Chloride 100 ml @ 50 mls/hr NOW ONCE IV 12/21/17 10:15 12/21/17 12:14 (Lasix) 40 mg Q6H PO 12/22/17 08:00 12/22/17 20:01 A/P Problem List: (1) Acute pancreatitis ICD Code: K85.90 - Acute pancreatitis without necrosis or infection, unspecified Status: Acute Assessment and Plan This is a 57-year-old female with gallstone pancreatitis Gallstone pancreatitis status post cholecystectomy with intraoperative cholangiogram with intraoperative use of fluoroscopy. Clinically stable continue supportive treatment with IV hydration and pain management consult regarding narcotics start p.o. Dilaudid. Patient has distal CBD, GI has been consulted for EGD with ERCP planned for tomorrow 12/22/17 Fevers secondary to above. Continue IV Zosyn. Blood cultures negative to date. Sputum culture has been ordered Multiple medical conditions asthma, Anemia, Rheumatoid arthritis, Fibromyalgia, Bipolar disorder, Gen. anxiety disorder, Depression, Mitral valve prolapse, Angina, Hypertension, TIA, Hyperlipidemia, Migraine headaches, Chronic back pain and Hypothyroidism. Continue outpatient medications as appropriate DVT prophylaxis with SCD and Lovenox Discharge Planning Discharge per GI and GS Problem Qualifiers (1) Acute pancreatitis: Qualified Codes: K85.90 - Acute pancreatitis without necrosis or infection, unspecified Kwasi Conner MD, R3 Dec 21, 2017 11:54
[2017-12-21 12:00] VITALS: BP 109/60; PULSE 87; RESP 18; TEMP 96; O2SAT 95
--- NOTE | 2017-12-21 13:58 | HHI.GIFU ---
Subjective Remarks Pt resting in bed, appears comfortable. She is complaining of some pain to previous cholecystectomy site. Denies nausea, vomiting. Tolerating clear liquids. (Margaret Hernandez) Objective Vitals I&O Vital Signs Date Time Temp Pulse Resp B/P (MAP) Pulse Ox O2 Delivery O2 Flow Rate FiO2 12/21/17 12:00 96.0 87 18 109/60 (76) 95 12/21/17 07:56 97.2 82 18 108/61 (77) 92 12/21/17 04:12 97.6 86 18 111/65 (80) 92 12/20/17 23:16 96.9 92 18 100/66 (77) 97 12/20/17 19:03 96.7 97 18 119/66 (83) 98 12/20/17 16:00 95.3 69 17 100/67 (78) 95 I/O 12/20/17 12/20/17 12/20/17 12/21/17 12/21/17 12/21/17 07:00 15:00 23:00 07:00 15:00 23:00 Intake Total 360 ml 480 ml 480 ml 480 ml Balance 360 ml 480 ml 480 ml 480 ml Intake Oral 360 ml 480 ml 480 ml 480 ml # Voids 2 10 4 3 # Bowel Movements 0 0 0 0 Laboratory Laboratory Tests Test 12/21/17 06:45 White Blood Count 6.6 Red Blood Count 3.28 Hemoglobin 9.9 Hematocrit 29.6 Mean Corpuscular Volume 90.4 Mean Corpuscular Hemoglobin 30.2 Mean Corpuscular Hemoglobin Concent 33.4 Red Cell Distribution Width 14.8 Platelet Count 220 Mean Platelet Volume 7.2 Neutrophils (%) (Auto) 63.8 Lymphocytes (%) (Auto) 26.4 Monocytes (%) (Auto) 6.6 Eosinophils (%) (Auto) 3.0 Basophils (%) (Auto) 0.2 Neutrophils # (Auto) 4.2 Lymphocytes # (Auto) 1.7 Monocytes # (Auto) 0.4 Eosinophils # (Auto) 0.2 Basophils # (Auto) 0.0 CBC Comment DIFF FINAL Differential Comment Blood Urea Nitrogen 10 Creatinine 1.08 Random Glucose 78 Total Protein 5.7 Albumin 2.0 Calcium Level 7.8 Magnesium Level 2.0 Alkaline Phosphatase 85 Aspartate Amino Transf (AST/SGOT) 23 Alanine Aminotransferase (ALT/SGPT) 51 Total Bilirubin 0.4 Sodium Level 141 Potassium Level 2.8 Chloride Level 106 Carbon Dioxide Level 29.3 Anion Gap 6 Estimat Glomerular Filtration Rate 52 Date/Time Source Procedure Growth Status 12/18/17 06:45 Blood Peripheral Aerobic Blood Culture - Preliminary NO GROWTH IN 3 DAYS Resulted 12/18/17 06:45 Blood Peripheral Anaerobic Blood Culture - Preliminary NO GROWTH IN 3 DAYS Resulted Imaging Last Impressions Cholangiopancreatography MRI 12/20/17 0000 Signed Impressions: Service Date/Time: Wednesday, December 20, 2017 07:25 - CONCLUSION: 1. No evidence of choledocholithiasis. 2. Edematous appearance of the pancreas with adjacent fluid consistent with the clinical history of acute pancreatitis. There are bilateral pleural effusions associated with a small amount of ascites and extensive subcutaneous edema identified in the dependent portions of the abdomen. 3. Mild dilation of the left renal collecting system. No obstructing stone is visualized. This may be reactive to the acute inflammation from the pancreas.. Maris Delgado MD Cholangiogram 12/19/17 0000 Signed Impressions: Service Date/Time: Tuesday, December 19, 2017 08:13 - CONCLUSION: No evidence of common duct stone. Pio Clark MD FACR Gall Bladder Ultrasound 12/18/17 0000 Signed Impressions: Service Date/Time: December 08:01 - CONCLUSION: 1. Small cholesterol polyp in the gallbladder wall. No gallstones or pericholecystic fluid identified. Torsten Clark MD Chest X-Ray 12/18/17 0000 Signed Impressions: Service Date/Time: December 04:44 - CONCLUSION: Underinflation with mild bibasilar opacity most likely representing atelectasis given the underinflation. Fernando Stephen MD Hepatobiliary Scan Nuclear Medicine 12/16/17 0000 Signed Impressions: Service Date/Time: Saturday, December 16, 2017 12:45 - CONCLUSION: 1. No evidence of acute cholecystitis. Decreased ejection fraction from the gallbadder that can be seen with chronic cholecystitis. 2. Mild biliary gastric reflux Bobby Humphreys MD Abdomen/Pelvis CT 12/15/17 2303 Signed Impressions: Service Date/Time: [place], December 15, 2017 23:58 - CONCLUSION: Fluid and inflammatory change in the upper abdomen that is most closely associated with the pancreas and there are features suggesting pancreatic edema. Findings are highly suspicious for acute pancreatitis. Suggest correlating with amylase and lipase bodies. There are no findings to indicate pancreatic necrosis. eFrnando Stephen MD Physical Exam HEENT: Normocephalic; atraumatic CHEST: Even/unlabored CARDIAC: RRR ABDOMEN: Distended, tenderness to surgical site, bowel sounds active EXTREMITIES: No clubbing, cyanosis, or edema. SKIN: Normal; no rash; no jaundice. BACKHAUL DRIVER: No focal deficits; alert and oriented times three. (Margaret Hernandez CALL CENTER MANAGER) Assessment and Plan Plan Assessment; - Biliary pancreatitis- S/P laparoscopic cholecystectomy yesterday by Dr. Weinstein. CT abdomen and pelvis (12/16) on admission --> Fluid and inflammatory change in the upper abdomen that is most closely associated with the pancreas and there are features suggesting pancreatic edema. Findings are highly suspicious for acute pancreatitis. No findings to indicate pancreatic necrosis. Lipase was 11.789. Pt denies history of pancreatitis. States only drinks ETOH once a year, did have two wine coolers the day the symptoms began. - Transaminitis- likely secondary to CBD stone- resolving - Epigastric pain/N/vomiting- Some improvement in RUQ pain after cholecystectomy however pt reports continue epigastric pain. Lipase now WNL. MRCP (12/20) -- > No evidence of choledocholithiasis. Edematous appearance of the pancreas with adjacent fluid consistent with clinical history of acute pancreatitis. there are bilateral pleural effusions associated with small amount of ascites and extensive subcutaneous edema identified in the dependent portions of the abdomen. Pt remains on clear liquids - Acid reflux- Not on prescription medication at home. Not on anything during hospitalization. Last EGD was a few years ago and she states exam revealed acid reflux. - Last colonoscopy was six years ago and she states she had multiple polyps, was told to repeat exam in two years. - Leukocytosis- ID following. Afebrile. Zosyn. (12/21) --> LFTs now WNL, lipase WNL. Abdominal soreness to surgical site, otherwise abdominal pain improving. Denies nausea, vomiting. Tolerating clear liquids. No need for endoscopic procedure in the hospital given improvement in labs and symptoms. Would recommend pt follow up outpatient for colonoscopy given history of polyps. Plan: Advance to full liquid diet Protonix IVF Monitor labs Supportive care Further recommendations to follow based on results of above Pt has been seen and examined by myself and Dr. Tucker and this note is written on his behalf (Margaret Hernandez) Physician Comments patient seen and examined agree with above monitor labs continue present supportive care not much to add at this point from GI standpoint, we will sign off (Wolfgang Tucker MD) Margaret Hernandez Dec 21, 2017 13:58 Wolfgang Tucker MD Dec 21, 2017 20:57
--- NOTE | 2017-12-21 14:10 | HHI.PR ---
cc: Clay Duran MD Subjective Subjective Notes DAILY PROGRESS NOTE FOR SURGICAL ATTENDING, DR. CLAY DURAN Tolerating regular diet Doing well Pain improved Objective Vitals/I&O Vital Signs Date Time Temp Pulse Resp B/P (MAP) Pulse Ox O2 Delivery O2 Flow Rate FiO2 12/21/17 12:00 96.0 87 18 109/60 (76) 95 12/19/17 10:25 Nasal Cannula 2 Labs Laboratory Tests Test 12/21/17 06:45 White Blood Count 6.6 Red Blood Count 3.28 Hemoglobin 9.9 Hematocrit 29.6 Mean Corpuscular Volume 90.4 Mean Corpuscular Hemoglobin 30.2 Mean Corpuscular Hemoglobin Concent 33.4 Red Cell Distribution Width 14.8 Platelet Count 220 Mean Platelet Volume 7.2 Neutrophils (%) (Auto) 63.8 Lymphocytes (%) (Auto) 26.4 Monocytes (%) (Auto) 6.6 Eosinophils (%) (Auto) 3.0 Basophils (%) (Auto) 0.2 Neutrophils # (Auto) 4.2 Lymphocytes # (Auto) 1.7 Monocytes # (Auto) 0.4 Eosinophils # (Auto) 0.2 Basophils # (Auto) 0.0 CBC Comment DIFF FINAL Differential Comment Blood Urea Nitrogen 10 Creatinine 1.08 Random Glucose 78 Total Protein 5.7 Albumin 2.0 Calcium Level 7.8 Magnesium Level 2.0 Alkaline Phosphatase 85 Aspartate Amino Transf (AST/SGOT) 23 Alanine Aminotransferase (ALT/SGPT) 51 Total Bilirubin 0.4 Sodium Level 141 Potassium Level 2.8 Chloride Level 106 Carbon Dioxide Level 29.3 Anion Gap 6 Estimat Glomerular Filtration Rate 52 Date/Time Source Procedure Growth Status 12/18/17 06:45 Blood Peripheral Aerobic Blood Culture - Preliminary NO GROWTH IN 3 DAYS Resulted 12/18/17 06:45 Blood Peripheral Anaerobic Blood Culture - Preliminary NO GROWTH IN 3 DAYS Resulted Radiology Last Impressions Cholangiopancreatography MRI 12/20/17 0000 Signed Impressions: Service Date/Time: Wednesday, December 20, 2017 07:25 - CONCLUSION: 1. No evidence of choledocholithiasis. 2. Edematous appearance of the pancreas with adjacent fluid consistent with the clinical history of acute pancreatitis. There are bilateral pleural effusions associated with a small amount of ascites and extensive subcutaneous edema identified in the dependent portions of the abdomen. 3. Mild dilation of the left renal collecting system. No obstructing stone is visualized. This may be reactive to the acute inflammation from the pancreas.. Maris Delgado MD Cholangiogram 12/19/17 0000 Signed Impressions: Service Date/Time: Tuesday, December 19, 2017 08:13 - CONCLUSION: No evidence of common duct stone. Pio Clark MD FACR Gall Bladder Ultrasound 12/18/17 0000 Signed Impressions: Service Date/Time: December 08:01 - CONCLUSION: 1. Small cholesterol polyp in the gallbladder wall. No gallstones or pericholecystic fluid identified. Torsten Clark MD Chest X-Ray 12/18/17 0000 Signed Impressions: Service Date/Time: December 04:44 - CONCLUSION: Underinflation with mild bibasilar opacity most likely representing atelectasis given the underinflation. Fernando Stephen MD Hepatobiliary Scan Nuclear Medicine 12/16/17 0000 Signed Impressions: Service Date/Time: Saturday, December 16, 2017 12:45 - CONCLUSION: 1. No evidence of acute cholecystitis. Decreased ejection fraction from the gallbadder that can be seen with chronic cholecystitis. 2. Mild biliary gastric reflux Bobby Humphreys MD Abdomen/Pelvis CT 12/15/17 2303 Signed Impressions: Service Date/Time: Friday, December 15, 2017 23:58 - CONCLUSION: Fluid and inflammatory change in the upper abdomen that is most closely associated with the pancreas and there are features suggesting pancreatic edema. Findings are highly suspicious for acute pancreatitis. Suggest correlating with amylase and lipase bodies. There are no findings to indicate pancreatic necrosis. Fernando Stephen MD Cardiovascular: Regular Lungs: Clear Abdomen: Post-op tenderness Extremities: Perfused, SCD's on A/P Problem List: (1) Status post laparoscopic cholecystectomy ICD Codes: Z90.49 - Acquired absence of other specified parts of digestive tract Status: Acute (2) Acute pancreatitis ICD Codes: K85.90 - Acute pancreatitis without necrosis or infection, unspecified Status: Acute (3) Gallstone pancreatitis ICD Codes: K85.10 - Biliary acute pancreatitis without necrosis or infection Status: Acute Assessment and Plan 57 female status post lap cholecystectomy with intraoperative cholangiogram thought to have a common duct stone however repeat MRCP did not identify a stone she does have some findings of pancreatitis Clinically she is improving Advance diet as tolerated LFTs almost normalized Attending Statement NOTE FOR SURGICAL ATTENDING, DR. CLAY DURAN I attest that I had a [id number] encounter with the patient on the same day, and personally performed and documented my assessment and findings in the medical record. The following services were provided during this hospital visit: Chart data review, vital sign assessments/reviewing monitor data Review of consultations notes if present. Medication orders/review and/or management Ordering and/or reviewing lab tests Ordering and/or interpreting/reviewing x-rays and/or diagnostic studies Care of the patient and discussion of the patient with the care team Documentation time To help prompt me to consider important information that might be impacting today's encounter and assessment, information from prior notes written by myself or my colleagues may have been "brought forward/copy and pasted" into today's note. Problem Qualifiers (1) Acute pancreatitis: Qualified Codes: K85.10 - Biliary acute pancreatitis without necrosis or infection Clay Duran MD Dec 21, 2017 14:10
[2017-12-21 16:00] VITALS: BP 110/59; PULSE 97; RESP 18; TEMP 99.3; O2SAT 95
[2017-12-21] MEDS: ONDANSETRON HCL 4 MG/2 ML VIAL IVP PRN (19:30)
[2017-12-21 20:10] VITALS: BP 108/68; PULSE 65; RESP 17; TEMP 98.9; O2SAT 96
[2017-12-21 23:57] VITALS: BP 104/58; PULSE 69; RESP 18; TEMP 98.5; O2SAT 97
[2017-12-22] MEDS: PANTOPRAZOLE SODIUM 40 MG VIAL IV PUSH SCH ×2 (03:48→16:00)
[2017-12-22] MEDS: HYDROmorphone HCL PF 2 MG/ML VIAL IV PUSH PRN ×2 (03:48→07:53)
[2017-12-22] MEDS: PIPERACIL-TAZO 3.375 GM PREMIX 50 ML IV SCH (03:50)
[2017-12-22] MEDS: LEVOTHYROXINE SODIUM 75 MCG TAB PO SCH (03:50)
[2017-12-22 07:29] VITALS: BP 113/59; PULSE 75; RESP 18; TEMP 99; O2SAT 94
[2017-12-22] MEDS: ONDANSETRON HCL 4 MG/2 ML VIAL IVP PRN (07:54)
[2017-12-22] MEDS: TOPIRAMATE 25 MG TAB PO SCH ×3 (07:54→17:55)
[2017-12-22] MEDS: GABAPENTIN 400 MG CAP PO SCH ×4 (07:55→20:15)
[2017-12-22] MEDS: DULoxetine HCl DR 20 MG CAP PO SCH (07:55)
[2017-12-22] MEDS: CETIRIZINE HCL 10 MG TAB PO SCH (07:55)
[2017-12-22] MEDS: DOCUSATE SODIUM 50 MG/SENNA 8.6 MG TAB PO SCH ×2 (07:56→20:15)
[2017-12-22] MEDS: SODIUM CHLORIDE 0.9% FLUSH 10 ML FLUSH IV FLUSH SCH ×2 (07:56→20:16)
[2017-12-22] MEDS: INSULIN ASPART SUPPLEMENTAL SCALE SQ SCH ×4 (08:00→21:00)
[2017-12-22] MEDS ORDERED: FUROSEMIDE 40 MG TAB PO SCH (08:00)
--- NOTE | 2017-12-22 11:52 | HHI.PR ---
Subjective Subjective Notes Tolerating diet, moving bowels. Still using IV meds for pain; using for her chronic pain issues as well as her recent (POD #3) lap contreras. Objective Vitals/I&O Vital Signs Date Time Temp Pulse Resp B/P (MAP) Pulse Ox O2 Delivery O2 Flow Rate FiO2 12/22/17 07:29 99.0 75 18 113/59 (77) 94 12/19/17 10:25 Nasal Cannula 2 Labs Date/Time Source Procedure Growth Status 12/18/17 06:45 Blood Peripheral Aerobic Blood Culture - Preliminary NO GROWTH IN 4 DAYS Resulted 12/18/17 06:45 Blood Peripheral Anaerobic Blood Culture - Preliminary NO GROWTH IN 4 DAYS Resulted 12/21/17 16:00 Sputum Expectorated Sputum Gram Stain - Final Resulted 12/21/17 16:00 Sputum Expectorated Sputum Sputum Culture Pending Resulted Radiology Last Impressions Cholangiopancreatography MRI 12/20/17 0000 Signed Impressions: Service Date/Time: Wednesday, December 20, 2017 07:25 - CONCLUSION: 1. No evidence of choledocholithiasis. 2. Edematous appearance of the pancreas with adjacent fluid consistent with the clinical history of acute pancreatitis. There are bilateral pleural effusions associated with a small amount of ascites and extensive subcutaneous edema identified in the dependent portions of the abdomen. 3. Mild dilation of the left renal collecting system. No obstructing stone is visualized. This may be reactive to the acute inflammation from the pancreas.. Maris Delgado MD Cholangiogram 12/19/17 0000 Signed Impressions: Service Date/Time: Tuesday, December 19, 2017 08:13 - CONCLUSION: No evidence of common duct stone. Pio Clark MD FACR Gall Bladder Ultrasound 12/18/17 0000 Signed Impressions: Service Date/Time: December 08:01 - CONCLUSION: 1. Small cholesterol polyp in the gallbladder wall. No gallstones or pericholecystic fluid identified. Torsten Clark MD Chest X-Ray 12/18/17 0000 Signed Impressions: Service Date/Time: December 04:44 - CONCLUSION: Underinflation with mild bibasilar opacity most likely representing atelectasis given the underinflation. Fernando Stephen MD Hepatobiliary Scan Nuclear Medicine 12/16/17 0000 Signed Impressions: Service Date/Time: Saturday, December 16, 2017 12:45 - CONCLUSION: 1. No evidence of acute cholecystitis. Decreased ejection fraction from the gallbadder that can be seen with chronic cholecystitis. 2. Mild biliary gastric reflux Bobby Humphreys MD Abdomen/Pelvis CT 12/15/17 2303 Signed Impressions: Service Date/Time: Friday, December 15, 2017 23:58 - CONCLUSION: Fluid and inflammatory change in the upper abdomen that is most closely associated with the pancreas and there are features suggesting pancreatic edema. Findings are highly suspicious for acute pancreatitis. Suggest correlating with amylase and lipase bodies. There are no findings to indicate pancreatic necrosis. Fernando Stephen MD Lungs: Clear Abdomen: Post-op tenderness A/P Problem List: (1) Status post laparoscopic cholecystectomy ICD Codes: Z90.49 - Acquired absence of other specified parts of digestive tract Status: Acute (2) Acute pancreatitis ICD Codes: K85.90 - Acute pancreatitis without necrosis or infection, unspecified Status: Acute (3) Gallstone pancreatitis ICD Codes: K85.10 - Biliary acute pancreatitis without necrosis or infection Status: Acute Assessment and Plan 57 year old female with RUQ tenderness; pancreatitis resolved clinically POD #3 lap contreras MRCP negative for CBD stones Stop IV dilaudid now Convert to PO pain meds Needs to be discharged as soon as feasible Stable from general surgery standpoint; will sign off Need to see her in office next week. Problem Qualifiers (1) Acute pancreatitis: Qualified Codes: K85.10 - Biliary acute pancreatitis without necrosis or infection Schuyler Weinstein MD Dec 22, 2017 11:52
[2017-12-22 12:00] VITALS: BP 118/65; PULSE 73; RESP 18; TEMP 99; O2SAT 94
[2017-12-22] MEDS ORDERED: LIDOCAINE HCL 1% PF 5 ML SYRINGE OTHER ONE (12:00)
[2017-12-22] MEDS ORDERED: LACTATED RINGER'S 1000 ML INJ 1,000 ML IV ONE (12:00)
[2017-12-22] MEDS ORDERED: ROCURONIUM INJ 50 MG/5 ML SYRINGE IV PUSH ONE (12:00)
[2017-12-22] MEDS ORDERED: GLYCOPYRROLATE 1 MG/5 ML SYRINGE IV PUSH ONE (12:00)
[2017-12-22] MEDS ORDERED: PROPOFOL 200 MG/20 ML AMP IV ONE (12:00)
[2017-12-22] MEDS ORDERED: ONDANSETRON HCL 4 MG/2 ML VIAL IV PUSH ONE (12:00)
[2017-12-22] MEDS ORDERED: DEXAMETHASONE SOD PHOS 4 MG/ML VIAL IV ONE (12:00)
[2017-12-22] MEDS ORDERED: NEOSTIGMINE 5 MG/5 ML SYRINGE IV PUSH ONE (12:00)
[2017-12-22 14:42] LABS: ALBUMIN 2.2 GM/DL (3.4-5.0); ALKALINE PHOSPHATASE 92 U/L (45-117); ALT (GPT) 39 U/L (10-53); AST (GOT) 15 U/L (15-37); BICARBONATE 33.2 MEQ/L (21.0-32.0); BLOOD UREA NITROGEN 5 MG/DL (7-18); CALCIUM 8.2 MG/DL (8.5-10.1); CHLORIDE 103 MEQ/L (98-107); CREATININE 1.01 MG/DL (0.50-1.00); GLOMERULAR FILTRATION RATE 57 ML/MIN (>89); GLUCOSE,RANDOM 105 MG/DL (74-106); SODIUM (NA) 140 MEQ/L (136-145); TOTAL BILIRUBIN ADULT 0.5 MG/DL (0.2-1.0); TOTAL PROTEIN 6.5 GM/DL (6.4-8.2)
[2017-12-22] MEDS ORDERED: POTASSIUM CHLORIDE 10 MEQ CONTROLLED RELEASE TAB PO ONE (15:15)
[2017-12-22] MEDS: traMADol HCL 50 MG TAB PO PRN ×2 (15:19→20:15)
--- NOTE | 2017-12-22 15:51 | HHI.PR ---
Subjective Remarks K very low. Pain controlled. Denie nausea or vomiting. Objective Vitals Vital Signs Date Time Temp Pulse Resp B/P (MAP) Pulse Ox O2 Delivery O2 Flow Rate FiO2 12/22/17 12:00 99.0 73 18 118/65 (82) 94 12/22/17 07:29 99.0 75 18 113/59 (77) 94 12/21/17 23:57 98.5 69 18 104/58 (73) 97 12/21/17 20:10 98.9 65 17 108/68 (81) 96 12/21/17 16:00 99.3 97 18 110/59 (76) 95 I/O 12/21/17 12/21/17 12/21/17 12/22/17 12/22/17 12/22/17 06:59 14:59 22:59 06:59 14:59 22:59 Intake Total 480 ml 1200 ml 360 ml 480 ml Balance 480 ml 1200 ml 360 ml 480 ml Intake Oral 480 ml 1200 ml 360 ml 480 ml # Voids 3 4 4 4 # Bowel Movements 0 4 0 0 Result Diagram: 12/21/17 0645 12/22/17 1343 Imaging Last Impressions Cholangiopancreatography MRI 12/20/17 0000 Signed Impressions: Service Date/Time: Wednesday, December 20, 2017 07:25 - CONCLUSION: 1. No evidence of choledocholithiasis. 2. Edematous appearance of the pancreas with adjacent fluid consistent with the clinical history of acute pancreatitis. There are bilateral pleural effusions associated with a small amount of ascites and extensive subcutaneous edema identified in the dependent portions of the abdomen. 3. Mild dilation of the left renal collecting system. No obstructing stone is visualized. This may be reactive to the acute inflammation from the pancreas.. Maris Delgado MD Cholangiogram 12/19/17 0000 Signed Impressions: Service Date/Time: Tuesday, December 19, 2017 08:13 - CONCLUSION: No evidence of common duct stone. Pio Clark MD FACR Gall Bladder Ultrasound 12/18/17 0000 Signed Impressions: Service Date/Time: December 08:01 - CONCLUSION: 1. Small cholesterol polyp in the gallbladder wall. No gallstones or pericholecystic fluid identified. Torsten Clark MD Chest X-Ray 12/18/17 0000 Signed Impressions: Service Date/Time: December 04:44 - CONCLUSION: Underinflation with mild bibasilar opacity most likely representing atelectasis given the underinflation. Fernando Stephen MD Hepatobiliary Scan Nuclear Medicine 12/16/17 0000 Signed Impressions: Service Date/Time: Saturday, December 16, 2017 12:45 - CONCLUSION: 1. No evidence of acute cholecystitis. Decreased ejection fraction from the gallbadder that can be seen with chronic cholecystitis. 2. Mild biliary gastric reflux Bobby Humphreys MD Abdomen/Pelvis CT 12/15/17 2303 Signed Impressions: Service Date/Time: Friday, December 15, 2017 23:58 - CONCLUSION: Fluid and inflammatory change in the upper abdomen that is most closely associated with the pancreas and there are features suggesting pancreatic edema. Findings are highly suspicious for acute pancreatitis. Suggest correlating with amylase and lipase bodies. There are no findings to indicate pancreatic necrosis. Fernando Stephen MD Objective Remarks GEN: Well-developed, well-nourished patient. No acute distress. Skin: Incision sites are clean dry and intact CV: Regular rate and rhythm without obvious murmurs LUNGS: Clear to auscultation bilaterally. Normal respiratory effort. No wheezes , rales, rhonchi. GI: Soft, nontender, nondistended. No palpable masses. Bowel sounds WNL. EXT: No edema. NEURO/PSYCH: Afocal. Awake, alert, and oriented x3. Appropriate insight and judgment. Procedures Laparoscopic Cholecystectomy with intraoperative cholangiogram with intraoperative use of fluoroscopy Medications and IVs Current Medications Medications (Trade) Dose Ordered Sig/Eleuterio Route Start Time Stop Time Status Last Admin (NS Flush) 2 ml UNSCH PRN IV FLUSH 12/16/17 01:00 12/20/17 11:47 (NS Flush) 2 ml BID IV FLUSH 12/16/17 09:00 12/22/17 07:56 (Zofran Inj) 4 mg Q6H PRN IVP 12/16/17 01:00 12/22/17 07:54 (Anne Marie-Colace) 1 tab BID PO 12/16/17 09:00 12/21/17 19:28 (Milk Of Magnesia Liq) 30 ml Q12H PRN PO 12/16/17 01:00 (Senokot) 17.2 mg Q12H PRN PO 12/16/17 01:00 (Dulcolax Supp) 10 mg DAILY PRN RECTAL 12/16/17 01:00 (Lactulose Liq) 30 ml DAILY PRN PO 12/16/17 01:00 (Lovenox Inj) 40 mg DAILY SQ 12/16/17 14:23 Future Hold 12/18/17 08:44 (D50w (Vial) Inj) 50 ml UNSCH PRN IV PUSH 12/17/17 08:30 (Glucagon Inj) 1 mg UNSCH PRN OTHER 12/17/17 08:30 (NovoLOG SUPPLEMENTAL SCALE) 1 ACHS SLIDING SCALE SQ 12/17/17 12:00 12/19/17 12:00 (Proair Hfa Inh) 2 puff Q6H PRN INH 12/17/17 17:45 12/18/17 05:18 (ZyrTEC) 10 mg DAILY PO 12/18/17 09:00 12/22/17 07:55 (Valium) 10 mg BID PRN PO 12/17/17 17:45 (Cymbalta Dr) 20 mg DAILY PO 12/18/17 09:00 12/22/17 07:55 (Neurontin) 800 mg QID PO 12/17/17 18:00 12/22/17 07:55 (Synthroid) 75 mcg DAILY@0600 PO 12/18/17 06:00 12/22/17 03:50 (Topamax) 50 mg TID PO 12/17/17 18:00 12/22/17 07:54 (Ambien) 5 mg HS PRN PO 12/17/17 21:00 12/19/17 00:53 (Lasix) 40 mg DAILY PO 12/19/17 09:00 Future hold 12/21/17 08:18 (Narcan Inj) 0.4 mg UNSCH PRN IV PUSH 12/20/17 13:15 (Protonix Inj) 40 mg Q12H IV PUSH 12/20/17 16:00 12/22/17 03:48 Lactated Ringer's 1,000 ml @ 30 mls/hr Q24H PRN IV 12/20/17 21:15 12/23/17 21:14 Sodium Chloride 500 ml @ 30 mls/hr [id number] PRN IV 12/20/17 21:15 12/23/17 21:14 (Lopressor) 25 mg GAMING MANAGER PRN PO 12/20/17 21:15 12/23/17 21:14 (Betadine 5% Antisepsis Kit) 1 applic GAMING MANAGER PRN EACH NARE 12/20/17 21:15 12/23/17 21:14 (Chlorhexidine 2% Cloth) 3 pack GAMING MANAGER PRN TOPICAL 12/20/17 21:15 12/23/17 21:14 (Lasix) 40 mg Q6H PO 12/22/17 08:00 12/22/17 20:01 12/22/17 07:54 (Ultram) 50 mg Q4H PRN PO 12/22/17 13:00 Potassium Chloride 100 ml @ 50 mls/hr Q2H IV 12/22/17 15:15 12/22/17 19:14 Urinary Catheter: No Vascular Central Line Catheter: No A/P Problem List: (1) Acute pancreatitis ICD Code: K85.90 - Acute pancreatitis without necrosis or infection, unspecified Status: Acute Assessment and Plan This is a 57-year-old female with gallstone pancreatitis Gallstone pancreatitis status post cholecystectomy with intraoperative cholangiogram with intraoperative use of fluoroscopy. Clinically stable continue supportive treatment with IV hydration and pain management consult regarding narcotics start p.o. Dilaudid. Patient has distal CBD, GI has been consulted for EGD with ERCP planned for tomorrow 12/22/17 Fevers secondary to above. SP IV Zosyn. Discontinued 12/22 as per GS. Fevers resolved. Monitor temps. Multiple medical conditions asthma, Anemia, Rheumatoid arthritis, Fibromyalgia, Bipolar disorder, Gen. anxiety disorder, Depression, Mitral valve prolapse, Angina, Hypertension, TIA, Hyperlipidemia, Migraine headaches, Chronic back pain and Hypothyroidism. Continue outpatient medications as appropriate Severe hypokalemia: Potassium was 2.7. Hold Lasix for carol. Replace with IV KCL and oral potassium. DVT prophylaxis with SCD and Lovenox Problem Qualifiers (1) Acute pancreatitis: Qualified Codes: K85.10 - Biliary acute pancreatitis without necrosis or infection Noe Hardin MD Dec 22, 2017 15:51
[2017-12-22 16:00] VITALS: BP 112/68; PULSE 78; RESP 18; TEMP 99; O2SAT 96
[2017-12-22] MEDS: POTASSIUM CHLOR 20 MEQ PREMIX 100 ML IV SCH ×2 (18:58→21:39)
[2017-12-22 20:49] VITALS: BP 125/79; PULSE 75; RESP 18; TEMP 98.9; O2SAT 96
[2017-12-23 00:50] VITALS: BP 129/77; PULSE 72; RESP 18; TEMP 98.7; O2SAT 95
[2017-12-23] MEDS: traMADol HCL 50 MG TAB PO PRN ×5 (04:32→21:51)
[2017-12-23] MEDS: PANTOPRAZOLE SODIUM 40 MG VIAL IV PUSH SCH ×2 (04:33→16:49)
[2017-12-23] MEDS: LEVOTHYROXINE SODIUM 75 MCG TAB PO SCH (05:42)
[2017-12-23 08:00] VITALS: BP 124/72; PULSE 72; RESP 18; TEMP 97.3; O2SAT 97
[2017-12-23] MEDS: INSULIN ASPART SUPPLEMENTAL SCALE SQ SCH ×4 (08:00→20:58)
[2017-12-23] MEDS: TOPIRAMATE 25 MG TAB PO SCH ×3 (08:37→17:33)
[2017-12-23] MEDS: CETIRIZINE HCL 10 MG TAB PO SCH (08:38)
[2017-12-23] MEDS: DULoxetine HCl DR 20 MG CAP PO SCH (08:38)
[2017-12-23] MEDS: GABAPENTIN 400 MG CAP PO SCH ×4 (08:38→20:58)
[2017-12-23] MEDS: FUROSEMIDE 40 MG TAB PO SCH (09:00)
[2017-12-23] MEDS: SODIUM CHLORIDE 0.9% FLUSH 10 ML FLUSH IV FLUSH SCH ×2 (09:00→20:59)
[2017-12-23] MEDS: DOCUSATE SODIUM 50 MG/SENNA 8.6 MG TAB PO SCH ×2 (09:00→20:58)
--- NOTE | 2017-12-23 09:49 | HHI.DS ---
Discharge Summary Admission Date Dec 16, 2017 at 10:39 Discharge Date: Dec 23, 2017 Admitting Diagnosis acute pancreatitis. Transaminitis. (1) Gallstone pancreatitis ICD Code: K85.10 - Biliary acute pancreatitis without necrosis or infection Diagnosis: Principal Status: Resolved (2) Hypokalemia due to loss of potassium ICD Code: E87.6 - Hypokalemia Diagnosis: Principal Status: Resolved (3) Status post laparoscopic cholecystectomy ICD Code: Z90.49 - Acquired absence of other specified parts of digestive tract Diagnosis: Principal Status: Acute (4) Edema of both legs ICD Code: R60.0 - Localized edema Diagnosis: Principal Status: Acute (5) Fever ICD Code: R50.9 - Fever, unspecified Diagnosis: Principal Status: Resolved Procedures Laparoscopic Cholecystectomy with intraoperative cholangiogram with intraoperative use of fluoroscopy Brief History - From Admission Mrs. Rey is a 57-year-old female. She came in secondary to severe abdominal pain which is epigastric and pierces to her back. Testing shows a severe pancreatitis with lipase of 11,789. CT imaging also shows evidence of pancreatitis. The patient has no previous episode of pancreatitis. She says she drinks alcohol about once a year. She had some alcohol on the night preceding this episode, she consumed 2 drinks. She also reported an episode of nausea and vomiting last night. She does have a past history of biliary sludge and was recommended to have a cholecystectomy in the past. This may also be contributory and a HIDA scan has been ordered and is pending. No other complaints. No fevers. CBC/BMP: 12/21/17 0645 12/22/17 1343 Significant Findings Laboratory Tests Test 12/21/17 06:45 12/22/17 13:43 Red Blood Count 3.28 MIL/MM3 (4.00-5.30) Hemoglobin 9.9 GM/DL (11.6-15.3) Hematocrit 29.6 % (35.0-46.0) Creatinine 1.08 MG/DL (0.50-1.00) 1.01 MG/DL (0.50-1.00) Total Protein 5.7 GM/DL (6.4-8.2) Albumin 2.0 GM/DL (3.4-5.0) 2.2 GM/DL (3.4-5.0) Calcium Level 7.8 MG/DL (8.5-10.1) 8.2 MG/DL (8.5-10.1) Potassium Level 2.8 MEQ/L (3.5-5.1) 2.7 MEQ/L (3.5-5.1) Estimat Glomerular Filtration Rate 52 ML/MIN (>89) 57 ML/MIN (>89) Blood Urea Nitrogen 5 MG/DL (7-18) Carbon Dioxide Level 33.2 MEQ/L (21.0-32.0) Anion Gap 4 MEQ/L (5-15) Imaging Last Impressions Cholangiopancreatography MRI 12/20/17 0000 Signed Impressions: Service Date/Time: Wednesday, December 20, 2017 07:25 - CONCLUSION: 1. No evidence of choledocholithiasis. 2. Edematous appearance of the pancreas with adjacent fluid consistent with the clinical history of acute pancreatitis. There are bilateral pleural effusions associated with a small amount of ascites and extensive subcutaneous edema identified in the dependent portions of the abdomen. 3. Mild dilation of the left renal collecting system. No obstructing stone is visualized. This may be reactive to the acute inflammation from the pancreas.. Maris Delgado MD Cholangiogram 12/19/17 0000 Signed Impressions: Service Date/Time: Tuesday, December 19, 2017 08:13 - CONCLUSION: No evidence of common duct stone. Pio Clark MD FACR Gall Bladder Ultrasound 12/18/17 0000 Signed Impressions: Service Date/Time: December 08:01 - CONCLUSION: 1. Small cholesterol polyp in the gallbladder wall. No gallstones or pericholecystic fluid identified. Torsten Clark MD Chest X-Ray 12/18/17 0000 Signed Impressions: Service Date/Time: December 04:44 - CONCLUSION: Underinflation with mild bibasilar opacity most likely representing atelectasis given the underinflation. Fernando Stephen MD Hepatobiliary Scan Nuclear Medicine 12/16/17 0000 Signed Impressions: Service Date/Time: Saturday, December 16, 2017 12:45 - CONCLUSION: 1. No evidence of acute cholecystitis. Decreased ejection fraction from the gallbadder that can be seen with chronic cholecystitis. 2. Mild biliary gastric reflux Bobby Humphreys MD Abdomen/Pelvis CT 12/15/17 2304 Signed Impressions: Service Date/Time: Friday, December 15, 2017 23:58 - CONCLUSION: Fluid and inflammatory change in the upper abdomen that is most closely associated with the pancreas and there are features suggesting pancreatic edema. Findings are highly suspicious for acute pancreatitis. Suggest correlating with amylase and lipase bodies. There are no findings to indicate pancreatic necrosis. Fernando Stephen MD PE at Discharge GEN: Well-developed, well-nourished patient. No acute distress. Skin: Incision sites are clean dry and intact CV: Regular rate and rhythm without obvious murmurs LUNGS: Clear to auscultation bilaterally. Normal respiratory effort. No wheezes , rales, rhonchi. GI: Soft, nontender, nondistended. No palpable masses. Bowel sounds WNL. EXT: No edema. NEURO/PSYCH: Afocal. Awake, alert, and oriented x3. Appropriate insight and judgment. Pt update on day of discharge Patient denies cp/sob. Afebrile. Tolerating diet. Abdominal pain better and controlled. Pt Condition on Discharge: Stable Discharge Disposition: Discharge Home Discharge Time: <= 30 minutes Discharge Instructions DIET: Follow Instructions for: Heart Healthy Diet Activities you can perform: Regular-No Restrictions Activities to Avoid: Prolonged Standing, Strenuous Activity Follow up Referrals: Gastroenterology - 1 Week PCP Follow-up - 1 Week Surgical - 1 Week New Medications: Hydromorphone (Dilaudid) 2 Mg Tab 2 MG PO Q6H PRN for PAIN SCALE 6 TO 10, #30 TAB Continued Medications: Albuterol 18 GM Inh (Ventolin Hfa 18 GM Inh) 90 Mcg/Act Aer 2 PUFF INH Q4-6H PRN for SHORTNESS OF BREATH, #1 INHALER 0 Refills Aspirin (Aspir-81) 81 Mg Tabdr Cetirizine (Cetirizine) 10 Mg Chew 10 MG CHEW DAILY for Allergies, TAB 0 Refills Diazepam (Diazepam) 10 Mg Tab 10 MG PO BID PRN for ANXIETY, TAB 0 Refills Managed by Psychiatry Duloxetine (Yasmeen CARRANZA) 20 Mg Capdr 20 MG PO DAILY, #30 CAP 0 Refills Managed by Psychiatry Furosemide (Lasix) 40 Mg Tab 40 MG PO DAILY for Fluid retention, #30 TAB 0 Refills Gabapentin (Gabapentin) 800 Mg Tab 800 MG PO QID for Fibromyalgia, #120 TAB 2 Refills Levothyroxine (Levothyroxine) 75 Mcg Tab 75 MCG PO DAILY for Thyroid, #30 TAB 0 Refills Topiramate (Topamax) 50 Mg Tab 50 MG PO TID for MIGRAINES, #60 TAB 0 Refills Managed by Psychiatry Zolpidem (Zolpidem) 5 Mg Tab 5 MG PO HS PRN for INSOMNIA, TAB 0 Refills Managed by Psychiatry Noe Hardin MD Dec 23, 2017 09:49
[2017-12-23 11:23] LABS: BICARBONATE 24.8 MEQ/L (21.0-32.0); CREATININE 0.91 MG/DL (0.50-1.00)
[2017-12-23 12:00] VITALS: BP 128/75; PULSE 74; RESP 18; TEMP 97.7; O2SAT 97
[2017-12-23] MEDS ORDERED: POTASSIUM CHLORIDE 10 MEQ CONTROLLED RELEASE TAB PO ONE (13:15)
[2017-12-23] MEDS: POTASSIUM CHLOR 20 MEQ PREMIX 100 ML IV SCH ×2 (14:44→16:49)
[2017-12-23 16:00] VITALS: BP 137/81; PULSE 72; RESP 18; TEMP 97.8; O2SAT 98
[2017-12-23 20:00] VITALS: BP 119/75; PULSE 71; RESP 15; TEMP 97.9; O2SAT 98
[2017-12-23 21:30] LABS: BICARBONATE 26.6 MEQ/L (21.0-32.0); CALCIUM 8.2 MG/DL (8.5-10.1); CREATININE 1.01 MG/DL (0.50-1.00)
[2017-12-24] VITALS: BP 122/75; PULSE 73; RESP 15; O2SAT 95
[2017-12-24] MEDS: PANTOPRAZOLE SODIUM 40 MG VIAL IV PUSH SCH (00:21)
[2017-12-24] MEDS: LEVOTHYROXINE SODIUM 75 MCG TAB PO SCH (05:08)
[2017-12-24] MEDS: traMADol HCL 50 MG TAB PO PRN ×2 (05:08→14:15)
[2017-12-24] MEDS: TOPIRAMATE 25 MG TAB PO SCH (07:35)
[2017-12-24] MEDS: DULoxetine HCl DR 20 MG CAP PO SCH (07:35)
[2017-12-24] MEDS: CETIRIZINE HCL 10 MG TAB PO SCH (07:35)
[2017-12-24] MEDS: GABAPENTIN 400 MG CAP PO SCH (07:35)
[2017-12-24] MEDS ORDERED: POTA20TA5 PO (11:31)
--- NOTE | 2017-12-24 13:31 | HHI.PR ---
Subjective Remarks Patient seen and examined Potassium improved She denies any nausea and vomiting No acute event overnight Vitals stable Objective Vitals Vital Signs Date Time Temp Pulse Resp B/P (MAP) Pulse Ox O2 Delivery O2 Flow Rate FiO2 12/24/17 00:00 73 15 122/75 (91) 95 12/23/17 20:00 97.9 71 15 119/75 (90) 98 12/23/17 16:00 97.8 72 18 137/81 (99) 98 I/O 12/23/17 12/23/17 12/23/17 12/24/17 12/24/17 12/24/17 07:00 15:00 23:00 07:00 15:00 23:00 Intake Total 580 ml 720 ml 300 ml 100 ml Balance 580 ml 720 ml 300 ml 100 ml Intake Oral 480 ml 720 ml 300 ml 100 ml IV Total 100 ml # Voids 3 7 4 # Bowel Movements 0 0 Result Diagram: 12/21/17 0645 12/23/172051 Imaging Last Impressions Cholangiopancreatography MRI 12/20/17 0000 Signed Impressions: Service Date/Time: Wednesday, December 20, 2017 07:25 - CONCLUSION: 1. No evidence of choledocholithiasis. 2. Edematous appearance of the pancreas with adjacent fluid consistent with the clinical history of acute pancreatitis. There are bilateral pleural effusions associated with a small amount of ascites and extensive subcutaneous edema identified in the dependent portions of the abdomen. 3. Mild dilation of the left renal collecting system. No obstructing stone is visualized. This may be reactive to the acute inflammation from the pancreas.. Maris Delgado MD Cholangiogram 12/19/17 0000 Signed Impressions: Service Date/Time: Tuesday, December 19, 2017 08:13 - CONCLUSION: No evidence of common duct stone. Pio Clark MD FACR Gall Bladder Ultrasound 12/18/17 0000 Signed Impressions: Service Date/Time: December 08:01 - CONCLUSION: 1. Small cholesterol polyp in the gallbladder wall. No gallstones or pericholecystic fluid identified. Torsten Clark MD Chest X-Ray 12/18/17 0000 Signed Impressions: Service Date/Time: December 04:44 - CONCLUSION: Underinflation with mild bibasilar opacity most likely representing atelectasis given the underinflation. Fernando Stephen MD Hepatobiliary Scan Nuclear Medicine 12/16/17 0000 Signed Impressions: Service Date/Time: Saturday, December 16, 2017 12:45 - CONCLUSION: 1. No evidence of acute cholecystitis. Decreased ejection fraction from the gallbadder that can be seen with chronic cholecystitis. 2. Mild biliary gastric reflux Bobby Humphreys MD Abdomen/Pelvis CT 12/15/17 2303 Signed Impressions: Service Date/Time: Friday, December 15, 2017 23:58 - CONCLUSION: Fluid and inflammatory change in the upper abdomen that is most closely associated with the pancreas and there are features suggesting pancreatic edema. Findings are highly suspicious for acute pancreatitis. Suggest correlating with amylase and lipase bodies. There are no findings to indicate pancreatic necrosis. Fernando Stephen MD Objective Remarks GENERAL: NAD SKIN: Warm and dry. HEAD: Normocephalic. EYES: No scleral icterus. No injection or drainage. NECK: Supple, trachea midline. No JVD or lymphadenopathy. CARDIOVASCULAR: Regular rate and rhythm without murmurs, gallops, or rubs. RESPIRATORY: Breath sounds equal bilaterally. No accessory muscle use. GASTROINTESTINAL: Abdomen soft, non-tender, nondistended. MUSCULOSKELETAL: No cyanosis, or edema. BACK: Nontender without obvious deformity. No CVA tenderness. Procedures Laparoscopic Cholecystectomy with intraoperative cholangiogram with intraoperative use of fluoroscopy A/P Problem List: (1) Gallstone pancreatitis ICD Code: K85.10 - Biliary acute pancreatitis without necrosis or infection Status: Resolved (2) Hypokalemia due to loss of potassium ICD Code: E87.6 - Hypokalemia Status: Resolved (3) Status post laparoscopic cholecystectomy ICD Code: Z90.49 - Acquired absence of other specified parts of digestive tract Status: Acute (4) Edema of both legs ICD Code: R60.0 - Localized edema Status: Acute (5) Fever ICD Code: R50.9 - Fever, unspecified Status: Resolved Assessment and Plan 57-year-old female with Gallstone pancreatitis status post cholecystectomy with intraoperative cholangiogram with intraoperative use of fluoroscopy. Clinically stable continue supportive care. Patient has distal CBD, GI has been consulted s/p EGD with ERCP 12/22/17 Fevers secondary to above. SP IV Zosyn. Multiple medical conditions asthma, Anemia, Rheumatoid arthritis, Fibromyalgia, Bipolar disorder, Gen. anxiety disorder, Depression, Mitral valve prolapse, Angina, Hypertension, TIA, Hyperlipidemia, Migraine headaches, Chronic back pain and Hypothyroidism. Continue outpatient medications as appropriate Severe hypokalemia: Resolved DVT prophylaxis with SCD and Lovenox Bryan Hilton MD Dec 24, 2017 13:31
[2017-12-25] MEDS ORDERED: POTASSIUM CHLORIDE 20 MEQ CONTROLLED RELEASE TAB PO SCH (09:00)
== END 2017-12-24 14:38 | disposition home or self-care (01) | DRG 419 ==
LOC: PHED 20:53 → PHEDA 12-16 00:50 → UNDOADMIN 12-16 00:50 → INTOOBSV 12-16 00:58 → PHEDA 12-16 00:58 → PH3B 12-16 02:31 → OBSVTOIN 12-16 10:39 → N06B 12-19 14:03
PROVIDERS: ADMIT Hospitalist; ATTEND Hospitalist
PROC: BF111ZZ Fluoroscopy of Biliary and Pancreatic Ducts using Low Osmolar Contrast (ICD-10-PCS; 2017-12-19)
PROC: 0FT44ZZ Resection of Gallbladder, Percutaneous Endoscopic Approach (ICD-10-PCS; principal; 2017-12-19 07:29)
DX: K85.10 Biliary acute pancreatitis without necrosis or infection (principal); K80.70 Calculus of gallbladder and bile duct without cholecystitis without obstruction; I10 Essential (primary) hypertension; E87.6 Hypokalemia; K21.9 Gastro-esophageal reflux disease without esophagitis; J45.909 Unspecified asthma, uncomplicated; E03.9 Hypothyroidism, unspecified; D64.9 Anemia, unspecified; F31.9 Bipolar disorder, unspecified; E78.5 Hyperlipidemia, unspecified; G89.29 Other chronic pain; M06.9 Rheumatoid arthritis, unspecified; M79.7 Fibromyalgia; F41.1 Generalized anxiety disorder; I34.1 Nonrheumatic mitral (valve) prolapse; G43.909 Migraine, unspecified, not intractable, without status migrainosus; R60.0 Localized edema; R50.9 Fever, unspecified; R73.9 Hyperglycemia, unspecified; Z86.73 Personal history of transient ischemic attack (TIA), and cerebral infarction without residual deficits; Z85.41 Personal history of malignant neoplasm of cervix uteri; Z88.6 Allergy status to analgesic agent; Z88.5 Allergy status to narcotic agent
CPT/HCPCS: 71045; 74177; 74181; 74300; 76377; 76705; 76937; 78227; 80048; 80053; 81001; 82948; 83036; 83690; 83735; 84132; 84133; 85025; 85610; 85730; 87040; 87070; 87205; 88304; 94150; 96361; 96374; 96375; A9537; C9113; J1100; J1170; J1650; J1815; J2175; J2270; J2405; J2543; J2710; J2805; J3010; J3480; J7030; J7120; J7613; Q9967

== ENCOUNTER 2017-12-29 10:57 | Observation (INO) | payer OTHER ==
[~2017-12-29] VITALS: Ht 162.6 cm; Wt 90.9 kg
[~2017-12-29 10:57] MED LIST changes: +DILA2TAB4 PO; -DIPH1GEL TOPICAL; -PANT40TA3 PO; +POTA20TA5 PO; -PROM25TA10 PO
[2017-12-29 11:00] VITALS: BP 152/92; PULSE 101; RESP 16; TEMP 97.9; O2SAT 98
[2017-12-29] MEDS ORDERED: SODIUM CHLOR 0.9% 1000 ML INJ 1,000 ML IV SCH (11:17)
[2017-12-29] MEDS ORDERED: ONDANSETRON HCL 4 MG/2 ML VIAL IVP ONE (11:30)
[2017-12-29] MEDS ORDERED: SODIUM CHLORIDE 0.9% FLUSH 10 ML FLUSH IV FLUSH PRN ×2 (11:30→15:45)
[2017-12-29 11:43] LABS: AUTOMATED NEUTROPHIL # 4.3 TH/MM3 (1.8-7.7); BASOPHIL % 0.5 % (0.0-2.0); EOSINOPHIL # 0.1 TH/MM3 (0-0.4); EOSINOPHIL % 2.1 % (0.0-4.0); HEMATOCRIT 41.5 % (35.0-46.0); LYMPHOCYTE # 1.8 TH/MM3 (1.0-4.8); MEAN CELL VOLUME 87.8 FL (80.0-100.0); MEAN CORPUSCULAR HEMOGLOBIN 29.6 PG (27.0-34.0); MEAN CORPUSCULAR HGB CONC 33.7 % (32.0-36.0); MEAN PLATELET VOLUME 7.5 FL (7.0-11.0); MONO % 5.7 % (0.0-8.0); MONOCYTE # 0.4 TH/MM3 (0-0.9); NEUT % 64.7 % (16.0-70.0); PLATELET COUNT 382 TH/MM3 (150-450); RED BLOOD COUNT 4.73 MIL/MM3 (4.00-5.30); RED CELL DISTRIBUTION WIDTH 14.6 % (11.6-17.2); WHITE BLOOD COUNT 6.7 TH/MM3 (4.0-11.0)
[2017-12-29 12:02] LABS: BLOOD, URINE NEG (NEG); GLUCOSE,URINE TRACE mg/dL (NEG); HYALINE CAST, URINE 76 /lpf (RARE); KETONE, URINE NEG (NEG); MUCUS URINE MANY /lpf (OCC); NITRITE,URINE NEG (NEG); PH, URINE 5.5 (5.0-8.5); SQUAMOUS EPITHELIAL CELL URINE 10 /hpf (0-5); URINE COLOR YELLOW (YELLW/STRAW); URINE LEUKOCYTE ESTERASE SMALL (NEG)
[2017-12-29 12:03] VITALS: BP 104/67; PULSE 81; RESP 17; O2SAT 96
[2017-12-29 12:03] LABS: ALBUMIN 3.2 GM/DL (3.4-5.0); AST (GOT) 20 U/L (15-37); BICARBONATE 20.8 MEQ/L (21.0-32.0); BLOOD UREA NITROGEN 11 MG/DL (7-18); CALCIUM 9.2 MG/DL (8.5-10.1); CHLORIDE 107 MEQ/L (98-107); GLOMERULAR FILTRATION RATE 46 ML/MIN (>89); GLUCOSE,RANDOM 135 MG/DL (74-106); SODIUM (NA) 140 MEQ/L (136-145)
[2017-12-29 12:07] LABS: ALKALINE PHOSPHATASE 130 U/L (45-117); ALT (GPT) 30 U/L (10-53); TOTAL BILIRUBIN ADULT 0.4 MG/DL (0.2-1.0); TOTAL PROTEIN 8.3 GM/DL (6.4-8.2)
[2017-12-29 12:08] LABS: BILIRUBIN, URINE NEG (NEG)
[2017-12-29] MEDS ORDERED: POTASSIUM CHLORIDE 20 MEQ CONTROLLED RELEASE TAB PO ONE ×2 (12:15→16:00)
--- NOTE | 2017-12-29 12:44 | PD ---
HPI Chief Complaint: Abdominal Pain Time Seen by Provider: 11:10 Travel History International Travel<30 days: No Contact w/Intl Traveler<30days: No Traveled to known affect area: No History of Present Illness HPI This is a 57-year-old female who is status post cholecystectomy 10 days ago, secondary to gallstone induced pancreatitis and transaminase elevation. Patient presents today with complaints of continued abdominal pain with associated nausea vomiting and decreased p.o. intake. Patient states that when she was admitted last, she had noted that she had low potassium. She states it took several days for them to normalize her potassium after the surgery. She denies any diarrhea. She does report fevers and states her temperature was as high as 103.0 yesterday. There is no cough or shortness of breath. There is no drainage from her surgical site. PFSH Past Medical History Anemia: Yes Arthritis: Yes (RA, FIBROMYALGIA) Asthma: Yes Bipolar Disorder: Yes Anxiety: Yes Depression: Yes Heart Rhythm Problems: Yes (MITRAL VALVE PROLAPSE) Cancer: Yes (cervical cancer per pt) Cardiac Catheterization: No Cardiovascular Problems: Yes (htn on meds, MVP/CHEST PAIN.) High Cholesterol: Yes Chemotherapy: No Congestive Heart Failure: No Cerebrovascular Accident: Yes (hx of tia) Coronary Artery Disease: Yes (MITRAL VALVE PROLAPSE) Diabetes: Yes (new, takes nothing per the pt) Patient Takes Glucophage: No Diminished Hearing: Yes Diverticulitis: Yes Fibromyalgia: Yes Gastrointestinal Disorders: Yes (DIVERTICULITIS, POLYPS) GERD: Yes Genitourinary: Yes Headaches: Yes Hepatitis: Yes (MIGRAINES) Herniated Disk: Yes Hypertension: Yes Kidney Stones: Yes Musculoskeletal: Yes (BACK PAIN) Neurologic: Yes Psychiatric: Yes (per pt hx of Bipolar and depression) Reproductive: Yes (CERVICAL CA) Respiratory: Yes Immunizations Current: Yes Migraines: Yes Radiation Therapy: No Seizures: No Thyroid Disease: Yes (HYPO) Menopausal: Yes Past Surgical History Cholecystectomy: Yes Coronary Artery Bypass Graft: No Eye Surgery: Yes (BILATERAL "LAZY EYE" CORRECTION, CHILD) Genitourinary Surgery: Yes (URETHRAL SURGERY) Pacemaker: No Other Surgery: Yes Family History Family Myocardial Infarction: Yes Social History Alcohol Use: Yes (RARELY) Tobacco Use: No Substance Use: No Allergies-Medications (Allergen,Severity, Reaction): Coded Allergies: butorphanol (Verified Allergy, Severe, "I GO CRAZY", 12/29/17) HALLUCINATIONS acetaminophen (Verified Allergy, Intermediate, Rash, 12/29/17) oxycodone (Verified Allergy, Intermediate, Rash, 12/29/17) Reported Meds & Prescriptions Reported Meds & Active Scripts Active Potassium Chloride Microencaps 20 Meq Tab 20 Meq PO DAILY Dilaudid (Hydromorphone HCl) 2 Mg Tab 2 Mg PO Q6H PRN Gabapentin 800 Mg Tab 800 Mg PO QID Lasix (Furosemide) 40 Mg Tab 40 Mg PO DAILY Reported Cetirizine (Cetirizine HCl) 10 Mg Chew 10 Mg CHEW DAILY Aspir-81 (Aspirin) [address] (Duloxetine HCl) 20 Mg Capdr 20 Mg PO DAILY Managed by Psychiatry Zolpidem (Zolpidem Tartrate) 5 Mg Tab 5 Mg PO HS PRN Managed by Psychiatry Topamax (Topiramate) 50 Mg Tab 50 Mg PO TID Managed by Psychiatry Levothyroxine (Levothyroxine Sodium) 75 Mcg Tab 75 Mcg PO DAILY Diazepam 10 Mg Tab 10 Mg PO BID PRN Managed by Psychiatry Ventolin Hfa 18 GM Inh (Albuterol Sulfate) 90 Mcg/Act Aer 2 Puff INH Q4-6H PRN Review of Systems Except as stated in HPI: all other systems reviewed are Neg General / Constitutional: Positive: Fever, No: Chills HENT: No: Headaches, Lightheadedness, Neck Pain Cardiovascular: No: Chest Pain or Discomfort, Palpitations Respiratory: No: Cough, Shortness of Breath Gastrointestinal: Positive: Nausea, Vomiting, Abdominal Pain (Generalized), No : Diarrhea Genitourinary: No: Frequency, Dysuria Musculoskeletal: No: Weakness, Pain Skin: No Rash Neurologic: No: Weakness, Dizziness, Headache Physical Exam Narrative GENERAL: Well-nourished, well-developed patient, in no acute respiratory distress. SKIN: Focused skin assessment warm/dry. HEAD: Normocephalic/atraumatic. EYES: No scleral icterus. No injection or drainage. NECK: Supple, trachea midline. CARDIOVASCULAR: Regular rate and rhythm without murmurs, gallops, or rubs. RESPIRATORY: Breath sounds equal bilaterally. No accessory muscle use. No rales or rhonchi appreciated. GASTROINTESTINAL: Abdomen soft, nondistended. On examination of the patient's surgical sites, there is no drainage or diffuse redness. MUSCULOSKELETAL: No cyanosis, or edema. BACK: Nontender without obvious deformity. No CVA tenderness. NEUROLOGICAL: Awake and alert. Cranial nerves II through XII intact. Motor grossly within normal limits. Five out of 5 muscle strength in all muscle groups. Normal speech. Data Data Last Documented VS Vital Signs Date Time Temp Pulse Resp B/P (MAP) Pulse Ox O2 Delivery O2 Flow Rate FiO2 12/29/17 12:03 81 17 104/67 (79) 96 Room Air 12/29/17 11:00 97.9 Orders Orders Complete Blood Count With Diff (12/29/17 11:17) Comprehensive Metabolic Panel (12/29/17 11:17) Lipase (12/29/17 11:17) Lactic Acid (12/29/17 11:17) Urinalysis - C+S If Indicated (12/29/17 11:17) Iv Access Insert/Monitor (12/29/17 11:17) Ecg Monitoring (12/29/17 11:17) Oximetry (12/29/17 11:17) Ondansetron Inj (Zofran Inj) (12/29/17 11:30) Sodium Chlor 0.9% 1000 Ml Inj (Ns 1000 M (12/29/17 11:17) Sodium Chloride 0.9% Flush (Ns Flush) (12/29/17 11:30) Ct Abd/Pel W Iv Contrast(Rout) (12/29/17 12:12) Potassium Chloride (Kcl) (12/29/17 12:15) Oral Contrast - Adult (12/29/17 12:38) Diatrizoate Liq ( Gastroview Liq) (12/29/17 12:46) Iohexol 350 Inj (Omnipaque 350 Inj) (12/29/17 14:00) Labs Laboratory Tests Test 12/29/17 11:15 12/29/17 11:20 12/29/17 11:30 White Blood Count 6.7 TH/MM3 Red Blood Count 4.73 MIL/MM3 Hemoglobin 14.0 GM/DL Hematocrit 41.5 % Mean Corpuscular Volume 87.8 FL Mean Corpuscular Hemoglobin 29.6 PG Mean Corpuscular Hemoglobin Concent 33.7 % Red Cell Distribution Width 14.6 % Platelet Count 382 TH/MM3 Mean Platelet Volume 7.5 FL Neutrophils (%) (Auto) 64.7 % Lymphocytes (%) (Auto) 27.0 % Monocytes (%) (Auto) 5.7 % Eosinophils (%) (Auto) 2.1 % Basophils (%) (Auto) 0.5 % Neutrophils # (Auto) 4.3 TH/MM3 Lymphocytes # (Auto) 1.8 TH/MM3 Monocytes # (Auto) 0.4 TH/MM3 Eosinophils # (Auto) 0.1 TH/MM3 Basophils # (Auto) 0.0 TH/MM3 CBC Comment DIFF FINAL Differential Comment Blood Urea Nitrogen 11 MG/DL Creatinine 1.20 MG/DL Random Glucose 135 MG/DL Total Protein 8.3 GM/DL Albumin 3.2 GM/DL Calcium Level 9.2 MG/DL Alkaline Phosphatase 130 U/L Aspartate Amino Transf (AST/SGOT) 20 U/L Alanine Aminotransferase (ALT/SGPT) 30 U/L Total Bilirubin 0.4 MG/DL Sodium Level 140 MEQ/L Potassium Level 3.3 MEQ/L Chloride Level 107 MEQ/L Carbon Dioxide Level 20.8 MEQ/L Anion Gap 12 MEQ/L Estimat Glomerular Filtration Rate 46 ML/MIN Lipase 289 U/L Lactic Acid Level 2.1 mmol/L Urine Color YELLOW Urine Turbidity HAZY Urine pH 5.5 Urine Specific [place] 1.030 Urine Protein 30 mg/dL Urine Glucose (UA) TRACE mg/dL Urine Ketones NEG mg/dL Urine Occult Blood NEG Urine Nitrite NEG Urine Bilirubin NEG Urine Urobilinogen 2.0 MG/DL Urine Leukocyte Esterase SMALL Urine RBC 2 /hpf Urine WBC 3 /hpf Urine Squamous Epithelial Cells 10 /hpf Urine Hyaline Casts 76 /lpf Urine Mucus MANY /lpf Microscopic Urinalysis Comment CULT NOT INDICATED MDM Medical Decision Making Medical Screen Exam Complete: Yes Emergency Medical Condition: Yes Differential Diagnosis Postoperative pain versus intra-abdominal infection versus retained gallstone Narrative Course 57-year-old female status post cholecystectomy 10 days ago, presents today with complaints of intractable nausea and vomiting. Patient also reports loose stools. Patient states she has been not been able to hold anything down since being discharged home. She reports fever at home. The patient was noted to be mildly hypokalemic with a potassium of 3.3. Patient is also dehydrated with elevated creatinine above baseline. She has been given IV fluids. She is also beginning of IV pain medication. CT scan shows post surgical changes with small amount of fluid in the pelvis although no obvious abscess. There is also some peripancreatic enhancement. Given this, this is possible she could have subacute pancreatitis. I will admit her to the hospital for observation for bowel rest and IV fluid hydration. There is a call out to the hospitalist for this. Diagnosis Primary Impression: Intractable nausea and vomiting Additional Impressions: Peripancreatic enhancement, suspect subacute pancreatitis Recent cholecystectomy Admitting Information Admitting Physician Requests: Observation e[place]pe [place] MD Dec 29, 2017 12:44
[2017-12-29] MEDS ORDERED: DIATRIZOATE MEGLUM/DIATRIZOATE SOD 9 ML CUP ONE (12:46)
[2017-12-29] MEDS ORDERED: IOHEXOL 350 MG/ML 10 ML VIAL (for RAD DIAG) IVCONTRAST ONE (14:00)
--- NOTE | 2017-12-29 14:55 | RADRPT ---
EXAM DATE/TIME: 12/29/2017 13:55 [facility] COMPARISON: CT ABDOMEN & PELVIS W CONTRAST, December 15, 2017, 23:58. INDICATIONS : Abdominal pain, diarrhea, nausea IV CONTRAST: 97 cc Omnipaque 350 (iohexol) IV ORAL CONTRAST: Prescribed oral contrast ingested. RADIATION DOSE: 16.78 CTDIvol (mGy) MEDICAL HISTORY : Cerebrovascular disease. Cardiovascular disease Diverticulitis. SURGICAL HISTORY : Cholecystectomy. ENCOUNTER: Initial ACUITY: 4 - 6 days PAIN SCALE: 6/10 LOCATION: Bilateral Abdomen TECHNIQUE: Volumetric scanning of the abdomen and pelvis was performed. Using automated exposure control and ad justment of the mA and/or kV according to patient size, radiation dose was kept as low as reasonably achievable to obtain optimal diagnostic quality images. DICOM format image data is available electro nically for review and comparison. FINDINGS: LOWER LUNGS: The visualized lower lungs are clear. LIVER: Homogeneous density without lesion. There is no dilation of the biliary tree. Interval cholecystect argenis with a small amount of fluid in the gallbladder fossa.. SPLEEN: Normal size without lesion. PANCREAS: Again noted is fluid and inflammatory change surrounding the body and tail of the pancreas. The over all appearance is very similar to prior CT 12/15/17; the fluid collection adjacent to the posterior daniella l is slightly larger, measuring up to 2 cm. No fluid tracks along Gerota's fascia or into the [place] lic gutters. KIDNEYS: Normal in size and shape. There is no mass, stone or hydronephrosis. Stable cortical cyst mid pole left kidney measuring 1.2 cm. ADRENAL GLANDS: Within normal limits. VASCULAR: There is no aortic aneurysm. BOWEL/MESENTERY: No dilated loops of small or large bowel. ABDOMINAL WALL: Expected postsurgical changes in the trevon-umbilicus region. RETROPERITONEUM: There is no lymphadenopathy. BLADDER: No wall thickening or mass. REPRODUCTIVE: Within normal limits. INGUINAL: There is no lymphadenopathy or hernia. MUSCULOSKELETAL: Within normal limits for patient age. CONCLUSION: 1. Interval cholecystectomy with small amount of fluid in the gallbladder fossa. 2. Slight increase in size of one of the trevon-pancreatic fluid collections; induration peripancreatic inflammatory change is otherwise unchanged from 12/15/17. Campbell Woodward MD on December 29, 2017 at 14:49 Board Certified Radiologist. This report was verified electronically.
[2017-12-29 15:28] VITALS: BP 103/59; PULSE 79; RESP 17; O2SAT 100
[2017-12-29] MEDS ORDERED: NALOXONE HCL 0.4 MG/ML AMP IV PUSH PRN (15:45)
[2017-12-29] MEDS: SODIUM CHLOR 0.9% 1000 ML INJ 1,000 ML IV SCH (15:54)
[2017-12-29] MEDS ORDERED: DIAZEPAM 10 MG TAB PO PRN (17:15)
--- NOTE | 2017-12-29 17:22 | HHI.HP ---
HPI Service [facility] Primary Care Physician No Primary Care Physician Admission Diagnosis intractable nausea/vomiting, subacute pancreatitis, recent cholecyst Diagnoses: Travel History International Travel<30 Days: No Contact w/Intl Traveler <30 Da: No Traveled to Known Affected Are: No History of Present Illness History from patient, your physician communication, and review of medical records. Patient was admitted to our hospital from December 16, 2017 to 12/24/2017 had [place] on 12/22 no ercp since dc has been bed bound due to pain in abdomen fever, chills, 103.3 F nausea, no vomiting, has not been eating anything this am, had diarrhea only once did not notice the color no real cough did have runny nose- has allergies does have shortness of breath all the time has hx of asthma left neck lump that she feels - while she was admitted here this week for cholecystitis Review of Systems Except as stated in HPI: all other systems reviewed are Neg Past Family Social History Past Medical History mitral valve prolapse mild htn- on propanolol dm on insulin cva - years ago- Right side is weaker tia palpitations asthma hx of pancreatitis hyothyroidism cervical cancer- 27 yrs ago forehead skin cancer- melanoma- in her 30s Rheumatoid arthritis Fibromyalgia Bipolar disorder Migraine headaches Chronic back pain Past Surgical History melanoma resection lazy eye sx at age 11 yo cholecystectomy urethra sx Allergies: Coded Allergies: butorphanol (Verified Allergy, Severe, "I GO CRAZY", 12/29/17) HALLUCINATIONS acetaminophen (Verified Allergy, Intermediate, Rash, 12/29/17) oxycodone (Verified Allergy, Intermediate, Rash, 12/29/17) Family History both parents- heart problems, cabg, ppm mom- dementia Social History no etoh or drugs abuse no smoking Physical Exam Vital Signs Vital Signs Date Time Temp Pulse Resp B/P (MAP) Pulse Ox O2 Delivery O2 Flow Rate FiO2 12/29/17 15:28 79 17 103/59 (74) 100 Room Air 12/29/17 12:03 81 17 104/67 (79) 96 Room Air 12/29/17 11:00 97.9 101 16 152/92 (112) 98 Physical Exam GENERAL: This is a well-nourished, well-developed patient, in moderate distress from pain, but also is emotional due to overall situation SKIN: No rashes, ecchymoses or lesions. Cool and dry. HEAD: Atraumatic. Normocephalic. No temporal or scalp tenderness. EYES: No scleral icterus. No injection or drainage. ENT: Nose without bleeding, purulent drainage or septal hematoma.. Airway patent. NECK: Trachea midline. No JVD Supple, nontender, no meningeal signs. CARDIOVASCULAR: Regular rate and rhythm without murmurs, gallops, or rubs. RESPIRATORY: Clear to auscultation. Breath sounds equal bilaterally. No wheezes , rales, or rhonchi. GASTROINTESTINAL: Abdomen soft, nondistended. No guarding.tenderness at mid epigastrium, surgical laproscopic sites clean MUSCULOSKELETAL: Extremities without clubbing, cyanosis, or edema. No calf tenderness. NEUROLOGICAL: Awake and alert. Motor and sensory grossly within normal limits. Normal speech. Laboratory Laboratory Tests Test 12/29/17 11:15 12/29/17 11:20 12/29/17 11:30 White Blood Count 6.7 Red Blood Count 4.73 Hemoglobin 14.0 Hematocrit 41.5 Mean Corpuscular Volume 87.8 Mean Corpuscular Hemoglobin 29.6 Mean Corpuscular Hemoglobin Concent 33.7 Red Cell Distribution Width 14.6 Platelet Count 382 Mean Platelet Volume 7.5 Neutrophils (%) (Auto) 64.7 Lymphocytes (%) (Auto) 27.0 Monocytes (%) (Auto) 5.7 Eosinophils (%) (Auto) 2.1 Basophils (%) (Auto) 0.5 Neutrophils # (Auto) 4.3 Lymphocytes # (Auto) 1.8 Monocytes # (Auto) 0.4 Eosinophils # (Auto) 0.1 Basophils # (Auto) 0.0 CBC Comment DIFF FINAL Differential Comment Blood Urea Nitrogen 11 Creatinine 1.20 Random Glucose 135 Total Protein 8.3 Albumin 3.2 Calcium Level 9.2 Alkaline Phosphatase 130 Aspartate Amino Transf (AST/SGOT) 20 Alanine Aminotransferase (ALT/SGPT) 30 Total Bilirubin 0.4 Sodium Level 140 Potassium Level 3.3 Chloride Level 107 Carbon Dioxide Level 20.8 Anion Gap 12 Estimat Glomerular Filtration Rate 46 Lipase 289 Lactic Acid Level 2.1 Urine Color YELLOW Urine Turbidity HAZY Urine pH 5.5 Urine Specific [place] 1.030 Urine Protein 30 Urine Glucose (UA) TRACE Urine Ketones NEG Urine Occult Blood NEG Urine Nitrite NEG Urine Bilirubin NEG Urine Urobilinogen 2.0 Urine Leukocyte Esterase SMALL Urine RBC 2 Urine WBC 3 Urine Squamous Epithelial Cells 10 Urine Hyaline Casts 76 Urine Mucus MANY Microscopic Urinalysis Comment CULT NOT INDICATED Result Diagram: 12/29/17 1115 12/29/17 1115 Imaging Last 48 hours Impressions Abdomen/Pelvis CT 12/29/17 1212 Signed Impressions: Service Date/Time: Friday, December 29, 2017 13:55 - CONCLUSION: 1. Interval cholecystectomy with small amount of fluid in the gallbladder fossa. 2. Slight increase in size of one of the trevon-pancreatic fluid collections; induration peripancreatic inflammatory change is otherwise unchanged from 12/15/17. Campbell Woodward MD Chest X-Ray 12/29/17 0000 Signed Impressions: Service Date/Time: Friday, December 29, 2017 17:20 - CONCLUSION: The lungs are clear. Campbell Woodward MD Caprini VTE Risk Assessment Caprini VTE Risk Assessment: Mod/High Risk (score >= 2) Caprini Risk Assessment Model Point Value = 1 Point Value = 2 Point Value = 3 Point Value = 5 Age 41-60 Minor surgery BMI > 25 kg/m2 Swollen legs Varicose veins or History of unexplained or recurrent spontaneous Oral contraceptives or hormone replacement Sepsis (< 1 month) Serious lung disease, including pneumonia (< 1 month) Abnormal pulmonary function Acute myocardial infarction Congestive heart failure (< 1 month) History of inflammatory bowel disease Medical patient at bed rest Age 61-74 Arthroscopic surgery Major open surgery (> 45 min) Laparoscopic surgery (> 45 min) Malignancy Confined to bed (> 72 hours) Immobilizing plaster cast Central venous access Age >= 75 History of VTE Family history of VTE Factor V Leiden Prothrombin [id number] Lupus anticoagulant Anticardiolipin antibodies Elevated serum homocysteine Heparin-induced thrombocytopenia Other congenital or acquired thrombophilia Stroke (< 1 month) Elective arthroplasty Hip, pelvis, or leg fracture Acute spinal cord injury (< 1 month) Prophylaxis Regimen Total Risk Factor Score Risk Level Prophylaxis Regimen 0-1 Low Early ambulation 2 Moderate Order ONE of the following: *Sequential Compression Device (SCD) *Heparin 5000 units SQ BID 3-4 Higher Order ONE of the following medications: *Heparin 5000 units SQ TID *Enoxaparin/Lovenox 40 mg SQ daily (WT < 150 kg, CrCl > 30 mL/min) *Enoxaparin/Lovenox 30 mg SQ daily (WT < 150 kg, CrCl > 10-29 mL/min) *Enoxaparin/Lovenox 30 mg SQ BID (WT < 150 kg, CrCl > 30 mL/min) AND/OR *Sequential Compression Device (SCD) 5 or more Highest Order ONE of the following medications: *Heparin 5000 units SQ TID (Preferred with Epidurals) *Enoxaparin/Lovenox 40 mg SQ daily (WT < 150 kg, CrCl > 30 mL/min) *Enoxaparin/Lovenox 30 mg SQ daily (WT < 150 kg, CrCl > 10-29 mL/min) *Enoxaparin/Lovenox 30 mg SQ BID (WT < 150 kg, CrCl > 30 mL/min) AND *Sequential Compression Device (SCD) Assessment and Plan Assessment and Plan Impression: Intractable abdominal pain post cholecystectomy Fevers at home. 103.3 per patient. Recent cholecystectomy Mild lactic acid acidosis Metabolic acidosis Renal insufficiency Hypokalemia Recent pancreatitis secondary to gallstone pancreatitis on December 15, 2017 Comorbid conditions: mitral valve prolapse mild htn- on propanolol dm on insulin cva - years ago- Right side is weaker tia palpitations asthma hx of pancreatitis hyothyroidism cervical cancer- 27 yrs ago forehead skin cancer- melanoma- in her 30s Rheumatoid arthritis Fibromyalgia Bipolar disorder Migraine headaches Chronic back pain Plan: Nothing by mouth. IV hydration. Replace potassium 40 mEq by mouth total. We'll follow. Hold Lasix. Pain control. Obtain blood cultures. Chest x-ray. We'll start patient on Zosyn for possible cholangitis. CT abdomen and pelvis reviewed personally. There is slight increase in the size of one of peripancreatic fluid collections. Induration peripancreatic inflammatory change is otherwise in changed. We'll monitor for fevers. If no improvement, would consider GI evaluation. However patient did not require ERCP in the last admission as her liver enzymes improved and she did not have any choledocholithiasis on MRCP. DVT prophylaxis with SCD. Discussed Condition With patient, nursing staff, ER MD Thomson,Devi FRAZIER Dec 29, 2017 17:22
--- NOTE | 2017-12-29 17:42 | RADRPT ---
EXAM DATE/TIME: 12/29/2017 17:20 [facility] COMPARISON: CHEST SINGLE AP, December 18, 2017, 4:44. INDICATIONS : Fever. MEDICAL HISTORY : None. SURGICAL HISTORY : None. ENCOUNTER: Initial ACUITY: 4 - 6 days PAIN SCORE: 0/10 LOCATION: Bilateral chest FINDINGS: A single view of the chest demonstrates the lungs to be symmetrically aerated without evidence of mas s, infiltrate or effusion. The cardiomediastinal contours are unremarkable. Osseous structures are intact. CONCLUSION: The lungs are clear. Campbell Woodward MD on December 29, 2017 at 17:40 Board Certified Radiologist. This report was verified electronically.
[2017-12-29] MEDS: TOPIRAMATE 25 MG TAB PO SCH (18:00)
[2017-12-29 18:55] VITALS: BP 126/76; PULSE 72; RESP 18; TEMP 99.2; O2SAT 95
[2017-12-29] MEDS: PIPERACIL-TAZO 4.5 GM PREMIX 100 ML IV SCH (19:40)
[2017-12-29 20:24] VITALS: BP 126/77; PULSE 66; RESP 18; TEMP 97.8; O2SAT 96
[2017-12-29] MEDS: GABAPENTIN 300 MG CAP PO SCH (20:49)
[2017-12-29] MEDS: GABAPENTIN 400 MG CAP PO SCH (20:49)
[2017-12-29] MEDS: HYDROmorphone HCL PF 2 MG/ML VIAL IV PUSH PRN (20:53)
[2017-12-29] MEDS: ONDANSETRON HCL 4 MG/2 ML VIAL IVP PRN (20:58)
[2017-12-29] MEDS: SODIUM CHLORIDE 0.9% FLUSH 10 ML FLUSH IV FLUSH SCH (21:00)
[2017-12-29 21:10] VITALS: PULSE 78
[2017-12-30] VITALS (8 sets, daily range): BP systolic 106–120; BP diastolic 62–77; PULSE 67–77; RESP 18; TEMP 98.2–98.9; O2SAT 94–95
[2017-12-30] MEDS: ZOLPIDEM TARTRATE 5 MG TAB PO PRN ×2 (00:20→23:15)
[2017-12-30] MEDS: PIPERACIL-TAZO 4.5 GM PREMIX 100 ML IV SCH ×4 (00:21→18:41)
[2017-12-30] MEDS: SODIUM CHLOR 0.9% 1000 ML INJ 1,000 ML IV SCH ×3 (00:22→22:00)
[2017-12-30] MEDS: LEVOTHYROXINE SODIUM 75 MCG TAB PO SCH (05:47)
[2017-12-30] MEDS: SODIUM CHLORIDE 0.9% FLUSH 10 ML FLUSH IV FLUSH SCH ×2 (09:00→21:00)
[2017-12-30] MEDS: TOPIRAMATE 25 MG TAB PO SCH ×3 (09:43→18:39)
[2017-12-30] MEDS: GABAPENTIN 300 MG CAP PO SCH ×2 (09:44→22:22)
[2017-12-30] MEDS: GABAPENTIN 400 MG CAP PO SCH ×2 (09:45→22:22)
[2017-12-30] MEDS: CETIRIZINE HCL 10 MG TAB PO SCH (09:46)
[2017-12-30] MEDS: DULoxetine HCl DR 20 MG CAP PO SCH (09:46)
[2017-12-30] MEDS: POTASSIUM CHLORIDE 20 MEQ CONTROLLED RELEASE TAB PO SCH (09:46)
[2017-12-30 10:07] LABS: AUTOMATED NEUTROPHIL # 2.7 TH/MM3 (1.8-7.7); BASOPHIL % 0.5 % (0.0-2.0); EOSINOPHIL # 0.1 TH/MM3 (0-0.4); EOSINOPHIL % 2.8 % (0.0-4.0); HEMATOCRIT 35.1 % (35.0-46.0); HEMOGLOBIN 11.8 GM/DL (11.6-15.3); LYMPHOCYTE # 1.8 TH/MM3 (1.0-4.8); MEAN CELL VOLUME 88.3 FL (80.0-100.0); MEAN CORPUSCULAR HEMOGLOBIN 29.7 PG (27.0-34.0); MEAN CORPUSCULAR HGB CONC 33.6 % (32.0-36.0); MEAN PLATELET VOLUME 7.6 FL (7.0-11.0); MONO % 6.4 % (0.0-8.0); MONOCYTE # 0.3 TH/MM3 (0-0.9); NEUT % 54.3 % (16.0-70.0); PLATELET COUNT 279 TH/MM3 (150-450); RED BLOOD COUNT 3.97 MIL/MM3 (4.00-5.30); RED CELL DISTRIBUTION WIDTH 14.4 % (11.6-17.2); WHITE BLOOD COUNT 4.9 TH/MM3 (4.0-11.0)
[2017-12-30 10:13] LABS: ALBUMIN 2.7 GM/DL (3.4-5.0); AST (GOT) 17 U/L (15-37); BICARBONATE 23.5 MEQ/L (21.0-32.0); BLOOD UREA NITROGEN 8 MG/DL (7-18); CALCIUM 8.6 MG/DL (8.5-10.1); CHLORIDE 109 MEQ/L (98-107); CREATININE 1.09 MG/DL (0.50-1.00); GLOMERULAR FILTRATION RATE 52 ML/MIN (>89); GLUCOSE,RANDOM 123 MG/DL (74-106); SODIUM (NA) 141 MEQ/L (136-145)
[2017-12-30 10:14] LABS: ALT (GPT) 24 U/L (10-53)
[2017-12-30 10:17] LABS: ALKALINE PHOSPHATASE 110 U/L (45-117); TOTAL BILIRUBIN ADULT 0.6 MG/DL (0.2-1.0); TOTAL PROTEIN 6.8 GM/DL (6.4-8.2)
--- NOTE | 2017-12-30 12:11 | HHI.PR ---
Subjective Remarks Follow up for RUQ pain, nausea, fever, diarrhea, in a patient s/p cholecystectomy. The patient reports continued constant RUQ abdominal pain associated with nausea but no vomiting. She reports feeling feverish with chills , however no documented fevers since arrival. She reports multiple episodes of watery nonbloody diarrhea overnight after being started on antibiotics. Denies any other medical complaints at this time. She is requesting to see her surgeon Dr. Weinstein. Objective Vitals Vital Signs Date Time Temp Pulse Resp B/P (MAP) Pulse Ox O2 Delivery O2 Flow Rate FiO2 12/30/17 07:59 98.3 74 18 106/67 (80) 95 12/30/17 04:06 67 12/30/17 00:00 67 12/29/17 22:55 18 12/29/17 21:10 78 12/29/17 20:24 97.8 66 18 126/77 (93) 96 12/29/17 18:55 99.2 72 18 126/76 (93) 95 12/29/17 17:16 12/29/17 15:28 79 17 103/59 (74) 100 Room Air I/O 12/29/17 12/29/17 12/29/17 12/30/17 12/30/17 12/30/17 07:00 15:00 23:00 07:00 15:00 23:00 Intake Total 100 ml Balance 100 ml Intake IV Total 100 ml # Voids 1 Result Diagram: 12/30/17 0901 12/30/17 0901 Imaging Last Impressions Abdomen/Pelvis CT 12/29/17 1212 Signed Impressions: Service Date/Time: Friday, December 29, 2017 13:55 - CONCLUSION: 1. Interval cholecystectomy with small amount of fluid in the gallbladder fossa. 2. Slight increase in size of one of the trevon-pancreatic fluid collections; induration peripancreatic inflammatory change is otherwise unchanged from 12/15/17. Campbell Woodward MD Chest X-Ray 12/29/17 0000 Signed Impressions: Service Date/Time: Friday, December 29, 2017 17:20 - CONCLUSION: The lungs are clear. Campbell Woodward MD Objective Remarks GENERAL: Well-nourished, well-developed pleasant middle aged female patient in [facility]. SKIN: Warm and dry. No rash. HEENT: Normocephalic. Atraumatic. Pupils equal and round. Mucous membranes pink and moist. CARDIOVASCULAR: Regular rate and rhythm. S1, S2 noted. No murmur appreciated. RESPIRATORY: No accessory muscle use. Clear to auscultation. Breath sounds equal bilaterally. GASTROINTESTINAL: Abdomen soft, nondistended, mild RUQ TTP. Normoactive bowel sounds x4. Prior laparoscopic surgical scars healing well, no surrounding erythema/drainage. MUSCULOSKELETAL: No obvious deformities. Extremities without clubbing, cyanosis , or edema. NEUROLOGICAL: Awake and alert. No obvious cranial nerve deficits. Motor grossly within normal limits. Normal speech. PSYCHIATRIC: Appropriate mood and affect; insight and judgment normal. Medications and IVs Current Medications Medications (Trade) Dose Ordered Sig/Eleuterio Route Start Time Stop Time Status Last Admin Sodium Chloride 1,000 ml @ 100 mls/hr Q10H IV 12/29/17 16:00 12/30/17 12:00 (NS Flush) 2 ml UNSCH PRN IV FLUSH 12/29/17 15:45 (NS Flush) 2 ml BID IV FLUSH 12/29/17 21:00 (Zofran Inj) 4 mg Q6H PRN IVP 12/29/17 16:00 12/29/17 20:58 (Narcan Inj) 0.4 mg UNSCH PRN IV PUSH 12/29/17 15:45 Piperacillin Sod/ Tazobactam Sod 100 ml @ 200 mls/hr Q6H IV 12/29/17 18:00 12/30/17 13:03 (Dilaudid Pf Inj) 0.5 mg Q4H PRN IV PUSH 12/29/17 18:00 12/29/17 20:53 (ZyrTEC) 10 mg DAILY PO 12/30/17 09:00 12/30/17 09:46 (Valium) 10 mg BID PRN PO 12/29/17 17:15 (Cymbalta Dr) 20 mg DAILY PO 12/30/17 09:00 12/30/17 09:46 (Neurontin) 400 mg BID PO 12/29/17 21:00 12/30/17 09:45 (Synthroid) 75 mcg DAILY@0600 PO 12/30/17 06:00 12/30/17 05:47 (KCl) 20 meq DAILY PO 12/30/17 09:00 12/30/17 09:46 (Topamax) 50 mg TID PO 12/29/17 18:00 12/30/17 09:43 (Ambien) 5 mg HS PRN PO 12/29/17 17:15 12/30/17 00:20 (Neurontin) 300 mg BID PO 12/29/17 21:00 12/30/17 09:44 A/P Assessment and Plan 57-year-old female with history of MVP, HTN, CVA, TIA, asthma, hypothyroidism, cervical cancer, rheumatoid arthritis, fibromyalgia, bipolar disorder, migraines , chronic back pain, presents with RUQ abdominal pain, fever 103.3 at home, nausea, and inability to tolerate oral intake. Abdominal Pain/Nausea/Fever: patient is s/p laparoscopic cholecystectomy on 12/[address] Weinstein. She reports RUQ pain, nausea, fevers, and inability to tolerate oral intake since prior to surgery. -CT abd/pelvis images reviewed, shows interval cholecystectomy with small amount of fluid in the gallbladder fossa; slight increase in size of one of the trevon-pancreatic fluid collections; induration peripancreatic inflammatory change is otherwise unchanged from 12/15. -Keep NPO for now -Supportive treatment with IVF hydration, antiemetics, and pain control prn -Concern for cholangitis, started on IV Zosyn -Consult patient's surgeon, Dr. Weinstein -Consider gastroenterology consult if no improvement however patient's MRCP on previous admission did not show any choledocholithiasis and she did not require ERCP Diarrhea: with recent antibiotic use -Check for Cdiff -Check stool cultures -Start on lactinex tid -Continue IVF hydration Hypokalemia: K 3.3, suspect secondary to recent decreased oral intake -given po KCl replacement -repeat K 3.8 -continue to monitor Hypertension: chronic, does not appear to be on any antihypertensives -monitor BP, add antihypertensives as needed Anxiety/Bipolar Disorder: chronic -continue patient's diazepam prn Migraines: chronic -continue patient's topamax Hypothyroidism: chronic -continue patient's synthroid DVT Prophylaxis: teds/SCDs Discharge Planning Discharge pending further clinical improvement and general surgery evaluation. Colette Alfredo PA-C Dec 30, 2017 12:10 pm
[2017-12-30] MEDS: ONDANSETRON HCL 4 MG/2 ML VIAL IVP PRN (13:13)
[2017-12-30] MEDS: HYDROmorphone HCL PF 2 MG/ML VIAL IV PUSH PRN ×2 (13:14→23:16)
--- NOTE | 2017-12-30 15:03 | PD.CONS ---
cc: Schuyler Weinstein MD HPI Service General Surgery Consult Requested By Terri SIMMONS Reason for Consult s/p laparoscopic cholecystectomy with right upper quadrant abdominal pain Primary Care Physician No Primary Care Physician History of Present Illness This is a 57-year-old female with a past medical history of asthma, anemia, rheumatoid arthritis, fibromyalgia, bipolar disorder, mitral valve prolapse, angina, hypertension, TIA, hyperlipidemia, history of diverticulitis, history of GE reflux disease, migraine headaches, chronic back pain, hypothyroidism and nephrolithiasis. The patient had a laparoscopic cholecystectomy on December 19, [address] Weinsteni for gallstone pancreatitis. The patient had an intraoperative cholangiogram and a suspected defect was present at the end of the distal common bile duct. An MRCP was completed which shows no evidence of choledocholithiasis. The patient was evaluated by GI but did not find a need for an ERCP at the time due to MRCP findings. The patient was hypokalemic and treated for that. The patient was discharged in stable condition with instructions to follow-up in the office. The patient comes to the Emergency Department yesterday with complaints of right upper quadrant abdominal pain and diarrhea. She reports that she has not felt any better since leaving the hospital. She reports that this weekend "was the worse" time of her life. She reports she is unable to keep anything down including water. She reports a fever of 103. A CT abdomen and pelvis was obtained which shows interval cholecystectomy with a small amount of fluid in the gallbladder fossa. She has a normal white blood cell count. Her liver enzymes are normal. A General Surgery consultation has been requested for evaluation of persistent RUQ abdominal pain. Review of Systems Constitutional: COMPLAINS OF: Fatigue, Chills, Change in appetite Endocrine: DENIES: Polydipsia, Polyuria, Polyphagia Eyes: DENIES: Diplopia, Eye inflammation Ears, nose, mouth, throat: DENIES: Hearing loss Respiratory: DENIES: Apneas, Cough Cardiovascular: DENIES: Chest pain Gastrointestinal: COMPLAINS OF: Abdominal pain, Diarrhea, Nausea, DENIES: Vomiting Genitourinary: DENIES: Urinary frequency Musculoskeletal: DENIES: Joint pain Integumentary: DENIES: Abnormal pigmentation Hematologic/lymphatic: DENIES: Bruising Immunologic/allergic: DENIES: Eczema Neurologic: DENIES: Abnormal gait, Headache Psychiatric: DENIES: Confusion, Mood changes, Depression Past Family Social History Past Medical History Asthma Anemia Rheumatoid arthritis Fibromyalgia Bipolar disorder Mitral valve prolapse Angina Hypertension TIA Hyperlipidemia History of diverticulitis History of GE reflux disease Migraine headaches Chronic back pain Hypothyroidism Nephrolithiasis Past Surgical History Laparoscopic cholecystectomy with intraoperative cholangiogram on December 19, 2017 Bilateral eye surgery Reported Medications Gabapentin Lasix Topamax Cymbalta Ambien Diazepam Ventolin inhaler Synthroid Allergies: Coded Allergies: butorphanol (Verified Allergy, Severe, "I GO CRAZY", 12/29/17) HALLUCINATIONS acetaminophen (Verified Allergy, Intermediate, Rash, 12/29/17) oxycodone (Verified Allergy, Intermediate, Rash, 12/29/17) Active Ordered Medications Current Medications Medications (Trade) Dose Ordered Sig/Eleuterio Route Start Time Stop Time Status Last Admin Sodium Chloride 1,000 ml @ 100 mls/hr Q10H IV 12/29/17 16:00 12/30/17 12:00 (NS Flush) 2 ml UNSCH PRN IV FLUSH 12/29/17 15:45 (NS Flush) 2 ml BID IV FLUSH 12/29/17 21:00 (Zofran Inj) 4 mg Q6H PRN IVP 12/29/17 16:00 12/30/17 13:13 (Narcan Inj) 0.4 mg UNSCH PRN IV PUSH 12/29/17 15:45 Piperacillin Sod/ Tazobactam Sod 100 ml @ 200 mls/hr Q6H IV 12/29/17 18:00 12/30/17 13:03 (Dilaudid Pf Inj) 0.5 mg Q4H PRN IV PUSH 12/29/17 18:00 12/30/17 13:14 (ZyrTEC) 10 mg DAILY PO 12/30/17 09:00 12/30/17 09:46 (Valium) 10 mg BID PRN PO 12/29/17 17:15 (Cymbalta Dr) 20 mg DAILY PO 12/30/17 09:00 12/30/17 09:46 (Neurontin) 400 mg BID PO 12/29/17 21:00 12/30/17 09:45 (Synthroid) 75 mcg DAILY@0600 PO 12/30/17 06:00 12/30/17 05:47 (KCl) 20 meq DAILY PO 12/30/17 09:00 12/30/17 09:46 (Topamax) 50 mg TID PO 12/29/17 18:00 12/30/17 13:24 (Ambien) 5 mg HS PRN PO 12/29/17 17:15 12/30/17 00:20 (Neurontin) 300 mg BID PO 12/29/17 21:00 12/30/17 09:44 (Lactinex) 1 tab TID PO 12/30/17 18:00 Family History Noncontributory Social History Denies tobacco use Denies EtOH use Denies illicit drug use Patient is unable to work. Physical Exam Vital Signs Vital Signs Date Time Temp Pulse Resp B/P (MAP) Pulse Ox O2 Delivery O2 Flow Rate FiO2 12/30/17 07:59 98.3 74 18 106/67 (80) 95 12/30/17 04:06 67 12/30/17 00:00 67 12/29/17 22:55 18 12/29/17 21:10 78 12/29/17 20:24 97.8 66 18 126/77 (93) 96 12/29/17 18:55 99.2 72 18 126/76 (93) 95 12/29/17 17:16 12/29/17 15:28 79 17 103/59 (74) 100 Room Air Physical Exam GENERAL: 57 year old female resting in bed in on acute distress. SKIN: Warm and dry. HEAD: Atraumatic. Normocephalic. EYES: Pupils equal and round. No scleral icterus. No injection or drainage. ENT: No nasal bleeding or discharge. Mucous membranes pink and moist. NECK: Trachea midline. CARDIOVASCULAR: Regular rate and rhythm. RESPIRATORY: No accessory muscle use. Clear to auscultation. Breath sounds equal bilaterally. GASTROINTESTINAL: Abdomen soft, nondistended. Obese abdomen. LLQ tenderness with palpation. Laparoscopic incisions sites healing; no evidence of infection. +Bowel sounds. MUSCULOSKELETAL: Extremities without clubbing, cyanosis, or edema. No obvious deformities. NEUROLOGICAL: Awake and alert. No obvious cranial nerve deficits. Motor grossly within normal limits. Five out of 5 muscle strength in the arms and legs. Normal speech. PSYCHIATRIC: Appropriate mood and affect; insight and judgment normal. Laboratory Laboratory Tests Test 12/30/17 09:01 12/30/17 13:40 White Blood Count 4.9 Red Blood Count 3.97 Hemoglobin 11.8 Hematocrit 35.1 Mean Corpuscular Volume 88.3 Mean Corpuscular Hemoglobin 29.7 Mean Corpuscular Hemoglobin Concent 33.6 Red Cell Distribution Width 14.4 Platelet Count 279 Mean Platelet Volume 7.6 Neutrophils (%) (Auto) 54.3 Lymphocytes (%) (Auto) 36.0 Monocytes (%) (Auto) 6.4 Eosinophils (%) (Auto) 2.8 Basophils (%) (Auto) 0.5 Neutrophils # (Auto) 2.7 Lymphocytes # (Auto) 1.8 Monocytes # (Auto) 0.3 Eosinophils # (Auto) 0.1 Basophils # (Auto) 0.0 CBC Comment DIFF FINAL Differential Comment Blood Urea Nitrogen 8 Creatinine 1.09 Random Glucose 123 Total Protein 6.8 Albumin 2.7 Calcium Level 8.6 Alkaline Phosphatase 110 Aspartate Amino Transf (AST/SGOT) 17 Alanine Aminotransferase (ALT/SGPT) 24 Total Bilirubin 0.6 Sodium Level 141 Potassium Level 3.8 Chloride Level 109 Carbon Dioxide Level 23.5 Anion Gap 9 Estimat Glomerular Filtration Rate 52 Lipase 219 Date/Time Source Procedure Growth Status 12/29/17 11:45 Blood Peripheral Aerobic Blood Culture - Preliminary NO GROWTH IN 1 DAY Resulted 12/29/17 11:45 Blood Peripheral Anaerobic Blood Culture - Preliminary NO GROWTH IN 1 DAY Resulted 12/30/17 13:40 Stool Stool Pending Received Result Diagram: 12/30/17 0901 12/30/17 0901 Imaging Last 48 hours Impressions Abdomen/Pelvis CT 12/29/17 1212 Signed Impressions: Service Date/Time: Friday, December 29, 2017 13:55 - CONCLUSION: 1. Interval cholecystectomy with small amount of fluid in the gallbladder fossa. 2. Slight increase in size of one of the trevon-pancreatic fluid collections; induration peripancreatic inflammatory change is otherwise unchanged from 12/15/17. Campbell Woodward MD Chest X-Ray 12/29/17 0000 Signed Impressions: Service Date/Time: Friday, December 29, 2017 17:20 - CONCLUSION: The lungs are clear. Campbell Woodward MD Assessment and Plan Assessment and Plan 57 year old female POD11 lap contreras and IOC for gallstone pancreatitis. -No evidence of choledocholithiasis; liver enzymes normal -HIDA scan today -Diet as tolerated -Consider GI evaluation -Follow up on stool sample results -No acute General Surgery needs at this time -Discussed with Dr. Ortez and TROY Murray Attending Note - Dr. Weinstein Pt. Seen and evaluated Vague symptom complex unchanged since surgery, according to patient. No surgical problem at present. Nothing to offer at this time Will see as needed. The exam, history, and the medical decision-making described in the above note were completed with the assistance of the mid-level provider. I reviewed and agree with the findings presented. I attest that I had a [id number] encounter with the patient on the same day, and personally performed and documented my assessment and findings in the medical record. Discussed Condition With Lucinda Malone Dr./[employer] Sweeper VALENTE Dec 30, 2017 15:03 Schuyler Weinstein MD Dec 30, 2017 20:28
[2017-12-30] MEDS ORDERED: SINCALIDE 5 MCG/5 ML VIAL IV ONE (17:02)
--- NOTE | 2017-12-30 17:27 | RADRPT ---
EXAM DATE/TIME: 12/30/2017 15:37 [facility] COMPARISON: BILIARY QUANTITATIVE (HIDA), December 16, 2017, 12:45. INDICATIONS : Bile Leak. Abdominal pain with fever and intractable nausea and vomiting. Post cholecystectomy on 07/2018. DOSE: 4.3 mCi Tc99m Mebrofenin IV MEDICATION: 1.8 mcg Cholecystokinin IV; No symptomatic response. Cholecystokinin was administered by slow infusion over 8 minutes beginning at 60 minutes. MEDICAL HISTORY : Gastroesophageal reflux disease. Pancreatitis. Diverticulitis. Stroke. COPD. Hypertension. SURGICAL HISTORY : Cholecystectomy. ENCOUNTER: Initial ACUITY: 4 - 6 days PAIN SCALE: 6/10 LOCATION: Right upper quadrant TECHNIQUE: Following the intravenous administration of radiotracer, dynamic sequential image were performed with continuous acquisition. Time-activity curves were generated. FINDINGS: There is prompt with no significant radiotracer peak parenchymal uptake and complete clearance of the cardiac blood pool by 10 minutes. Activity is seen in the extrahepatic biliary system by 10 minutes and there is prompt passage of activity into the small bowel. The patient was placed in a decubitus position for 5 minutes and additional planar image was obtained . No evidence of extraluminal activity. CONCLUSION: 1. No evidence of obstruction or leak. Campbell Woodward MD on December 30, 2017 at 17:23 Board Certified Radiologist. This report was verified electronically.
[2017-12-30] MEDS: LACTOBACILLUS ACIDOPHILUS TAB PO SCH (18:38)
[2017-12-31] VITALS (7 sets, daily range): BP systolic 100–119; BP diastolic 57–67; PULSE 58–72; RESP 18; TEMP 97.6–98.3; O2SAT 93–96
[2017-12-31] MEDS: PIPERACIL-TAZO 4.5 GM PREMIX 100 ML IV SCH ×5 (01:09→23:12)
[2017-12-31] MEDS: LEVOTHYROXINE SODIUM 75 MCG TAB PO SCH (05:24)
[2017-12-31] MEDS: SODIUM CHLOR 0.9% 1000 ML INJ 1,000 ML IV SCH ×2 (05:26→17:59)
[2017-12-31 08:38] LABS: BASOPHIL % 0.7 % (0.0-2.0); EOSINOPHIL % 4.7 % (0.0-4.0); HEMATOCRIT 34.1 % (35.0-46.0); HEMOGLOBIN 11.1 GM/DL (11.6-15.3); LYMPH % 40.6 % (9.0-44.0); LYMPHOCYTE # 1.7 TH/MM3 (1.0-4.8); MEAN CELL VOLUME 89.4 FL (80.0-100.0); MEAN CORPUSCULAR HEMOGLOBIN 29.1 PG (27.0-34.0); MEAN CORPUSCULAR HGB CONC 32.5 % (32.0-36.0); MEAN PLATELET VOLUME 7.7 FL (7.0-11.0); MONO % 5.9 % (0.0-8.0); NEUT % 48.1 % (16.0-70.0); PLATELET COUNT 234 TH/MM3 (150-450); RED BLOOD COUNT 3.81 MIL/MM3 (4.00-5.30); RED CELL DISTRIBUTION WIDTH 14.4 % (11.6-17.2); WHITE BLOOD COUNT 4.2 TH/MM3 (4.0-11.0)
[2017-12-31 08:39] LABS: EOSINOPHIL # 0.2 TH/MM3 (0-0.4); MONOCYTE # 0.3 TH/MM3 (0-0.9)
[2017-12-31 09:05] LABS: ALBUMIN 2.5 GM/DL (3.4-5.0); AST (GOT) 14 U/L (15-37); BICARBONATE 23.9 MEQ/L (21.0-32.0); BLOOD UREA NITROGEN 5 MG/DL (7-18); CALCIUM 8.3 MG/DL (8.5-10.1); CHLORIDE 109 MEQ/L (98-107); CREATININE 1.09 MG/DL (0.50-1.00); GLOMERULAR FILTRATION RATE 52 ML/MIN (>89); GLUCOSE,RANDOM 103 MG/DL (74-106); MAGNESIUM 2.1 MG/DL (1.5-2.5); SODIUM (NA) 141 MEQ/L (136-145)
[2017-12-31 09:06] LABS: ALT (GPT) 19 U/L (10-53)
[2017-12-31] MEDS: DULoxetine HCl DR 20 MG CAP PO SCH (09:06)
[2017-12-31] MEDS: CETIRIZINE HCL 10 MG TAB PO SCH (09:06)
[2017-12-31] MEDS: TOPIRAMATE 25 MG TAB PO SCH ×3 (09:06→17:59)
[2017-12-31] MEDS: LACTOBACILLUS ACIDOPHILUS TAB PO SCH ×3 (09:06→17:59)
[2017-12-31] MEDS: SODIUM CHLORIDE 0.9% FLUSH 10 ML FLUSH IV FLUSH SCH ×2 (09:06→20:06)
[2017-12-31] MEDS: POTASSIUM CHLORIDE 20 MEQ CONTROLLED RELEASE TAB PO SCH (09:06)
[2017-12-31] MEDS: GABAPENTIN 400 MG CAP PO SCH ×2 (09:06→20:06)
[2017-12-31] MEDS: GABAPENTIN 300 MG CAP PO SCH ×2 (09:06→20:06)
[2017-12-31 09:09] LABS: ALKALINE PHOSPHATASE 96 U/L (45-117); TOTAL BILIRUBIN ADULT 0.4 MG/DL (0.2-1.0); TOTAL PROTEIN 6.2 GM/DL (6.4-8.2)
--- NOTE | 2017-12-31 09:56 | HHI.PR ---
Subjective Remarks Follow up for RUQ pain, nausea/vomiting, diarrhea. The patient reports continued epigastric and RUQ pain, rated 6/10, relieved by IV dilaudid. She reports occasional bouts of nausea, none currently, and no vomiting. Denies fevers/chills. She has only tolerated small amounts of clear liquid last night and this morning. She continues to have nonbloody diarrhea, she reports 6 episodes yesterday and 3 episodes already this morning. She reports history of colonoscopy [address] Paige in [place], diagnosed with numerous polyps with polypectomies. She was recommended to return in 1-2 years for repeat colonoscopy however never followed up. Objective Vitals Vital Signs Date Time Temp Pulse Resp B/P (MAP) Pulse Ox O2 Delivery O2 Flow Rate FiO2 12/31/17 08:05 97.6 64 18 102/64 (77) 94 12/31/17 03:32 98.0 58 18 119/57 (77) 93 12/31/17 03:29 60 12/30/17 23:59 69 12/30/17 23:46 98.2 77 18 120/77 (91) 94 12/30/17 21:06 98.9 70 18 106/62 (77) 95 12/30/17 19:49 71 12/30/17 13:44 20 I/O 12/30/17 12/30/17 12/30/17 12/31/17 12/31/17 12/31/17 07:00 15:00 23:00 07:00 15:00 23:00 Intake Total 600 ml 100 ml Output Total 1 ml Balance 599 ml 100 ml Intake Oral 0 ml IV Total 600 ml 100 ml Output Stool Total 1 ml # Voids 1 4 Result Diagram: 12/31/17 0751 12/31/17 0751 Imaging Last Impressions Hepatobiliary Scan Nuclear Medicine 12/30/17 0000 Signed Impressions: Service Date/Time: Saturday, December 30, 2017 15:37 - CONCLUSION: 1. No evidence of obstruction or leak. Campbell Woodward MD Abdomen/Pelvis CT 12/29/17 1212 Signed Impressions: Service Date/Time: Friday, December 29, 2017 13:55 - CONCLUSION: 1. Interval cholecystectomy with small amount of fluid in the gallbladder fossa. 2. Slight increase in size of one of the trevon-pancreatic fluid collections; induration peripancreatic inflammatory change is otherwise unchanged from 12/15/17. Campbell Woodward MD Chest X-Ray 12/29/17 0000 Signed Impressions: Service Date/Time: Friday, December 29, 2017 17:20 - CONCLUSION: The lungs are clear. Campbell Woodward MD Objective Remarks GENERAL: Well-nourished, well-developed pleasant middle aged female patient in [facility]. SKIN: Warm and dry. No rash. HEENT: Normocephalic. Atraumatic. Pupils equal and round. Mucous membranes pink and moist. CARDIOVASCULAR: Regular rate and rhythm. S1, S2 noted. No murmur appreciated. RESPIRATORY: No accessory muscle use. Clear to auscultation. Breath sounds equal bilaterally. GASTROINTESTINAL: Abdomen soft, nondistended, mild RUQ and epigastric TTP. Normoactive bowel sounds x4. Prior laparoscopic surgical scars healing well, no surrounding erythema/drainage. MUSCULOSKELETAL: No obvious deformities. Extremities without clubbing, cyanosis , or edema. NEUROLOGICAL: Awake and alert. No obvious cranial nerve deficits. Motor grossly within normal limits. Normal speech. PSYCHIATRIC: Appropriate mood and affect; insight and judgment normal. Medications and IVs Current Medications Medications (Trade) Dose Ordered Sig/Eleuterio Route Start Time Stop Time Status Last Admin Sodium Chloride 1,000 ml @ 100 mls/hr Q10H IV 12/29/17 16:00 12/31/17 05:26 (NS Flush) 2 ml UNSCH PRN IV FLUSH 12/29/17 15:45 (NS Flush) 2 ml BID IV FLUSH 12/29/17 21:00 12/31/17 09:06 (Zofran Inj) 4 mg Q6H PRN IVP 12/29/17 16:00 12/30/17 13:13 (Narcan Inj) 0.4 mg UNSCH PRN IV PUSH 12/29/17 15:45 Piperacillin Sod/ Tazobactam Sod 100 ml @ 200 mls/hr Q6H IV 12/29/17 18:00 12/31/17 12:41 (Dilaudid Pf Inj) 0.5 mg Q4H PRN IV PUSH 12/29/17 18:00 12/31/17 12:41 (ZyrTEC) 10 mg DAILY PO 12/30/17 09:00 12/31/17 09:06 (Valium) 10 mg BID PRN PO 12/29/17 17:15 (Cymbalta Dr) 20 mg DAILY PO 12/30/17 09:00 12/31/17 09:06 (Neurontin) 400 mg BID PO 12/29/17 21:00 12/31/17 09:06 (Synthroid) 75 mcg DAILY@0600 PO 12/30/17 06:00 12/31/17 05:24 (KCl) 20 meq DAILY PO 12/30/17 09:00 12/31/17 09:06 (Topamax) 50 mg TID PO 12/29/17 18:00 12/31/17 12:41 (Ambien) 5 mg HS PRN PO 12/29/17 17:15 12/30/17 23:15 (Neurontin) 300 mg BID PO 12/29/17 21:00 12/31/17 09:06 (Lactinex) 1 tab TID PO 12/30/17 18:00 12/31/17 12:41 A/P Assessment and Plan 57-year-old female with history of MVP, HTN, CVA, TIA, asthma, hypothyroidism, cervical cancer, rheumatoid arthritis, fibromyalgia, bipolar disorder, migraines , chronic back pain, presents with RUQ abdominal pain, fever 103.3 at home, nausea, and inability to tolerate oral intake. Abdominal Pain/Nausea/Fever: patient is s/p laparoscopic cholecystectomy on 12/[address] Weinstein. She reports RUQ pain, nausea, fevers, and inability to tolerate oral intake since prior to surgery. Patient's MRCP on previous admission did not show any choledocholithiasis and she did not require ERCP. -CT abd/pelvis images reviewed, shows interval cholecystectomy with small amount of fluid in the gallbladder fossa; slight increase in size of one of the trevon-pancreatic fluid collections; induration peripancreatic inflammatory change is otherwise unchanged from 12/15. -Supportive treatment with IVF hydration, antiemetics, and pain control prn -Concern for cholangitis, continue on IV Zosyn -HIDA scan unremarkable, negative for obstruction or leak -Consult patient's surgeon, Dr. Weinstein, no acute surgical intervention, appreciate assistance -Consulted gastroenterology, appreciate assistance Diarrhea: with recent antibiotic use -Negative for Cdiff -Check stool cultures, pending -Start on lactinex tid -Continue IVF hydration -GI consult as above Hypokalemia: K 3.3, suspect secondary to recent decreased oral intake -given po KCl replacement -repeat K 3.6 -continue to monitor Hypertension: chronic, does not appear to be on any antihypertensives -monitor BP, add antihypertensives as needed Anxiety/Bipolar Disorder: chronic -continue patient's diazepam prn Migraines: chronic -continue patient's topamax Hypothyroidism: chronic -continue patient's synthroid DVT Prophylaxis: teds/SCDs Discharge Planning Discharge pending further clinical improvement and gastroenterology evaluation. Colette Alfredo PA-C Dec 31, 2017 9:56 am
[2017-12-31] MEDS: HYDROmorphone HCL PF 2 MG/ML VIAL IV PUSH PRN ×2 (12:41→23:13)
--- NOTE | 2017-12-31 13:49 | PD.CONS ---
HPI History of Present Illness This is a 57 year old female4 with hx bipolar disorder, fibromyalgia, s/p cholecystectomy 12/20/17 who presented with complaint of fever, sweats, diarrhea , dizziness, weakness, abd pain, n/v starting 1 week ago. She is complaining that she was sent home from her surgery without an antibiotic. She was too weak to get out of bed. She has no appetite. She's telling me she has no appetite and doesn't want to eat but she does have popsicle wrappers on her tray. No vomiting today. She's having loose watery stool 4 - 8 times daily. Denies blood in vomit, blood in stool, black tarry stool. Denies sick contacts , recent use antibiotics, diet or medication change. Never had EGD. Had colonoscopy [address] Paige in [place], "alot" of polyps were removed and she was told to come back in 2 years. She says clips were applied to her polyps. Denies taking blood thinners. (Gita Chiu) PFSH Past Medical History mitral valve prolapse mild htn- on propanolol dm on insulin cva - years ago- Right side is weaker tia palpitations asthma hx of pancreatitis hyothyroidism cervical cancer- 27 yrs ago forehead skin cancer- melanoma- in her 30s Rheumatoid arthritis Fibromyalgia Bipolar disorder Migraine headaches Chronic back pain Past Surgical History melanoma resection lazy eye sx at age 11 yo cholecystectomy urethra sx (Gita Chiu) Coded Allergies: butorphanol (Verified Allergy, Severe, "I GO CRAZY", 12/29/17) HALLUCINATIONS acetaminophen (Verified Allergy, Intermediate, Rash, 12/29/17) oxycodone (Verified Allergy, Intermediate, Rash, 12/29/17) Family History both parents- heart problems, cabg, ppm mom- dementia Social History no etoh or drugs abuse no smoking (Gita Chiu) Review of Systems Constitutional: COMPLAINS OF: Fever Endocrine: DENIES: Polydipsia Eyes: DENIES: Blurred vision Ears, nose, mouth, throat: DENIES: Hearing loss Respiratory: DENIES: Cough Cardiovascular: DENIES: Chest pain Gastrointestinal: COMPLAINS OF: Abdominal pain, Diarrhea, Nausea, Vomiting Genitourinary: DENIES: Urinary incontinence Musculoskeletal: DENIES: Joint pain Integumentary: DENIES: Abnormal pigmentation Hematologic/lymphatic: DENIES: Bruising Immunologic/allergic: DENIES: Eczema Neurologic: DENIES: Abnormal gait Psychiatric: DENIES: Confusion (Gita Chiu) GI Exam Vitals I&O Vital Signs Date Time Temp Pulse Resp B/P (MAP) Pulse Ox O2 Delivery O2 Flow Rate FiO2 12/31/17 11:10 98.1 65 18 105/66 (79) 96 12/31/17 08:05 97.6 64 18 102/64 (77) 94 12/31/17 03:32 98.0 58 18 119/57 (77) 93 12/31/17 03:29 60 12/30/17 23:59 69 12/30/17 23:46 98.2 77 18 120/77 (91) 94 12/30/17 21:06 98.9 70 18 106/62 (77) 95 12/30/17 19:49 71 12/30/17 13:44 20 I/O 12/30/17 12/30/17 12/30/17 12/31/17 12/31/17 12/31/17 07:00 15:00 23:00 07:00 15:00 23:00 Intake Total 600 ml 100 ml Output Total 1 ml Balance 599 ml 100 ml Intake Oral 0 ml IV Total 600 ml 100 ml Output Stool Total 1 ml # Voids 1 4 Imaging Last Impressions Hepatobiliary Scan Nuclear Medicine 12/30/17 0000 Signed Impressions: Service Date/Time: Saturday, December 30, 2017 15:37 - CONCLUSION: 1. No evidence of obstruction or leak. Campbell Woodward MD Abdomen/Pelvis CT 12/29/17 1212 Signed Impressions: Service Date/Time: Friday, December 29, 2017 13:55 - CONCLUSION: 1. Interval cholecystectomy with small amount of fluid in the gallbladder fossa. 2. Slight increase in size of one of the trevon-pancreatic fluid collections; induration peripancreatic inflammatory change is otherwise unchanged from 12/15/17. Campbell Woodward MD Chest X-Ray 12/29/17 0000 Signed Impressions: Service Date/Time: Friday, December 29, 2017 17:20 - CONCLUSION: The lungs are clear. Campbell Woodward MD Laboratory Test 12/30/17 13:40 12/31/17 07:51 Stool C. difficile Toxin (PCR) NEGATIVE Stl C. difficile Toxin Epiderm 027 PRESUMPTIVE NEGATIVE White Blood Count 4.2 TH/MM3 Red Blood Count 3.81 MIL/MM3 Hemoglobin 11.1 GM/DL Hematocrit 34.1 % Mean Corpuscular Volume 89.4 FL Mean Corpuscular Hemoglobin 29.1 PG Mean Corpuscular Hemoglobin Concent 32.5 % Red Cell Distribution Width 14.4 % Platelet Count 234 TH/MM3 Mean Platelet Volume 7.7 FL Neutrophils (%) (Auto) 48.1 % Lymphocytes (%) (Auto) 40.6 % Monocytes (%) (Auto) 5.9 % Eosinophils (%) (Auto) 4.7 % Basophils (%) (Auto) 0.7 % Neutrophils # (Auto) 2.0 TH/MM3 Lymphocytes # (Auto) 1.7 TH/MM3 Monocytes # (Auto) 0.3 TH/MM3 Eosinophils # (Auto) 0.2 TH/MM3 Basophils # (Auto) 0.0 TH/MM3 CBC Comment DIFF FINAL Differential Comment Blood Urea Nitrogen 5 MG/DL Creatinine 1.09 MG/DL Random Glucose 103 MG/DL Total Protein 6.2 GM/DL Albumin 2.5 GM/DL Calcium Level 8.3 MG/DL Magnesium Level 2.1 MG/DL Alkaline Phosphatase 96 U/L Aspartate Amino Transf (AST/SGOT) 14 U/L Alanine Aminotransferase (ALT/SGPT) 19 U/L Total Bilirubin 0.4 MG/DL Sodium Level 141 MEQ/L Potassium Level 3.6 MEQ/L Chloride Level 109 MEQ/L Carbon Dioxide Level 23.9 MEQ/L Anion Gap 8 MEQ/L Estimat Glomerular Filtration Rate 52 ML/MIN Date/Time Source Procedure Growth Status 12/29/17 11:45 Blood Peripheral Aerobic Blood Culture - Preliminary NO GROWTH IN 2 DAYS Resulted 12/29/17 11:45 Blood Peripheral Anaerobic Blood Culture - Preliminary NO GROWTH IN 2 DAYS Resulted 12/30/17 13:40 Stool Stool Pending Received Physical Examination HEENT: PERRL; normocephalic; atraumatic; no jaundice. CHEST: CTA CARDIAC: RRR ABDOMEN: Soft, obese, nontender to pressure from stethoscope, is tender to palpation; no hepatosplenomegaly; bowel sounds are present in all four quadrants. EXTREMITIES: No clubbing, cyanosis, or edema. SKIN: Normal; no rash; no jaundice. MANAGER NEW PRODUCT: No focal deficits; alert and oriented times three. (Gita Chiu) Assessment and Plan Plan ASSESSMENT - abd pain, n/v, diarrhea - unclear etiology. could be gastroenteritis. onset 1 week ago. cholecystectomy 12/20/17. last colonoscopy 5 y ago, multiple polyps. CT shows slight increase in size of perpancreatic fluid collections, unchanged peripancreatic inflammation. GS consult appreciated - no surgical interventions. lipase WNL. LFTs WNL. no leukocytosis. has been afebrile. on zosyn. HIDA negative. c diff negative PLAN - EGD and colonoscopy in am. - clear liquids - npo after MN - obtain consent - go lytely - stool studies - supportive care pt seen by myself and Dr Pittman and this note is written on his behalf (Gita Chiu) Physician Comments Seen and examined with VALENTE, egd/colonoscopy planned for tomorrow. HIDA/CT -ve. Stool studies -ve. . Discussed with Dr. Weinstein. Thank you (Vic Pittman MD) Gita Chiu Dec 31, 2017 13:49 Vic Pittman MD Dec 31, 2017 16:00
[2017-12-31] MEDS ORDERED: PEG (High)/E-LYTE SOLN 4000 ML BTL PO ONE (16:30)
[2017-12-31] MEDS: ONDANSETRON HCL 4 MG/2 ML VIAL IVP PRN (23:12)
[2018-01-01] MEDS: ZOLPIDEM TARTRATE 5 MG TAB PO PRN (02:16)
[2018-01-01] MEDS: SODIUM CHLOR 0.9% 1000 ML INJ 1,000 ML IV SCH ×2 (02:17→14:00)
[2018-01-01 03:34] VITALS: BP 109/56; PULSE 63; RESP 18; O2SAT 94
[2018-01-01 04:10] VITALS: PULSE 62
[2018-01-01] MEDS: LEVOTHYROXINE SODIUM 75 MCG TAB PO SCH (05:55)
[2018-01-01] MEDS: PIPERACIL-TAZO 4.5 GM PREMIX 100 ML IV SCH (06:23)
[2018-01-01 07:29] VITALS: BP 108/66; PULSE 64; RESP 18; TEMP 97.9; O2SAT 97
[2018-01-01 08:00] VITALS: PULSE 57
--- NOTE | 2018-01-01 08:27 | HHI.PR ---
Subjective Remarks Follow up for RUQ pain, nausea, diarrhea. The patient reports continued RUQ and epigastric pain overnight, described as cramping. She also had some lower abdominal cramping with bowel movements overnight. She reports continued watery nonbloody diarrhea after drinking bowel prep. She reports chills but no fevers. She has intermittent nausea but no vomiting. She was able to tolerate some clear liquids yesterday. She is going for EGD/colonoscopy today. Objective Vitals Vital Signs Date Time Temp Pulse Resp B/P (MAP) Pulse Ox O2 Delivery O2 Flow Rate FiO2 01/01/18 07:29 97.9 64 18 108/66 (80) 97 01/01/18 04:10 62 01/01/18 03:34 63 18 109/56 (73) 94 12/31/17 22:39 98.3 65 18 105/62 (76) 93 12/31/17 15:48 98.3 63 18 100/67 (78) 95 12/31/17 11:10 98.1 65 18 105/66 (79) 96 I/O 12/31/17 12/31/17 12/31/17 01/01/18 01/01/18 01/01/18 07:00 15:00 23:00 07:00 15:00 23:00 Intake Total 100 ml 100 ml 2200 ml 800 ml Output Total 1150 ml Balance 100 ml 100 ml 1050 ml 800 ml Intake Oral 800 ml 800 ml IV Total 100 ml 100 ml 1400 ml Output Urine Total 950 ml Stool Total 200 ml # Bowel Movements 2 6 Result Diagram: 12/31/17 0751 12/31/17 0751 Imaging Last Impressions Hepatobiliary Scan Nuclear Medicine 12/30/17 0000 Signed Impressions: Service Date/Time: Saturday, December 30, 2017 15:37 - CONCLUSION: 1. No evidence of obstruction or leak. Campbell Woodward MD Abdomen/Pelvis CT 12/29/17 1212 Signed Impressions: Service Date/Time: Friday, December 29, 2017 13:55 - CONCLUSION: 1. Interval cholecystectomy with small amount of fluid in the gallbladder fossa. 2. Slight increase in size of one of the trevon-pancreatic fluid collections; induration peripancreatic inflammatory change is otherwise unchanged from 12/15/17. Campbell Woodward MD Chest X-Ray 12/29/17 0000 Signed Impressions: Service Date/Time: Friday, December 29, 2017 17:20 - CONCLUSION: The lungs are clear. Campbell Woodward MD Objective Remarks GENERAL: Well-nourished, well-developed pleasant middle aged female patient in [facility]. SKIN: Warm and dry. No rash. HEENT: Normocephalic. Atraumatic. Pupils equal and round. Mucous membranes pink and moist. CARDIOVASCULAR: Regular rate and rhythm. S1, S2 noted. No murmur appreciated. RESPIRATORY: No accessory muscle use. Clear to auscultation. Breath sounds equal bilaterally. GASTROINTESTINAL: Abdomen soft, nondistended, mild RUQ and epigastric TTP. Normoactive bowel sounds x4. Prior laparoscopic surgical scars healing well, no surrounding erythema/drainage. MUSCULOSKELETAL: No obvious deformities. Extremities without clubbing, cyanosis , or edema. NEUROLOGICAL: Awake and alert. No obvious cranial nerve deficits. Motor grossly within normal limits. Normal speech. PSYCHIATRIC: Appropriate mood and affect; insight and judgment normal. Medications and IVs Current Medications Medications (Trade) Dose Ordered Sig/Eleuterio Route Start Time Stop Time Status Last Admin Sodium Chloride 1,000 ml @ 100 mls/hr Q10H IV 12/29/17 16:00 01/01/18 02:17 (NS Flush) 2 ml UNSCH PRN IV FLUSH 12/29/17 15:45 (NS Flush) 2 ml BID IV FLUSH 12/29/17 21:00 12/31/17 20:06 (Zofran Inj) 4 mg Q6H PRN IVP 12/29/17 16:00 12/31/17 23:12 (Narcan Inj) 0.4 mg UNSCH PRN IV PUSH 12/29/17 15:45 Piperacillin Sod/ Tazobactam Sod 100 ml @ 200 mls/hr Q6H IV 12/29/17 18:00 01/01/18 06:23 (Dilaudid Pf Inj) 0.5 mg Q4H PRN IV PUSH 12/29/17 18:00 12/31/17 23:13 (ZyrTEC) 10 mg DAILY PO 12/30/17 09:00 12/31/17 09:06 (Valium) 10 mg BID PRN PO 12/29/17 17:15 (Cymbalta Dr) 20 mg DAILY PO 12/30/17 09:00 12/31/17 09:06 (Neurontin) 400 mg BID PO 12/29/17 21:00 12/31/17 20:06 (Synthroid) 75 mcg DAILY@0600 PO 12/30/17 06:00 01/01/18 05:55 (KCl) 20 meq DAILY PO 12/30/17 09:00 12/31/17 09:06 (Topamax) 50 mg TID PO 12/29/17 18:00 12/31/17 17:59 (Ambien) 5 mg HS PRN PO 12/29/17 17:15 01/01/18 02:16 (Neurontin) 300 mg BID PO 12/29/17 21:00 12/31/17 20:06 (Lactinex) 1 tab TID PO 12/30/17 18:00 12/31/17 17:59 A/P Assessment and Plan 57-year-old female with history of MVP, HTN, CVA, TIA, asthma, hypothyroidism, cervical cancer, rheumatoid arthritis, fibromyalgia, bipolar disorder, migraines , chronic back pain, presents with RUQ abdominal pain, fever 103.3 at home, nausea, and inability to tolerate oral intake. Abdominal Pain/Nausea/Fever: patient is s/p laparoscopic cholecystectomy on 12/[address] Weinstein. She reports RUQ pain, nausea, fevers, and inability to tolerate oral intake since prior to surgery. Patient's MRCP on previous admission did not show any choledocholithiasis and she did not require ERCP. -CT abd/pelvis images reviewed, shows interval cholecystectomy with small amount of fluid in the gallbladder fossa; slight increase in size of one of the trevon-pancreatic fluid collections; induration peripancreatic inflammatory change is otherwise unchanged from 12/15. -Supportive treatment with IVF hydration, antiemetics, and pain control prn -Initially concerned for cholangitis, received IV Zosyn, now discontinued without any significant evidence of cholangitis -HIDA scan unremarkable, negative for obstruction or leak -Consult patient's surgeon, Dr. Weinstein, no acute surgical intervention, appreciate assistance -Consulted gastroenterology, plan for EGD/colonoscopy today Diarrhea: with recent antibiotic use -Negative for Cdiff -Check stool cultures, pending -Start on lactinex tid -Continue IVF hydration -GI consult as above Hypokalemia: K 3.3, suspect secondary to recent decreased oral intake -given po KCl replacement -repeat K 3.6 -continue to monitor Hypertension: chronic, does not appear to be on any antihypertensives -monitor BP, add antihypertensives as needed Anxiety/Bipolar Disorder: chronic -continue patient's diazepam prn Migraines: chronic -continue patient's topamax Hypothyroidism: chronic -continue patient's synthroid DVT Prophylaxis: teds/SCDs Discharge Planning 0830hrs: Hopefully discharge later today after EGD/colonoscopy if patient tolerating oral intake and cleared by GI. Colette Alfredo PA-C Jan 01, 2018 8:27 am
[2018-01-01] MEDS: LACTOBACILLUS ACIDOPHILUS TAB PO SCH ×2 (09:00→12:07)
[2018-01-01] MEDS: SODIUM CHLORIDE 0.9% FLUSH 10 ML FLUSH IV FLUSH SCH (09:00)
[2018-01-01] MEDS: TOPIRAMATE 25 MG TAB PO SCH ×2 (09:00→12:07)
[2018-01-01] MEDS ORDERED: LACTATED RINGER'S 1000 ML IV PRN (09:45)
[2018-01-01] MEDS ORDERED: SODIUM CHLORID 0.9% 500 ML IV PRN (09:45)
[2018-01-01] MEDS ORDERED: POVIDONE IODINE 5% (ANTISEPSIS KIT) 4 APPLICATIONS EACH NARE PRN (09:45)
[2018-01-01] MEDS ORDERED: METOPROLOL TARTRATE 25 MG TAB PO PRN (09:45)
[2018-01-01] MEDS ORDERED: CHLORHEXIDINE GLUCONATE 2 % 1 PACK (2 CLOTHS) TOPICAL PRN (09:45)
--- NOTE | 2018-01-01 11:36 | GIPROC ---
[facility] [address] [facility]. [facility], [address] EGD PROCEDURE REPORT EXAM DATE: 01/01/2018 PATIENT NAME: Lexy Rey MR #: [id number] BIRTHDATE: 1960 ATTENDING: Vic Pittman MD ORDER #: [id number] HERD TESTER: Haja Rush and Jesica Mckee STATUS: inpatient INDICATIONS: The patient is a 57 yr old female here for an EGD due to epigastric abdominal pain PROCEDURE PERFORMED: EGD w/ biopsy MEDICATIONS: Per Anesthesia and None. TOPICAL ANESTHETIC: CONSENT: The patient understands the risks and benefits of the procedure and understands that these risks include, but are not limited to: sedation, allergic reaction, infection, perforation and/or bleeding. Alternative means of evaluation and treatment include, among others: physical exam, x-rays, and/or surgical intervention. The patient elects to proceed with this endoscopic procedure. medical equipment was checked for proper function. Hand hygiene and appropriate measures for infection prevention was taken. After the risks, benefits and alternatives of the procedure were thoroughly explained, Informed consent was verified, confirmed and timeout was successfully executed by the treatment team. The patient was anesthetized with topical anesthesia and the EC-[id number] (Pedi C) endoscope was introduced through the mouth and advanced to the second portion of the duodenum. Retroflexed views revealed no abnormalities The gastroscope was then slowly withdrawn and removed. ESOPHAGUS: There was LA Class A esophagitis noted. A biopsy was performed using cold forceps. Sample sent for histology. STOMACH: There was erythematous moderate gastritis in the gastric antrum. A biopsy was performed using cold forceps. Sample sent for histology. DUODENUM: Moderate duodenal inflammation was found in the duodenal bulb. ADVERSE EVENTS: There were no complications. IMPRESSIONS: 1. There was LA Class A esophagitis noted; biopsy was performed 2. There was erythematous gastritis in the gastric antrum; biopsy was performed 3. Duodenal inflammation was found in the duodenal bulb 4. Retroflexed views revealed no abnormalities RECOMMENDATIONS: 1. Await biopsy results. Biopsy results will not be ready for 7-10 days. If you don't hear from us in two weeks, call our office for biopsy results. 2. Anti-reflux regimen 3. Continue PPI PATIENT CONDITION: stable DISPOSITION: Inpatient REPEAT EXAM: Return 1 year EGD pending biopsy results Vic Pittman MD eSigned: Vic Pittman MD 01/01/2018 11:36 AM cc: PATIENT NAME: Lexy Rey MR#: [id number]
--- NOTE | 2018-01-01 11:39 | GIPROC ---
[facility] [address] [facility]. [facility], [address] COLONOSCOPY PROCEDURE REPORT EXAM DATE: 01/01/2018 PATIENT NAME: Lexy Rey MR #: [id number] BIRTHDATE: 1960 ENDOSCOPIST: Vic Pittman MD ORDER #: [id number] CONSUMER MARKETING ANALYST: Jesica Mckee RN STATUS: inpatient INDICATIONS: The patient is a 57 yr old female here for a colonoscopy due to abdominal pain PROCEDURE PERFORMED: Colonoscopy with polypectomy MEDICATIONS: Per Anesthesia and None. PREP QUALITY: The [place] Bowel Prep Score was Right colon 3, Mid colon 3, and Left colon 2. Total = 8. PREP TYPE:GoLytely ESTIMATED BLOOD LOSS: None CONSENT: The patient understands the risks and benefits of the procedure and understands that these risks include, but are not limited to: sedation, allergic reaction, infection, perforation and/or bleeding. Alternative means of evaluation and treatment include, among others: physical exam, x-rays, and/or surgical intervention. The patient elects to proceed with this endoscopic procedure. medical equipment was checked for proper function. Hand hygiene and appropriate measures for infection prevention was taken. After the risks, benefits and alternatives of the procedure were thoroughly explained, Informed consent was verified, confirmed and timeout was successfully executed by the treatment team. A digital exam revealed external hemorrhoids The Pentax EC-[id number] endoscope was introduced through the anus and advanced to the cecum, which was identified by both the appendix and ileocecal valve. The instrument was then slowly withdrawn as the colon was fully examined. COLON FINDINGS: Mild diverticulosis was noted in the sigmoid colon. No bleeding was noted from the diverticulosis. A polypoid shaped sessile polyp ranging between 5-9mm in size was found in the ascending colon. A polypectomy was performed using snare cautery. The resection was complete and the polyp tissue was completely retrieved. Retroflexed views revealed internal hemorrhoids and Retroflexed views revealed medium internal hemorrhoids The scope was then completely withdrawn from the patient and the procedure terminated. PROCEDURE WITHDRAWAL TIME:7minutes ADVERSE EVENTS: There were no complications. IMPRESSIONS: 1. Mild diverticulosis was noted in the sigmoid colon 2. A sessile polyp ranging between 5-9mm in size was found in the ascending colon; polypectomy was performed using snare cautery 3. Retroflexed views revealed internal hemorrhoids 4. Retroflexed views revealed medium internal hemorrhoids 5. Revealed external hemorrhoids RECOMMENDATIONS: 1. Await biopsy results. Biopsy results will not be ready for 7-10 days. If you don't hear from us in two weeks, call our office for results. 2. Benefiber 2 tsp daily 3. Continue surveillance 4. High fiber diet 5. No seeds, nuts and popcorn in diet RECALL: Return 1 year Colonoscopy, pending biopsy results Vic Pittman MD eSigned: Vic Pittman MD 01/01/2018 11:39 AM cc:
[2018-01-01] MEDS ORDERED: LIDOCAINE HCL 1% PF 5 ML SYRINGE OTHER ONE (12:00)
[2018-01-01] MEDS ORDERED: PROPOFOL 200 MG/20 ML AMP IV ONE (12:00)
[2018-01-01] MEDS: GABAPENTIN 300 MG CAP PO SCH (12:07)
[2018-01-01] MEDS: CETIRIZINE HCL 10 MG TAB PO SCH (12:07)
[2018-01-01] MEDS: DULoxetine HCl DR 20 MG CAP PO SCH (12:07)
[2018-01-01] MEDS: POTASSIUM CHLORIDE 20 MEQ CONTROLLED RELEASE TAB PO SCH (12:07)
[2018-01-01] MEDS: GABAPENTIN 400 MG CAP PO SCH (12:07)
[2018-01-01 12:45] VITALS: BP 117/74; PULSE 61; RESP 18; TEMP 98; O2SAT 96
[2018-01-01] MEDS ORDERED: SM A PO (15:01)
[2018-01-01] MEDS ORDERED: LACT PO (15:01)
--- NOTE | 2018-01-01 15:06 | HHI.DCPOC ---
Discharge Care Plan Diagnosis: (1) Abdominal pain (2) Intractable nausea and vomiting (3) Diarrhea (4) Gastritis (5) Esophagitis (6) Diverticulosis (7) Colonic polyp (8) Internal hemorrhoid Your Health Problems Are: Irregular Bowel Function Goals to Promote Your Health * To prevent worsening of your condition and complications * To maintain your health at the optimal level Directions to Meet Your Goals Take your medications as prescribed Follow your dietary instruction Follow activity as directed Keep your appointments as scheduled Take your immunizations and boosters as scheduled If your symptoms worsen call your PCP, if no PCP go to Urgent Care Center or Emergency Room Smoking is Dangerous to Your Health. Avoid second hand smoke Call the 24-hour hour crisis hotline for domestic abuse at Colette Alfredo PA-C Jan 01, 2018 3:06 pm
[2018-01-01] MEDS ORDERED: PANT40TA3 PO (15:07)
--- NOTE | 2018-01-01 16:32 | HHI.DS ---
cc: Vic Pittman MD Discharge Summary Admission Date Dec 29, 2017 at 4:29 pm Discharge Date: Jan 01, 2018 Admitting Diagnosis intractable nausea/vomiting, subacute pancreatitis, recent cholecyst (1) Gastritis ICD Code: K29.70 - Gastritis, unspecified, without bleeding (2) Esophagitis ICD Code: K20.9 - Esophagitis, unspecified (3) Diverticulosis ICD Code: K57.90 - Diverticulosis of intestine, part unspecified, without perforation or abscess without bleeding (4) Colonic polyp ICD Code: K63.5 - Polyp of colon (5) Intractable nausea and vomiting ICD Code: R11.2 - Nausea with vomiting, unspecified Status: Acute (6) Fever ICD Code: R50.9 - Fever, unspecified Status: Resolved (7) Abdominal pain ICD Code: R10.9 - Unspecified abdominal pain (8) Diarrhea ICD Code: R19.7 - Diarrhea, unspecified (9) Status post laparoscopic cholecystectomy ICD Code: Z90.49 - Acquired absence of other specified parts of digestive tract Status: Acute Procedures 01/01/18 - EGD showed mild esophagitis and gastritis, biopsies taken. Colonoscopy showed mild diverticulosis, polyp, internal and external hemorrhoids. Brief History - From Admission History from patient, ER physician communication, and review of medical records. Patient was admitted to our hospital from December 16, 2017 to 12/24/2017 had contreras on 12/22 no ercp since dc has been bed bound due to pain in abdomen fever, chills, 103.3 F nausea, no vomiting, has not been eating anything this am, had diarrhea only once did not notice the color no real cough did have runny nose- has allergies does have shortness of breath all the time has hx of asthma left neck lump that she feels - while she was admitted here this week for cholecystitis CBC/BMP: 12/31/17 0751 12/31/17 0751 Significant Findings Laboratory Tests Test 12/30/17 09:01 12/30/17 13:40 12/31/17 07:51 Red Blood Count 3.97 MIL/MM3 (4.00-5.30) 3.81 MIL/MM3 (4.00-5.30) Creatinine 1.09 MG/DL (0.50-1.00) 1.09 MG/DL (0.50-1.00) Random Glucose 123 MG/DL (74-106) Albumin 2.7 GM/DL (3.4-5.0) 2.5 GM/DL (3.4-5.0) Chloride Level 109 MEQ/L (98-107) 109 MEQ/L (98-107) Estimat Glomerular Filtration Rate 52 ML/MIN (>89) 52 ML/MIN (>89) Hemoglobin 11.1 GM/DL (11.6-15.3) Hematocrit 34.1 % (35.0-46.0) Eosinophils (%) (Auto) 4.7 % (0.0-4.0) Blood Urea Nitrogen 5 MG/DL (7-18) Total Protein 6.2 GM/DL (6.4-8.2) Calcium Level 8.3 MG/DL (8.5-10.1) Aspartate Amino Transf (AST/SGOT) 14 U/L (15-37) Imaging Last Impressions Hepatobiliary Scan Nuclear Medicine 12/30/17 0000 Signed Impressions: Service Date/Time: Saturday, December 30, 2017 15:37 - CONCLUSION: 1. No evidence of obstruction or leak. Campbell Woodward MD Abdomen/Pelvis CT 12/29/17 1212 Signed Impressions: Service Date/Time: Friday, December 29, 2017 13:55 - CONCLUSION: 1. Interval cholecystectomy with small amount of fluid in the gallbladder fossa. 2. Slight increase in size of one of the trevon-pancreatic fluid collections; induration peripancreatic inflammatory change is otherwise unchanged from 12/15/17. Campbell Woodward MD Chest X-Ray 12/29/17 0000 Signed Impressions: Service Date/Time: Friday, December 29, 2017 17:20 - CONCLUSION: The lungs are clear. Campbell Woodward MD PE at Discharge GENERAL: Well-nourished, well-developed pleasant middle aged female patient in [facility]. SKIN: Warm and dry. No rash. HEENT: Normocephalic. Atraumatic. Pupils equal and round. Mucous membranes pink and moist. CARDIOVASCULAR: Regular rate and rhythm. S1, S2 noted. No murmur appreciated. RESPIRATORY: No accessory muscle use. Clear to auscultation. Breath sounds equal bilaterally. GASTROINTESTINAL: Abdomen soft, nondistended, minimal RUQ and epigastric TTP, however nontender with distraction. Normoactive bowel sounds x4. Prior laparoscopic surgical scars healing well, no surrounding erythema/drainage. MUSCULOSKELETAL: No obvious deformities. Extremities without clubbing, cyanosis , or edema. NEUROLOGICAL: Awake and alert. No obvious cranial nerve deficits. Motor grossly within normal limits. Normal speech. PSYCHIATRIC: Appropriate mood and affect; insight and judgment normal. Hospital Course 57-year-old female with history of MVP, HTN, CVA, TIA, asthma, hypothyroidism, cervical cancer, rheumatoid arthritis, fibromyalgia, bipolar disorder, migraines , chronic back pain, presents with RUQ abdominal pain, fever 103.3 at home, nausea, and inability to tolerate oral intake. Patient is s/p laparoscopic cholecystectomy on 12/[address] Weinstein. Patient's MRCP on previous admission did not show any choledocholithiasis and she did not require ERCP. CT abd/pelvis images upon arrival showed interval cholecystectomy with small amount of fluid in the gallbladder fossa; slight increase in size of one of the trevon-pancreatic fluid collections; induration peripancreatic inflammatory change is otherwise unchanged from 12/15. Initially concerned for cholangitis, received IV Zosyn, now discontinued without any significant evidence of cholangitis. Patient remained afebrile with no elevation of LFTs. She was given supportive treatment with IVF hydration, antiemetics, and pain control prn. General surgery was consulted for further recommendations, HIDA scan unremarkable, negative for obstruction or leak. Gen surg signed off with no acute surgical intervention recommended. The patient also reported diarrhea throughout admission. With recent antibiotic use , Cdiff was checked which was negative. Stool cultures also negative. She was started on Lactinex tid and Imodium prn. Symptoms improved. Consulted gastroenterology, EGD showed mild esophagitis and gastritis, biopsies taken. Colonoscopy showed mild diverticulosis, polyp, internal and external hemorrhoids. Recommend to continue Protonix, Benefiber 2tsp daily, High fiber diet, No seeds, nuts, or popcorn. She was cleared for discharge by GI per Dr. Pittman. Recommended to return in 7-10days for biopsy results and return in 1 year for EGD/colonoscopy. Patient tolerated oral intake post procedure and was stable for discharge home. Pt Condition on Discharge: Stable Discharge Disposition: Discharge Home Discharge Time: > 30 minutes Discharge Instructions DIET: Follow Instructions for: Heart Healthy Diet, High Fiber Diet Activities you can perform: Regular-No Restrictions Follow up Referrals: Gastroenterology - 1 Week with Vic Pittman MD PCP Follow-up - 1 Week New Medications: Loperamide HCl (Sm Anti-Diarrheal) 2 Mg Cap 1 TAB PO Q6HR PRN for DIARRHEA, #28 TAB Pantoprazole (Pantoprazole) 40 Mg Tab 40 MG PO DAILY for Reflux, #30 TAB 0 Refills Lactobacillus Acidophilus (Acidophilus/l-Sporogenes) 35 Million Cell-25 Million Cell Tab 1 TAB PO TID for diarrhea for 14 Days, #42 TAB Continued Medications: Albuterol 18 GM Inh (Ventolin Hfa 18 GM Inh) 90 Mcg/Act Aer 2 PUFF INH Q4-6H PRN for SHORTNESS OF BREATH, #1 INHALER 0 Refills Aspirin (Aspir-81) 81 Mg Tabdr Cetirizine (Cetirizine) 10 Mg Chew 10 MG CHEW DAILY for Allergies, TAB 0 Refills Diazepam (Diazepam) 10 Mg Tab 10 MG PO BID PRN for ANXIETY, TAB 0 Refills Managed by Psychiatry Duloxetine (Yasmeen CARRANZA) 20 Mg Capdr 20 MG PO DAILY, #30 CAP 0 Refills Managed by Psychiatry Furosemide (Lasix) 40 Mg Tab 40 MG PO DAILY for Fluid retention, #30 TAB 0 Refills Gabapentin (Gabapentin) 800 Mg Tab 800 MG PO QID for Fibromyalgia, #120 TAB 2 Refills Hydromorphone (Dilaudid) 2 Mg Tab 2 MG PO Q6H PRN for PAIN SCALE 6 TO 10, #30 TAB Levothyroxine (Levothyroxine) 75 Mcg Tab 75 MCG PO DAILY for Thyroid, #30 TAB 0 Refills Potassium Chloride Microencaps (Potassium Chloride Microencaps) 20 Meq Tab 20 MEQ PO DAILY for Electrolyte Replacement, #30 TAB 4 Refills Topiramate (Topamax) 50 Mg Tab 50 MG PO TID for MIGRAINES, #60 TAB 0 Refills Managed by Psychiatry Zolpidem (Zolpidem) 5 Mg Tab 5 MG PO HS PRN for INSOMNIA, TAB 0 Refills Managed by Psychiatry Colette Alfredo PA-C Jan 01, 2018 4:32 pm
== END 2018-01-01 18:36 | disposition home or self-care (01) ==
LOC: NEPC 10:57 → NEDA 16:29 → NEPHCDU 18:35
PROVIDERS: ADMIT Family Medicine; ATTEND Family Medicine
DX: R10.9 Unspecified abdominal pain (principal); G89.18 Other acute postprocedural pain; Z90.49 Acquired absence of other specified parts of digestive tract; R50.9 Fever, unspecified; E87.2 Acidosis; K63.5 Polyp of colon; N28.9 Disorder of kidney and ureter, unspecified; E87.6 Hypokalemia; E86.0 Dehydration; R19.7 Diarrhea, unspecified; K57.30 Diverticulosis of large intestine without perforation or abscess without bleeding; K64.8 Other hemorrhoids; I10 Essential (primary) hypertension; I34.1 Nonrheumatic mitral (valve) prolapse; E11.9 Type 2 diabetes mellitus without complications; E78.00 Pure hypercholesterolemia, unspecified; E03.9 Hypothyroidism, unspecified; J45.909 Unspecified asthma, uncomplicated; J44.9 Chronic obstructive pulmonary disease, unspecified; K21.9 Gastro-esophageal reflux disease without esophagitis; G43.909 Migraine, unspecified, not intractable, without status migrainosus; M54.9 Dorsalgia, unspecified; G89.29 Other chronic pain; M06.9 Rheumatoid arthritis, unspecified; M79.7 Fibromyalgia; F41.9 Anxiety disorder, unspecified; H91.90 Unspecified hearing loss, unspecified ear; F31.9 Bipolar disorder, unspecified; Z86.73 Personal history of transient ischemic attack (TIA), and cerebral infarction without residual deficits; Z85.41 Personal history of malignant neoplasm of cervix uteri; Z85.820 Personal history of malignant melanoma of skin; Z79.4 Long term (current) use of insulin; Z79.899 Other long term (current) drug therapy; Z79.82 Long term (current) use of aspirin
CPT/HCPCS: 00813; 43239; 45385; 71045; 74177; 78227; 80053; 81001; 83605; 83690; 83735; 85025; 87040; 87328; 87329; 87493; 87506; 88305; 88312; 96361; 96365; 96366; 96375; 96376; 99285; A9537; G0378; J1170; J2405; J2543; J2805; J7030; J7120; Q9963; Q9967

== ENCOUNTER 2018-02-14 18:54 | Emergency (ER) | payer OTHER ==
[~2018-02-14 18:54] MED LIST changes: +LACT PO; +PANT40TA3 PO; +SM A PO
[2018-02-14 20:16] VITALS: BP 125/80; PULSE 93; RESP 18; TEMP 98.1; O2SAT 97
--- NOTE | 2018-02-14 21:54 | PD ---
HPI Chief Complaint: Psychiatric Symptoms Time Seen by Provider: 21:36 Travel History International Travel<30 days: No Contact w/Intl Traveler<30days: No Traveled to known affect area: No History of Present Illness HPI 57-year-old female with PMH of depression, bipolar presents to the ED under Hooks act for psychiatric evaluation. According to the Hooks act the patient made suicidal threats to her , stating that she would OD on her medications. On exam the patient admits to making these statements, however she states that she made the statements in an attempt to get her to leave her alone. She states that there have been violent episodes in the house lately and the is under restraining order but text her repeatedly today. She adamantly denies suicidal ideation. She does admit history of suicide attempt but states that "I will never do that again because of my children." She takes Topamax and Cymbalta but has not taken them for the last few days. She endorses history of chronic pain, no worse today. No other physical/somatic complaints. She denies alcohol use, illicit drug use or cigarette smoking. PFSH Past Medical History Anemia: Yes Arthritis: Yes (RA, FIBROMYALGIA) Asthma: Yes Autoimmune Disease: Yes (RA) Bipolar Disorder: Yes Anxiety: Yes Depression: Yes Heart Rhythm Problems: Yes (MITRAL VALVE PROLAPSE) Cancer: Yes (cervical cancer per pt) Cardiac Catheterization: No Cardiovascular Problems: Yes ( MVP) High Cholesterol: Yes Chemotherapy: No Congestive Heart Failure: No COPD: Yes Cerebrovascular Accident: Yes (hx of tia) Coronary Artery Disease: Yes (MITRAL VALVE PROLAPSE) Diabetes: Yes (new, takes nothing per the pt) Patient Takes Glucophage: No Diminished Hearing: Yes Diverticulitis: Yes Fibromyalgia: Yes Gastrointestinal Disorders: Yes (DIVERTICULITIS, POLYPS) GERD: Yes Genitourinary: Yes Headaches: Yes Hepatitis: Yes (MIGRAINES) Herniated Disk: Yes Hypertension: Yes Kidney Stones: Yes Musculoskeletal: Yes (BACK PAIN) Neurologic: Yes Psychiatric: Yes (per pt hx of Bipolar and depression) Reproductive: Yes (CERVICAL CA) Respiratory: Yes Immunizations Current: Yes Migraines: Yes Radiation Therapy: No Seizures: No Sleep Apnea: No Thyroid Disease: Yes (HYPO) Menopausal: Yes Past Surgical History Cholecystectomy: Yes Coronary Artery Bypass Graft: No Eye Surgery: Yes (BILATERAL "LAZY EYE" CORRECTION, CHILD) Genitourinary Surgery: Yes (URETHRAL SURGERY) Pacemaker: No Other Surgery: Yes Family History Family Myocardial Infarction: Yes Social History Alcohol Use: Yes (RARELY) Tobacco Use: No Substance Use: No Allergies-Medications (Allergen,Severity, Reaction): Coded Allergies: butorphanol (Verified Allergy, Severe, "I GO CRAZY", 12/29/17) HALLUCINATIONS acetaminophen (Verified Allergy, Intermediate, Rash, 12/29/17) oxycodone (Verified Allergy, Intermediate, Rash, 12/29/17) Reported Meds & Prescriptions Reported Meds & Active Scripts Active Bactrim DS (Sulfamethoxazole-Trimethoprim) 800-160 Mg Tab 1 Tab PO BID Pantoprazole (Pantoprazole Sodium) 40 Mg Tab 40 Mg PO DAILY Sm Anti-Diarrheal (Loperamide HCl) 2 Mg Cap 1 Tab PO Q6HR PRN Acidophilus/l-Sporogenes (Lactobacillus Acidophilus) 35 Million Cell-25 Million Cell Tab 1 Tab PO TID 14 Days Potassium Chloride Microencaps 20 Meq Tab 20 Meq PO DAILY Dilaudid (Hydromorphone HCl) 2 Mg Tab 2 Mg PO Q6H PRN Gabapentin 800 Mg Tab 800 Mg PO QID Lasix (Furosemide) 40 Mg Tab 40 Mg PO DAILY Reported Cetirizine (Cetirizine HCl) 10 Mg Chew 10 Mg CHEW DAILY Aspir-81 (Aspirin) [address] (Duloxetine HCl) 20 Mg Capdr 20 Mg PO DAILY Managed by Psychiatry Zolpidem (Zolpidem Tartrate) 5 Mg Tab 5 Mg PO HS PRN Managed by Psychiatry Topamax (Topiramate) 50 Mg Tab 50 Mg PO TID Managed by Psychiatry Levothyroxine (Levothyroxine Sodium) 75 Mcg Tab 75 Mcg PO DAILY Diazepam 10 Mg Tab 10 Mg PO BID PRN Managed by Psychiatry Ventolin Hfa 18 GM Inh (Albuterol Sulfate) 90 Mcg/Act Aer 2 Puff INH Q4-6H PRN Review of Systems Except as stated in HPI: all other systems reviewed are Neg Physical Exam Narrative GENERAL: Well-nourished, well-developed obese white female no acute distress. PSYCH: Pleasant, cooperative. SKIN: Focused skin assessment warm/dry. HEAD: Normocephalic. EYES: No scleral icterus. No injection or drainage. NECK: Supple, trachea midline. No JVD or lymphadenopathy. CARDIOVASCULAR: Regular rate and rhythm without murmurs, gallops, or rubs. RESPIRATORY: Breath sounds clear and equal bilaterally. No accessory muscle use. GASTROINTESTINAL: Abdomen soft, non-tender, nondistended. Active bowel sounds. MUSCULOSKELETAL: No cyanosis, or edema. Moves extremities spontaneously. BACK: Nontender without obvious deformity. No CVA tenderness. Data Data Last Documented VS Vital Signs Date Time Temp Pulse Resp B/P (MAP) Pulse Ox O2 Delivery O2 Flow Rate FiO2 02/15/18 08:00 97.7 70 15 119/74 (89) 99 Room Air Orders Orders Complete Blood Count With Diff (02/14/18 20:00) Comprehensive Metabolic Panel (02/14/18 20:00) Thyroid Stimulating Hormone (02/14/18 20:00) Urinalysis - C+S If Indicated (02/14/18 20:00) Psych Screen (02/14/18 20:00) Drug Screen, Random Urine (02/14/18 20:00) Alcohol (Ethanol) (02/14/18 20:00) Topiramate (Topamax) (02/14/18 21:50) Potassium Chloride (Kcl) (02/14/18 23:00) Diet Regular Basic (02/15/18 Breakfast) Urine Culture (02/15/18 06:10) Sulfamet-Trimeth Ds 800-160 Mg (Bactrim (02/15/18 11:15) Labs Laboratory Tests Test 02/14/18 20:50 02/14/18 23:30 02/15/18 06:10 White Blood Count 6.5 TH/MM3 Red Blood Count 4.55 MIL/MM3 Hemoglobin 13.2 GM/DL Hematocrit 39.6 % Mean Corpuscular Volume 87.0 FL Mean Corpuscular Hemoglobin 28.9 PG Mean Corpuscular Hemoglobin Concent 33.2 % Red Cell Distribution Width 14.8 % Platelet Count 238 TH/MM3 Mean Platelet Volume 8.1 FL Neutrophils (%) (Auto) 48.1 % Lymphocytes (%) (Auto) 41.7 % Monocytes (%) (Auto) 6.3 % Eosinophils (%) (Auto) 3.4 % Basophils (%) (Auto) 0.5 % Neutrophils # (Auto) 3.1 TH/MM3 Lymphocytes # (Auto) 2.7 TH/MM3 Monocytes # (Auto) 0.4 TH/MM3 Eosinophils # (Auto) 0.2 TH/MM3 Basophils # (Auto) 0.0 TH/MM3 CBC Comment DIFF FINAL Differential Comment Blood Urea Nitrogen 9 MG/DL Creatinine 1.12 MG/DL Random Glucose 101 MG/DL Total Protein 7.9 GM/DL Albumin 3.2 GM/DL Calcium Level 8.6 MG/DL Alkaline Phosphatase 144 U/L Aspartate Amino Transf (AST/SGOT) 24 U/L Alanine Aminotransferase (ALT/SGPT) 30 U/L Total Bilirubin 0.5 MG/DL Sodium Level 139 MEQ/L Potassium Level 3.2 MEQ/L Chloride Level 106 MEQ/L Carbon Dioxide Level 23.9 MEQ/L Anion Gap 9 MEQ/L Estimat Glomerular Filtration Rate 50 ML/MIN Thyroid Stimulating Hormone 3rd Gen 1.690 uIU/ML Ethyl Alcohol Level LESS THAN 3 MG/DL Urine Color YELLOW Urine Turbidity HAZY Urine pH 5.5 Urine Specific [place] 1.023 Urine Protein TRACE mg/dL Urine Glucose (UA) NEG mg/dL Urine Ketones NEG mg/dL Urine Occult Blood NEG Urine Nitrite POS Urine Bilirubin NEG Urine Urobilinogen LESS THAN 2.0 MG/DL Urine Leukocyte Esterase NEG Urine RBC LESS THAN 1 /hpf Urine WBC 3 /hpf Urine Squamous Epithelial Cells 1 /hpf Urine Bacteria MANY /hpf Urine Hyaline Casts 2 /lpf Urine Mucus FEW /lpf Microscopic Urinalysis Comment CULTURE INDICATED Urine Opiates Screen NEG Urine Barbiturates Screen NEG Urine Amphetamines Screen NEG Urine Benzodiazepines Screen POS Urine Cocaine Screen NEG Urine Cannabinoids Screen POS MDM Medical Decision Making Medical Screen Exam Complete: Yes Emergency Medical Condition: Yes Differential Diagnosis Adjustment disorder versus anxiety versus bipolar versus depression versus dementia versus electrolyte disorder versus malingering versus mood disorder versus ODD versus psychosis versus PTSD versus schizophrenia versus schizoaffective disorder versus substance-induced mood disorder versus other Narrative Course 57-year-old female with PMH of depression, bipolar presents to the ED under Hooks act for psychiatric evaluation. According to the Hooks act the patient made suicidal threats to her , stating that she would OD on her medications. On exam the patient admits to making these statements, however she states that she made the statements in an attempt to get her to leave her alone. She states that there have been violent episodes in the house lately and the is under restraining order but text her repeatedly today. She adamantly denies suicidal ideation. She does admit history of suicide attempt but states that "I will never do that again because of my children." She takes Topamax and Cymbalta but has not taken them for the last few days. She endorses history of chronic pain, no worse today. No other physical/somatic complaints. Vitals reviewed. Exam is reassuring. No concerning abnormalities of the CBC. Potassium 3.2, CMP otherwise unremarkable. Patient was administered 40 mEq of potassium by mouth. Tox screen positive for benzodiazepines and cannabinoids. UA hazy, nitrite positive , many bacteria. Culture pending. Patient is prescribed Bactrim DS twice daily 3 days. First dose was administered in the ED. Patient is medically clear for psychiatric evaluation. Scripts Sulfamethoxazole-Trimethoprim (Bactrim DS) 800-160 Mg Tab 1 TAB PO BID for Infection, #6 TAB 0 Refills Prov: Champ Du MD 02/15/18 Arminda Rodgers Feb 14, 2018 21:54
[2018-02-14 22:03] LABS: AUTOMATED NEUTROPHIL # 3.1 TH/MM3 (1.8-7.7); BASOPHIL % 0.5 % (0.0-2.0); EOSINOPHIL # 0.2 TH/MM3 (0-0.4); EOSINOPHIL % 3.4 % (0.0-4.0); HEMATOCRIT 39.6 % (35.0-46.0); HEMOGLOBIN 13.2 GM/DL (11.6-15.3); LYMPH % 41.7 % (9.0-44.0); LYMPHOCYTE # 2.7 TH/MM3 (1.0-4.8); MEAN CORPUSCULAR HEMOGLOBIN 28.9 PG (27.0-34.0); MEAN CORPUSCULAR HGB CONC 33.2 % (32.0-36.0); MEAN PLATELET VOLUME 8.1 FL (7.0-11.0); MONO % 6.3 % (0.0-8.0); MONOCYTE # 0.4 TH/MM3 (0-0.9); NEUT % 48.1 % (16.0-70.0); PLATELET COUNT 238 TH/MM3 (150-450); RED BLOOD COUNT 4.55 MIL/MM3 (4.00-5.30); RED CELL DISTRIBUTION WIDTH 14.8 % (11.6-17.2); WHITE BLOOD COUNT 6.5 TH/MM3 (4.0-11.0)
[2018-02-14 22:17] LABS: ALBUMIN 3.2 GM/DL (3.4-5.0); AST (GOT) 24 U/L (15-37); BICARBONATE 23.9 MEQ/L (21.0-32.0); BLOOD UREA NITROGEN 9 MG/DL (7-18); CALCIUM 8.6 MG/DL (8.5-10.1); CHLORIDE 106 MEQ/L (98-107); CREATININE 1.12 MG/DL (0.50-1.00); GLOMERULAR FILTRATION RATE 50 ML/MIN (>89); GLUCOSE,RANDOM 101 MG/DL (74-106); SODIUM (NA) 139 MEQ/L (136-145)
[2018-02-14 22:18] LABS: ALT (GPT) 30 U/L (10-53)
[2018-02-14 22:30] LABS: ALKALINE PHOSPHATASE 144 U/L (45-117); TOTAL BILIRUBIN ADULT 0.5 MG/DL (0.2-1.0); TOTAL PROTEIN 7.9 GM/DL (6.4-8.2)
[2018-02-14] MEDS ORDERED: POTASSIUM CHLORIDE 20 MEQ CONTROLLED RELEASE TAB PO ONE (23:00)
[2018-02-15 02:36] VITALS: BP 124/79; PULSE 76; RESP 18; O2SAT 97
[2018-02-15 06:54] LABS: BACTERIA, URINE MANY /hpf; BILIRUBIN, URINE NEG (NEG); BLOOD, URINE NEG (NEG); GLUCOSE,URINE NEG (NEG); HYALINE CAST, URINE 2 /lpf (RARE); KETONE, URINE NEG (NEG); MUCUS URINE FEW /lpf (OCC); NITRITE,URINE POS (NEG); PH, URINE 5.5 (5.0-8.5); SQUAMOUS EPITHELIAL CELL URINE 1 /hpf (0-5); URINE COLOR YELLOW (YELLW/STRAW); URINE LEUKOCYTE ESTERASE NEG (NEG)
[2018-02-15 08:00] VITALS: BP 119/74; PULSE 70; RESP 15; TEMP 97.7; O2SAT 99
[2018-02-15] MEDS ORDERED: BACT800T5 PO (11:11)
[2018-02-15] MEDS ORDERED: SULFAMETHOXAZOLE-TRIMETHOPRIM DS 800-160 MG TAB PO SCH (11:15)
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
--- NOTE | 2018-02-15 11:31 | PD ---
Physical Exam Time Seen by Provider: 11:28 VALENTE Montalvo has evaluated patient, lifted Hooks act and cleared the patient for discharge. Data Data Last Documented VS Vital Signs Date Time Temp Pulse Resp B/P (MAP) Pulse Ox O2 Delivery O2 Flow Rate FiO2 02/15/18 08:00 97.7 70 15 119/74 (89) 99 Room Air Orders Orders Complete Blood Count With Diff (02/14/18 20:00) Comprehensive Metabolic Panel (02/14/18 20:00) Thyroid Stimulating Hormone (02/14/18 20:00) Urinalysis - C+S If Indicated (02/14/18 20:00) Psych Screen (02/14/18 20:00) Drug Screen, Random Urine (02/14/18 20:00) Alcohol (Ethanol) (02/14/18 20:00) Topiramate (Topamax) (02/14/18 21:50) Potassium Chloride (Kcl) (02/14/18 23:00) Diet Regular Basic (02/15/18 Breakfast) Urine Culture (02/15/18 06:10) Sulfamet-Trimeth Ds 800-160 Mg (Bactrim (02/15/18 11:15) Labs Laboratory Tests Test 02/14/18 20:50 02/14/18 23:30 02/15/18 06:10 White Blood Count 6.5 TH/MM3 Red Blood Count 4.55 MIL/MM3 Hemoglobin 13.2 GM/DL Hematocrit 39.6 % Mean Corpuscular Volume 87.0 FL Mean Corpuscular Hemoglobin 28.9 PG Mean Corpuscular Hemoglobin Concent 33.2 % Red Cell Distribution Width 14.8 % Platelet Count 238 TH/MM3 Mean Platelet Volume 8.1 FL Neutrophils (%) (Auto) 48.1 % Lymphocytes (%) (Auto) 41.7 % Monocytes (%) (Auto) 6.3 % Eosinophils (%) (Auto) 3.4 % Basophils (%) (Auto) 0.5 % Neutrophils # (Auto) 3.1 TH/MM3 Lymphocytes # (Auto) 2.7 TH/MM3 Monocytes # (Auto) 0.4 TH/MM3 Eosinophils # (Auto) 0.2 TH/MM3 Basophils # (Auto) 0.0 TH/MM3 CBC Comment DIFF FINAL Differential Comment Blood Urea Nitrogen 9 MG/DL Creatinine 1.12 MG/DL Random Glucose 101 MG/DL Total Protein 7.9 GM/DL Albumin 3.2 GM/DL Calcium Level 8.6 MG/DL Alkaline Phosphatase 144 U/L Aspartate Amino Transf (AST/SGOT) 24 U/L Alanine Aminotransferase (ALT/SGPT) 30 U/L Total Bilirubin 0.5 MG/DL Sodium Level 139 MEQ/L Potassium Level 3.2 MEQ/L Chloride Level 106 MEQ/L Carbon Dioxide Level 23.9 MEQ/L Anion Gap 9 MEQ/L Estimat Glomerular Filtration Rate 50 ML/MIN Thyroid Stimulating Hormone 3rd Gen 1.690 uIU/ML Ethyl Alcohol Level LESS THAN 3 MG/DL Urine Color YELLOW Urine Turbidity HAZY Urine pH 5.5 Urine Specific [place] 1.023 Urine Protein TRACE mg/dL Urine Glucose (UA) NEG mg/dL Urine Ketones NEG mg/dL Urine Occult Blood NEG Urine Nitrite POS Urine Bilirubin NEG Urine Urobilinogen LESS THAN 2.0 MG/DL Urine Leukocyte Esterase NEG Urine RBC LESS THAN 1 /hpf Urine WBC 3 /hpf Urine Squamous Epithelial Cells 1 /hpf Urine Bacteria MANY /hpf Urine Hyaline Casts 2 /lpf Urine Mucus FEW /lpf Microscopic Urinalysis Comment CULTURE INDICATED Urine Opiates Screen NEG Urine Barbiturates Screen NEG Urine Amphetamines Screen NEG Urine Benzodiazepines Screen POS Urine Cocaine Screen NEG Urine Cannabinoids Screen POS MDM Supervised Visit with ALEXANDER: VALENTE Resendiz has evaluated patient, lifted Neva chandler and cleared the patient for discharge. Patient contracts safety. Denies suicidal or homicidal ideations. Patient will be provided community resource packet to [facility] for follow-up. Has friends and family for support. Patient was medically cleared by alternate provider prior to psych screening. Patient has been evaluated by psychiatry and and is now cleared for discharge. Diagnosis Primary Impression: Bipolar depression Referrals: [facility] (Out patient) [facility] Primary Care Physician Psychiatrist Lola [facility]AND[facility] Patient Instructions: Bipolar Disorder (ED), Depression (ED), General Instructions, Urinary Tract Infection in Women (ED) Additional Instruction: Contract safety to your self and others Follow-up with psychiatry Follow-up with primary care provider Follow-up with Brennen Jain Return to the emergency department immediately with worsening of symptoms Take antibiotics as prescribed and complete full course Drink plenty of fluids Maintain good personal hygiene Follow-up with primary care provider Return to the emergency department immediately with worsening of symptoms Med/Other Pt SpecificInfo: Prescription(s) given Scripts Sulfamethoxazole-Trimethoprim (Bactrim DS) 800-160 Mg Tab 1 TAB PO BID for Infection, #6 TAB 0 Refills Prov: Champ Du MD 02/15/18 Disposition: 01 DISCHARGE HOME Condition: Stable Jazmyn Bradley Feb 15, 2018 11:31
[2018-02-15 12:15] VITALS: BP 122/69; PULSE 77; RESP 18; O2SAT 98
== END 2018-02-15 12:52 | disposition home or self-care (01) ==
LOC: NEDAMB 18:54 → NEPD 02-15 12:52
DX: F31.9 Bipolar disorder, unspecified (principal); N39.0 Urinary tract infection, site not specified; B96.20 Unspecified Escherichia coli [E. coli] as the cause of diseases classified elsewhere; M79.7 Fibromyalgia; F41.9 Anxiety disorder, unspecified; I10 Essential (primary) hypertension; E78.00 Pure hypercholesterolemia, unspecified; E11.9 Type 2 diabetes mellitus without complications; I25.10 Atherosclerotic heart disease of native coronary artery without angina pectoris
CPT/HCPCS: 80053; 80201; 80307; 81001; 84443; 85025; 87077; 87086; 87186; 99283